=== PATIENT | female | born 1955 | race Caucasian/White ===

== ENCOUNTER 2020-10-13 08:30 | Outpatient (REF) | payer BC, SELFPAY ==
[2020-10-13 10:21] LABS: MANUAL DIFF FLAG NO
[2020-10-13 10:32] LABS: Basophils Absolute Auto 0.1 X10*3/uL (0.0-0.2); Basophils Percent Auto 0.9 % (0-2); Eosinophils Absolute Auto 0.2 X10*3/uL (0.0-0.4); Eosinophils Percent Auto 4.3 % (0-4); Hematocrit 37.1 % (37-47); Hemoglobin 12.8 g/dl (12.0-16.0); Imm Gran Abs Auto 0.03 X10*3/uL (0.00-0.03); Imm Gran Pct Auto 0.6 % (0.0-0.4); Lymphocytes Absolute Auto 2.2 X10*3/uL (1.2-4.9); Lymphocytes Percent Auto 40.3 % (20-40); Mean Corpuscular HGB Conc 34.5 g/dl (31.0-35.0); Mean Corpuscular Hemoglobin 30.3 pg (27.0-33.0); Mean Corpuscular Volume 87.7 fL (80-98); Mean Platelet Volume 8.4 fL (9.4-12.3); Monocytes Absolute Auto 0.3 X10*3/uL (0.1-1.2); Monocytes Percent Auto 6.3 % (2-11); Neutrophils Absolute Auto 2.6 X10*3/uL (2.0-8.3); Neutrophils Percent Auto 47.6 % (45-73); Platelet Count 409 X10*3/uL (160-400); Red Blood Count 4.23 X10*6/uL (4.20-5.50); White Blood Count 5.4 X10*3/uL (4.8-10.8)
[2020-10-13 11:10] LABS: Alanine Aminotransferase 22 U/L (0-31); Albumin Level 4.4 g/dL (3.5-5.0); Alkaline Phosphatase 105 U/L (39-117); Anion Gap 15 (12-20); Aspartate Amino Transferase 18 U/L (5-31); Bilirubin Total 0.5 mg/dL (0.0-1.0); Blood Urea Nitrogen 16 mg/dL (9-16); Calcium 9.2 mg/dL (8.4-10.2); Carbon Dioxide 25 mmol/L (22-29); Chloride 99 mmol/L (96-108); Cholesterol 190 mg/dL; Estimated Glomerular Filt Rate 59; Glucose Fasting 114 mg/dL (60-99); HDL Cholesterol 49 mg/dL; LDL Cholesterol Calculated 114 mg/dl; Potassium 4.3 mmol/l (3.3-5.1); Sodium 135 mmol/L (135-145); Total Protein 7.2 g/dL (6.5-8.0); Triglycerides 138 mg/dL
== END 2020-10-13 08:31 | disposition home or self-care (01) ==
LOC: HO.LAB 08:30
PROVIDERS: PCP Internal Medicine; Visit Provider Internal Medicine
DX: Z00.00 Encounter for general adult medical examination without abnormal findings (principal); E11.9 Type 2 diabetes mellitus without complications
CPT/HCPCS: 36415; 80053; 80061; 85025

== ENCOUNTER 2021-06-29 07:51 | Outpatient (REF) | payer MEDICARE, BC, SELFPAY ==
[2021-06-29 09:03] LABS: MANUAL DIFF FLAG NO
[2021-06-29 09:07] LABS: Basophils Percent Auto 0.6 % (0-2); Eosinophils Absolute Auto 0.2 X10*3/uL (0.0-0.4); Eosinophils Percent Auto 2.7 % (0-4); Hematocrit 37.3 % (37-47); Hemoglobin 12.7 g/dl (12.0-16.0); Imm Gran Abs Auto 0.05 X10*3/uL (0.00-0.03); Imm Gran Pct Auto 0.7 % (0.0-0.4); Lymphocytes Absolute Auto 2.7 X10*3/uL (1.2-4.9); Lymphocytes Percent Auto 40.4 % (20-40); Mean Corpuscular Hemoglobin 29.7 pg (27.0-33.0); Mean Corpuscular Volume 87.1 fL (80-98); Mean Platelet Volume 8.7 fL (9.4-12.3); Monocytes Absolute Auto 0.5 X10*3/uL (0.1-1.2); Monocytes Percent Auto 7.6 % (2-11); Neutrophils Absolute Auto 3.2 X10*3/uL (2.0-8.3); Platelet Count 360 X10*3/uL (160-400); Red Blood Count 4.28 X10*6/uL (4.20-5.50); Red Cell Distribution Width 13.6 % (11.0-16.0); White Blood Count 6.7 X10*3/uL (4.8-10.8)
[2021-06-29 09:25] LABS: Alanine Aminotransferase 23 U/L (0-31); Albumin Level 4.7 g/dL (3.5-5.0); Alkaline Phosphatase 95 U/L (39-117); Anion Gap 19 (12-20); Aspartate Amino Transferase 18 U/L (5-31); Bilirubin Total 0.6 mg/dL (0.0-1.0); Blood Urea Nitrogen 18 mg/dL (9-16); Calcium 10.2 mg/dL (8.4-10.2); Carbon Dioxide 19 mmol/L (22-29); Chloride 103 mmol/L (96-108); Cholesterol 205 mg/dL; Estimated Glomerular Filt Rate 46; Glucose Fasting 137 mg/dL (60-99); HDL Cholesterol 65 mg/dL; LDL Cholesterol Calculated 115 mg/dl; Potassium 4.1 mmol/L (3.3-5.1); Sodium 137 mmol/L (135-145); Total Protein 7.5 g/dL (6.5-8.0); Triglycerides 126 mg/dL
[2021-06-29 09:45] LABS: Thyroid Stimulating Hormone 3.28 uIU/mL (0.32-4.0)
== END 2021-06-29 07:52 | disposition home or self-care (01) ==
LOC: HO.LAB 07:51
PROVIDERS: PCP Internal Medicine; Visit Provider Internal Medicine
DX: Z00.00 Encounter for general adult medical examination without abnormal findings (principal); E11.9 Type 2 diabetes mellitus without complications; E03.9 Hypothyroidism, unspecified
CPT/HCPCS: 36415; 80053; 80061; 84443; 85025

== ENCOUNTER 2021-08-03 08:17 | Outpatient (REF) | payer MEDICARE, BC, SELFPAY ==
[2021-08-03 09:44] LABS: Cholesterol 198 mg/dL; HDL Cholesterol 62 mg/dL; LDL Cholesterol Calculated 107 mg/dl; Triglycerides 147 mg/dL
== END 2021-08-03 08:18 | disposition home or self-care (01) ==
LOC: HO.LAB 08:17
PROVIDERS: PCP Internal Medicine; Visit Provider Internal Medicine
DX: E11.9 Type 2 diabetes mellitus without complications (principal)
CPT/HCPCS: 36415; 80061

== ENCOUNTER 2021-08-05 10:53 | Outpatient (REF) | payer MEDICARE, BC, SELFPAY ==
--- NOTE | ~2021-08-05 | MM_ITS ---
EXAMINATION: MM SCREENING DIGITAL BREAST TOMOSYNTHESIS, BILATERAL CLINICAL INFORMATION: Screening. Asymptomatic. The lifetime risk of breast cancer based on the Tyrer-Cuzick Model is 5.1%. COMPARISON: Mammography: June 11, 2020 and studies dating back to February 14, 2013 TECHNIQUE: Digital breast tomosynthesis is performed in both the craniocaudal and mediolateral oblique views along with computer-aided detection (CAD). Synthesized 2D images are generated from the tomosynthesis. FINDINGS: There are scattered areas of fibroglandular density (ACR BI-RADS breast composition Category b). There are no significant masses, abnormal calcifications, or other abnormalities. MM/MM tomosynthesis screening BI IMPRESSION: There are no significant changes from prior study. ASSESSMENT: BI-RADS 1: Negative RECOMMENDATION: Routine annual mammography screening. This patient's information was entered into a reminder system with a target due date for their next mammogram.
== END 2021-08-05 10:54 | disposition home or self-care (01) ==
LOC: HO.MAMMO 10:53
PROVIDERS: Visit Provider Internal Medicine
DX: Z12.31 Encounter for screening mammogram for malignant neoplasm of breast (principal)
CPT/HCPCS: 77063; 77067

== ENCOUNTER 2021-10-22 07:32 | Outpatient (REF) | payer MEDICARE, BC, SELFPAY ==
[2021-10-22 09:15] LABS: Cholesterol 209 mg/dL; HDL Cholesterol 56 mg/dL; LDL Cholesterol Calculated 123 mg/dl; Triglycerides 151 mg/dL
== END 2021-10-22 07:33 | disposition home or self-care (01) ==
LOC: HO.LAB 07:32
PROVIDERS: PCP Internal Medicine; Visit Provider Internal Medicine
DX: E11.9 Type 2 diabetes mellitus without complications (principal)
CPT/HCPCS: 36415; 80061

== ENCOUNTER 2022-05-03 07:16 | Outpatient (REF) | payer MEDICARE, BC, SELFPAY ==
[2022-05-03 08:29] LABS: Estimated Average Glucose 140 mg/dL; Hemoglobin A1c % 6.5 %
[2022-05-03 08:46] LABS: Cholesterol 204 mg/dL; Glucose Fasting 131 mg/dL (60-99); HDL Cholesterol 61 mg/dL; LDL Cholesterol Calculated 115 mg/dl; Triglycerides 140 mg/dL
[2022-05-03 09:08] LABS: Thyroid Stimulating Hormone 4.47 uIU/mL (0.32-4.0)
== END 2022-05-03 07:17 | disposition home or self-care (01) ==
LOC: HO.LAB 07:16
PROVIDERS: PCP Internal Medicine; Visit Provider Internal Medicine
DX: Z00.00 Encounter for general adult medical examination without abnormal findings (principal); E11.65 Type 2 diabetes mellitus with hyperglycemia
CPT/HCPCS: 36415; 80061; 82947; 83036; 84443

== ENCOUNTER 2022-06-28 10:34 | Outpatient (REF) | payer MEDICARE, BC, SELFPAY ==
--- NOTE | ~2022-06-28 | XR_ITS ---
EXAMINATION: XR HIP, RIGHT CLINICAL INFORMATION: Pain COMPARISON: None TECHNIQUE: Two views of the right hip. FINDINGS: There is moderate to severe right hip arthritis with joint space narrowing and osteophyte formation. No fracture or dislocation or bone lesion. Soft tissues are unremarkable. There are degenerative changes of the visualized lower lumbar spine. XR/XR hip RT min 2V IMPRESSION: Moderate to severe right hip osteoarthritis.
== END 2022-06-28 10:35 | disposition home or self-care (01) ==
LOC: HO.XRAY 10:34
PROVIDERS: PCP Internal Medicine; Visit Provider Internal Medicine
DX: M25.551 Pain in right hip (principal)
CPT/HCPCS: 73502

== ENCOUNTER 2022-07-22 07:09 | Outpatient (REF) | payer MEDICARE, BC, SELFPAY ==
[2022-07-22 08:08] LABS: Cholesterol 200 mg/dL; HDL Cholesterol 62 mg/dL; LDL Cholesterol Calculated 111 mg/dl; Triglycerides 135 mg/dL
== END 2022-07-22 07:10 | disposition home or self-care (01) ==
LOC: HO.LAB 07:09
PROVIDERS: PCP Internal Medicine; Visit Provider Internal Medicine
DX: E78.5 Hyperlipidemia, unspecified (principal)
CPT/HCPCS: 36415; 80061

== ENCOUNTER 2022-08-18 10:42 | Outpatient (REF) | payer MEDICARE, BC, SELFPAY ==
--- NOTE | ~2022-08-18 | MM_ITS ---
EXAMINATION: MM SCREENING DIGITAL BREAST TOMOSYNTHESIS, BILATERAL CLINICAL INFORMATION: Screening. Asymptomatic. The lifetime risk of breast cancer based on the Tyrer-Cuzick Model is 5%. COMPARISON: Mammography: 08/05/2021, 06/11/2020, 03/01/2019 TECHNIQUE: Digital breast tomosynthesis is performed in both the craniocaudal and mediolateral oblique views along with computer-aided detection (CAD). Synthesized 2D images are generated from the tomosynthesis. Additional left MLO view is provided. FINDINGS: There are scattered areas of fibroglandular density (ACR BI-RADS breast composition Category b). There are no significant masses, abnormal calcifications, or other abnormalities. Parenchymal pattern is similar to prior studies and there is no developing density or architectural abnormality. Mild bilateral nipple retraction is a chronic finding. The axilla are unremarkable. No significant changes. MM/MM tomosynthesis screening BI IMPRESSION: No significant changes from prior exams. ASSESSMENT: BI-RADS 2: Benign RECOMMENDATION: Routine annual mammography screening. This patient's information was entered into a reminder system with a target due date for their next mammogram.
== END 2022-08-18 10:43 | disposition home or self-care (01) ==
LOC: HO.MAMMO 10:42
PROVIDERS: Visit Provider Internal Medicine
DX: Z12.31 Encounter for screening mammogram for malignant neoplasm of breast (principal)
CPT/HCPCS: 77063; 77067

== ENCOUNTER 2022-08-26 07:49 | Outpatient (REF) | payer MEDICARE, BC, SELFPAY ==
[2022-08-26 09:09] LABS: Cholesterol 189 mg/dL; HDL Cholesterol 63 mg/dL; LDL Cholesterol Calculated 103 mg/dl; Triglycerides 117 mg/dL
== END 2022-08-26 07:50 | disposition home or self-care (01) ==
LOC: HO.LAB 07:49
PROVIDERS: PCP Internal Medicine; Visit Provider Internal Medicine
DX: E78.5 Hyperlipidemia, unspecified (principal)
CPT/HCPCS: 36415; 80061

== ENCOUNTER → 2022-10-28 10:50 | Outpatient (BNVA) | payer MEDICARE, BC, SELFPAY | PROVIDERS: PCP Internal Medicine; Visit Provider Orthopaedic Surgery | DX: M16.11 Unilateral primary osteoarthritis, right hip (principal) | CPT/HCPCS: 99202 ==

== ENCOUNTER 2022-12-04 08:13 | Outpatient (REF) | payer MEDICARE, BC, SELFPAY ==
[2022-12-04 08:42] LABS: MANUAL DIFF FLAG NO
[2022-12-04 09:18] LABS: Basophils Percent Auto 0.7 % (0-2); Eosinophils Absolute Auto 0.2 X10*3/uL (0.0-0.4); Eosinophils Percent Auto 2.9 % (0-4); Hematocrit 35.7 % (37.0-47.0); Hemoglobin 12.5 g/dl (12.0-16.0); Imm Gran Abs Auto 0.05 X10*3/uL (0.00-0.03); Imm Gran Pct Auto 0.8 % (0.0-0.4); Lymphocytes Percent Auto 34.3 % (20-40); Mean Corpuscular Hemoglobin 30.6 pg (27.0-33.0); Mean Corpuscular Volume 87.5 fL (80.0-98.0); Mean Platelet Volume 8.5 fL (9.4-12.3); Monocytes Absolute Auto 0.5 X10*3/uL (0.1-1.2); Monocytes Percent Auto 8.3 % (2-11); Neutrophils Absolute Auto 3.1 x10*3/uL (2.0-8.3); Platelet Count 349 X10*3/uL (160-400); Red Blood Count 4.08 X10*6/uL (4.20-5.50); White Blood Count 5.9 X10*3/uL (4.8-10.8)
[2022-12-04 09:28] LABS: Estimated Average Glucose 143 mg/dL; Hemoglobin A1c % 6.6 %
[2022-12-04 10:02] LABS: Alanine Aminotransferase 24 U/L (0-31); Albumin Level 4.4 g/dL (3.5-5.0); Alkaline Phosphatase 100 U/L (39-117); Anion Gap 16 (12-20); Aspartate Amino Transferase 19 U/L (5-31); Bilirubin Total 0.7 mg/dL (0.0-1.0); Blood Urea Nitrogen 16 mg/dL (9-16); Calcium 9.8 mg/dL (8.4-10.2); Carbon Dioxide 24 mmol/L (22-29); Chloride 100 mmol/L (96-108); Cholesterol 203 mg/dL; Estimated Glomerular Filt Rate 55; Glucose Fasting 141 mg/dL (60-99); HDL Cholesterol 58 mg/dL; LDL Cholesterol Calculated 120 mg/dl; Potassium 4.1 mmol/L (3.3-5.1); Sodium 136 mmol/L (135-145); Total Protein 7.1 g/dL (6.5-8.0); Triglycerides 126 mg/dL
== END 2022-12-04 08:14 | disposition home or self-care (01) ==
LOC: HO.LAB 08:13
PROVIDERS: PCP Internal Medicine; Visit Provider Internal Medicine
DX: R73.9 Hyperglycemia, unspecified (principal); E78.5 Hyperlipidemia, unspecified; N28.9 Disorder of kidney and ureter, unspecified; D64.9 Anemia, unspecified; E03.9 Hypothyroidism, unspecified
CPT/HCPCS: 36415; 80053; 80061; 83036; 84443; 85025

== ENCOUNTER → 2022-12-31 11:44 | Outpatient (BNVA) | payer MEDICARE, BC, SELFPAY | PROVIDERS: PCP Internal Medicine; Visit Provider Orthopaedic Surgery | DX: Z13.89 Encounter for screening for other disorder (principal) ==

== ENCOUNTER 2023-01-27 05:52 | Outpatient (REF) | payer MEDICARE, BC, SELFPAY ==
--- NOTE | ~2023-01-27 | XR_ITS ---
EXAMINATION: XR PELVIS CLINICAL INFORMATION: Hip pain. COMPARISON: None available. TECHNIQUE: AP view of the pelvis. FINDINGS: There is bony demineralization. There is marked narrowing of the right acetabular joint space, most pronounced superiorly and inferiorly. There is exuberant peripheral osteophyte formation of the articular surfaces of the right hip. There is mild narrowing of the left acetabular joint space, with subchondral sclerosis and peripheral osteophyte formation. The femoral heads appear smooth. There is no fracture or dislocation. The sacroiliac joints are symmetric and well-maintained. The pubic symphysis is intact. No foreign body is seen. There are incompletely characterized degenerative changes of the lower lumbar spine. XR/XR pelvis 1-2V IMPRESSION: 1. There is marked osteoarthritic change of the right hip, and mild osteoarthritic change is seen of the left hip. 2. No fracture or dislocation is seen.
== END 2023-01-27 05:53 | disposition home or self-care (01) ==
LOC: HO.HOSX 05:52
PROVIDERS: Visit Provider Physician Assistant
DX: M16.11 Unilateral primary osteoarthritis, right hip (principal)
CPT/HCPCS: 72170; 99212

== ENCOUNTER 2023-02-01 09:33 | Inpatient (IN) | payer MEDICARE, BC, SELFPAY ==
[2023-01-25 08:59] VITALS: BMI 32.3
--- NOTE | 2023-01-27 | ECG_ITS ---
Test Reason : preop Blood Pressure : / mmHG Vent. Rate : 083 BPM Atrial Rate : 083 BPM P-R Int : 184 ms QRS Dur : 088 ms QT Int : 380 ms P-R-T Axes : 074 -33 059 degrees QTc Int : 446 ms Normal sinus rhythm Left axis deviation Possible Anterior infarct , age undetermined Abnormal ECG No previous ECGs available Referred By: Grady Egan Electronically Signed By:García Munguia
[2023-01-27 11:38] VITALS: BP 126/72; PULSE 89; RESP 20; O2SAT 97
--- NOTE | 2023-01-27 12:08 | HO.ANESPROP2 ---
Documented by User: Nargis Marquez NP 01/31/23 08:49 HPI - Anesthesia Eval Consult details Narrative: 67yo F for Right Hip Total Replacement PCP cleared [facility] Active Problems Active Problems: All Active Problems (Updated 01/27/23 @ 11:56 by Trang Garcia RN) Encounter for annual wellness visit (AWV) in Medicare patient (Acute) Hyperlipidemia (Acute) Arthritis, hip (Acute) Osteoarthritis of right hip (Acute) Preop exam for internal medicine (Acute) Obesity (Acute) Hypertension (Acute) Past Medical History Medical History Arthritis Depression History of gestational diabetes Hypertension Obesity HERBERT (stress urinary incontinence, female) Family History Family History Father No problems noted. Mother No problems noted. Family/Other Heart failure Diabetes CHF (congestive heart failure) Surgical History Surgical History H/O tooth extraction History of section History of removal of cyst Status post surgical removal of nail matrix of toe Social History Social History Housing: House Housing Other:: mobile home Are you a primary overnight caregiver to a significant other at home: No Do you presently have visiting nurse or other home services: No Alcohol intake: current Alcohol intake frequency: holidays/special occasions only Patient Tobacco Use Status: Never used Tobacco e-Cigarette/Vaping Use: Never Used Second Hand Smoke Exposure: No Use of substances other than those prescribed or required for medical reasons: No Have you been hit, kicked, punched, or otherwise hurt by someone within the past year? If so, by whom?: No Are you DNR?: No Advance Directives: No (daughter is primary contact- recently ) Advance Directives Information Provided: Yes (brochure given) Advance Directives on File: No (no official form-daughter knows her wishes) Recently lost weight without trying: No Eating poorly because of decreased appetite: No Nutrition Risks: No Nutritional Risk Poor oral hygiene: No (upper & lower full denture) service: No Current occupational status: retired Current occupational exposures/hazards: No Cognitive needs: No Hearing needs: No Vision needs: Yes Narrative Narrative: No recent No CP/SOB within limits of pain Meds Allergies Allergy/AdvReac Type Severity Reaction Status Date / Time guaifenesin [From MUCINEX] Allergy Unknown SWELLING Verified 01/10/23 14:23 Exam Exam Date and Time: January 27, 2023 1208 Height,Weight and Vital Signs: Height 4 ft 10 in Weight 70.307 kg Last Vital Signs Pulse 89 01/27/23 11:38 Resp 20 01/27/23 11:38 BP 126/72 01/27/23 11:38 Pulse Ox 97 01/27/23 11:38 O2 Del Method 01/27/23 11:38 Pertinent Lab Results Pertinent Lab Results: Laboratory Tests 12/04/22 12/04/22 08:40 08:40 WBC 5.9 Hgb 12.5 Hct 35.7 L Plt Count 349 Sodium 136 Potassium 4.1 Chloride 100 Carbon Dioxide 24 BUN 16 Creatinine 1.01 Narrative Narrative: EKG 01/2023 Vent. Rate : 083 BPM ? ? Atrial Rate : 083 BPM ?? P-R Int : 184 ms? QRS Dur : 088 ms ? ? QT Int : 380 ms ? ? ? P-R-T Axes : 074 -33 059 degrees ?? QTc Int : 446 ms ? Normal sinus rhythm Left axis deviation Possible Anterior infarct , age undetermined Abnormal ECG No previous ECGs available Airway Mallampati Class: III TM Dist: >3cm Neck ROM: Full Denture: Upper and Lower Heart: RRR Lungs: CTAB Assessment and Plan Assessment Anesthesia Assessment: Anesthesia Plan Discussed and PAT Visit Documented by User: Ida Ortega MD 02/01/23 11:58 PMFSH Past Medical History Medical History Arthritis Depression History of gestational diabetes Hypertension Obesity HERBERT (stress urinary incontinence, female) Family History Family History Father No problems noted. Mother No problems noted. Family/Other Heart failure Diabetes CHF (congestive heart failure) Surgical History Surgical History H/O tooth extraction History of section History of removal of cyst Status post surgical removal of nail matrix of toe History of Problems with Anesthesia: No Social History Social History Housing: House Housing Other:: mobile home Are you a primary overnight caregiver to a significant other at home: No Do you presently have visiting nurse or other home services: No Alcohol intake: current Alcohol intake frequency: holidays/special occasions only Patient Tobacco Use Status: Never used Tobacco e-Cigarette/Vaping Use: Never Used Second Hand Smoke Exposure: No Use of substances other than those prescribed or required for medical reasons: No Have you been hit, kicked, punched, or otherwise hurt by someone within the past year? If so, by whom?: No Are you DNR?: No Advance Directives: No (daughter is primary contact- recently ) Advance Directives Information Provided: Yes (brochure given) Advance Directives on File: No (no official form-daughter knows her wishes) Recently lost weight without trying: No Eating poorly because of decreased appetite: No Nutrition Risks: No Nutritional Risk Poor oral hygiene: No (upper & lower full denture) service: No Current occupational status: retired Current occupational exposures/hazards: No Cognitive needs: No Hearing needs: No Vision needs: Yes Meds Allergies Allergy/AdvReac Type Severity Reaction Status Date / Time guaifenesin [From MUCINEX] Allergy Unknown SWELLING Verified 01/10/23 14:23 Exam Airway Mallampati Class: I Assessment and Plan Assessment Anesthesia Assessment: Chart Reviewed Final Anesthetic Review History of Problems with Anesthesia: No NPO: Yes ASA Class: III Final Preanesthetic Review: No Changes in Pt Med Stat, Meds/Allgs Chart Reviewed, Consent Obtained/Reviewed and Anes Risks/Benef Reviewed Patient Risk: Intermediate Procedure Risk: Intermediate Anesthetic Plan Anesthetic Plan: GA Disposition: Standard PACU
[2023-01-27 16:39] LABS: MRSA Nasal PCR NEGATIVE (Negative); SA Nasal PCR NEGATIVE (Negative)
[2023-02-01] VITALS (13 sets, daily range): BP systolic 117–176; BP diastolic 63–94; PULSE 69–100; RESP 10–16; TEMP 36–37.1; O2SAT 96–100
--- NOTE | ~2023-02-01 | XR_ITS ---
EXAMINATION: XR PELVIS CLINICAL INFORMATION: Postop right hip. COMPARISON: Pelvic x-rays 01/27/2023 TECHNIQUE: AP view of the pelvis. FINDINGS: Right total hip arthroplasty hardware is in place with 2 acetabular fixation screws. The hardware is in appropriate position. There is no evidence of associated acute osseous fracture. Bilateral sacroiliac joints, symphysis pubis and left hip joints are intact. [id number] osteoarthritic changes are noted at the left hip. Cutaneous shreya are noted overlying the lateral aspect of the right hip. Expected postsurgical soft tissue edema and air are seen in the right hip. XR/XR pelvis 1-2V IMPRESSION: Expected postsurgical changes of right total hip arthroplasty with hardware appears to be in appropriate position and there is no evidence of acute osseous fracture.
--- NOTE | 2023-02-01 09:42 | PHA.MEDREC ---
Pharmacy Consult ? Medication Reconciliation Pharmacy has reviewed the medication reconciliation completed by nursing.
[2023-02-01] MEDS: oxyCODONE HCl ER 10 MG TAB.ER.12H PO ×2 (09:55→21:26)
[2023-02-01 10:22] LABS: COVID-19 Test Negative (Negative); IDNOW Serial# 08D9AD1C
[2023-02-01] MEDS: Lactated Ringers 1,000 ML 100 ML IVCONT ×2 (10:30→16:58)
--- NOTE | 2023-02-01 10:58 | MHC.SHP ---
Pre-Procedural Eval Section A Date of Service: 02/01/23 The patient is an INPATIENT: No Changes since office visit: No Cold of Flu in the past 2 weeks, No New Medical Problems, No Changes in Medication and No Patient answered all questions The History & Physical has been completed within 30 days and I have reviewed it.: Yes Section B Chief Complaint: RT DAVE Allergies: Allergies Allergy/AdvReac Type Severity Reaction Status Date / Time guaifenesin [From MUCINEX] Allergy Unknown SWELLING Verified 01/10/23 14:23 Plan I have reviewed the history and physical and performed a pertinent physical examination on my patient. No changes have occurred unless specified. Time Spent With Patient Time: Total time managing care of this patient today ____ minutes.
--- NOTE | 2023-02-01 12:32 | PM.OP ---
Brief Operative Note Date of Service: 02/01/23 Pre-op diagnosis: Left hip OA Post-op diagnosis: same Procedure: Left DAVE Implants: [place] Trident2 48 [place] Accolade2 #3 127 deg/ +7.5 36 ceramic femoral head Surgeon: Blaine Page MD Anesthesia: GETA and local Was an Batch Heat Treat Operator used for this Procedure?: Yes Batch Heat Treat Operator: Grady Egan Estimated blood loss (mL): 200 IV fluids (mL): 1,000 Pathology: other Condition: stable Disposition: PACU
--- NOTE | 2023-02-01 12:40 | W.PM.OPN ---
Operative Note Operative Note Date of Service: 02/01/23 Narrative: Date of Service: 02/01/23 Pre-op diagnosis: Left hip OA Post-op diagnosis: same Procedure: Left DAVE Implants: [place] Trident2 48 [place] Accolade2 #3 127 deg/ +7.5 36 ceramic femoral head Surgeon: Blaine Page MD Anesthesia: GETA and local Was an Premium Cancellation Clerk used for this Procedure?: Yes Premium Cancellation Clerk: Grady Egan Estimated blood loss (mL): 200 IV fluids (mL): 1,000 Pathology: other Condition: stable Disposition: PACU Procedure in detail: Patient was brought into the operating room and placed in the right lateral decubitus position. All bony prominences were well padded and the limb was prepped and draped in standard sterile fashion. A time-out was called to identify proper site procedure proper surgeon IV antibiotics and 1 g of transaxemic acid were administered. I began by making a curvilinear incision over the posterolateral aspect of the greater trochanter. Dissection was taken down to the tensor fascia which was incised in line with the incision and a Charnley retractor was placed. Cautery was used to maintain hemostasis. The hip was internally rotated and the external rotators were identified. The vessels were cauterized and a full-thickness capsular/external rotator layer was developed starting just proximal to the piriformis. This layer was tagged and a dull Hohmann retractor was placed underneath the neck in the hip was dislocated. A neck cut was made 1 cm proximal to the lesser trochanter and the head and neck were removed and measured 44mm on the back table. It was eburnated and deformed. I placed my anterior and posterior acetabular retractors. I then removed the labrum and cauterized the fovea. I started with a 40 reamer and medialized to the inner table. I sequentially reamed up to a size 53 and impacted a 54mm cup at 45 degrees of inclination and 25 degrees of version. She has a diminutive superior wall and so 2 acetabular screws were placed using standard AO technique. I then placed a neutral liner and turned my attention to the femur. I identified the piriformis insertion and used this as a starting point for my sowmya cutter. The medius tendon was protected with a Hibs retractor. A Charnley awl was inserted in the canal and a curved curette used to remove the lateral bone. I irrigated copiously. I then sequentially broached in the patient's natural version to a size 5 and placed my trial implants. I used a #3/127/+5 based on my pre-operative template. Using a trail head I took the hip through range of motion. I was satisfied with the stability but the neck cut was low with a good fit of the implants and so I elected to placea 7.5/ 36 head. I removed all instrumentation and copiously irrigated. I placed my final femoral implant and again took the hip through range of motion and was satisfied with the stability and length. The final 7.5 implant was impacted in place and the hip reduced. I then irrigated for 3 minutes with iodine and placed 1 g of local transaxemic acid. I performed a capsular closure with 2.0 fiberwire, Vasquez's fascia with 0 Vicryl, subcuticular with 2-0 Vicryl and the skin with shreya. Patient was placed into a sterile dressing. Patient was extubated brought to the recovery room in stable condition. There were no known complications.
--- NOTE | 2023-02-01 15:12 | P.CONHOSP_ITS ---
History of Present Illness Data of Consult Service Date: 02/01/23 Requesting physician: Blaine Page Primary Care Provider: Isidro Masy MD HPI 67-year-old woman with history of hypertension admitted by Orthopedic surgery and is status post left total arthroplasty. Patient is in PACU, denies pain, shortness breath, chest pain, nausea, vomiting, diarrhea. She has been able to drink without any difficulties her vital signs are stable. She is resting comfortably in bed. Review of Systems Review of Systems: Denies any recent fever chills or decrease in appetite respiratory denies any shortness of breath coverage production cardiovascular denies chest pain gastrointestinal denies any dysphagia abdominal pain nausea vomiting or diarrhea genitourinary denies any dysuria frequency or hematuria musculoskeletal denies any joint pain or swelling neuropsych denies any weakness or seizures all other systems reviewed are negative [facility] Medical History Arthritis Depression History of gestational diabetes Hypertension Obesity HERBERT (stress urinary incontinence, female) Family History Father No problems noted. Mother No problems noted. Family/Other Heart failure Diabetes CHF (congestive heart failure) Surgical History H/O tooth extraction History of section History of removal of cyst Status post surgical removal of nail matrix of toe Social History Housing: House Housing Other:: mobile home Are you a primary patient care provider to a significant other at home: No Do you presently have visiting nurse or other home services: No Alcohol intake: current Alcohol intake frequency: holidays/special occasions only Patient Tobacco Use Status: Never used Tobacco e-Cigarette/Vaping Use: Never Used Second Hand Smoke Exposure: No Use of substances other than those prescribed or required for medical reasons: No Have you been hit, kicked, punched, or otherwise hurt by someone within the past year? If so, by whom?: No Are you DNR?: No Advance Directives: No (daughter is primary contact- recently ) Advance Directives Information Provided: Yes (brochure given) Advance Directives on File: No (no official form-daughter knows her wishes) Recently lost weight without trying: No Eating poorly because of decreased appetite: No Nutrition Risks: No Nutritional Risk Poor oral hygiene: No (upper & lower full denture) service: No Current occupational status: retired Current occupational exposures/hazards: No Cognitive needs: No Hearing needs: No Vision needs: Yes Meds Allergies Allergy/AdvReac Type Severity Reaction Status Date / Time guaifenesin [From MUCINEX] Allergy Unknown SWELLING Verified 01/10/23 14:23 Active Medications: Current Medications Acetaminophen (Acetaminophen 325 Mg Tablet) 650 mg PO Q6H PRN PRN Reason: Pain, Mild (Pain Scale 1-3) Aspirin (Aspirin 325 Mg Tablet) 325 mg PO BID THADDEUS Celecoxib (Celecoxib 200 Mg Capsule) 200 mg PO BID THADDEUS Docusate Sodium (Docusate Sodium 100 Mg Capsule) 100 mg PO BID THADDEUS Hydromorphone HCl (Hydromorphone Hcl 0.5 Mg/0.5 Ml Syringe) 0.25 mg IVPUSH Q4H PRN; Protocol PRN Reason: Pain, Severe (Pain Scale 7-10) Lactated Ringer's (Lr) 1,000 mls @ 100 mls/hr IVCONT .Q10H THADDEUS Stop: 02/02/23 14:59 Cefazolin Sodium/Dextrose (Ancef) 2 gm in 50 mls @ 100 mls/hr IV POSTOP ONE Stop: 02/01/23 17:29 Ondansetron HCl (Ondansetron Hcl 4 Mg/2 Ml Vial) 4 mg IVPUSH Q8H PRN PRN Reason: Nausea and Vomiting Oxycodone HCl (Oxycodone Hcl Immed Release 5 Mg Tablet) 5 mg PO Q4H PRN PRN Reason: Pain, Moderate (Pain Scale 4-6 Oxycodone HCl (Oxycodone Hcl Er 10 Mg Tab.Er.12h) 10 mg PO BID [facility] Sodium Chloride (0.9 % Sodium Chloride Flush 3 Ml Syringe) 3 ml IVFLUSH QSHIFT [facility] Physical Exam Vital Signs and Narrative: Vital Signs: Last Vital Signs Temp 97.5 F 02/01/23 15:00 Pulse 79 02/01/23 15:00 Resp 14 02/01/23 15:00 BP 176/94 H 02/01/23 15:00 Pulse Ox 99 02/01/23 15:00 O2 Del Method 03/21/23 15:00 O2 Flow Rate 2 02/01/23 15:00 BMI result Body Mass Index 32.3 Appearing in no acute distress head is normocephalic atraumatic eyes pupils are PERRLA sclera is anicteric mouth throat mucous membranes are intact and moist neck is supple no lymphadenopathy, no JVD noted lung sounds are clear to auscultation heart regular rate rhythm, clear S1, S2 positive bowel sounds, abdomen is soft, nontender neuro patient is alert x3, no focal deficits Results Labs Labs: Laboratory Results - last 24 hr 02/01/23 09:57 COVID-19 ([facility]) Negative COVID-19 Clin Com See Note Assessment and Plan (1) Osteoarthritis of right hip: Status: Acute Plan 67 year old women admitted by orthopedic surgery and is s/p LTHA LTHA management as per surgical team pain management HTN elevated BP continue home medications HLD hold statin DVT prophylaxis with as per admitting provider Attending Dr. Banks full code Medical consultation complete. Will sign off. Time Spent With Patient Time: Total time managing care of this patient today ____ minutes.
[2023-02-01] MEDS: 0.9 % Sodium Chloride Flush 3 ML SYRINGE IVFLUSH (16:58)
[2023-02-01] MEDS: ondansetron HCL 4 MG/2 ML VIAL IVPUSH (17:16)
[2023-02-01] MEDS: lisinopriL 10 MG TABLET PO (17:16)
[2023-02-01] MEDS: ceFAZolin Sodium/Dextrose,Iso 2 GM/50 ML PIGGYBACK IV (17:17)
[2023-02-01] MEDS: Celecoxib 200 MG CAPSULE PO (21:26)
[2023-02-01] MEDS: Docusate Sodium 100 MG CAPSULE PO (21:26)
[2023-02-02] MEDS: Lactated Ringers 1,000 ML 100 ML IVCONT ×2 (03:05→11:29)
[2023-02-02 04:00] VITALS: BP 116/56; PULSE 83; RESP 18; TEMP 37.3; O2SAT 95
[2023-02-02 06:55] LABS: MANUAL DIFF FLAG NO
[2023-02-02 06:58] LABS: Basophils Percent Auto 0.2 % (0-2); Hematocrit 29.8 % (37.0-47.0); Imm Gran Abs Auto 0.03 X10*3/uL (0.00-0.03); Imm Gran Pct Auto 0.3 % (0.0-0.4); Lymphocytes Absolute Auto 1.3 X10*3/uL (1.2-4.9); Lymphocytes Percent Auto 12.4 % (20-40); Mean Corpuscular HGB Conc 33.6 g/dl (31.0-35.0); Mean Corpuscular Hemoglobin 29.9 pg (27.0-33.0); Mean Corpuscular Volume 89.2 fL (80.0-98.0); Mean Platelet Volume 8.4 fL (9.4-12.3); Monocytes Absolute Auto 1.3 X10*3/uL (0.1-1.2); Monocytes Percent Auto 12.3 % (2-11); Neutrophils Absolute Auto 7.7 x10*3/uL (2.0-8.3); Neutrophils Percent Auto 74.8 % (45-73); Platelet Count 287 X10*3/uL (160-400); Red Blood Count 3.34 X10*6/uL (4.20-5.50); Red Cell Distribution Width 13.6 % (11.0-16.0); White Blood Count 10.3 X10*3/uL (4.8-10.8)
--- NOTE | 2023-02-02 07:08 | PM.PNORT ---
Subjective Subjective Date of Service: 02/02/23 Interval history: POD1 s/p RTHA. No overnight events. Patient is resting in bed comfortably. Pain is managed. No additional complaints. Physical Exam Vital Signs: Vital Signs: Last Vital Signs Temp 99.1 F 02/02/23 04:00 Pulse 83 02/02/23 04:00 Resp 18 02/02/23 04:00 BP 116/56 L 02/02/23 04:00 Pulse Ox 95 02/02/23 04:00 O2 Del Method 02/02/23 04:00 O2 Flow Rate 2 02/01/23 16:18 BMI result Body Mass Index 32.3 Const: General: cooperative, healthy appearing and no acute distress Resp: Effort & Inspection: normal respiratory effort and able to speak in complete sentences Cardio: Rate: regular rate Peripheral pulses: Peripheral pulses 2+ throughout GI: Palpation (GI): Soft to palpation Skin: Lesions: no lesions Rashes: no rashes Extrem: Other: Rt hip Aquacel is c/d/i. Able to dorsiflex and plantarflex. NVI. Procedures Date of Service Date of Service: 02/02/23 Progress Note: A&P Assessment and plan (1) Status post total hip replacement, right: Status: Acute Plan Continue pain mgmnt Begin ASA for dvt ppx begin PT for RTHA Dispo planning-Pending PT eval, pain mgmnt Time Spent With Patient Time: Total time managing care of this patient today ____ minutes. Quality Stroke Does the patient have a stroke diagnosis?: No VTE Prior VTE?: No VTE Risk Level:: Medical - moderate - high VTE Device Contraindication: N/A - Device Ordered VTE Drug Contraindication: N/A - Med Ordered
[2023-02-02 07:15] VITALS: BP 122/58; PULSE 72; RESP 18; TEMP 37.7; O2SAT 96
[2023-02-02 07:15] LABS: Anion Gap 14 (12-20); Blood Urea Nitrogen 16 mg/dL (9-16); Calcium 8.7 mg/dL (8.4-10.2); Carbon Dioxide 24 mmol/L (22-29); Chloride 103 mmol/L (96-108); Creatinine Clr Calc Pharmacy 54.1; Estimated Glomerular Filt Rate > 60; Glucose Fasting 160 mg/dL (60-99); Potassium 4.4 mmol/L (3.3-5.1); Sodium 137 mmol/L (135-145)
--- NOTE | 2023-02-02 07:41 | HO.POSTANES ---
Post Anesthesia Evaluation Post Anesthesia Evaluation Vital Signs: Vital Signs Temp Pulse Resp BP Pulse Ox O2 Del Method 02/02/23 07:15 99.8 F 72 18 122/58 L 96 Room Air 02/02/23 04:00 99.1 F 83 18 116/56 L 95 Room Air 02/01/23 19:54 98.8 F 98 14 117/70 97 Room Air Anesthesia: General Mental Status: Awake Pain Control: Satisfactory Nausea/Vomiting: None Hydration: Adequate Anesthesia-Related Issues: No Anes. Related Issues
[2023-02-02] MEDS: lisinopriL 10 MG TABLET PO (08:32)
[2023-02-02] MEDS: Docusate Sodium 100 MG CAPSULE PO ×2 (08:32→22:08)
[2023-02-02] MEDS: oxyCODONE HCl ER 10 MG TAB.ER.12H PO ×2 (08:32→20:05)
[2023-02-02] MEDS: Celecoxib 200 MG CAPSULE PO ×2 (08:32→20:05)
[2023-02-02] MEDS: 0.9 % Sodium Chloride Flush 3 ML SYRINGE IVFLUSH ×2 (08:33→22:08)
--- NOTE | 2023-02-02 09:23 | MHC.CM.PN ---
PATIENT LIVES ALONE. SHE HAS A CANE AND A ROLLATOR. NO HCP ON FILE. SHE IS AWARE THAT CASE MANAGEMENT CAN ASSIST IF SHE CHOOSES TO COMPLETE ONE, BUT CURRENTLY DENIES PLAN IS HOME TOMORROW WITH [facility]. IMM 02/02 IN CHART
[2023-02-02] MEDS: Aspirin 325 MG TABLET PO ×2 (11:27→20:05)
[2023-02-02] MEDS: oxyCODONE HCl Immed Release 5 MG TABLET PO (11:36)
[2023-02-02 15:51] VITALS: BP 116/54; PULSE 88; RESP 18; TEMP 37.1; O2SAT 96
[2023-02-02 20:00] VITALS: BP 116/54; PULSE 81; RESP 18; TEMP 36.9; O2SAT 95
[2023-02-03 03:14] VITALS: BP 133/60; PULSE 90; RESP 17; TEMP 36.6; O2SAT 96
[2023-02-03 06:55] LABS: MANUAL DIFF FLAG NO
[2023-02-03 07:02] LABS: Basophils Percent Auto 0.3 % (0-2); Eosinophils Percent Auto 0.4 % (0-4); Hematocrit 27.5 % (37.0-47.0); Hemoglobin 9.3 g/dl (12.0-16.0); Imm Gran Abs Auto 0.05 X10*3/uL (0.00-0.03); Imm Gran Pct Auto 0.5 % (0.0-0.4); Lymphocytes Absolute Auto 1.7 X10*3/uL (1.2-4.9); Lymphocytes Percent Auto 18.6 % (20-40); Mean Corpuscular HGB Conc 33.8 g/dl (31.0-35.0); Mean Corpuscular Hemoglobin 30.3 pg (27.0-33.0); Mean Corpuscular Volume 89.6 fL (80.0-98.0); Mean Platelet Volume 8.4 fL (9.4-12.3); Monocytes Percent Auto 10.5 % (2-11); Neutrophils Absolute Auto 6.5 x10*3/uL (2.0-8.3); Neutrophils Percent Auto 69.7 % (45-73); Platelet Count 248 X10*3/uL (160-400); Red Blood Count 3.07 X10*6/uL (4.20-5.50); Red Cell Distribution Width 13.9 % (11.0-16.0); White Blood Count 9.3 X10*3/uL (4.8-10.8)
[2023-02-03 07:17] LABS: Anion Gap 12 (12-20); Blood Urea Nitrogen 15 mg/dL (9-16); Calcium 8.7 mg/dL (8.4-10.2); Carbon Dioxide 26 mmol/L (22-29); Chloride 104 mmol/L (96-108); Creatinine Clr Calc Pharmacy 59.7; Estimated Glomerular Filt Rate > 60; Glucose Fasting 133 mg/dL (60-99); Potassium 4.1 mmol/L (3.3-5.1); Sodium 138 mmol/L (135-145)
[2023-02-03 07:31] VITALS: BP 126/58; PULSE 86; RESP 17; TEMP 37.1; O2SAT 96
[2023-02-03] MEDS: Aspirin 325 MG TABLET PO (08:34)
[2023-02-03] MEDS: Docusate Sodium 100 MG CAPSULE PO (08:34)
[2023-02-03] MEDS: Celecoxib 200 MG CAPSULE PO (08:34)
[2023-02-03] MEDS: 0.9 % Sodium Chloride Flush 3 ML SYRINGE IVFLUSH (08:35)
[2023-02-03] MEDS: lisinopriL 10 MG TABLET PO (08:35)
[2023-02-03] MEDS: oxyCODONE HCl ER 10 MG TAB.ER.12H PO (08:35)
[2023-02-03 09:50] VITALS: BP 126/58; PULSE 86; O2SAT 96
--- NOTE | 2023-02-03 10:45 | PM.DS ---
DS: Providers Provider Date of Service: 02/03/23 Date of admission: 02/01/23 09:33 Primary care physician: Isidro Mays MD Consults: 02/01/23 15:00 Consult to Hospitalist Routine Consulting Provider: Hospitalist Reason For Exam: htn DS: Diagnosis Discharge Diagnosis (1) Status post total hip replacement, right: Status: Acute DS: Summary Hospital Course Hospital Course: The patient underwent a successful right total hip arthroplasty on 02/01/23, was transferred to PACU and then to the floor to recover. During their stay, their vitals were stable, afebrile at 98.7. Labs were unremarkable, H/H 9.3/27.5. POD 1 he was started on Aspiring 325mg tabs po bid for DVT ppx, they also received Physical Therapy and occupational therapy services twice a day. Physical therapy should include gait training, ROM to tolerance and strengthening. She is WBAT. Posterior precautions inplace. Prior to discharge, his dressing was changed, incision clean dry and intact, new Aquacel dressing applied. The Aquacel dressing shoulder remain intact and dry at all times. Any concerns with the dressing, please contact orthopedic office. No showering. The plan is to be discharged home with VNA services. Time Spent with Patient Time attestation: Total time managing care of this patient today ____ minutes. Discharge coordination time: Less than 30 minutes Quality: Safe Use of Opioids Does Pt have an Active Cancer Diagnosis on the Problem List?: No Quality: Stroke Does the patient have a stroke diagnosis?: No Physical Exam Vital Signs: Vital Signs: Last Vital Signs Temp 98.7 F 02/03/23 07:31 Pulse 86 02/03/23 09:50 Resp 17 02/03/23 07:31 BP 126/58 L 02/03/23 09:50 Pulse Ox 96 02/03/23 09:50 O2 Del Method Room Air 02/03/23 07:31 O2 Flow Rate 2 02/01/23 16:18 BMI result Body Mass Index 32.3 Const: General: cooperative, healthy appearing and no acute distress Resp: Effort & Inspection: normal respiratory effort and able to speak in complete sentences Cardio: Rate: regular rate Peripheral pulses: Peripheral pulses 2+ throughout GI: Palpation (GI): Soft to palpation Skin: Lesions: no lesions Rashes: no rashes Extrem: Other: Rt hip Aquacel is c/d/i. Able to dorsiflex and plantarflex. NVI. DS: Data Data Completed and Pending Pending studies at discharge: Pending at discharge 02/01/23 12:19 Surgical [PTH] Routine Labs on day of discharge: Laboratory Results - last 24 hr 02/03/23 02/03/23 05:50 05:50 WBC 9.3 RBC 3.07 L Hgb 9.3 L Hct 27.5 L MCV 89.6 MCH 30.3 MCHC 33.8 RDW 13.9 Plt Count 248 MPV 8.4 L Immature Gran % (Auto) 0.5 H Neut % (Auto) 69.7 Lymph % (Auto) 18.6 L [place] % (Auto) 10.5 Eos % (Auto) 0.4 Baso % (Auto) 0.3 Lymph # (Auto) 1.7 [place] # (Auto) 1.0 Eos # (Auto) 0.0 Baso # (Auto) 0.0 Abs Immat Gran (auto) 0.05 H Absolute Neuts (auto) 6.5 Absolute Nucleated RBC 0.000 Nucleated RBC % (auto) 0.0 Sodium 138 Potassium 4.1 Chloride 104 Carbon Dioxide 26 Anion Gap 12 BUN 15 Creatinine 0.77 Estim Creat Clear Calc 59.7 Estimated GFR > 60 Fasting Glucose 133 H Calcium 8.7 Discharge Plan Discharge Anticipated Discharge Date/Time: 02/03/23 10:40 Patient Disposition: Home Health Service Discharge Diagnosis: s/p RT DAVE Referrals: Grady Egan PA-C [Phys[facility] [employer]] - 2 Weeks (02/17/23 1:00 [facility] Grady Egan PA-C) Discharge Medications: New docusate sodium 100 mg Capsule 100 mg PO BID 14 Days Qty: 28 0RF celecoxib 200 mg Capsule 200 mg PO BID 14 Days Qty: 28 0RF oxycodone 5 mg Tablet 5 mg PO Q4H PRN (Reason: Pain, Moderate (Pain Scale 4-6) 7 Days Qty: 42 0RF Rx Instructions: Partial Fill upon patient request. aspirin 325 mg Tablet 325 mg PO BID 42 Days Qty: 84 0RF acetaminophen 325 mg Tablet 650 mg PO Q6H PRN (Reason: Pain, Mild (Pain Scale 1-3)) 30 Days Qty: 240 0RF Continued atorvastatin 40 mg tablet 40 mg PO DAILY Qty: 90 8RF hydrochlorothiazide 25 mg tablet 25 mg PO DAILY Qty: 90 8RF lisinopril 10 mg tablet 10 mg PO DAILY Qty: 90 8RF clotrimazole-betamethasone 1-0.05 % cream 1 appl topical BID 14 Days Qty: 45 4RF Discharge Orders: Discharge Order (Routine); Ordered 02/03/23 Ordered By: Grady Egan Diet: Regular diet Activity on Discharge: Use cane or walker Stand Alone Forms: Patient Portal Discharge page Care Plan Goals: Restore function of joint Health Concerns: none Plan of Treatment: Physical Therapy Pain management DVT prophylaxis Assessment: Physical Therapy for Total hip arthroplasty: wbat, posterior precautions, gait training, ROM, strength Limit stair climbing No showering, no tub bath-keep dressing clean, dry and intact No driving x6 weeks Continue Aspirin twice a day x 6 [address] [facility] in 2 weeks: 02/17/23 13:00[facility]
--- NOTE | 2023-02-03 10:57 | MHC.CM.PN ---
HOME TODAY WITH [facility] FOR HOME P.T. RN AWARE OF PLAN. IMM 02/02 IN CHART
--- NOTE | 2023-02-03 12:26 | P.F2F_ITS ---
Service Date Service Date: 02/03/23 Encounter Date of encounter: 02/03/23 Encounter: Right hip pain with ambulation, weakness, poor balance. Reasons for Services Signs and symptoms assessed: Right hip pain with ambulation, weakness, poor balance. Reason for physical therapy: home safety and mobility, therapeutic exercises, re store joint function, gait/transfer training, assess need for DME and ADL training Reason for occupational therapy: home safety and mobility, restore joint function, gait/transfer training, assess need for DME, ADL training and energy conservation Homebound: Leaving the home is medically contraindicated at this time without the asist of a device and/or another person due th the listed conditions above and below. Reason homebound: unsteady gait / fall risk, pain with ambulation, pain with transfers, poor balance / fall risk and unable to drive Certification: Based on the above findings, I certify that this patient is confined to the home and needs intermittent half-way care, physical therapy and/or speech therapy, or continues to need occupational therapy. The patient is under my care, and I have initiated the establishment of the plan of care. The patient will be followed by a physician who will periodically review the plan of care. Time Spent With Patient Time: Total time managing care of this patient today ____ minutes.
[2023-02-03 15:07] VITALS: BP 126/58; PULSE 86; O2SAT 96
[2023-02-03 15:31] VITALS: BP 112/56; PULSE 95; RESP 18; TEMP 36.8; O2SAT 99
== END 2023-02-03 17:01 | disposition home health service (06) | DRG 470 ==
LOC: HO.SSSA 09:36 → HO.S3 14:25
PROVIDERS: Physician Assistant; Admitting Provider Orthopaedic Surgery; PCP Internal Medicine; Visit Provider Orthopaedic Surgery
PROC: 0SR903A Replacement of Right Hip Joint with Ceramic Synthetic Substitute, Uncemented, Open Approach (ICD-10-PCS; CPT 27130; principal; 2023-02-01 13:50)
DX: M16.11 Unilateral primary osteoarthritis, right hip (principal); Z20.822 Contact with and (suspected) exposure to COVID-19; Z88.8 Allergy status to other drugs, medicaments and biological substances; Z79.82 Long term (current) use of aspirin; Z79.899 Other long term (current) drug therapy
CPT/HCPCS: 27130; 36415; 72170; 80048; 85025; 86850; 86900; 86901; 87635; 87640; 87641; 88304; 88311; 93005; 97110; 97116; 97161; 97165; 97530; 97535; C1713; C1776; J0131; J0690; J1100; J1170; J2370; J2405; J3010

== ENCOUNTER → 2023-02-17 12:52 | Outpatient (BNVA) | payer MEDICARE, BC, SELFPAY | PROVIDERS: PCP Internal Medicine; Visit Provider Physician Assistant | DX: Z47.1 Aftercare following joint replacement surgery (principal); Z96.641 Presence of right artificial hip joint | CPT/HCPCS: 99212 ==

== ENCOUNTER → 2023-03-17 14:35 | Outpatient (BNVA) | payer MEDICARE, BC, SELFPAY | PROVIDERS: PCP Internal Medicine; Visit Provider Physician Assistant | DX: Z47.1 Aftercare following joint replacement surgery (principal); Z96.641 Presence of right artificial hip joint | CPT/HCPCS: 99212 ==

== ENCOUNTER 2023-04-08 14:00 | Outpatient (RCR) | payer MEDICARE, BC, SELFPAY ==
--- NOTE | 2023-02-17 15:42 | MHC.PT.EP ---
[facility] [place] Office [place] Office [place] Office [address] [phone] F: [phone] F: [phone] F: [phone] F: [phone] Physical Therapy Plan of Care Date of Evaluation: Date of Surgery: 02/01/23 Diagnosis: POST OP Rt DAVE Assessment: 68 YO FEMALE PRESENTS S/P Rt DAVE, POSTERIOR APPROACH, ON 02/01/23. SHE RESIDES W HER SON AND A DOG IN A MOBILE HOME AND IS CURRENTLY AMB W A W/WALKER. OBJECTIVE FINDINGS: PO ROM DEFICITS RIGHT HIP, TIGHT HIP FLEXORS/ CALF MM, (+) STRENGTH DEFICITS, AND MILD RIGHT PROX LE PAIN. Pt IS AWARE OF POSTERIOR APPROACH RESTRICTIONS/ PRECAUTIONS. FUNCTIONALLY, Pt IS SLEEPING IN A RECLINER, DECR STANDING JULIA, ALTERED GAIT MECHANICS, STAIR MGMT, AND RESTRICTED WITH MORE PHYSICALLY DEMANDING ADLs. Pt WOULD BENEFIT FROM PT AT THIS TIME TO GUIDE HER IN HER POST-OP COURSE, DEV A PROGR HEP, ADDRESS PAIN MGMT, AND OBTAINING MAXIMAL LEVEL OF FUNCTIONAL INDEPENDENCE. Frequency and Duration: The patient will be seen 2 x WK x 10 WKS Short Term Goals: *Pt INDEP W DAVE POSTERIOR APPROACH PRECAUTIONS AND SELF-MGMT OF POST-OP STATUS TO PROMOTE OPTIMAL HEALING *Pt WILL DEMON EFFICIENT GAIT MECHANICS W LEAST RESTRICTIVE ASST DEVICE ON LEVEL GROUND AND STAIRS *Pt'S RIGHT HIP PAIN WILL DECR TO 2-3/10 *Pt DEMON APPROP BED MOB/ POSITIONING/ SIT <-> STAND/ CAR TRANSFERS Service Officer Goals: *Pt WILL IMPROVE LUMBOPELVIC/ Lt LE STRENGTH TO AT LEAST 5-/5 *Pt RESUME AT LEAST PLOF EVIDENT W IMPROVED LEFI SCORE (AT EVAL 35/80 ) *Pt INDEP W PROGR HEP AND SELF-SX MGMT TECHN Treatment Plan: Modalities to reduce pain, spasms and effusion. Manual therapy to restore motion and function. Therapeutic exercise to improve strength and flexibility. Neuromuscular re-education for posture and balance. Therapeutic activities to return to functional activities of daily living. Electronically signed by: JOE MEDRANO,PT Please sign and return to therapist. Thank you for your referral.
--- NOTE | 2023-04-08 14:54 | MHC.PT.DC ---
[facility] [place] Office [place] Office [place] Office [address] Karen [address] [phone] F: [phone] F: [phone] F: [phone] F: [phone] Physical Therapy Discharge Report Diagnosis: POST OP Rt DAVE Date of Surgery: 02/01/23 Date of Evaluation: 02/17/23 Date of Discharge: 04/08/23 Treatments to Date: 13 Cancellations to Date: 0 No Shows to Date: 0 Discharge Status: Achieved Goals Improved Function Independent with HEP Discharge Summary: 04/08/2023: Pt has made good progress with her R DAVE since start of care. She is having minimal pain at this time on the R although recently has been developing pain on her L hip. The L hip appears to be more of an issue at this time with the R and is the reason she continues to need her cane. At this point we have maximized benefits of PT for her R hip. She understands she should continue with her program at home. Skilled PT is no longer indicated and she is in agreement with d/c today. She should follow up with her MD regarding her new pain in her L hip. Electronically signed by: Malena Santana, PT, DPT, ATC Please sign and return to therapist. Thank you for your referral.
== END 2023-04-08 14:54 | disposition home or self-care (01) ==
LOC: HO.PTCHIC 14:00
PROVIDERS: Visit Provider Physician Assistant
DX: Z96.641 Presence of right artificial hip joint (principal)
CPT/HCPCS: 97110; 97112; 97116; 97162; 97530

== ENCOUNTER 2023-04-28 07:24 | Outpatient (REF) | payer MEDICARE, BC, SELFPAY ==
--- NOTE | ~2023-04-28 | XR_ITS ---
EXAMINATION: XR PELVIS CLINICAL INFORMATION: Pain in unspecified hip. COMPARISON: 02/01/2023 TECHNIQUE: AP view of the pelvis. FINDINGS: A right hip prosthesis is again seen. Surgical shreya have been removed since the prior study. Prosthesis is in good position without evidence of loosening. The hardware is intact. Again noted are mild degenerative changes in the left hip and lower lumbosacral spine. XR/XR pelvis 1-2V IMPRESSION: Stable appearance of right hip prosthesis.
== END 2023-04-28 07:25 | disposition home or self-care (01) ==
LOC: HO.HOSX 07:24
PROVIDERS: Visit Provider Orthopaedic Surgery
DX: M16.12 Unilateral primary osteoarthritis, left hip (principal); Z96.641 Presence of right artificial hip joint
CPT/HCPCS: 72170; 99212

== ENCOUNTER 2023-05-23 06:39 | Outpatient (REF) | payer MEDICARE, BC, SELFPAY | END 2023-05-23 06:40 | disposition home or self-care (01) | LOC: HO.LAB 06:39 | PROVIDERS: PCP Internal Medicine; Visit Provider Internal Medicine | DX: E03.9 Hypothyroidism, unspecified (principal); N28.9 Disorder of kidney and ureter, unspecified; D64.9 Anemia, unspecified; E78.5 Hyperlipidemia, unspecified | CPT/HCPCS: 36415; 80053; 80061; 84443; 85025 ==

== ENCOUNTER 2023-06-17 10:49 | Outpatient (REF) | payer MEDICARE, BC, SELFPAY | END 2023-06-17 10:50 | disposition home or self-care (01) | LOC: HO.SH 10:49 | PROVIDERS: Visit Provider Internal Medicine | DX: Z01.118 Encounter for examination of ears and hearing with other abnormal findings (principal); H90.5 Unspecified sensorineural hearing loss | CPT/HCPCS: 92557; 92567 ==

== ENCOUNTER 2023-06-21 13:42 | Outpatient (AMB) | payer MEDICARE, BC, SELFPAY ==
--- NOTE | 2023-06-21 13:42 | A.OFFPC_ITS ---
Vital Signs 06/21/23 13:43 Height 4 ft 10 in Weight 161 lb BMI 33.6 BP 128/90 H Blood Pressure Location Lt brachial Position Sitting Pulse 91 Pulse Source Pulse Oximeter Temp Source Skin Pulse Oximetry (%) 97 Oxygen Delivery Method Room Air Intake Visit Reasons: hearing loss in right ear Set Designer Required: No Allergies guaifenesin [From MUCINEX] Allergy (Unknown, Verified 06/21/23 13:43) SWELLING Medication List - Last Reconciled 06/21/23 by Isidro Mays MD atorvastatin 40 mg PO DAILY hydrochlorothiazide 25 mg PO DAILY lisinopril 10 mg PO DAILY Tobacco use date assessed: 06/21/23 Fall risk assessment: No Falls in past year Last assessed Fall Risk: 06/21/23 HPI hearing loss in right ear HPI Details blocked right ear; wants to see ent [facility] Medical History Arthritis Depression History of gestational diabetes Hypertension Obesity Osteoarthritis of right hip HERBERT (stress urinary incontinence, female) Surgical History H/O tooth extraction History of section History of removal of cyst Status post surgical removal of nail matrix of toe Family History Father No problems noted. Mother No problems noted. Family/Other Heart failure Diabetes CHF (congestive heart failure) Social History Household Members: Children Housing: Other Housing Other:: mobile home Are you a primary school child care attendant to a significant other at home: No Do you presently have visiting nurse or other home services: No Alcohol intake: current Alcohol intake frequency: holidays/special occasions only Patient Tobacco Use Status: Never used Tobacco e-Cigarette/Vaping Use: Never Used Second Hand Smoke Exposure: No service: No Current occupational status: retired Current occupational exposures/hazards: No Cognitive needs: No Hearing needs: No Vision needs: Yes Questionnaire PHQ-9 Over the last 2 weeks, how often have you been bothered by any of the following problems? 1. Little interest or pleasure in doing things: not at all 2. Feeling down, depressed, or hopeless: not at all 3. Trouble falling or staying asleep, or sleeping too much: not at all 4. Feeling tired or having little energy: not at all 5. Poor appetite or overeating: not at all 6. Feeling bad about yourself - or that you are a failure or have let yourself or your family down: not at all 7. Trouble concentrating on things, such as reading the newspaper or watching television: not at all 8. Moving or speaking so slowly that other people could have noticed. Or the opposite - being so fidgety or restless that you have been moving around a lot more than usual: not at all 9. Thoughts that you would be better off or of hurting yourself in some way: not at all Total score: 0 Depression Screening Interpretation: Negative Source: Developed by Drs. Leodan Sawyer, Lashon Elizabeth, Arvind Palacios and colleagues, with an educational alta from [employer]. Thrive Questionnaire Date Thrive assessed: 12/31/22 AUDIT C Alcohol Use Questionnaire (AUDIT-C) 1. How often do you have a drink containing alcohol?: Never 3. How often do you have six or more drinks on one occasion?: Never Total Score: 0 Score Reviewed/Action Taken: Yes LEIGHANN-7 AMB Questionnaire LEIGHANN-7 Date LEIGHANN - 7 assessed: 12/31/22 Source: Developed by Drs. Leodan Sawyer, Lashon Elizabeth, Arvind Palacios and colleagues, with an educational alta from [employer]. Review of Systems Const Denies chills, Denies headache(s) and Denies weight loss ENT Denies headache(s) Card Denies chest pain, Denies syncope, Denies irregular heart rhythm and Denies dyspnea Resp Denies chest congestion, Denies cough and Denies dyspnea GI Denies abdominal pain, Denies change in stool character, Denies nausea and Denies vomiting Musc Denies deformity and Denies joint swelling Neuro Denies syncope and Denies headache(s) Physical exam (Primary Care) Vital Signs: Last Vital Signs Pulse 91 06/21/23 13:43 BP 128/90 H 06/21/23 13:43 Pulse Ox 97 06/21/23 13:43 Oxygen Delivery Method Room Air 06/21/23 13:43 BMI result Body Mass Index 33.6 Tobacco/Smoking Status: Tobacco use Status Tobacco use date assessed 06/21/23 06/21/23 13:44 Patient Tobacco Use Status Never used Tobacco 06/21/23 13:44 e-Cigarette/Vaping Use Never Used 06/21/23 13:44 PHQ-9: PHQ-9 Score PHQ-9: Total score 0 06/21/23 13:48 Depression Screening Interpretation: Negative Thrive Assessment: Date of Thrive Assessment Date Thrive assessed 12/31/22 06/21/23 13:44 Const General: cooperative, comfortable and no acute distress HENMT Other: right cerumen impaction Eyes General: appearance normal, both eyes and all related structures Neck Neck: Yes normal visual inspection Assessment and Plan Assessment & Plan (1) Cerumen impaction: Code(s): H61.20 - Impacted cerumen, unspecified ear Orders: Referrals Ear/Nose/Throat Referral H61.20 - Impacted cerumen, unspecified ear Podiatry Referral L60.9 - Nail disorder, unspecified Coding Level of Care Code Est Pt Level 3 (66873) Diagnoses Cerumen impaction H61.20
[2023-06-21 13:43] VITALS: BP 128/90; PULSE 91; O2SAT 97; BMI 33.6
== END 2023-06-21 14:00 | disposition home or self-care (01) ==
PROVIDERS: PCP Internal Medicine; Visit Provider Internal Medicine
DX: H61.21 Impacted cerumen, right ear (principal)
CPT/HCPCS: 99213

== ENCOUNTER 2023-07-26 09:47 | Outpatient (AMB) | payer MEDICARE, BC, SELFPAY ==
[2023-07-26 09:47] VITALS: BP 136/74; PULSE 95; O2SAT 98; BMI 34.4
--- NOTE | 2023-07-26 09:47 | A.OFFPC_ITS ---
Vital Signs 07/26/23 09:47 Height 4 ft 10 in Weight 164 lb 8 oz BMI 34.4 BP 136/74 Blood Pressure Location Lt brachial Position Sitting Pulse 95 Pulse Source Pulse Oximeter Pulse Oximetry (%) 98 Oxygen Delivery Method Room Air Intake Visit Reasons: 3 month f/u Respiratory Director: Not Required per policy Accompanied by: Self / Same As Patient Allergies guaifenesin [From MUCINEX] Allergy (Unknown, Verified 07/26/23 09:47) SWELLING Medication List - Last Reconciled 07/26/23 by Isidro Mays MD atorvastatin 40 mg PO DAILY hydrochlorothiazide 25 mg PO DAILY lisinopril 10 mg PO DAILY Tobacco use date assessed: 06/21/23 Fall risk assessment: No Falls in past year Last assessed Fall Risk: 07/26/23 Dental Screening Dental Screen Date: 07/26/23 Did you have a dental visit in the last 12 months?: No Did you have a dental problem in the last 6 months where you did not have access to dental care?: No Was dental information given to patient?: Patient has dentist HPI 3 month f/u HPI Details hypertension hyperlip nd oa left hip' controlled on meds; compliant [facility] Medical History HERBERT (stress urinary incontinence, female) Arthritis Depression History of gestational diabetes Osteoarthritis of right hip Obesity Hypertension Surgical History (Updated 07/26/23 @ 09:52 by JOSE Ramirez) History of hip replacement H/O tooth extraction History of removal of cyst Status post surgical removal of nail matrix of toe History of section Family History Father No problems noted. Mother No problems noted. Family/Other Heart failure Diabetes CHF (congestive heart failure) Social History Household Members: Children Housing: Other Housing Other:: mobile home Are you a primary direct care professional to a significant other at home: No Do you presently have visiting nurse or other home services: No Alcohol intake: current Alcohol intake frequency: holidays/special occasions only Patient Tobacco Use Status: Never used Tobacco e-Cigarette/Vaping Use: Never Used Second Hand Smoke Exposure: No service: No Current occupational status: retired Current occupational exposures/hazards: No Cognitive needs: No Hearing needs: No Vision needs: Yes Questionnaire PHQ-9 Over the last 2 weeks, how often have you been bothered by any of the following problems? 1. Little interest or pleasure in doing things: not at all 2. Feeling down, depressed, or hopeless: not at all 3. Trouble falling or staying asleep, or sleeping too much: not at all 4. Feeling tired or having little energy: not at all 5. Poor appetite or overeating: not at all 6. Feeling bad about yourself - or that you are a failure or have let yourself or your family down: not at all 7. Trouble concentrating on things, such as reading the newspaper or watching television: not at all 8. Moving or speaking so slowly that other people could have noticed. Or the opposite - being so fidgety or restless that you have been moving around a lot more than usual: not at all 9. Thoughts that you would be better off or of hurting yourself in some way: not at all Total score: 0 Depression Screening Interpretation: Negative 26348 - PHQ-9 Billing: Yes Source: Developed by Drs. Leodan Sawyer, Lashon Elizabeth, Arvind Palacios and colleagues, with an educational alta from [employer]. Thrive Questionnaire Date Thrive assessed: 12/31/22 AUDIT C Alcohol Use Questionnaire (AUDIT-C) 1. How often do you have a drink containing alcohol?: Never 3. How often do you have six or more drinks on one occasion?: Never Total Score: 0 Score Reviewed/Action Taken: Yes LEIGHANN-7 AMB Questionnaire LEIGHANN-7 Date LEIGHANN - 7 assessed: 12/31/22 Source: Developed by Drs. Leodan Sawyer, Arvind Gonzalez and colleagues, with an educational alta from [employer]. Review of Systems Const Denies chills, Denies headache(s) and Denies weight loss ENT Denies headache(s) Card Denies chest pain, Denies syncope, Denies irregular heart rhythm and Denies dyspnea Resp Denies chest congestion, Denies cough and Denies dyspnea GI Denies abdominal pain, Denies change in stool character, Denies nausea and Denies vomiting Musc Denies deformity and Denies joint swelling Neuro Denies syncope and Denies headache(s) Physical exam (Primary Care) Vital Signs: Last Vital Signs Pulse 95 07/26/23 09:47 BP 136/74 07/26/23 09:47 Pulse Ox 98 07/26/23 09:47 Oxygen Delivery Method Room Air 07/26/23 09:47 BMI result Body Mass Index 34.4 Tobacco/Smoking Status: Tobacco use Status Tobacco use date assessed 06/21/23 07/26/23 09:53 Patient Tobacco Use Status Never used Tobacco 07/26/23 09:53 e-Cigarette/Vaping Use Never Used 07/26/23 09:53 PHQ-9: PHQ-9 Score PHQ-9: Total score 0 07/26/23 09:53 Depression Screening Interpretation: Negative Thrive Assessment: Date of Thrive Assessment Date Thrive assessed 12/31/22 07/26/23 09:53 Const General: cooperative, comfortable, no acute distress and alert Neck Neck: Yes no lymphadenopathy Thyroid: Thyroid normal Resp Effort & Inspection: normal respiratory effort Auscultation: clear to auscultation bilaterally Percussion: percussion normal Cardio Jugular venous distension: no JVD Palpation: normal PMI Rate: regular rate Rhythm: regular rhythm Heart sounds: S1 normal heart sound present and S2 normal heart sound present GI Inspection: Yes normal to inspection Palpation (GI): No hepatosplenomegaly present Skin General skin exam: no rashes or lesions noted Extrem General: Yes no clubbing, cyanosis or edema Assessment and Plan Assessment & Plan (1) Osteoarthritis of left hip: Code(s): M16.12 - Unilateral primary osteoarthritis, left hip Plan: stable; same meds (2) Hyperlipidemia: Code(s): E78.5 - Hyperlipidemia, unspecified Plan: do labs (3) Hypertension: Code(s): I10 - Essential (primary) hypertension Plan: stable; same meds Orders: Orders Complete Blood Count Auto Diff Today D64.9 - Anemia, unspecified Lipid Panel Today E78.5 - Hyperlipidemia, unspecified Comprehensive [place]. Panel Fast Today N28.9 - Disorder of kidney and ureter, unspecified Thyroid Stimulating Hormone Today E03.9 - Hypothyroidism, unspecified Coding Level of Care Code Est Pt Level 4 (89748) Diagnoses Osteoarthritis of left hip M16.12 Hyperlipidemia E78.5 Hypertension I10
== END 2023-07-26 10:00 | disposition home or self-care (01) ==
PROVIDERS: PCP Internal Medicine; Visit Provider Internal Medicine
DX: M16.12 Unilateral primary osteoarthritis, left hip (principal); E78.5 Hyperlipidemia, unspecified; I10 Essential (primary) hypertension
CPT/HCPCS: 99214

== ENCOUNTER 2023-08-01 15:32 | Outpatient (REF) | payer MEDICARE, BC, SELFPAY ==
[2023-08-01 15:43] LABS: MANUAL DIFF FLAG NO
[2023-08-01 16:45] LABS: Basophils Absolute Auto 0.1 X10*3/uL (0.0-0.2); Basophils Percent Auto 0.6 % (0-2); Eosinophils Absolute Auto 0.1 X10*3/uL (0.0-0.4); Eosinophils Percent Auto 1.1 % (0-4); Hematocrit 37.8 % (37.0-47.0); Hemoglobin 12.8 g/dl (12.0-16.0); Imm Gran Abs Auto 0.05 X10*3/uL (0.00-0.03); Imm Gran Pct Auto 0.5 % (0.0-0.4); Lymphocytes Absolute Auto 2.5 X10*3/uL (1.2-4.9); Lymphocytes Percent Auto 26.2 % (20-40); Mean Corpuscular HGB Conc 33.9 g/dl (31.0-35.0); Mean Corpuscular Hemoglobin 29.8 pg (27.0-33.0); Mean Corpuscular Volume 88.1 fL (80.0-98.0); Mean Platelet Volume 8.5 fL (9.4-12.3); Monocytes Absolute Auto 0.9 X10*3/uL (0.1-1.2); Monocytes Percent Auto 8.9 % (2-11); Neutrophils Percent Auto 62.7 % (45-73); Platelet Count 360 X10*3/uL (160-400); Red Blood Count 4.29 X10*6/uL (4.20-5.50); Red Cell Distribution Width 14.1 % (11.0-16.0); White Blood Count 9.6 X10*3/uL (4.8-10.8)
== END 2023-08-01 15:33 | disposition home or self-care (01) ==
LOC: HO.LAB 15:32
PROVIDERS: PCP Internal Medicine; Visit Provider Internal Medicine
DX: E03.9 Hypothyroidism, unspecified (principal); D64.9 Anemia, unspecified; N39.0 Urinary tract infection, site not specified
CPT/HCPCS: 36415; 84443; 85025; 87086; 87088; 87186

== ENCOUNTER 2023-08-24 10:37 | Outpatient (REF) | payer MEDICARE, BC, SELFPAY ==
--- NOTE | ~2023-08-24 | MM_ITS ---
EXAMINATION: MM SCREENING DIGITAL BREAST TOMOSYNTHESIS, BILATERAL CLINICAL INFORMATION: Screening. Asymptomatic. COMPARISON: Mammography: This study is compared with prior exams dating back to 2019. TECHNIQUE: Digital breast tomosynthesis is performed in both the craniocaudal and mediolateral oblique views along with computer-aided detection (CAD). Synthesized 2D images are generated from the tomosynthesis. FINDINGS: There are scattered areas of fibroglandular density (ACR BI-RADS breast composition Category b). There are no significant masses, abnormal calcifications, or other abnormalities. There is a benign asymmetry at the inferolateral aspect of the left breast which, on terminal symphysis consists mostly of fat. 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 MM/MM tomosynthesis screening BI IMPRESSION: No mammographic evidence of malignancy. ASSESSMENT: BI-RADS BI-RADS 1 - Negative RECOMMENDATION: Routine annual mammography screening. 1 year F/U This examination should not preclude the clinical evaluation of a suspicious palpable abnormality. This patient's information was entered into a reminder system with a target due date for their next mammogram.
== END 2023-08-24 10:38 | disposition home or self-care (01) ==
LOC: HO.MAMMO 10:37
PROVIDERS: PCP Internal Medicine; Visit Provider Internal Medicine
DX: Z12.31 Encounter for screening mammogram for malignant neoplasm of breast (principal)
CPT/HCPCS: 77063; 77067

== ENCOUNTER → 2023-08-24 10:45 | Outpatient (BNV) | payer MEDICARE, BC, SELFPAY | PROVIDERS: PCP Internal Medicine; Visit Provider Radiology Diagnostic Radiology | DX: Z12.31 Encounter for screening mammogram for malignant neoplasm of breast (principal) | CPT/HCPCS: 77063; 77067 ==

== ENCOUNTER 2023-10-04 13:48 | Outpatient (REF) | payer SELFPAY ==
--- NOTE | 2023-10-04 15:16 | MHC.AU.HA1 ---
Hearing Aid Evaluation Date of Visit: 10/04/23 Historical Information: Description of Hearing: Moderate rising to mild sloping to moderate sensorineural hearing loss Summary: Joanie visited for a hearing aid evaluation--she saw Dr Granger in July and received another hearing test as well as medical clearance for hearing aids. Her usual listening environments are generally pretty quiet (at home with her son) except for [place] every . Discussed styles and technology levels--she likely has a $2500 benefit through her federal [employer] plan but would need to be reimbursed--she is not sure how she would pay this up front, so plans to call [facility] as well as the [facility] billing department to see what her options might be. Likely wants to keep out of pocket cost low, perhaps Zircon 1 [employer], though cost of earmolds would need to be considered. She also has a pair of hearing aids from a friend, is not sure what they are or how old, so will contact the office so we can let her know if reprogramming them might be an option. Plan of Care: Action Taken/Action Needed: Contact our office if/when ready to proceed with amplification. Primary Diagnosis: H90.3 Bilateral Sensorineural Hearing Loss Signature: Provider: Freedom Rojo, CCC-A
== END 2023-10-04 13:49 | disposition home or self-care (01) ==
LOC: HO.HAP 13:48
PROVIDERS: Visit Provider Otolaryngology
DX: Z13.89 Encounter for screening for other disorder (principal)

== ENCOUNTER 2023-11-01 11:36 | Outpatient (AMB) | payer MEDICARE, BC, SELFPAY ==
[2023-11-01 11:38] VITALS: BP 132/80; PULSE 105; O2SAT 97; BMI 34.3
--- NOTE | 2023-11-01 11:38 | MHC.PC.OV ---
Vital Signs 11/01/23 11:38 Height 4 ft 10 in Weight 164 lb BMI 34.3 BP 132/80 Blood Pressure Location Lt brachial Position Sitting Pulse 105 H Pulse Source Pulse Oximeter Pulse Oximetry (%) 97 Oxygen Delivery Method Room Air Intake Visit Reasons: 3 month f/u Laboratory Animal Facility Supervisor Required: No Supervisor Nut Processing: Not Required per policy Accompanied by: Self / Same As Patient Allergies guaifenesin [From MUCINEX] Allergy (Unknown, Verified 11/01/23 11:39) SWELLING Medication List - Last Reconciled 11/01/23 by Isidro Mays MD atorvastatin 40 mg PO DAILY hydrochlorothiazide 25 mg PO DAILY lisinopril 10 mg PO DAILY Tobacco use date assessed: 06/21/23 Fall risk assessment: No Falls in past year Last assessed Fall Risk: 11/01/23 Dental Screening Dental Screen Date: 11/01/23 Did you have a dental visit in the last 12 months?: No Did you have a dental problem in the last 6 months where you did not have access to dental care?: No Was dental information given to patient?: Patient has dentist HPI 3 month f/u HPI Details hyperlip and htn; doing well PFSH Medical History HERBERT (stress urinary incontinence, female) Arthritis Depression History of gestational diabetes Osteoarthritis of right hip Obesity Hypertension Surgical History History of hip replacement H/O tooth extraction History of removal of cyst Status post surgical removal of nail matrix of toe History of section Family History Father No problems noted. Mother No problems noted. Family/Other Heart failure Diabetes CHF (congestive heart failure) Social History Household Members: Children Housing: Other Housing Other:: mobile home Are you a primary critical care nurse practitioner to a significant other at home: No Do you presently have visiting nurse or other home services: No Alcohol intake: current Alcohol intake frequency: holidays/special occasions only Comment: uses walker on occasion Patient Tobacco Use Status: Never used Tobacco e-Cigarette/Vaping Use: Never Used Second Hand Smoke Exposure: No service: No Current occupational status: retired Current occupational exposures/hazards: No Cognitive needs: No Hearing needs: No Vision needs: Yes Questionnaire Thrive Questionnaire Date Thrive assessed: 12/31/22 LEIGHANN-7 AMB Questionnaire LEIGHANN-7 Date LEIGHANN - 7 assessed: 12/31/22 Source: Developed by Drs. Leodan Sawyer, Lashon Elizabeth, Arvind Palacios and colleagues, with an educational alta from [employer]. Review of Systems Const Denies chills, Denies headache(s) and Denies weight loss ENT Denies headache(s) Card Denies chest pain, Denies syncope, Denies irregular heart rhythm and Denies dyspnea Resp Denies chest congestion, Denies cough and Denies dyspnea GI Denies abdominal pain, Denies change in stool character, Denies nausea and Denies vomiting Musc Denies deformity and Denies joint swelling Neuro Denies syncope and Denies headache(s) Physical exam (Primary Care) Vital Signs: Last Vital Signs Pulse 105 H 11/01/23 11:38 BP 132/80 11/01/23 11:38 Pulse Ox 97 11/01/23 11:38 Oxygen Delivery Method Room Air 11/01/23 11:38 BMI result Body Mass Index 34.3 Tobacco/Smoking Status: Tobacco use Status Tobacco use date assessed 06/21/23 11/01/23 11:39 Patient Tobacco Use Status Never used Tobacco 11/01/23 11:39 e-Cigarette/Vaping Use Never Used 11/01/23 11:39 Thrive Assessment: Date of Thrive Assessment Date Thrive assessed 12/31/22 11/01/23 11:39 Const General: cooperative, comfortable, no acute distress and alert Neck Neck: Yes no lymphadenopathy Thyroid: Thyroid normal Resp Effort & Inspection: normal respiratory effort Auscultation: clear to auscultation bilaterally Percussion: percussion normal Cardio Jugular venous distension: no JVD Palpation: normal PMI Rate: regular rate Rhythm: regular rhythm Heart sounds: S1 normal heart sound present and S2 normal heart sound present GI Inspection: Yes normal to inspection Palpation (GI): No hepatosplenomegaly present Skin General skin exam: no rashes or lesions noted Extrem General: Yes no clubbing, cyanosis or edema Office Procedures Flu Questionnaire Does the patient have a severe egg allergy?: No Does the patient have severe life threatening allergies?: No Does the patient have a fever or illness today?: No Has the patient ever had Guillain-Ridgefield Syndrome?: No Has the patient ever had any past reaction to a flu shot?: No Immunizations flu vacc [id number] 6mos up(PF) 60 mcg(15 mcgx4)/0.5 mL IM syringe Performing Provider: Isidro Mays MD Performing Location: [facility] Administered by: JOSE Ramirez on 11/01/23 11:55 Dose Route Admin Location Dispensed Lot Number Expiration Date NDC Sql Database Developer 0.5 mL IM Left Deltoid 0.5 mL [id number] 05/13/24 23709-831-63 [employer] VIS Given Date VIS Provided VIS Publication Date 11/01/23 Single Vaccine 21 Eligibility Eligibility Date Funding Source Not [facility] Eligible 11/01/23 Private Assessment and Plan Assessment & Plan (1) Hypertension: Code(s): I10 - Essential (primary) hypertension Plan: stable; same rx (2) Hyperlipidemia: Code(s): E78.5 - Hyperlipidemia, unspecified Plan: stable; same rx Orders: Orders Influenza [id number] Immunization Today Z23 - Encounter for immunization Coding Level of Care Code Est Pt Level 3 (43101) Diagnoses Hypertension I10 Hyperlipidemia E78.5
== END 2023-11-01 11:55 | disposition home or self-care (01) ==
PROVIDERS: PCP Internal Medicine; Visit Provider Internal Medicine
DX: I10 Essential (primary) hypertension (principal); E78.5 Hyperlipidemia, unspecified; Z23 Encounter for immunization
CPT/HCPCS: 90471; 90686; 99213

== ENCOUNTER 2023-11-02 09:45 | Emergency (ER) | payer MEDICARE, BC, SELFPAY ==
--- NOTE | ~2023-11-02 | XR_ITS ---
EXAMINATION: XR CHEST CLINICAL INFORMATION: Chest pain COMPARISON: None available. TECHNIQUE: 2 views of the chest were obtained. FINDINGS: Slight right basilar atelectasis. Bilateral low lung volumes with accentuation of the pulmonary vasculature. No pneumothorax. Trachea is midline. Cardiac mediastinal silhouette is not enlarged. No large pleural effusion. Degenerative changes of the thoracolumbar spine. Soft tissues are unremarkable. XR/XR chest 2V IMPRESSION: 1. Slight right basilar atelectasis. 2. Bilateral low lung volumes with accentuation of the pulmonary vasculature.
--- NOTE | 2023-11-02 09:49 | ECG_ITS ---
Test Reason : CP Blood Pressure : / mmHG Vent. Rate : 103 BPM Atrial Rate : 103 BPM P-R Int : 180 ms QRS Dur : 090 ms QT Int : 334 ms P-R-T Axes : 049 -26 073 degrees QTc Int : 437 ms Sinus tachycardia Low voltage QRS Cannot rule out Anterior infarct (cited on or before 27-JAN-2023) Abnormal ECG When compared with ECG of 27-JAN-2023 12:33, No significant change was found Referred By: Generic ED Physician Electronically Signed By:YOUSIF PAEZ MD
[2023-11-02 10:14] VITALS: BP 151/77; PULSE 101; RESP 19; TEMP 36.6; O2SAT 97; BMI 34.3
[2023-11-02 13:44] LABS: Basophils Absolute Auto 0.1 X10*3/uL (0.0-0.2); Basophils Percent Auto 0.5 % (0-2); Eosinophils Absolute Auto 0.1 X10*3/uL (0.0-0.4); Eosinophils Percent Auto 0.5 % (0-4); Hemoglobin 13.6 g/dl (12.0-16.0); Imm Gran Abs Auto 0.04 X10*3/uL (0.00-0.03); Imm Gran Pct Auto 0.4 % (0.0-0.4); Lymphocytes Absolute Auto 2.3 X10*3/uL (1.2-4.9); Lymphocytes Percent Auto 24.6 % (20-40); MANUAL DIFF FLAG SCAN; Mean Corpuscular Hemoglobin 29.8 pg (27.0-33.0); Mean Corpuscular Volume 87.7 fL (80.0-98.0); Monocytes Absolute Auto 0.7 X10*3/uL (0.1-1.2); Monocytes Percent Auto 7.2 % (2-11); Neutrophils Absolute Auto 6.3 x10*3/uL (2.0-8.3); Neutrophils Percent Auto 66.8 % (45-73); PLT CLUMP 1; Red Blood Count 4.56 X10*6/uL (4.20-5.50); Red Cell Distribution Width 13.2 % (11.0-16.0); SCAN SMEAR FLAG 1
[2023-11-02 13:47] LABS: White Blood Count 9.5 X10*3/uL (4.8-10.8)
[2023-11-02 13:57] LABS: Anion Gap 17 (12-20); Blood Urea Nitrogen 14 mg/dL (9-16); Calcium 10.3 mg/dL (8.4-10.2); Carbon Dioxide 25 mmol/L (22-29); Chloride 100 mmol/L (96-108); Creatinine Clr Calc Pharmacy 50.2; Estimated Glomerular Filt Rate > 60; Glucose Random 142 mg/dL (60-115); Potassium 4.6 mmol/L (3.3-5.1); Sodium 137 mmol/L (135-145)
[2023-11-02 14:01] LABS: Platelet Count 317 X10*3/uL (160-400); SLIDE REVIEW VERIFIED
[2023-11-02 14:08] LABS: Troponin-I High Sensitivity < 2.7 ng/L (<3.5-17.0)
--- NOTE | 2023-11-02 16:08 | ED_ITS ---
HPI - Chest Pain General Chief Complaint: Chest Pain Stated Complaint: ? Heart Attack Early AM Time Seen by Provider: 11/02/23 16:07 Source: patient Mode of arrival: ambulatory Limitations: no limitations History of Present Illness HPI narrative: Patient is a 68 year old assigned female at with a history of HTN and HLD presenting to the emergency department today with chest pain. Patient states that she had central chest pain that woke her up from sleep and resolved in less than 2 minutes. Patient states that she is pain free now and has not had another episode. Patient states that she does have heartburn, sometimes. Patient denies any dizziness, lightheadedness, abdominal pain, nausea, vomiting, fever, chills, blurry vision, double vision, loss of vision, difficulty breathing, shortness of breath, back pain, night sweats, pain with urination, increased urinary frequency, increased urinary urgency, blood in her urine or stool, syncope or a near syncopal episode, recent trauma or falls, bowel incontinence, bladder incontinence, bowel retention, bladder retention, or any other complaints at this time. MD complaint: chest pain Prior episodes: No Onset: during rest Pain location: substernal Pain radiation: none Severity: mild Treatment prior to arrival: none Risk Factors Coronary artery disease risk factors: hyperlipidemia and hypertension Thoracic aortic dissection risk factors: none Related Data On Oral Contraceptives: No Previous Rx's Medication Instructions Recorded atorvastatin 40 mg tablet 40 mg PO DAILY #90 tabs 02/05/23 hydrochlorothiazide 25 mg tablet 25 mg PO DAILY #90 tabs 03/27/23 lisinopril 10 mg tablet 10 mg PO DAILY #90 tabs 07/31/23 Allergies Allergy/AdvReac Type Severity Reaction Status Date / Time guaifenesin [From MUCINEX] Allergy Unknown SWELLING Verified 11/02/23 10:14 Review of Systems 2 Constitutional: Constitutional: Reports no additional constitutional complaints, Denies chills, Denies fever(s) and Denies night sweats Eyes: Eyes: Reports no additional eye complaints, Denies blurry vision, Denies change in vision, Denies diplopia, Denies eye discharge, Denies loss of vision and Denies eye pain ENT: Denies dizziness Cardiovascular: Cardiovascular: Reports no additional cardiovascular complaints, Reports chest pain (now resolved), Denies lightheadedness, Denies Loss of Consciousness and Denies dyspnea Respiratory: Respiratory: Reports no additional respiratory complaints and Denies dyspnea Gastrointestinal: Gastrointestinal: Reports no additional gastrointestinal complaints, Denies abdominal pain, Denies melena, Denies hematochezia, Denies change in bowel habits and Denies change in stool character Genitourinary: Genitourinary: Denies hematuria, Denies urinary frequency, Denies dysuria, Denies urinary incontinence, Denies urinary hesitancy and Denies urinary urgency Musculoskeletal: Musculoskeletal: Reports no additional musculoskeletal complaints, Denies numbness and Denies tingling Neurologic: Denies dizziness, Denies loss of vision, Denies numbness and Denies tingling Psychiatric: Psychiatric: Reports no additional psychiatric complaints Endocrine: Endocrine: Reports no additional endocrine complaints Hematologic/Lymphatic: Hematologic/Lymphatic: Reports no additional hematologic/lymphatic complaints Allergic/Immunologic: Allergic/Immunologic: Reports no additional allergic/immunologic complaints PMF Past Medical History Attestation statement: The following information was validated with the patient. Source: old records reviewed, obtained from family and nursing notes reviewed Medical History HERBERT (stress urinary incontinence, female) Arthritis Depression History of gestational diabetes Osteoarthritis of right hip Obesity Hypertension Surgical History History of hip replacement H/O tooth extraction History of removal of cyst Status post surgical removal of nail matrix of toe History of section Family History Family History Father No problems noted. Mother No problems noted. Family/Other Heart failure Diabetes CHF (congestive heart failure) Social History Social History Household Members: Children Housing: Other Housing Other:: mobile home Are you a primary patient centered care specialist to a significant other at home: No Do you presently have visiting nurse or other home services: No Alcohol intake: current Alcohol intake frequency: holidays/special occasions only Comment: uses walker on occasion Patient Tobacco Use Status: Never used Tobacco e-Cigarette/Vaping Use: Never Used Second Hand Smoke Exposure: No Advance Directives: No Advance Directives Information Provided: No service: No Current occupational status: retired Current occupational exposures/hazards: No Cognitive needs: No Hearing needs: No Vision needs: Yes Physical Exam 2 Vital Signs: Vital Signs: Last Vital Signs Temp 98 F 11/02/23 10:14 Pulse 101 H 11/02/23 10:14 Resp 19 11/02/23 10:14 BP 151/77 H 11/02/23 10:14 Pulse Ox 97 11/02/23 10:14 O2 Del Method Room Air 11/02/23 10:14 BMI result Body Mass Index 34.3 Const: General: cooperative, no acute distress, alert and awake Nutritional Appearance: well nourished Orientation/consciousness: patient oriented x3 Limitations: no limitations HEENT: Head: Yes normal to inspection and Yes atraumatic Ears: hearing grossly normal bilaterally and external ears normal General nose exam: Normal external nose present, no nasal discharge noted and no epistaxis Face and sinus: Yes normal facial exam, No abrasion and No laceration Mouth: Normal oral and palatal mucosa present, no drooling and no muffled voice Eyes: General: appearance normal, both eyes and all related structures P eriorbital: periorbital findings normal Eyelids: Yes eyelids normal C onjunctivae: conjunctivae normal Pupils: Equal, round and reactive pupils present EOM: EOMs intact bilaterally Neck: Neck: Yes normal visual inspection, Yes full ROM and Yes no lymphadenopathy Chest: Chest palpation & inspection: normal inspection of the chest Resp: Effort & Inspection: normal respiratory effort and able to speak in complete sentences Auscultation: clear to auscultation bilaterally Cardio: Rate: regular rate Rhythm: regular rhythm GI: Inspection: Yes normal to inspection Neuro: General: patient oriented x3 and moves all extremities Cranial nerves: Yes Equal, round and reactive pupils present Cognition (Neuro): n ormal cognition Motor exam (neuro): 5/5 motor strength present throughout Sensory Exam: Normal double simultaneous stimulation for sensation C oordination: [id number] test normal Extrem: General: Yes normal to inspection, Yes full ROM and Yes capillary refill normal Psych: Appearance: grossly normal Mental Status: mental status grossly normal Affect: normal affect Attitude: cooperative Thought process: N ormal thought process present Thought content: Normal thought content present Insight: Good insight present (Psych) Medical Decision Making Medical Decision Making MDM Narrative: Patient is a 68 year old assigned female at with a history of HTN and HLD presenting to the emergency department today with now resolved chest pain. Patient's physical exam was unremarkable. Patient's blood work was unremarkable. Patient's EKG was unremarkable. Patient's chest x-ray showed no acute process. I explained my physical exam findings as well as all test results to the patient. I answered all questions asked by the patient. I stressed the importance of the patient taking her medication as prescribed. I stressed the importance of the patient following up with her primary care provider and establishing with a submarine element coordinator. I stressed the importance of the patient returning to the emergency department immediately if her symptoms were to worsen or if she were to develop any dizziness, shortness of breath, difficulty breathing, chest pain, blurry vision, loss of vision, nausea, vomiting, abdominal pain, fever, chills, back pain, or any other complaints. Patient verbalized agreement and understanding with this treatment plan and discharge. Differential Diagnosis Differential Diagnoses: The differential diagnosis associated with the presentation includes NSTEMI STEMI Chest pain GERD Admission/Observation Consideration of admission/observation: Escalation of care including admission/observation considered Patient would have been admitted to the hospital had her work up had any findings where hospital admission was appropriate and her clinical presentation warranted hospital admission. Lab Data MDM Lab Attestation statement: I reviewed the patient's lab results. My interpretation of these studies and their corresponding values is that they are grossly normal. 11/02/23 13:36 11/02/23 13:36 Labs: Lab Results 11/02/23 11/02/23 11/02/23 Range/Units 13:36 16:10 16:42 WBC 9.5 (4.8-10.8) X10*3/uL RBC 4.56 (4.20-5.50) X10*6/uL Hgb 13.6 (12.0-16.0) g/dl Hct 40.0 (37.0-47.0) % MCV 87.7 (80.0-98.0) fL MCH 29.8 (27.0-33.0) pg MCHC 34.0 (31.0-35.0) g/dl RDW 13.2 (11.0-16.0) % Plt Count 317 (160-400) X10*3/uL MPV Not Reportable Immature Gran % (Auto) 0.4 (0.0-0.4) % Neut % (Auto) 66.8 (45-73) % Lymph % (Auto) 24.6 (20-40) % [place] % (Auto) 7.2 (2-11) % Eos % (Auto) 0.5 (0-4) % Baso % (Auto) 0.5 (0-2) % Lymph # (Auto) 2.3 (1.2-4.9) X10*3/uL [place] # (Auto) 0.7 (0.1-1.2) X10*3/uL Eos # (Auto) 0.1 (0.0-0.4) X10*3/uL Baso # (Auto) 0.1 (0.0-0.2) X10*3/uL Abs Immat Gran (auto) 0.04 H (0.00-0.03) X10*3/uL Absolute Neuts (auto) 6.3 (2.0-8.3) x10*3/uL Absolute Nucleated RBC 0.000 (0.0-0.012) X10*3/uL Nucleated RBC % (auto) 0.0 (0.0-0.2) /100WBC Smear Tech's Comments VERIFIED Sodium 137 (135-145) mmol/L Potassium 4.6 (3.3-5.1) mmol/L Chloride 100 (96-108) mmol/L Carbon Dioxide 25 (22-29) mmol/L Anion Gap 17 (12-20) BUN 14 (9-16) mg/dL Creatinine 0.93 (0.5-1.4) mg/dL Estim Creat Clear Calc 50.2 Estimated GFR > 60 Random Glucose 142 H (60-115) mg/dL Calcium 10.3 H (8.4-10.2) mg/dL Troponin I High Sens < 2.7 < 2.7 (<3.5-17.0) ng/L Influenza Type A (PCR) NEGATIVE (Negative) Influenza Type B (PCR) NEGATIVE (Negative) RSV RNA Qual (PCR) NEGATIVE (Negative) SARS-CoV-2 RNA (RT-PCR) NEGATIVE (Negative) Independent Interpretation I performed an independent interpretation of an: EKG and Plain X-Ray Interpretation: My interpretation is in agreement with the radiologist's impression of this imaging study. - EXAMINATION: XR CHEST CLINICAL INFORMATION: Chest pain COMPARISON: None available. TECHNIQUE: 2 views of the chest were obtained. FINDINGS: Slight right basilar atelectasis. Bilateral low lung volumes with accentuation of the pulmonary vasculature. No pneumothorax. Trachea is midline. Cardiac mediastinal silhouette is not enlarged. No large pleural effusion. Degenerative changes of the thoracolumbar spine. Soft tissues are unremarkable. XR/XR chest 2V IMPRESSION: 1. Slight right basilar atelectasis. 2. Bilateral low lung volumes with accentuation of the pulmonary vasculature. Dictated By: Sherry Jackson MD Signed By: Electronically signed by Sherry Jackson MD 11/02/23 1140 - Vent. Rate: 103 BPM Atrial Rate: 103 BPM P-R Int: 180 ms QRS Dur: 090 ms QT Int: 334 ms P-R-T Axes: 049 -26 073 degrees QTc Int: 437 ms Sinus tachycardia Low voltage QRS Cannot rule out Anterior infarct (cited on or before 27-JAN-2023) Abnormal ECG When compared with ECG of 27-JAN-2023 12:33, No significant change was found DD/ [id number] Radiology Impression Discussion of test interpretation with radiology: I have reviewed the radiologist's reading. Chronic Conditions Patient?s care impacted by: Hypertension Scores Heart Score History: -0- slightly suspicious ECG: -0- normal Age: -2- > or = 65 Risk factory: -1- 1 or 2 risk factors Troponin: -0- < or = normal limit Score: 3 Risk: 1.7% Discharge Plan Discharge Clinical Impression: Chest pain Patient Disposition: Home, Self-Care Instructions: Chest Pain (DC) Additional Instructions: Follow up with your primary care provider and a submarine element coordinator. Return to the emergency department immediately if your symptoms worsen or if you develop any dizziness, shortness of breath, difficulty breathing, chest pain, blurry vision, loss of vision, nausea, vomiting, abdominal pain, fever, chills, back pain, or any other complaints. Prescriptions: No Action atorvastatin 40 mg tablet 40 mg PO DAILY Qty: 90 8RF hydrochlorothiazide 25 mg tablet 25 mg PO DAILY Qty: 90 8RF lisinopril 10 mg tablet 10 mg PO DAILY Qty: 90 8RF Referrals: [facility] [place] Cardiovascular Services [Provider Group] (Call to establish and follow up with a submarine element coordinator.) Isidro Mays MD [Primary Care Provider] - Stand Alone Forms: Work/School Release Interventions: ED Discharge Assessment Last Done: 11/02/23 17:46 Print Language: Italian
--- NOTE | 2023-11-02 16:45 | PC.NURSE ---
repeat trop obtained- serology pending
[2023-11-02 17:11] LABS: Influenza A PCR NEGATIVE (Negative); Influenza B PCR NEGATIVE (Negative); Resp Syncy Virus RNA Qual PCR NEGATIVE (Negative); SARS COV2 PCR INHOUSE NEGATIVE (Negative)
[2023-11-02 17:33] LABS: Troponin-I High Sensitivity < 2.7 ng/L (<3.5-17.0)
== END 2023-11-02 17:46 | disposition home or self-care (01) ==
PROVIDERS: Physician Assistant Medical; Emergency Provider Emergency Medicine; PCP Internal Medicine
DX: R07.89 Other chest pain (principal); R00.0 Tachycardia, unspecified; E78.5 Hyperlipidemia, unspecified; I10 Essential (primary) hypertension; Z20.822 Contact with and (suspected) exposure to COVID-19; Z20.828 Contact with and (suspected) exposure to other viral communicable diseases; Z79.899 Other long term (current) drug therapy
CPT/HCPCS: 0241U; 36415; 71046; 80048; 84484; 85025; 93005; 99283

== ENCOUNTER → 2023-11-02 09:49 | Outpatient (BNV) | payer MEDICARE, BC, SELFPAY | PROVIDERS: Emergency Provider Emergency Medicine; PCP Internal Medicine; Visit Provider Internal Medicine Cardiovascular Disease | DX: R07.9 Chest pain, unspecified (principal); R00.0 Tachycardia, unspecified | CPT/HCPCS: 93010 ==

== ENCOUNTER 2023-11-11 13:17 | Outpatient (AMB) | payer MEDICARE, BC, SELFPAY ==
[2023-11-11 13:18] VITALS: BP 138/74; PULSE 90; O2SAT 98; BMI 34.1
--- NOTE | 2023-11-11 13:18 | A.OFFPC_ITS ---
Vital Signs 11/11/23 13:18 Height 4 ft 10 in Weight 163 lb BMI 34.1 BP 138/74 Blood Pressure Location Lt brachial Position Sitting Pulse 90 Pulse Source Pulse Oximeter Pulse Oximetry (%) 98 Oxygen Delivery Method Room Air Intake Visit Reasons: [facility] [place] 11/02/23 Heart Attack Pediatric Physician Required: No Nib Adjuster: Not Required per policy Accompanied by: Self / Same As Patient Allergies guaifenesin [From MUCINEX] Allergy (Unknown, Verified 11/11/23 13:18) SWELLING Medication List - Last Reconciled 11/11/23 by Isidro Mays MD atorvastatin 40 mg PO DAILY hydrochlorothiazide 25 mg PO DAILY lisinopril 10 mg PO DAILY Tobacco use date assessed: 06/21/23 Fall risk assessment: No Falls in past year Last assessed Fall Risk: 11/11/23 Dental Screening Dental Screen Date: 11/11/23 Did you have a dental visit in the last 12 months?: Yes Did you have a dental problem in the last 6 months where you did not have access to dental care?: No Was dental information given to patient?: Patient has dentist HPI [facility] [place] 11/02/23 Heart Attack HPI Details went to the er with chest pain; w/u neg; referred already to cardiology; no further symptoms PFSH Medical History HERBERT (stress urinary incontinence, female) Arthritis Depression History of gestational diabetes Osteoarthritis of right hip Obesity Hypertension Surgical History History of hip replacement H/O tooth extraction History of removal of cyst Status post surgical removal of nail matrix of toe History of section Family History Father No problems noted. Mother No problems noted. Family/Other Heart failure Diabetes CHF (congestive heart failure) Social History Household Members: Children Housing: Other Housing Other:: mobile home Are you a primary special needs caregiver to a significant other at home: No Do you presently have visiting nurse or other home services: No Alcohol intake: current Alcohol intake frequency: holidays/special occasions only Comment: uses walker on occasion Patient Tobacco Use Status: Never used Tobacco e-Cigarette/Vaping Use: Never Used Second Hand Smoke Exposure: No service: No Current occupational status: retired Current occupational exposures/hazards: No Cognitive needs: No Hearing needs: No Vision needs: Yes Questionnaire Thrive Questionnaire Date Thrive assessed: 12/31/22 LEIGHANN-7 AMB Questionnaire LEIGHANN-7 Date LEIGHANN - 7 assessed: 12/31/22 Source: Developed by Drs. Leodan Sawyer, Lashon Elizabeth, Arvind Palacios and colleagues, with an educational alta from [employer]. Review of Systems Const Denies chills, Denies headache(s) and Denies weight loss ENT Denies headache(s) Card Denies chest pain, Denies syncope, Denies irregular heart rhythm and Denies dyspnea Resp Denies chest congestion, Denies cough and Denies dyspnea GI Denies abdominal pain, Denies change in stool character, Denies nausea and Denies vomiting Musc Denies deformity and Denies joint swelling Neuro Denies syncope and Denies headache(s) Physical exam (Primary Care) Vital Signs: Last Vital Signs Pulse 90 11/11/23 13:18 BP 138/74 11/11/23 13:18 Pulse Ox 98 11/11/23 13:18 Oxygen Delivery Method Room Air 11/11/23 13:18 BMI result Body Mass Index 34.1 Tobacco/Smoking Status: Tobacco use Status Tobacco use date assessed 06/21/23 11/11/23 13:25 Patient Tobacco Use Status Never used Tobacco 11/11/23 13:25 e-Cigarette/Vaping Use Never Used 11/11/23 13:25 Thrive Assessment: Date of Thrive Assessment Date Thrive assessed 12/31/22 11/11/23 13:25 Const General: cooperative, comfortable, no acute distress and alert Neck Neck: Yes no lymphadenopathy Thyroid: Thyroid normal Resp Effort & Inspection: normal respiratory effort Auscultation: clear to auscultation bilaterally Percussion: percussion normal Cardio Jugular venous distension: no JVD Palpation: normal PMI Rate: regular rate Rhythm: regular rhythm Heart sounds: S1 normal heart sound present and S2 normal heart sound present GI Inspection: Yes normal to inspection Palpation (GI): No hepatosplenomegaly present Skin General skin exam: no rashes or lesions noted Extrem General: Yes no clubbing, cyanosis or edema Assessment and Plan Assessment & Plan (1) Chest pain: Code(s): R07.9 - Chest pain, unspecified Plan: to see cardiology Coding Level of Care Code Est Pt Level 3 (98788) Diagnoses Chest pain R07.9
== END 2023-11-11 13:31 | disposition home or self-care (01) ==
PROVIDERS: PCP Internal Medicine; Visit Provider Internal Medicine
DX: R07.9 Chest pain, unspecified (principal)
CPT/HCPCS: 99213

== ENCOUNTER 2023-11-21 14:53 | Outpatient (AMB) | payer MEDICARE, BC, SELFPAY ==
[2023-11-21 15:04] VITALS: BP 120/70; PULSE 92; BMI 34.5
--- NOTE | 2023-11-21 15:04 | A.OFFVIS_ITS ---
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 Semiconductor Manufacturing Technician Required: No Accompanied by: Self / Same As Patient Allergies guaifenesin [From MUCINEX] Allergy (Unknown, Verified 11/11/23 13:18) SWELLING Medication List - Last Reconciled 11/21/23 by Avani Bowser NP-C atorvastatin 40 mg PO DAILY hydrochlorothiazide 25 mg PO DAILY lisinopril 10 mg PO DAILY HPI DUTY OFFICER [facility] [place] [place] [facility] Chest pain HPI Details Joanie is a 68-year-old female past medical history of hypertension, hyperlipidemia, obesity who was recently seen in [facility] [place] [facility] with report of chest discomfort that woke her from sleep. She came to the ER that morning for evaluation. She ruled out for ACS and was referred to Cardiology in follow-up. Today she presents for cardiology consultation. She has not had any recurrent chest discomfort since the day she presented to the emergency room. She tells me that the night before she arrive she had been sleeping and woke with a pain in the mid liver chest that felt like stabbing. She had no associated symptoms including shortness of breath, nausea, lightheadedness. She states it lasted several minutes and then resolved. She then went back to sleep. In the morning she was concerned and called her PCP. They referred her to the emergency room. Since that time she has not had any recurrent chest discomfort. She denies any shortness of breath, palpitations, presyncope, syncope, PND, orthopnea or edema. She reports having family history of heart disease including parents and sister. She states her mother had heart attacks and coronary bypass surgery however in her late 80s. Father had heart attack and of congestive heart failure in his 70s. Sister had recent [place]. patient herself has no known history of heart disease. She admits to being somewhat sedentary and is limited by left hip discomfort. She had a history of having a right hip replacement last year and will soon be needing her left hip done. She has had years of back secondhand smoke exposure. She has occasional alcohol use. She is and lives alone. Takes all meds as directed. PFSH Medical History HERBERT (stress urinary incontinence, female) Arthritis Depression History of gestational diabetes Osteoarthritis of right hip Obesity Hypertension Surgical History History of hip replacement H/O tooth extraction History of removal of cyst Status post surgical removal of nail matrix of toe History of section Family History Father No problems noted. Mother No problems noted. Family/Other Heart failure Diabetes CHF (congestive heart failure) Social History Household Members: Children Housing: Other Housing Other:: mobile home Are you a primary healthcare architect to a significant other at home: No Do you presently have visiting nurse or other home services: No Alcohol intake: current Alcohol intake frequency: holidays/special occasions only Comment: uses walker on occasion Patient Tobacco Use Status: Never used Tobacco e-Cigarette/Vaping Use: Never Used Second Hand Smoke Exposure: No service: No Current occupational status: retired Current occupational exposures/hazards: No Cognitive needs: No Hearing needs: No Vision needs: Yes Review of Systems Const All systems reviewed & are unremarkable except as noted in HPI and below Denies chills, Denies fatigue, Denies fever(s), Denies frequent falls, Denies weakness, Denies weight gain and Denies weight loss ENT Denies dizziness Card Reports chest pain, Denies leg edema, Denies lightheadedness, Denies palpitations, Denies dyspnea and Denies dyspnea on exertion Resp Denies cough, Denies dyspnea and Denies dyspnea on exertion GI Denies hematochezia Musc Denies abnormal gait, Denies muscle weakness, Denies numbness, Denies radiating pain into limb and Denies tingling Neuro Denies abnormal gait, Denies dizziness, Denies frequent falls, Denies numbness, Denies tingling and Denies weakness Endo Denies fatigue and Denies palpitations Physical Exam Vital Signs: Last Vital Signs Pulse 92 11/21/23 15:04 BP 120/70 11/21/23 15:04 BMI result Body Mass Index 34.5 Const General: cooperative, healthy appearing, comfortable and no acute distress Orientation/consciousness: patient oriented x3 Neck Neck: Yes normal visual inspection and Yes no JVD Resp Effort & Inspection: normal respiratory effort Auscultation: clear to auscultation bilaterally, no rales, no rhonchi and no wheezes Cardio Jugular venous distension: no JVD Rate: regular rate Rhythm: regular rhythm Heart sounds: S1 normal heart sound present, S2 normal heart sound present, no murmurs and no rubs Neuro General: patient oriented x3 Extrem General: Yes normal to inspection and No no pedal edema Psych Appearance: grossly normal Mental Status: mental status grossly normal Speech and movement: Normal speech and movement present Assessment & Plan Assessment & Plan (1) Chest discomfort: Code(s): R07.89 - Other chest pain Plan: Report of an episode of chest discomfort that woke her from sleep, lasting several minutes, no associated symptoms and resolving without treatment. She has not had recurrent chest discomfort sets that time. She tells me she has had heartburn in the past but that this did not feel like heartburn. She has cardiac risk factors obesity, hypertension, hyperlipidemia, secondhand smoke exposure and family history. No known history of heart disease in herself. Her activity is limited by hip discomfort. Denies having any exertional chest discomfort. EKG done in the emergency room shows sinus rhythm with septal Q- wave, poor R-wave progression, suggestive of possible prior anterior infarct. Will check a pharmacological nuclear stress test to evaluate for any ischemia. She will not be able to exercise on a treadmill. Will check echocardiogram to assess for any structural heart disease. Signs and symptoms of angina reviewed. Emergency care if needed for symptoms. Cardiology follow-up in 4-6 weeks, sooner if needed (2) Hypertension: Code(s): I10 - Essential (primary) hypertension Qualifiers: Hypertension type: primary hypertension Qualified Code(s): I10 - Essential (primary) hypertension Plan: Blood pressure well controlled at present. Continue current meds without change. Continue hydrochlorothiazide and lisinopril. (3) Hyperlipidemia: Code(s): E78.5 - Hyperlipidemia, unspecified Qualifiers: Hyperlipidemia type: unspecified Qualified Code(s): E78.5 - Hyperlipidemia, unspecified Plan: Continue atorvastatin 40 mg daily. If found to have coronary disease then LDL goal will be less than 70. (4) Obesity: Code(s): E66.9 - Obesity, unspecified Qualifiers: Obesity type: due to excess calories Obesity classification: adult class 1 (BMI 30 - 34.9) Body mass index: BMI 34.0-34.9 Plan: Moderate obesity with BMI 34.5. Cardiac risk factor. Plan Time spent on chart review, documentation, interview assess Orders: Orders NM cardiolite stress test Today R07.9 - Chest pain, unspecified CA lexiscan stress w bita Today E78.5 - Hyperlipidemia, unspecified, I10 - Essential (primary) hypertension, R07.89 - Other chest pain CA echo transthoracic complete Today E78.5 - Hyperlipidemia, unspecified, I10 - Essential (primary) hypertension, R07.89 - Other chest pain Coding Level of Care Code New Pt Level 3 (96785) Diagnoses Chest discomfort R07.89 Primary hypertension I10 Hypertension type: primary hypertension Hyperlipidemia, unspecified hyperlipidemia type E78.5 Hyperlipidemia type: unspecified Obesity E66.9 Obesity type: due to excess calories Obesity classification: adult class 1 (BMI 30 - 34.9) Body mass index: BMI 34.0-34.9 Time Spent (min)
== END 2023-11-21 15:47 | disposition home or self-care (01) ==
PROVIDERS: PCP Internal Medicine; Visit Provider Nurse Practitioner Family
DX: R07.89 Other chest pain (principal); I10 Essential (primary) hypertension; E78.5 Hyperlipidemia, unspecified; E66.9 Obesity, unspecified
CPT/HCPCS: 99203

== ENCOUNTER → 2023-11-21 14:53 | Outpatient (BNVA) | payer BC, MEDICARE, SELFPAY | PROVIDERS: PCP Internal Medicine; Visit Provider Nurse Practitioner Family ==

== ENCOUNTER 2023-12-26 10:46 | Outpatient (AMB) | payer MEDICARE, BC, SELFPAY ==
--- NOTE | 2023-12-26 10:50 | A.OFFVIS_ITS ---
Intake Vital Signs 12/26/23 10:53 Height 4 ft 10 in Weight 164 lb BMI 34.3 Intake Visit Reasons: New Prob - Left Hip OA Intake Note: Joanie is a 68 year old female who presents today for a new problem visit with complaints of left hip pain. Patient reports that she is having pain in the groind of the left hip. She is here today to talk about treatment options. Allergies guaifenesin [From MUCINEX] Allergy (Unknown, Verified 12/26/23 10:53) SWELLING HPI New Prob - Left Hip OA HPI Details Joanie is a 68 year old woman who presents with complaints of left hip pain. She complains of pain in her left hip with daily activities, primarily in her groin and worse with climbing in/out of a car. [facility] Medical History HERBERT (stress urinary incontinence, female) Arthritis Depression History of gestational diabetes Osteoarthritis of right hip Obesity Hypertension Surgical History History of hip replacement H/O tooth extraction History of removal of cyst Status post surgical removal of nail matrix of toe History of section Family History Father No problems noted. Mother No problems noted. Family/Other Heart failure Diabetes CHF (congestive heart failure) Social History Household Members: Children Housing: Other Housing Other:: mobile home Are you a primary inpatient care manager rn to a significant other at home: No Do you presently have visiting nurse or other home services: No Alcohol intake: current Alcohol intake frequency: holidays/special occasions only Comment: uses walker on occasion Patient Tobacco Use Status: Never used Tobacco e-Cigarette/Vaping Use: Never Used Second Hand Smoke Exposure: No service: No Current occupational status: retired Current occupational exposures/hazards: No Cognitive needs: No Hearing needs: No Vision needs: Yes Review of Systems Const All systems reviewed & are unremarkable except as noted in HPI and below Physical Exam Vital Signs: BMI result Body Mass Index 34.3 Const General: no acute distress, alert and awake Orientation/consciousness: patient oriented x3 HEENT Head: Yes normocephalic and Yes atraumatic Eyes EOM: EOMs intact bilaterally Resp Effort & Inspection: normal respiratory effort and able to speak in complete sentences Cardio Jugular venous distension: no JVD Skin General skin exam: turgor normal Rashes: no rashes Neuro General: patient oriented x3 Extrem Other: mild-moderate left impigement and Stinchfield Mild trendelenberg gait Psych Appearance: grossly normal Affect: normal affect Attitude: cooperative Results Reviewed Results Reviewed: mild-moderate left hip OA Right DAVE in expected post operative position with no hardware complications or evidence of loosening Assessment & Plan Assessment & Plan (1) Osteoarthritis of left hip: Code(s): M16.12 - Unilateral primary osteoarthritis, left hip Plan: PT Reviewed surgical and non surgical options She does not want surgery at this time (2) Status post total hip replacement, right: Code(s): Z96.641 - Presence of right artificial hip joint Plan: Doing well No complaints Plan Prepared for Blaine Page MD by Rao Henry, medical insurance coder, on 12/26/23 at 11:00 AM, EST. Orders: Orders PT Evaluation and Treatment 12/26/23 M16.12 - Unilateral primary osteoarthritis, left hip, Z96.641 - Presence of right artificial hip joint Coding Level of Care Code Est Pt Level 3 (38334) Diagnoses Osteoarthritis of left hip M16.12 Status post total hip replacement, right Z96.641
[2023-12-26 10:53] VITALS: BMI 34.3
== END 2023-12-26 11:09 | disposition home or self-care (01) ==
PROVIDERS: PCP Internal Medicine; Visit Provider Orthopaedic Surgery
DX: M16.12 Unilateral primary osteoarthritis, left hip (principal); Z96.641 Presence of right artificial hip joint
CPT/HCPCS: 99213

== ENCOUNTER → 2023-12-26 10:46 | Outpatient (BNVA) | payer MEDICARE, BC, SELFPAY | PROVIDERS: PCP Internal Medicine; Visit Provider Orthopaedic Surgery | DX: M16.12 Unilateral primary osteoarthritis, left hip (principal); Z96.641 Presence of right artificial hip joint | CPT/HCPCS: 99212 ==

== ENCOUNTER → 2023-12-28 08:03 | Outpatient (REF) | payer MEDICARE, BC, SELFPAY ==
--- NOTE | ~2023-12-28 | NM_ITS ---
Lexiscan Myocardial perfusion study Indication: Chest pain, assess for coronary disease and ischemia Technique: The patient was brought in for a Lexiscan perfusion study on 12/28/2023 and was injected 0.4 mg of Lexiscan intravenously. Within a minute of this injection 25 mCi of sestamibi was given intravenously. Images were obtained using the SPECT gamma camera interlaced with the gating device. Images were obtained in supine position. Resting perfusion study was performed on 01/03/2024. Patient was administered 25 mCi of sestamibi intravenously at rest. Images were then obtained in supine position. Images were processed with the software and compared side to side in short axis, horizontal long axis and vertical long axis views. Total DLP 128mGy-cm. Findings: Raw acquisition reviewed. The stress perfusion study showed no significant perfusion abnormality. Both uncorrected as well as CT attenuation corrected images were reviewed. The gated study shows normal LV systolic function with calculated LVEF of >70%. LV cavity is normal in size. The gated study shows normal wall thickening and contraction of segments. Resting study shows no significant perfusion abnormality. Gating at rest reveals normal wall motion with ejection fraction at >70%. The findings are consistent with no clear evidence of any ischemia or infarction. NM/NM cardiolite stress test Impression: 1. Myocardial perfusion imaging study shows probably normal myocardial perfusion. 2. Gated LVEF is >70% during stress and rest. 3. Transient ischemic dilatation not present. EKG component of the test reported separately.
--- NOTE | 2023-12-28 08:05 | CA_ITS ---
Transthoracic Echocardiogram Patient (Last, First, Middle): Joanie Pereyra K Gender: Female Date of : 1955 Age: 68 Procedure Date: 12/28/2023 Procedure Type: Transthoracic Echocardiogram Location: OP Height: 147.32 cm Weight: 74.39 kg BSA: 1.67 m2 Heart Rate: 86 bpm BP: 128 / 74 mmHg Mill Oiler: LIANET Referring MD: Avani Bowser EMERGENCY WORKER-C [employer] Operator: Tirso Carson MD Symptoms: R07.89 - Other chest pain Study Quality: Adequate ECG Rhythm: Sinus Conclusions: - 1. Normal LV ejection fraction of 60-65% with grade 1 diastolic dysfunction 2. Cardiac valvular Dopplers within normal limits 3. No gross pericardial effusion Findings Left Ventricle Normal left ventricular size, thickness, and systolic function. The visually estimated ejection fraction is between 60-65%. Spectral Doppler is indicative of an impaired relaxation filling pattern. E/E prime ratio is <8, consistent with normal filling pressures. Evidence suggests grade I (mild) diastolic dysfunction.Peak GLS is -16.0%, which is mildly reduced. Right Ventricle Normal right ventricular cavity size and systolic function. Atria Both atria are normal in size. Interatrial shunt cannot be excluded. Aortic Valve The aortic valve was not well visualized. There is mild calcification of the aortic valve. There is no aortic valve stenosis. There is no aortic valve regurgitation. Mitral Valve Normal mitral valve structure and function. There is trace mitral valve regurgitation. There is no mitral valve stenosis. Pulmonic Valve The pulmonic valve was not well visualized. Tricuspid Valve Likely normal tricuspid valve structure and function. There is trace tricuspid valve regurgitation. Tricuspid regurgitation envelope is inadequate for calculation of right ventricular systolic pressure. Normal right atrial pressure. Great Vessels All visible segments of the aorta are normal in size. The pulmonary artery was not well visualized. Venous The inferior vena cava is normal in size and collapses greater than 50% with inspiration. Pericardium/Pleural There is no evidence of pericardial effusion. Prior Study Comparison No prior study available for comparison. Measurements 2D Linear Measurements IVSd: 0.99 0.6-0.9/0.6-1.0 cm LVIDd: 3.44 3.9-5.3/4.2-5.9 cm LVIDd Index: 2.06 2.4-3.2/2.2-3.1 cm/m2 LVIDs: 1.83 2.0-3.6 cm LVPWd: 0.78 0.7-1.1 cm LA Diam: 2.90 2.7-3.8/3.0-4.0 cm LAIDs Index: 1.74 1.5-2.3 cm/m2 LV Mass: 105.17 67-162/88-224 g LV Mass Index: 62.97 43-95/49-115 g/m2 LVOT Diam: 1.80 3.0+(-)1.3 cm 2D Systolic Function EF 4C: 64.10 >55% EF 2C: 57.50 >55% EF BiP: 61.60 >55% Mitral Valve MV Pk E: 0.67 MV PK A: 0.84 MV Decel Time: 164.00 E/A: 0.80 E'Lateral: 8.27 E'Medial: 9.36 E/E' Med: 7.10 E/E' Lat: 8.10 PHT: 48.00 MVA PHT: 4.58 Decel Clayton: 4.06 Aortic Valve AoV Pk Eddie: 1.38 AoV Pk Grad: 8.00 JUAN: 1.68 LVOT LVOT Pk Eddie: 0.92 LVOT Mn Eddie: 0.65 LVOT VTI: 0.18 LVOT Pk Grad: 3.00 LVOT Mn Grad: 2.00 LVOT Diam: 1.80 LVOT Area: 2.54 Diastolic Function MV Pk E: 0.67 MV Pk A: 0.84 E/A: 0.80 E'Medial: 9.36 E/E' Med: 7.10 E' Laterial: 8.27 E/E' Lat: 8.10 Right Ventricle TAPSE (mm): 17.50 TVS' Eddie: 9.68 Great Vessels Aorta Sinus of Valsalva: 2.60 2.0-3.5 cm Ao Asc: 3.20 2.1-3.4 cm Pulmonary Valve PV Pk Eddie: 0.83 Peak PV Grad: 3.00 Updated in Other Vendor System with Status of Final Tirso Carson MD electronically signed on 12/28/2023 11:30:49 AM with status of Final
--- NOTE | 2023-12-28 08:05 | CA_ITS ---
Acquisition Time: 2023-12-28 08:50:36 Total Exercise Time: 00:02:00 Test Indications: CHEST PAIN Medications: ATORVASTATIN HCTZ LISINOPRIL Protocol: LEXISCAN Max HR: 131 BPM 85% of Pred: 153 BPM Max BP: 160/092 mmHG Max Work Load: 1.0 METS Pharmacological stress test with Lexiscan injection while sitting and kicking her legs, with 1/10 chest tightness, without arrhythmais, with normotensive response to injection, with nondiagnoisitic EKGs. Aminophylline 75mg IVP given to reverse Lexiscan. Chest tightness resolved. Nuclear images pending. Test reviewed with Dr. Munguia. Referred By: Avani Bowser Overread By: Kiki Singletary
== END ==
LOC: HO.CARD 08:03
PROVIDERS: PCP Internal Medicine; Visit Provider Nurse Practitioner Family
DX: R07.89 Other chest pain (principal); I10 Essential (primary) hypertension; E78.5 Hyperlipidemia, unspecified
CPT/HCPCS: 78452; 93017; 93306; 93356; A9500; J0280; J2785

== ENCOUNTER → 2023-12-28 08:05 | Outpatient (BNV) | payer MEDICARE, BC, SELFPAY | PROVIDERS: PCP Internal Medicine; Visit Provider Internal Medicine Cardiovascular Disease | DX: R07.89 Other chest pain (principal); I10 Essential (primary) hypertension | CPT/HCPCS: 78452; 93016; 93018; 93306 ==

== ENCOUNTER 2024-01-10 13:50 | Outpatient (AMB) | payer MEDICARE, BC, SELFPAY ==
[2024-01-10 14:02] VITALS: BP 130/82; PULSE 91; BMI 34.6
--- NOTE | 2024-01-10 14:02 | MHC.OFFVIS ---
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 She came to the ER that morning for evaluation. She ruled out for ACS and was referred to Cardiology in follow-up. On last visit here an echocardiogram and nuclear stress test was ordered. Today she reports that she has not had any episodes of recurrent chest discomfort. She denies having chest discomfort at rest or with activity. No shortness of breath, palpitations, lightheadedness, presyncope, syncope, PND, orthopnea or edema. Reports some hip discomfort and is undergoing physical therapy. May eventually need surgery in the future. Taking meds as directed. [facility] Medical History HERBERT (stress urinary incontinence, female) Arthritis Depression History of gestational diabetes Osteoarthritis of right hip Obesity Hypertension Surgical History History of hip replacement H/O tooth extraction History of removal of cyst Status post surgical removal of nail matrix of toe History of section Family History Father No problems noted. Mother No problems noted. Family/Other Heart failure Diabetes CHF (congestive heart failure) Social History Household Members: Children Housing: Other Housing Other:: mobile home Are you a primary personal care worker to a significant other at home: No Do you presently have visiting nurse or other home services: No Alcohol intake: current Alcohol intake frequency: holidays/special occasions only Comment: uses walker on occasion Patient Tobacco Use Status: Never used Tobacco e-Cigarette/Vaping Use: Never Used Second Hand Smoke Exposure: No service: No Current occupational status: retired Current occupational exposures/hazards: No Cognitive needs: No Hearing needs: No Vision needs: Yes Review of Systems Const All systems reviewed & are unremarkable except as noted in HPI and below ENT Denies dizziness Card Denies chest pain, Denies chest pain at rest, Denies chest pain with activity, Denies rapid heart rate, Denies pedal edema, Denies edema, Denies leg edema, Denies lightheadedness, Denies palpitations, Denies dyspnea, Denies dyspnea on exertion and Denies orthopnea Resp Denies cough, Denies dyspnea and Denies dyspnea on exertion GI Denies hematochezia and Denies change in stool character Musc Details: hip discomfort Reports abnormal gait, Denies limited range of motion, Denies muscle cramps, Denies muscle weakness, Denies numbness, Denies radiating pain into limb, Denies stiffness and Denies tingling Neuro Reports abnormal gait, Denies dizziness, Denies numbness and Denies tingling Endo Denies palpitations Physical Exam Vital Signs: Last Vital Signs Pulse 91 01/10/24 14:02 BP 130/82 01/10/24 14:02 BMI result Body Mass Index 34.6 Const General: cooperative, healthy appearing, comfortable and no acute distress Orientation/consciousness: patient oriented x3 Neck Neck: Yes normal visual inspection and Yes no JVD Resp Effort & Inspection: normal respiratory effort Auscultation: clear to auscultation bilaterally, no rales, no rhonchi and no wheezes Cardio Jugular venous distension: no JVD Rate: regular rate Rhythm: regular rhythm Heart sounds: S1 normal heart sound present, S2 normal heart sound present, no murmurs and no rubs Neuro General: patient oriented x3 Extrem General: Yes normal to inspection and No no pedal edema Psych Appearance: grossly normal Mental Status: mental status grossly normal Speech and movement: Normal speech and movement present Assessment & Plan Assessment & Plan (1) Chest discomfort: Code(s): R07.89 - Other chest pain Plan: Report of an episode of chest discomfort that woke her from sleep October 2023, lasting several minutes, no associated symptoms and resolving without treatment. ED evaluation showed significant abnormalities. She has not had recurrent chest discomfort since that time. She tells me she has had heartburn in the past but that this did not feel like heartburn. She has cardiac risk factors obesity, hypertension, hyperlipidemia, secondhand smoke exposure and family history. EKG done in the emergency room showed sinus rhythm with septal Q-wave, poor R-wave progression, suggestive of possible prior anterior infarct. Pharmacological nuclear stress test done on 12/28/2023 showed normal myocardial perfusion imaging EF greater than 70%. An echocardiogram done 12/28/2023 showed EF 60-65%, grade 1 diastolic dysfunction, normal valves. She continues to feel well with no anginal sounding symptoms. Signs and symptoms of angina reviewed. Emergency care if ever needed for symptoms. With cardiac risk factors and patient request will arrange for 1 year cardiology follow-up, sooner if needed (2) Hypertension: Code(s): I10 - Essential (primary) hypertension Qualifiers: Hypertension type: primary hypertension Qualified Code(s): I10 - Essential (primary) hypertension Plan: Blood pressure well controlled at present. Continue current meds without change. Continue hydrochlorothiazide and lisinopril. (3) Hyperlipidemia: Code(s): E78.5 - Hyperlipidemia, unspecified Qualifiers: Hyperlipidemia type: unspecified Qualified Code(s): E78.5 - Hyperlipidemia, unspecified Plan: Mitchell LDL goal less than 100 labs done 05/23/2023 shows LDL 102. atorvastatin 40 mg daily. (4) Obesity: Code(s): E66.9 - Obesity, unspecified Qualifiers: Body mass index: BMI 34.0-34.9 Obesity classification: adult class 1 (BMI 30 - 34.9) Obesity type: due to excess calories Plan: Moderate obesity with BMI 34.6. Cardiac risk factor. Benefits a weight loss reviewed with her. Plan Time spent on chart review, documentation, interview assess Coding Level of Care Code Est Pt Level 4 (01491) Diagnoses Chest discomfort R07.89 Primary hypertension I10 Hypertension type: primary hypertension Hyperlipidemia, unspecified hyperlipidemia type E78.5 Hyperlipidemia type: unspecified Obesity E66.9 Body mass index: BMI 34.0-34.9 Obesity classification: adult class 1 (BMI 30 - 34.9) Obesity type: due to excess calories Time Spent (min) 28
== END 2024-01-10 14:40 | disposition home or self-care (01) ==
PROVIDERS: PCP Internal Medicine; Visit Provider Nurse Practitioner Family
DX: R07.89 Other chest pain (principal); I10 Essential (primary) hypertension; E78.5 Hyperlipidemia, unspecified; E66.9 Obesity, unspecified
CPT/HCPCS: 99214

== ENCOUNTER → 2024-01-10 13:50 | Outpatient (BNVA) | payer MEDICARE, BC, SELFPAY | PROVIDERS: PCP Internal Medicine; Visit Provider Nurse Practitioner Family | DX: R07.89 Other chest pain (principal); I10 Essential (primary) hypertension; E78.5 Hyperlipidemia, unspecified; E66.9 Obesity, unspecified; Z68.34 Body mass index [BMI] 34.0-34.9, adult | CPT/HCPCS: 99212 ==

== ENCOUNTER 2024-01-31 07:34 | Outpatient (REF) | payer MEDICARE, BC, SELFPAY ==
[2024-01-31 08:42] LABS: Alanine Aminotransferase 37 U/L (0-31); Albumin Level 4.2 g/dL (3.5-5.0); Alkaline Phosphatase 109 U/L (39-117); Anion Gap 16 (12-20); Aspartate Amino Transferase 28 U/L (5-31); Bilirubin Total 0.5 mg/dL (0.0-1.0); Blood Urea Nitrogen 14 mg/dL (9-16); Calcium 9.7 mg/dL (8.4-10.2); Carbon Dioxide 24 mmol/L (22-29); Chloride 104 mmol/L (96-108); Cholesterol 182 mg/dL (<200); Estimated Glomerular Filt Rate > 60; Glucose Fasting 173 mg/dL (60-99); HDL Cholesterol 57 mg/dL (>40); LDL Cholesterol Calculated 96 mg/dL (<100); Potassium 4.6 mmol/L (3.3-5.1); Sodium 139 mmol/L (135-145); Total Protein 7.4 g/dL (6.5-8.0); Triglycerides 145 mg/dL (<150)
== END 2024-01-31 07:35 | disposition home or self-care (01) ==
LOC: HO.LAB 07:34
PROVIDERS: PCP Internal Medicine; Visit Provider Internal Medicine
DX: E78.5 Hyperlipidemia, unspecified (principal); N28.9 Disorder of kidney and ureter, unspecified
CPT/HCPCS: 36415; 80053; 80061

== ENCOUNTER 2024-02-03 11:17 | Outpatient (AMB) | payer MEDICARE, BC, SELFPAY ==
[2024-02-03 11:19] VITALS: BP 142/80; PULSE 85; O2SAT 98; BMI 34.5
--- NOTE | 2024-02-03 11:19 | MHC.PC.OV ---
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 Controlled Area Checker: Not Required per policy Accompanied by: Self / Same As Patient Allergies guaifenesin [From MUCINEX] Allergy (Unknown, Verified 02/03/24 11:19) SWELLING Medication List - Last Reconciled 02/03/24 by Isidro Mays MD atorvastatin 40 mg PO DAILY hydrochlorothiazide 25 mg PO DAILY lisinopril 10 mg PO DAILY Tobacco use date assessed: 02/03/24 Fall risk assessment: No Falls in past year Last assessed Fall Risk: 02/03/24 Dental Screening Dental Screen Date: 02/03/24 Did you have a dental visit in the last 12 months?: Yes Did you have a dental problem in the last 6 months where you did not have access to dental care?: No Was dental information given to patient?: Patient has dentist HPI 3 month f/u HPI Details new diabetic; dietary indiscretion PFSH Medical History HERBERT (stress urinary incontinence, female) Arthritis Depression History of gestational diabetes Osteoarthritis of right hip Obesity Hypertension Surgical History History of hip replacement H/O tooth extraction History of removal of cyst Status post surgical removal of nail matrix of toe History of section Family History Father No problems noted. Mother No problems noted. Family/Other Heart failure Diabetes CHF (congestive heart failure) Social History Household Members: Children Housing: Other Housing Other:: mobile home Are you a primary neonatal intensive care nurse to a significant other at home: No Do you presently have visiting nurse or other home services: No Alcohol intake: current Alcohol intake frequency: holidays/special occasions only Comment: uses walker on occasion Patient Tobacco Use Status: Never used Tobacco e-Cigarette/Vaping Use: Never Used Second Hand Smoke Exposure: No service: No Current occupational status: retired Current occupational exposures/hazards: No Cognitive needs: No Hearing needs: No Vision needs: Yes Questionnaire PHQ-9 Over the last 2 weeks, how often have you been bothered by any of the following problems? 1. Little interest or pleasure in doing things: not at all 2. Feeling down, depressed, or hopeless: not at all 3. Trouble falling or staying asleep, or sleeping too much: not at all 4. Feeling tired or having little energy: not at all 5. Poor appetite or overeating: not at all 6. Feeling bad about yourself - or that you are a failure or have let yourself or your family down: not at all 7. Trouble concentrating on things, such as reading the newspaper or watching television: not at all 8. Moving or speaking so slowly that other people could have noticed. Or the opposite - being so fidgety or restless that you have been moving around a lot more than usual: not at all 9. Thoughts that you would be better off or of hurting yourself in some way: not at all Total score: 0 Depression Screening Interpretation: Negative Depression Screening Done: Yes 41008 - PHQ-9 Billing: Yes Source: Developed by Drs. Leodan Sawyer, Lahson Elizabeth, Arvind Palacios and colleagues, with an educational alta from [employer] Thrive Questionnaire Date Thrive assessed: 02/03/24 I am a: Patient What is your living situation today?: I have a steady place to live Within the past 12 months, did the food you bought not last and you didn't have the money to get more?: Never true Within the past 12 months, did you worry whether your food would run out before you got money to buy more?: Never true Do you have trouble paying for medicines?: No Do you have trouble getting transportation to medical appointments?: No Do you have trouble paying your heating and electricity bill?: No Do you have trouble taking care of your child, family member or friend?: No Do you have trouble with day-to-day activities such as bathing, preparing meals, shopping, managing finances, etc.?: No Are you currently unemployed and looking for a job?: No Are you interested in more education?: No Please select the resources that you would like help with: None THRIVE Score: 0 AUDIT C Alcohol Use Questionnaire (AUDIT-C) 1. How often do you have a drink containing alcohol?: Never 3. How often do you have six or more drinks on one occasion?: Never Total Score: 0 Score Reviewed/Action Taken: Yes LEIGHANN-7 AMB Questionnaire LEIGHANN-7 Date LEIGHANN - 7 assessed: 02/03/24 Feeling nervous, anxious, or on edge: 0 = Not at all Not being able to stop or control worryin = Not at all Worrying too much about different things: 0 = Not at all Trouble relaxin = Not at all Being so restless that it is hard to sit still: 0 = Not at all Becoming easily annoyed or irritable: 0 = Not at all Feeling afraid as if something awful might happen: 0 = Not at all Total LEIGHANN-7 score (0-4 normal; 5-9 mild; 10-14 moderate; 15-21 severe): 0 Source: Developed by Drs. Leodan Sawyer, Lashon Elizabeth, Arvind Palacios and colleagues, with an educational alta from [employer] LEIGHANN-7 Assessment Billing LEIGHANN-7 Assessment Tool: LEIGHANN-7 Assessment 09326 Review of Systems Const Denies chills, Denies headache(s) and Denies weight loss ENT Denies headache(s) Card Denies chest pain, Denies syncope, Denies irregular heart rhythm and Denies dyspnea Resp Denies chest congestion, Denies cough and Denies dyspnea GI Denies abdominal pain, Denies change in stool character, Denies nausea and Denies vomiting Musc Denies deformity and Denies joint swelling Neuro Denies syncope and Denies headache(s) Physical exam (Primary Care) Vital Signs: Last Vital Signs Pulse 85 02/03/24 11:19 BP 142/80 H 02/03/24 11:19 Pulse Ox 98 02/03/24 11:19 Oxygen Delivery Method Room Air 02/03/24 11:19 BMI result Body Mass Index 34.5 Tobacco/Smoking Status: Tobacco use Status Tobacco use date assessed 02/03/24 02/03/24 11:20 Patient Tobacco Use Status Never used Tobacco 02/03/24 11:20 e-Cigarette/Vaping Use Never Used 02/03/24 11:20 PHQ-9: PHQ-9 Score PHQ-9: Total score 0 02/03/24 11:20 Depression Screening Interpretation: Negative Thrive Assessment: Date of Thrive Assessment Date Thrive assessed 02/03/24 02/03/24 11:20 Const General: cooperative, comfortable, no acute distress and alert Neck Neck: Yes no lymphadenopathy Thyroid: Thyroid normal Resp Effort & Inspection: normal respiratory effort Auscultation: clear to auscultation bilaterally Percussion: percussion normal Cardio Jugular venous distension: no JVD Palpation: normal PMI Rate: regular rate Rhythm: regular rhythm Heart sounds: S1 normal heart sound present and S2 normal heart sound present GI Inspection: Yes normal to inspection Palpation (GI): No hepatosplenomegaly present Skin General skin exam: no rashes or lesions noted Extrem General: Yes no clubbing, cyanosis or edema Assessment and Plan Assessment & Plan (1) Diabetes mellitus with coincident hypertension: Code(s): E11.9 - Type 2 diabetes mellitus without complications; I10 - Essential (primary) hypertension Plan: start rx Orders: Orders Hemoglobin A1c Today R73.9 - Hyperglycemia, unspecified Glucose Fasting Today R73.9 - Hyperglycemia, unspecified Medications: New metformin 500 mg PO DAILY 30 tabs 3RF Coding Level of Care Code Est Pt Level 3 (98071) Diagnoses Diabetes mellitus with coincident hypertension E11.9; I10 Additional Codes LEIGHANN-7 Assessment Billing - LEIGHANN-7 Assessment Tool: LEIGHANN-7 Assessment [id number] ([id number])
== END 2024-02-03 11:32 | disposition home or self-care (01) ==
PROVIDERS: PCP Internal Medicine; Visit Provider Internal Medicine
DX: E11.9 Type 2 diabetes mellitus without complications (principal); I10 Essential (primary) hypertension
CPT/HCPCS: 99213

== ENCOUNTER 2024-02-08 13:00 | Outpatient (RCR) | payer MEDICARE, BC, SELFPAY ==
--- NOTE | 2024-01-09 11:44 | MHC.PT.EP ---
[facility] Office [place] [facility] [place] Office [address] Karen Pierre [address] [phone] F: [phone] F: [phone] F: [phone] F: [phone] Physical Therapy Plan of Care Date of Evaluation: 01/09/24 Date of Surgery: 02/01/23 Diagnosis: This is a 68 year old female who presents today with a script for L hip pain and s/p R THR. Assessment: This is a 68 year old female who presents today with a script for L hip pain/ s/p R THR. She has been to this facility in the past for a R THR which was performed on 02/01/23 by [facility] ortho Dr. Page. At her last ortho appointment note is describing a new problem with complaints of left hip pain now ongoing for about a year. Patient reports that she is having pain in the groin of the left hip, pain is described as a catching and grabbing sensation. Pain increases with transfers from sit <> stand (or sitting too long specifically on a bar stool), walking and standing for housework (greater than 30 mins). She reports minimal continuation of HEP in the past, now feels the need to use an AD again and reports feeling like her balance is off. Assessment reveals pain that ranges from up to a 10/10 at the worst. Patient demos decreased L hip rotation ROM, strength of B hips and gluts, decreased endurance, impaired gait with decreased balance and impaired posture with forward head and rounded shoulders. Based on functional limitations, impaired QOL and pain tolerance patient is a good candidate for skilled PT 2x/wk for 4 wks. Frequency and Duration: The patient will be seen 2x/wk for 4wks Short Term Goals: Pt will demonstrate improved postural awareness and understanding of core engagement with supine and standing tasks without cues throughout session to improve overall hip safety in 2 weeks. Pt will continue to reinforce total hip precautions, sitting, standing and ADL modifications with proper body mechanics in 2 wks. Repair Specialist Goals: Pt will demonstrate improved outcome measure by 5 points in 4 weeks for improved functional mobility. Pt will demonstrate ability to bend and lift WNL min to no pain for household tasks in 4 wks. Pt will report improved pain with car transfers in 4wks. Pt will be I in HEP and compliant in 4wks Treatment Plan: Modalities to reduce pain, spasms and effusion. Manual therapy to restore motion and function. Therapeutic exercise to improve strength and flexibility. Neuromuscular re-education for posture and balance. Therapeutic activities to return to functional activities of daily living. Electronically signed by: Rossy Hayes, PT Please sign and return to therapist. Thank you for your referral.
--- NOTE | 2024-02-09 08:12 | MHC.PT.DC ---
[facility] [place] Office [place] Office [place] Office [address] Karen Pierre 140 [facility] [phone] F: [phone] F: [phone] F: [phone] F: [phone] Physical Therapy Discharge Report Diagnosis: This is a 68 year old female who presents today with a script for L hip pain and s/p R THR. Date of Surgery: 02/01/23 Date of Evaluation: 01/09/24 Date of Discharge: 02/09/24 Treatments to Date: 9 Cancellations to Date: 0 No Shows to Date: 0 Discharge Status: Achieved Goals Improved Function Independent with HEP Discharge Summary: Patient has made progress towards PT goals, she demos improved pain, no use of AD and improved strength. She has an appropriate HEP to continue on her own at this time. The importance of compliance was stressed as she is known for noncompliance in the past. DC to HEP. Electronically signed by: Rossy Hayes PT Please sign and return to therapist. Thank you for your referral.
== END 2024-02-09 08:14 | disposition home or self-care (01) ==
LOC: HO.PTCHIC 13:00
PROVIDERS: PCP Internal Medicine; Visit Provider Orthopaedic Surgery
DX: M16.12 Unilateral primary osteoarthritis, left hip (principal); Z96.641 Presence of right artificial hip joint
CPT/HCPCS: 97110; 97162

== ENCOUNTER 2024-02-29 06:58 | Outpatient (REF) | payer MEDICARE, BC, SELFPAY ==
[2024-02-29 07:37] LABS: Estimated Average Glucose 174 mg/dL; Hemoglobin A1c % 7.7 % (<6.0)
[2024-02-29 08:06] LABS: Glucose Fasting 169 mg/dL (60-99)
== END 2024-02-29 06:59 | disposition home or self-care (01) ==
LOC: HO.LAB 06:58
PROVIDERS: PCP Internal Medicine; Visit Provider Internal Medicine
DX: R73.9 Hyperglycemia, unspecified (principal)
CPT/HCPCS: 36415; 82947; 83036

== ENCOUNTER 2024-03-05 10:22 | Outpatient (AMB) | payer MEDICARE, BC, SELFPAY ==
[2024-03-05 10:29] VITALS: BP 114/62; PULSE 94; O2SAT 100; BMI 34.3
--- NOTE | 2024-03-05 10:29 | MHC.PC.OV ---
Vital Signs 03/05/24 10:29 Height 4 ft 10 in Weight 164 lb BMI 34.3 BP 114/62 Blood Pressure Location Lt brachial Position Sitting Pulse 94 Pulse Source Pulse Oximeter Pulse Oximetry (%) 100 Oxygen Delivery Method Room Air Intake Visit Reasons: 4wkf\u Validation Scientist Required: No Audio Tape Librarian: Not Required per policy Accompanied by: Self / Same As Patient Allergies guaifenesin [From MUCINEX] Allergy (Unknown, Verified 03/05/24 10:30) SWELLING Medication List - Last Reconciled 03/05/24 by Isidro Mays MD atorvastatin 40 mg PO DAILY hydrochlorothiazide 25 mg PO DAILY lisinopril 10 mg PO DAILY metformin 500 mg PO DAILY Tobacco use date assessed: 02/03/24 Fall risk assessment: No Falls in past year Last assessed Fall Risk: 03/05/24 Dental Screening Dental Screen Date: 02/03/24 HPI 4wkf\u HPI Details HTN and hyperlip on rx; doing well; doing well PFSH Medical History HERBERT (stress urinary incontinence, female) Arthritis Depression History of gestational diabetes Osteoarthritis of right hip Obesity Hypertension Surgical History History of hip replacement H/O tooth extraction History of removal of cyst Status post surgical removal of nail matrix of toe History of section Family History Father No problems noted. Mother No problems noted. Family/Other Heart failure Diabetes CHF (congestive heart failure) Social History Household Members: Children Housing: Other Housing Other:: mobile home Are you a primary restorative care technician to a significant other at home: No Do you presently have visiting nurse or other home services: No Alcohol intake: current Alcohol intake frequency: holidays/special occasions only Comment: uses walker on occasion Patient Tobacco Use Status: Never used Tobacco e-Cigarette/Vaping Use: Never Used Second Hand Smoke Exposure: No service: No Current occupational status: retired Current occupational exposures/hazards: No Cognitive needs: No Hearing needs: No Vision needs: Yes Questionnaire Thrive Questionnaire Date Thrive assessed: 02/03/24 LEIGHANN-7 AMB Questionnaire LEIGHANN-7 Date LEIGHANN - 7 assessed: 02/03/24 Source: Developed by Drs. Leodan Sawyer, Lashon Elizabeth, Arvind Palacios and colleagues, with an educational alta from [employer]. Review of Systems Const Denies chills, Denies headache(s) and Denies weight loss ENT Denies headache(s) Card Denies chest pain, Denies syncope, Denies irregular heart rhythm and Denies dyspnea Resp Denies chest congestion, Denies cough and Denies dyspnea GI Denies abdominal pain, Denies change in stool character, Denies nausea and Denies vomiting Musc Denies deformity and Denies joint swelling Neuro Denies syncope and Denies headache(s) Physical exam (Primary Care) Vital Signs: Last Vital Signs Pulse 94 03/05/24 10:29 BP 114/62 03/05/24 10:29 Pulse Ox 100 03/05/24 10:29 Oxygen Delivery Method Room Air 03/05/24 10:29 BMI result Body Mass Index 34.3 Tobacco/Smoking Status: Tobacco use Status Tobacco use date assessed 02/03/24 03/05/24 10:30 Patient Tobacco Use Status Never used Tobacco 03/05/24 10:30 e-Cigarette/Vaping Use Never Used 03/05/24 10:30 Thrive Assessment: Date of Thrive Assessment Date Thrive assessed 02/03/24 03/05/24 10:30 Const General: cooperative, comfortable, no acute distress and alert Neck Neck: Yes no lymphadenopathy Thyroid: Thyroid normal Resp Effort & Inspection: normal respiratory effort Auscultation: clear to auscultation bilaterally Percussion: percussion normal Cardio Jugular venous distension: no JVD Palpation: normal PMI Rate: regular rate Rhythm: regular rhythm Heart sounds: S1 normal heart sound present and S2 normal heart sound present GI Inspection: Yes normal to inspection Palpation (GI): No hepatosplenomegaly present Skin General skin exam: no rashes or lesions noted Extrem General: Yes no clubbing, cyanosis or edema Assessment and Plan Assessment & Plan (1) Hyperlipidemia: Code(s): E78.5 - Hyperlipidemia, unspecified Qualifiers: Hyperlipidemia type: unspecified Qualified Code(s): E78.5 - Hyperlipidemia, unspecified Plan: stable; same rx (2) Hypertension: Code(s): I10 - Essential (primary) hypertension Qualifiers: Hypertension type: primary hypertension Qualified Code(s): I10 - Essential (primary) hypertension Plan: stable; same rx Orders: Orders Hemoglobin A1c Today R73.9 - Hyperglycemia, unspecified Lipid Panel Today Z13.220 - Encounter for screening for lipoid disorders Glucose Fasting Today R73.9 - Hyperglycemia, unspecified Coding Level of Care Code Est Pt Level 3 (71380) Diagnoses Hyperlipidemia, unspecified hyperlipidemia type E78.5 Hyperlipidemia type: unspecified Primary hypertension I10 Hypertension type: primary hypertension
== END 2024-03-05 10:49 | disposition home or self-care (01) ==
LOC: HO.HMGH 10:26
PROVIDERS: PCP Internal Medicine; Visit Provider Internal Medicine
DX: E78.5 Hyperlipidemia, unspecified (principal); I10 Essential (primary) hypertension
CPT/HCPCS: 99213

== ENCOUNTER 2024-04-30 07:53 | Outpatient (REF) | payer MEDICARE, BC, SELFPAY ==
--- NOTE | ~2024-04-30 | XR_ITS ---
EXAMINATION: XR PELVIS CLINICAL INFORMATION: M25.559 - Pain in unspecified hip COMPARISON: 04/28/2023 TECHNIQUE: AP view of the pelvis. FINDINGS: Acetabular components of the right total hip arthroplasty are appropriately aligned without periprosthetic fracture or lucency. Mild to moderate osteoarthritis is evident in the left hip with nonuniform joint space narrowing, marginal osteophytes, to a cortical remodeling, and hypertrophy of the left medial femoral neck. Mild osteoarthritis in both SI joints. Pubic symphysis is normal. Marked degenerative spondylosis in the lower lumbar spine. No acute soft tissue abnormalities. XR/XR pelvis 1-2V IMPRESSION: 1. Mild to moderate osteoarthritis in the left hip and mild osteoarthritis in both SI joints. 2. Right total hip prosthesis appears appropriately aligned without appreciable complications on this single view. 3. Marked degenerative spondylosis in the lower lumbar spine.
== END 2024-04-30 07:54 | disposition home or self-care (01) ==
LOC: HO.HOSX 07:53
PROVIDERS: Visit Provider Orthopaedic Surgery
DX: M16.12 Unilateral primary osteoarthritis, left hip (principal); E11.9 Type 2 diabetes mellitus without complications; Z96.641 Presence of right artificial hip joint
CPT/HCPCS: 72170; 99212

== ENCOUNTER 2024-04-30 10:11 | Outpatient (AMB) | payer MEDICARE, BC, SELFPAY ==
--- NOTE | 2024-04-30 10:30 | MHC.OFFVIS ---
Vital Signs 04/30/24 10:31 Height 4 ft 10 in Weight 164 lb BMI 34.3 Intake Visit Reasons: OV - Left hip OA Intake Note: Joanie is a 68 year old female who presents today for a follow up visit of her left hip OA. Patient reports she is doing well. She occasionally utilizes a walker for ambulation. At her last visit she was given a script for physical therapy and it did provide her with relief. She is interested in having a possible injection today. 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 Allergies guaifenesin [From MUCINEX] Allergy (Unknown, Verified 04/30/24 10:33) SWELLING HPI HPI OV - Left hip OA: Details: Joanie is a 68 year old female who presents today for a follow up visit of her left hip OA. Patient reports she is doing well. She occasionally utilizes a walker for ambulation. At her last visit she was given a script for physical therapy and it did provide her with relief. She is interested in having a possible injection today. 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 SHe is limted in her daily activities and occasionally uses a walker. Her pain is left anterior groin pain. [facility], [facility] Medical History HERBERT (stress urinary incontinence, female) Arthritis Depression History of gestational diabetes Osteoarthritis of right hip Obesity Hypertension Surgical History History of hip replacement H/O tooth extraction History of removal of cyst Status post surgical removal of nail matrix of toe History of section Family History Father No problems noted. Mother No problems noted. Family/Other Heart failure Diabetes CHF (congestive heart failure) Social History Household Members: Children Housing: Other Housing Other:: mobile home Are you a primary professional healthcare representative to a significant other at home: No Do you presently have visiting nurse or other home services: No Alcohol intake: current Alcohol intake frequency: holidays/special occasions only Comment: uses walker on occasion Patient Tobacco Use Status: Never used Tobacco e-Cigarette/Vaping Use: Never Used Second Hand Smoke Exposure: No service: No Current occupational status: retired Current occupational exposures/hazards: No Cognitive needs: No Hearing needs: No Vision needs: Yes Physical Exam Vital Signs: BMI result Body Mass Index 34.3 Extrem Other: minimal internal rotation with flexion left hip + gait antalgia with + Trendelenberg gait Results Reviewed Results Reviewed: I personally reviewed relevant radiographs. Right DAVE in expected post operative position with no hardware complications or evidence of loosening Left hip severe OA Assessment & Plan Assessment & Plan (1) Osteoarthritis of left hip: Code(s): M16.12 - Unilateral primary osteoarthritis, left hip Category: Medical Plan: This is a 69 yo F with left hip severe OA. She had a successful right hip replacement on the right and I recommend left hip replacement. She is disabled and modifying her activities daily. She is a good candidate although she states she has been diagnosed with DM since her last surgery. Her HgbA1c is < 8 according to her. I discussed the risks benefits and alternatives including but not limited to the risk of pain, infection, stiffness, dislocation, leg length discrepancy and need for further surgery as well as potential medical complications such as blood clots, pulmonary embolism and cardiac complications. She expressed understanding. Orders: Orders XR pelvis 1-2V Today M25.559 - Pain in unspecified hip Coding Level of Care Code Est Pt Level 4 (04314) Diagnoses Osteoarthritis of left hip M16.12
[2024-04-30 10:31] VITALS: BMI 34.3
== END 2024-04-30 10:55 | disposition home or self-care (01) ==
PROVIDERS: PCP Internal Medicine; Visit Provider Orthopaedic Surgery
DX: M16.12 Unilateral primary osteoarthritis, left hip (principal)
CPT/HCPCS: 99214

== ENCOUNTER 2024-05-07 06:48 | Outpatient (REF) | payer MEDICARE, BC, SELFPAY ==
[2024-05-07 08:00] LABS: Estimated Average Glucose 160 mg/dL; Hemoglobin A1c % 7.2 % (<6.0)
[2024-05-07 08:21] LABS: Cholesterol 162 mg/dL (<200); Glucose Fasting 150 mg/dL (60-99); HDL Cholesterol 55 mg/dL (>40); LDL Cholesterol Calculated 88 mg/dL (<100); Triglycerides 95 mg/dL (<150)
== END 2024-05-07 06:49 | disposition home or self-care (01) ==
LOC: HO.LAB 06:48
PROVIDERS: PCP Internal Medicine; Visit Provider Internal Medicine
DX: R73.9 Hyperglycemia, unspecified (principal); Z13.220 Encounter for screening for lipoid disorders
CPT/HCPCS: 36415; 80061; 82947; 83036

== ENCOUNTER → 2024-05-14 08:51 | Outpatient (BNVA) | payer MEDICARE, BC, SELFPAY | PROVIDERS: PCP Internal Medicine | DX: Z01.810 Encounter for preprocedural cardiovascular examination (principal); E66.9 Obesity, unspecified; R07.89 Other chest pain; I10 Essential (primary) hypertension; E78.5 Hyperlipidemia, unspecified; Z68.34 Body mass index [BMI] 34.0-34.9, adult | CPT/HCPCS: 93005; 99212 ==

== ENCOUNTER 2024-05-14 13:30 | Outpatient (AMB) | payer MEDICARE, BC, SELFPAY ==
[2024-05-14 13:45] VITALS: BP 136/64; PULSE 92; BMI 33.4
--- NOTE | 2024-05-14 13:45 | MHC.OFFVIS ---
Vital Signs 05/14/24 13:45 Height 4 ft 10 in Weight 159 lb 9.835 oz BMI 33.4 BP 136/64 Blood Pressure Location Lt brachial Position Sitting Pulse 92 Pulse Source Pulse Oximeter Intake Visit Reasons: pre-op Yosef soliz/DR. Page 06/13/24 Intake Note: Pre-op District Administrative Assistant Required: No Accompanied by: Self / Same As Patient Allergies guaifenesin [From MUCINEX] Allergy (Unknown, Verified 05/14/24 09:02) SWELLING Medication List - Last Reconciled 05/14/24 by Avani Bowser NP-C atorvastatin 40 mg PO DAILY hydrochlorothiazide 25 mg PO DAILY lisinopril 10 mg PO DAILY metformin 500 mg PO DAILY HPI HPI pre-op Yosef soliz/DR. Page 06/13/24: Details: Joanie is a 69-year-old female past medical history of hypertension, hyperlipidemia, obesity who was previously evaluated for chest discomfort without cardiac findings. She now presents for preop cardiovascular examination for hip surgery. Today she reports that she has not had any episodes of recurrent chest discomfort. She denies having chest discomfort at rest or with activity. No shortness of breath at rest, palpitations, lightheadedness, presyncope, syncope, PND, orthopnea or edema. She will have some shortness of breath when climbing stairs. Reports left hip discomfort and needs to use a walker at times. Taking meds as directed. [facility] Medical History HERBERT (stress urinary incontinence, female) Arthritis Depression History of gestational diabetes Osteoarthritis of right hip Obesity Hypertension Surgical History History of hip replacement H/O tooth extraction History of removal of cyst Status post surgical removal of nail matrix of toe History of section Family History Father No problems noted. Mother No problems noted. Family/Other Heart failure Diabetes CHF (congestive heart failure) Social History Household Members: Children Housing: Other Housing Other:: mobile home Are you a primary congregational care pastor to a significant other at home: No Do you presently have visiting nurse or other home services: No Alcohol intake: current Alcohol intake frequency: holidays/special occasions only Comment: uses walker on occasion Patient Tobacco Use Status: Never used Tobacco e-Cigarette/Vaping Use: Never Used Second Hand Smoke Exposure: No service: No Current occupational status: retired Current occupational exposures/hazards: No Cognitive needs: No Hearing needs: No Vision needs: Yes Review of Systems Const All systems reviewed & are unremarkable except as noted in HPI and below Denies chills, Denies fatigue, Denies fever(s), Denies frequent falls, Denies weakness, Denies weight gain and Denies weight loss ENT Denies dizziness Card Denies chest pain, Denies leg edema, Denies lightheadedness, Denies palpitations, Denies dyspnea on exertion and Denies orthopnea Resp Denies cough and Denies dyspnea on exertion GI Denies hematochezia and Denies change in stool character Musc Details: Hip pain Denies abnormal gait, Denies muscle weakness, Denies numbness, Denies radiating pain into limb and Denies tingling Neuro Denies abnormal gait, Denies dizziness, Denies frequent falls, Denies numbness, Denies tingling and Denies weakness Endo Denies fatigue and Denies palpitations Physical Exam Vital Signs: Last Vital Signs Pulse 92 05/14/24 13:45 BP 136/64 05/14/24 13:45 BMI result Body Mass Index 33.4 Const General: cooperative, healthy appearing, comfortable and no acute distress Orientation/consciousness: patient oriented x3 Neck Neck: Yes normal visual inspection and Yes no JVD Resp Effort & Inspection: normal respiratory effort Auscultation: clear to auscultation bilaterally, no rales, no rhonchi and no wheezes Cardio Jugular venous distension: no JVD Rate: regular rate Rhythm: regular rhythm Heart sounds: S1 normal heart sound present, S2 normal heart sound present, no murmurs and no rubs Neuro General: patient oriented x3 Extrem General: Yes normal to inspection and No no pedal edema Psych Appearance: grossly normal Mental Status: mental status grossly normal Speech and movement: Normal speech and movement present Office Procedures EKG Details: Today, read by me, SR, low voltage QRS, cant exclude anterior infarct, rate 79 [id number], Complete Assessment & Plan Assessment & Plan (1) Chest discomfort: Code(s): R07.89 - Other chest pain Category: Medical Plan: Previously reported an episode of chest discomfort that woke her from sleep October 2023, lasting several minutes, no associated symptoms and resolving without treatment. ED evaluation showed no significant abnormalities. She has not had recurrent chest discomfort since that time. She tells me she has had heartburn in the past but that this did not feel like heartburn. She has cardiac risk factors obesity, hypertension, hyperlipidemia, secondhand smoke exposure and family history. EKG done in the emergency room showed sinus rhythm with septal Q-wave, poor R-wave progression, suggestive of possible prior anterior infarct. Pharmacological nuclear stress test done on 12/28/2023 showed normal myocardial perfusion imaging EF greater than 70%. An echocardiogram done 12/28/2023 showed EF 60-65%, grade 1 diastolic dysfunction, normal valves. She continues to do well and has not had any recurrent chest discomfort. She has no anginal sounding symptoms. Continue with risk factor modification. She does tell me that since her last visit she was diagnosed with diabetes. The importance of good diabetic control discussed with her. Cardiology follow-up due December 2024, sooner if needed. Emergency care if ever needed for symptoms. (2) Hypertension: Code(s): I10 - Essential (primary) hypertension Category: Medical Qualifiers: Hypertension type: primary hypertension Qualified Code(s): I10 - Essential (primary) hypertension Plan: Blood pressure well controlled at present. Continue current meds without change. Continue hydrochlorothiazide and lisinopril. Labs done 01/31/2024 shows potassium 4.6, creatinine 0.87. (3) Hyperlipidemia: Code(s): E78.5 - Hyperlipidemia, unspecified Category: Medical Qualifiers: Hyperlipidemia type: unspecified Qualified Code(s): E78.5 - Hyperlipidemia, unspecified Plan: [place] LDL goal less than 100. Labs done 05/07/2024 shows LDL 88. Continue atorvastatin 40 mg daily. (4) Obesity: Code(s): E66.9 - Obesity, unspecified Category: Medical Qualifiers: Body mass index: BMI 34.0-34.9 Obesity classification: adult class 1 (BMI 30 - 34.9) Obesity type: due to excess calories Plan: Moderate obesity with BMI 33.4. Cardiac risk factor. Benefits a weight loss reviewed with her. (5) Preop cardiovascular exam: Code(s): Z01.810 - Encounter for preprocedural cardiovascular examination Category: Medical Plan: Preop for total hip replacement on 06/13/[address] Page. Patient is low cardiac risk to proceed with surgery. Cardiac testing as above. Call/consult Cardiology if needed. Plan Time spent on chart review, documentation, interview assessment Coding Level of Care Code Est Pt Level 4 (07018) Diagnoses Chest discomfort R07.89 Primary hypertension I10 Hypertension type: primary hypertension Hyperlipidemia, unspecified hyperlipidemia type E78.5 Hyperlipidemia type: unspecified Obesity E66.9 Body mass index: BMI 34.0-34.9 Obesity classification: adult class 1 (BMI 30 - 34.9) Obesity type: due to excess calories Preop cardiovascular exam Z01.810 CPT Codes EKG - CPT: 81895-[id number], Complete ([id number]) Time Spent (min) 28
== END 2024-05-14 14:16 | disposition home or self-care (01) ==
PROVIDERS: PCP Internal Medicine; Visit Provider Nurse Practitioner Family
DX: R07.89 Other chest pain (principal); I10 Essential (primary) hypertension; E78.5 Hyperlipidemia, unspecified; E66.9 Obesity, unspecified; Z01.810 Encounter for preprocedural cardiovascular examination
CPT/HCPCS: 93010; 99214

== ENCOUNTER 2024-05-29 11:57 | Outpatient (AMB) | payer MEDICARE, BC, SELFPAY ==
--- NOTE | 2024-05-29 12:17 | AM.OFFWIN_ITS ---
Intake Vital Signs 05/29/24 12:18 Height 4 ft 10 in Weight 157 lb BMI 32.8 BP 138/88 Blood Pressure Location Rt brachial Position Sitting Pulse 110 H Pulse Source Pulse Oximeter Temp 98.2 F Temp Source Oral Pulse Oximetry (%) 97 Oxygen Delivery Method Room Air Intake Visit Reasons: EP hearing loss/shaky/dizzy Intake Note: pt is here c/o hearing loss/shaky/dizzy. Started this morning Patient Tobacco Use Status: Never used Tobacco Allergies guaifenesin [From MUCINEX] Allergy (Unknown, Verified 05/29/24 12:18) SWELLING Do you need a note to return to daycare/school/sports/work: No HPI HPI Comments History of Present Illness Details Patient is a 69-year-old female with multiple complaints. First she states that she woke up this morning and everything sounds muffled and she has reduced hearing. She has never had this happen before; she denies any fevers, tick bites, changes in her vision, or headache. Her 2nd complaint is she feels shaky, she was recently diagnosed as a type 2 diabetic and picked up her meter but she has not sure how to use it. She states she had gestational diabetes but that was when she was many many years ago as she has used a meter since. [facility] Medical History HERBERT (stress urinary incontinence, female) Arthritis Depression History of gestational diabetes Osteoarthritis of right hip Obesity Hypertension Surgical History History of hip replacement H/O tooth extraction History of removal of cyst Status post surgical removal of nail matrix of toe History of section Family History Father No problems noted. Mother No problems noted. Family/Other Heart failure Diabetes CHF (congestive heart failure) Social History Household Members: Children Housing: Other Housing Other:: mobile home Are you a primary dialysis patient care technician to a significant other at home: No Do you presently have visiting nurse or other home services: No Alcohol intake: current Alcohol intake frequency: holidays/special occasions only Comment: uses walker on occasion Patient Tobacco Use Status: Never used Tobacco e-Cigarette/Vaping Use: Never Used Second Hand Smoke Exposure: No service: No Current occupational status: retired Current occupational exposures/hazards: No Cognitive needs: No Hearing needs: No Vision needs: Yes Review of Systems Const All systems reviewed & are unremarkable except as noted in HPI and below ENT Denies Normal hearing present Neuro Denies Normal hearing present and Denies Abnormal speech present Physical Exam Vital Signs: Last Vital Signs Temp 98.2 F 05/29/24 12:18 Pulse 110 H 05/29/24 12:18 BP 138/88 05/29/24 12:18 Pulse Ox 97 05/29/24 12:18 Oxygen Delivery Method Room Air 05/29/24 12:18 BMI result Body Mass Index 32.8 Const General: cooperative, healthy appearing, comfortable, no acute distress and well developed Orientation/consciousness: patient oriented x3 Limitations: no limitations HEENT Head: Yes normal to inspection Ears: unable to visualize TM (cerumen impaction) bilaterally Face and sinus: Yes normal facial exam Mouth: Normal oral and palatal mucosa present Eyes General: appearance normal, both eyes and all related structures Neck Neck: Yes normal visual inspection and Yes full ROM Resp Effort & Inspection: normal respiratory effort and able to speak in complete sentences Skin General skin exam: no rashes or lesions noted Neuro General: patient oriented x3, gait normal, moves all extremities and no focal motor deficits Cranial nerves: Yes Bilaterally intact EOM present, Yes Nystagmus not present, Yes Normal facial strength present, Yes Midline tongue present, No Normal hearing present and Yes Ability to bilaterally rotate head present Cognition (Neuro): normal cognition Speech: No Abnormal speech present Gait exam (Neuro): Normal gait present Motor exam (neuro): Tremors during motor activity present (bilateral hands) Extrem General: Yes normal to inspection Results AMB Random Glucose (hemocue) AMB Random Glucose (hemocue) 149 mg/dL Last Edit by Zelalem Palma CMA on 05/29/24 12:58 Assessment & Plan Assessment & Plan (1) Shakiness: Code(s): R25.1 - Tremor, unspecified Plan: Point of care in the office is 149. Recommended patient call her PCP's office and make a nursing visit so they can show her how her meter works and she can start using it. (2) Hearing loss associated with syndrome of both ears: Code(s): H91.93 - Unspecified hearing loss, bilateral Plan: MA flushed both ears in the office with no improvement patient's hearing. With tachycardia, bilateral hearing loss and shakiness, patient needs further workup, sent to emergency department, called [facility] ED with expect. Plan See above Orders: Orders AMB Random Glucose (hemocue) Today Z13.9 - Encounter for screening, unspecified Coding Level of Care Code Est Pt Level 5 (20834) Diagnoses Shakiness R25.1 Hearing loss associated with syndrome of both ears H91.93
[2024-05-29 12:18] VITALS: BP 138/88; PULSE 110; TEMP 36.8; O2SAT 97; BMI 32.8
== END 2024-05-29 13:05 | disposition home or self-care (01) ==
PROVIDERS: PCP Internal Medicine; Visit Provider Physician Assistant
DX: R25.1 Tremor, unspecified (principal); H91.93 Unspecified hearing loss, bilateral
CPT/HCPCS: 69209; 82948; 99215

== ENCOUNTER 2024-05-29 13:20 | Emergency (ER) | payer MEDICARE, BC, SELFPAY ==
--- NOTE | ~2024-05-29 | CT_ITS ---
EXAMINATION: CT HEAD WITHOUT CONTRAST CLINICAL INFORMATION: Bilateral hearing loss COMPARISON: None available. TECHNIQUE: Contiguous axial imaging was performed from the skull base to vertex without intravenous administration of contrast. This CT examination was performed using dose optimization techniques as appropriate, variously including the following: *Automated exposure control *Adjustment of mA and/or kV according to patient size (this includes techniques or standardized protocols for targeted exams where dose is matched to indication/reason for exam; i.e. extremities or head) *Use of iterative reconstruction technique DLP: 546 mGy-cm FINDINGS: There is no evidence of acute intracranial hemorrhage or territorial infarction. Souza to white matter differentiation is well preserved. No abnormal mass effect or midline shift is seen. No extra-axial fluid collections are identified. No hydrocephalus. No significant volume loss. There is no abnormal attenuation within the brain parenchyma. The cerebellar tonsils are well positioned. No acute osseous or soft tissue abnormality. Visualized portions of the orbits are unremarkable. The mastoid air cells and visualized portions of the paranasal sinuses are well aerated. CT/CT head/brain wo IV con IMPRESSION: No acute intracranial pathology.
[2024-05-29 13:23] VITALS: BP 148/88; PULSE 100; RESP 16; TEMP 37; O2SAT 97; BMI 33.8
--- NOTE | 2024-05-29 13:24 | ED.GENADULT ---
HPI - General Adult General Chief complaint: Ear Problems Stated complaint: cant hear Time Seen by Provider: 05/29/24 15:45 Source: patient Mode of arrival: ambulatory Limitations: no limitations History of Present Illness ED Provider: GRIS TORRES PA-C HPI narrative: 69 year old female with pmhx significant for T2DM, HTN, bilateral hearing loss presents to the ED today for evaluation of bilateral decreased hearing on waking this morning. Admits she follows with Dr. Boone (ENT) and was told she needed hearing aids. She last saw ENT one year ago. She was evaluated at the walk in [place] today and was noted to have cerumen impaction bilaterally. Her ears were irrigated and minimal improvement in hearing. Denies ear pain or drainage. Denies trauma/ injury. Denies recent plane rides/ scuba diving. Denies headache, dizziness, vision changes. Related Data Previous Rx's ?Medication ?Instructions ?Recorded hydrochlorothiazide 25 mg tablet 25 mg PO DAILY #90 tabs 03/27/23 lisinopril 10 mg tablet 10 mg PO DAILY #90 tabs 07/31/23 atorvastatin 40 mg tablet 40 mg PO DAILY #90 tabs 04/27/24 metformin 500 mg tablet 500 mg PO DAILY #30 tabs 05/22/24 Allergies Allergy/AdvReac Type Severity Reaction Status Date / Time guaifenesin [From MUCINEX] Allergy Unknown SWELLING Verified 05/29/24 13:25 Review of Systems Review of Systems: Constitutional: No fever, chills, fatigue, night sweats, weight changes ENT/Mouth: No ear pain, nasal congestion, sinus pain, rhinorrhea, sore throat, +hearing loss Eyes: No eye pain, swelling, redness, vision changes, discharge Cardio: No chest pain, palpitations, BLOCK, orthopnea, peripheral edema Pulm: No SOB, cough, sputum, wheezing, dyspnea, hemoptysis GI: No nausea, vomiting, hematemesis, abdominal pain, diarrhea, constipation, hematochezia, melena : No irregular bleeding, dysuria, frequency, urgency, hesitancy, hematuria, flank pain, urinary flow changes, urinary incontinence or retention MSK: No back pain, neck pain, joint pain, myalgias Skin: No lesions, rashes Neuro: No weakness, numbness, paresthesias, LOC, dizziness, headache Psych: No anxiety/panic, depression, SI/HI, AH/VH All other systems reviewed and are negative. [facility] Past Medical History Attestation statement: The following information was validated with the patient. Source: old records reviewed and nursing notes reviewed Medical History HERBERT (stress urinary incontinence, female) Arthritis Depression History of gestational diabetes Osteoarthritis of right hip Obesity Hypertension Surgical History History of hip replacement H/O tooth extraction History of removal of cyst Status post surgical removal of nail matrix of toe History of section Family History Family History Father No problems noted. Mother No problems noted. Family/Other Heart failure Diabetes CHF (congestive heart failure) Social History Social History Household Members: Children Housing: Other Housing Other:: mobile home Are you a primary youth care worker to a significant other at home: No Do you presently have visiting nurse or other home services: No Alcohol intake: current Alcohol intake frequency: holidays/special occasions only Comment: uses walker on occasion Patient Tobacco Use Status: Never used Tobacco e-Cigarette/Vaping Use: Never Used Second Hand Smoke Exposure: No service: No Current occupational status: retired Current occupational exposures/hazards: No Cognitive needs: No Hearing needs: No Vision needs: Yes Physical Exam ED Vital Signs: Vital Signs - 24 hr 05/29/24 13:23 Temperature 98.6 F Pulse Rate 100 Respiratory Rate 16 Blood Pressure 148/88 H Pulse Oximetry 97 Oxygen Delivery Method Room Air BMI result Body Mass Index 33.8 slightly hypertensive, vitals otherwise wnl Const General: cooperative, healthy appearing, comfortable and no acute distress Orientation/consciousness: patient oriented x3 Limitations: no limitations HENMT Other: + hearing intact to loud voice + No pain on manipulation of left pinna or tragus. No mastoid tenderness. Left EAC without erythema, edema or discharge. TM intact without erythema, effusion, or bulging. + No pain on manipulation of right pinna or tragus. No mastoid tenderness. Right EAC without erythema, edema or discharge. TM intact without erythema, effusion, or bulging. Head: Yes normal to inspection, Yes No palpable skull fracture present, Yes normocephalic and Yes atraumatic Eyes General: appearance normal, both eyes and all related structures Pupils: Equal, round and reactive pupils present EOM: EOMs intact bilaterally Resp Effort & Inspection: normal respiratory effort and able to speak in complete sentences Cardio Rate: regular rate Rhythm: regular rhythm Skin General skin exam: no rashes or lesions noted Neuro General: patient oriented x3 and gait normal Cranial nerves: Yes Equal, round and reactive pupils present Gait exam (Neuro): Normal gait present Motor exam (neuro): 5/5 motor strength present throughout and Pronator motor function not present Coordination: [id number] test normal, [id number] test normal and Normal rapid alternating movements of the distal upper extremity present (Neuro) Course Course Course Narrative: This is a Rapid Medical Examination (RME) performed by Mario Pickett PA-C in triage. Full HPI, ROS, assessment and treatment plan per primary provider in the Main ED. 69 yo female with history of DM2, history of bilateral hearing loss (seen by Dr. Christine in the past & told she needs hearing aids) who presents to the ER for evaluation of acute worsening of her hearing that started this morning. She was shakey and sweaty this morning as well. [facility] where she had cerumen impaction - removed completely with no improvement in her symptoms. No other neurologic symptoms. In triage she has no cerumen in her EACs. TMs intact. Able to hear with loud voice. Neurologically otherwise intact. HR 100-110s. POC at was 140s. Plan: CT head, labs Reevaluation(s) Reevaluation #1: 1550-- CBC without leukocytosis or left shift. no anemia. h&h stable. chemistry without acute electrolyte abnormality requiring intervention. CT head unremarkable. no space occupying lesion or mass. > patient noted to take HCTZ for her blood pressure. concern for medication side effect. advised to follow up with her PCP for medication changes/ adjustments. additionally will follow up with her ENT doctor, dr. boone. Patient has remained stable throughout ED visit today. Discussed worrisome signs and symptoms and when to return to the ED. All questions answered at this time. Patient is agreeable with disposition and stable for discharge. Medical Decision Making Medical Decision Making MDM Narrative: 69 year old female with pmhx significant for T2DM, HTN, bilateral hearing loss presents to the ED today for evaluation of bilateral decreased hearing on waking this morning. She is hypertensive, vitals otherwise wnl. nontoxic appearing and in nad. on exam, hearing intact to loud voice. no pain on manipulation of left pinna or tragus. No mastoid tenderness. Left EAC without erythema, edema or discharge. TM intact without erythema, effusion, or bulging. No pain on manipulation of right pinna or tragus. No mastoid tenderness. Right EAC without erythema, edema or discharge. TM intact without erythema, effusion, or bulging. neurologically intact. Differential diganosis includes anemia, electrolyte abnormality, medication side effect, brain mass, otitis media/ externa, ear FB Plan for labs, CT head, re-evaluation. Differential Diagnosis Differential Diagnoses: The differential diagnosis associated with the presentation includes as above Admission/Observation not indicated Lab Data MDM Lab Attestation statement: I reviewed the patient's lab results. as above 05/29/24 13:33 05/29/24 13:33 Labs: Lab Results 05/29/24 Range/Units 13:33 WBC 9.6 (4.8-10.8) X10*3/uL RBC 4.38 (4.20-5.50) X10*6/uL Hgb 13.5 (12.0-16.0) g/dl Hct 38.0 (37.0-47.0) % MCV 86.8 (80.0-98.0) fL MCH 30.8 (27.0-33.0) pg MCHC 35.5 H (31.0-35.0) g/dl RDW 13.2 (11.0-16.0) % Plt Count 348 (160-400) X10*3/uL MPV 8.1 L (9.4-12.3) fL Immature Gran % (Auto) 0.7 H (0.0-0.4) % Neut % (Auto) 69.2 (45-73) % Lymph % (Auto) 22.1 (20-40) % [place] % (Auto) 6.9 (2-11) % Eos % (Auto) 0.6 (0-4) % Baso % (Auto) 0.5 (0-2) % Lymph # (Auto) 2.1 (1.2-4.9) X10*3/uL [place] # (Auto) 0.7 (0.1-1.2) X10*3/uL Eos # (Auto) 0.1 (0.0-0.4) X10*3/uL Baso # (Auto) 0.1 (0.0-0.2) X10*3/uL Abs Immat Gran (auto) 0.07 H (0.00-0.03) X10*3/uL Absolute Neuts (auto) 6.7 (2.0-8.3) x10*3/uL Absolute Nucleated RBC 0.000 (0.0-0.012) X10*3/uL Nucleated RBC % (auto) 0.0 (0.0-0.2) /100WBC Sodium 135 (135-145) mmol/L Potassium 4.2 (3.3-5.1) mmol/L Chloride 101 (96-108) mmol/L Carbon Dioxide 19 L (22-29) mmol/L Anion Gap 19 (12-20) BUN 14 (9-16) mg/dL Creatinine 0.97 (0.5-1.4) mg/dL Estim Creat Clear Calc 45.1 Estimated GFR 57 Random Glucose 152 H (60-115) mg/dL Calcium 10.4 H D (8.4-10.2) mg/dL Magnesium 1.7 (1.6-2.6) mg/dL Total Bilirubin 0.4 (0.0-1.0) mg/dL Direct Bilirubin 0.2 (0.0-0.5) mg/dL AST 32 H (5-31) U/L ALT 48 H (0-31) U/L Alkaline Phosphatase 105 (39-117) U/L Total Protein 7.9 (6.5-8.0) g/dL Albumin 4.5 (3.5-5.0) g/dL Independent Interpretation I performed an independent interpretation of an: CT Scan Interpretation: CT head without mass or bleed, agree with radiologist's interpretation Radiology Impression Discussion of test interpretation with radiology: I have reviewed the radiologist's reading. Radiologist Impression: EXAMINATION: CT HEAD WITHOUT CONTRAST CLINICAL INFORMATION: Bilateral hearing loss COMPARISON: None available. TECHNIQUE: Contiguous axial imaging was performed from the skull base to vertex without intravenous administration of contrast. This CT examination was performed using dose optimization techniques as appropriate, variously including the following: *Automated exposure control *Adjustment of mA and/or kV according to patient size (this includes techniques or standardized protocols for targeted exams where dose is matched to indication/reason for exam; i.e. extremities or head) *Use of iterative reconstruction technique DLP: 546 mGy-cm FINDINGS: There is no evidence of acute intracranial hemorrhage or territorial infarction. Souza to white matter differentiation is well preserved. No abnormal mass effect or midline shift is seen. No extra-axial fluid collections are identified. No hydrocephalus. No significant volume loss. There is no abnormal attenuation within the brain parenchyma. The cerebellar tonsils are well positioned. No acute osseous or soft tissue abnormality. Visualized portions of the orbits are unremarkable. The mastoid air cells and visualized portions of the paranasal sinuses are well aerated. CT/CT head/brain wo IV con IMPRESSION: No acute intracranial pathology. External Record Review External record reviewed: Inpatient record Social Determinants Patient?s care significantly limited by Social Determinants of Health including: Other Social Determinant of Health Critical Care Time Critical Care Time Critical Care Time: No Discharge Plan Discharge Clinical Impression: Decreased hearing of both ears Patient Disposition: Home, Self-Care Instructions: Hearing Loss (ED) Additional Instructions: Your lab work today is reassuring. The CT scan of your head/ brain does not demonstrate bleed, mass, or other intracranial pathology. Please follow up with your ENT doctor. Return with new or worsening symptoms. In the case of an emergency call 911. Prescriptions: No Action hydrochlorothiazide 25 mg tablet 25 mg PO DAILY Qty: 90 8RF lisinopril 10 mg tablet 10 mg PO DAILY Qty: 90 8RF atorvastatin 40 mg tablet 40 mg PO DAILY Qty: 90 8RF metformin 500 mg tablet 500 mg PO DAILY Qty: 30 3RF Referrals: Isidro Mays MD [Primary Care Provider] - Edilberto Granger [Physician] - Interventions: ED Discharge Assessment Last Done: 05/29/24 16:02 Discharge Date/Time: 05/29/24 16:02 Print Language: Bengali
[2024-05-29 13:37] LABS: MANUAL DIFF FLAG NO
[2024-05-29 13:39] LABS: Basophils Absolute Auto 0.1 X10*3/uL (0.0-0.2); Basophils Percent Auto 0.5 % (0-2); Eosinophils Absolute Auto 0.1 X10*3/uL (0.0-0.4); Eosinophils Percent Auto 0.6 % (0-4); Hemoglobin 13.5 g/dl (12.0-16.0); Imm Gran Abs Auto 0.07 X10*3/uL (0.00-0.03); Imm Gran Pct Auto 0.7 % (0.0-0.4); Lymphocytes Absolute Auto 2.1 X10*3/uL (1.2-4.9); Lymphocytes Percent Auto 22.1 % (20-40); Mean Corpuscular HGB Conc 35.5 g/dl (31.0-35.0); Mean Corpuscular Hemoglobin 30.8 pg (27.0-33.0); Mean Corpuscular Volume 86.8 fL (80.0-98.0); Mean Platelet Volume 8.1 fL (9.4-12.3); Monocytes Absolute Auto 0.7 X10*3/uL (0.1-1.2); Monocytes Percent Auto 6.9 % (2-11); Neutrophils Absolute Auto 6.7 x10*3/uL (2.0-8.3); Neutrophils Percent Auto 69.2 % (45-73); Platelet Count 348 X10*3/uL (160-400); Red Blood Count 4.38 X10*6/uL (4.20-5.50); Red Cell Distribution Width 13.2 % (11.0-16.0); White Blood Count 9.6 X10*3/uL (4.8-10.8)
[2024-05-29 13:59] LABS: Alanine Aminotransferase 48 U/L (0-31); Albumin Level 4.5 g/dL (3.5-5.0); Alkaline Phosphatase 105 U/L (39-117); Anion Gap 19 (12-20); Aspartate Amino Transferase 32 U/L (5-31); Bilirubin Direct 0.2 mg/dL (0.0-0.5); Bilirubin Total 0.4 mg/dL (0.0-1.0); Blood Urea Nitrogen 14 mg/dL (9-16); Calcium 10.4 mg/dL (8.4-10.2); Carbon Dioxide 19 mmol/L (22-29); Chloride 101 mmol/L (96-108); Creatinine Clr Calc Pharmacy 45.1; Estimated Glomerular Filt Rate 57; Glucose Random 152 mg/dL (60-115); Magnesium 1.7 mg/dL (1.6-2.6); Potassium 4.2 mmol/L (3.3-5.1); Sodium 135 mmol/L (135-145); Total Protein 7.9 g/dL (6.5-8.0)
--- NOTE | 2024-05-29 15:53 | PC.NURSE ---
Pt jennifer by PA cleared for dc home.
[2024-05-29 16:02] VITALS: BP 140/70; PULSE 82; RESP 18; TEMP 37; O2SAT 98
== END 2024-05-29 16:02 | disposition home or self-care (01) ==
PROVIDERS: Physician Assistant; Emergency Provider Emergency Medicine Emergency Medical Services; PCP Internal Medicine
DX: H92.03 Otalgia, bilateral (principal); H91.93 Unspecified hearing loss, bilateral; I10 Essential (primary) hypertension; Z79.899 Other long term (current) drug therapy
CPT/HCPCS: 36415; 70450; 80048; 80076; 83735; 85025; 99282; 99284

== ENCOUNTER 2024-06-05 10:41 | Outpatient (AMB) | payer MEDICARE, BC, SELFPAY ==
[2024-06-05 10:44] VITALS: BP 140/84; PULSE 84; O2SAT 100; BMI 34.0
--- NOTE | 2024-06-05 10:44 | A.OFFPC_ITS ---
Vital Signs 06/05/24 10:44 Height 4 ft 9 in Weight 157 lb BMI 34.0 BP 140/84 H Blood Pressure Location Lt brachial Position Sitting Pulse 84 Pulse Source Pulse Oximeter Pulse Oximetry (%) 100 Oxygen Delivery Method Room Air Intake Visit Reasons: Yosef soliz/Dr. Page 06/13/24 Aircraft Cleaning Supervisor Required: No Title Investigator: Not Required per policy Accompanied by: Self / Same As Patient Allergies guaifenesin [From MUCINEX] Allergy (Intermediate, Verified 06/05/24 10:45) SWELLING Medication List - Last Reconciled 06/06/24 by Isidro Mays MD atorvastatin 40 mg PO QAM hydrochlorothiazide 25 mg PO QAM lisinopril 10 mg PO QAM metformin 500 mg PO QAM Tobacco use date assessed: 02/03/24 Fall risk assessment: No Falls in past year Last assessed Fall Risk: 06/05/24 Dental Screening Dental Screen Date: 02/03/24 HPI Yosef soliz/Dr. Page 06/13/24 HPI Details having a left hip arthroplasty; has DM hypertension and hyperlipidemia; stable on rx; no history of CAD PFSH Medical History (Updated 06/06/24 @ 08:25 by Isidro Mays MD) Preop exam for internal medicine [place] (hard of hearing) Diabetes HERBERT (stress urinary incontinence, female) Arthritis Depression History of gestational diabetes Osteoarthritis of right hip Obesity Hypertension Surgical History (Updated 06/04/24 @ 09:38 by Trang Garcia RN) History of hip replacement H/O tooth extraction History of removal of cyst Status post surgical removal of nail matrix of toe History of section Family History Father No problems noted. Mother No problems noted. Family/Other Heart failure Diabetes CHF (congestive heart failure) Social History Household Members: Children Household Members Other:: son Housing: Other Housing Other:: mobile home Are you a primary careers counsellor to a significant other at home: No Do you presently have visiting nurse or other home services: Yes ([facility]) Alcohol intake: current Alcohol intake frequency: does not drink Comment: occasional walker usage Patient Tobacco Use Status: Never used Tobacco e-Cigarette/Vaping Use: Never Used Second Hand Smoke Exposure: No service: No Current occupational status: retired Current occupational exposures/hazards: No Cognitive needs: No Hearing needs: No Vision needs: Yes (glasses) Questionnaire Thrive Questionnaire Date Thrive assessed: 02/03/24 LEIGHANN-7 AMB Questionnaire LEIGHANN-7 Date LEIGHANN - 7 assessed: 02/03/24 Source: Developed by Drs. Leodan Sawyer, Lashon Elizabeth, Arvind Palacios and colleagues, with an educational alta from [employer]. Review of Systems Const Denies chills, Denies fatigue, Denies headache(s) and Denies weight loss Eyes Denies change in vision, Denies diplopia and Denies eye pain ENT Denies vertigo, Denies dizziness, Denies headache(s) and Denies nasal discharge Card Denies chest pain, Denies rapid heart rate and Denies dyspnea on exertion Resp Denies chest congestion, Denies cough, Denies pain with cough and Denies dyspnea on exertion GI Denies abdominal pain, Denies hematochezia and Denies change in bowel habits Musc Denies myalgias, Denies arthralgias and Denies joint swelling Skin/Breast Denies lesions and Denies unusual bruising Neuro Denies vertigo, Denies dizziness, Denies headache(s) and Denies focal weakness Endo Denies fatigue Physical exam (Primary Care) Vital Signs: Last Vital Signs Pulse 84 06/05/24 10:44 BP 140/84 H 06/05/24 10:44 Pulse Ox 100 06/05/24 10:44 Oxygen Delivery Method Room Air 06/05/24 10:44 BMI result Body Mass Index 34.0 Tobacco/Smoking Status: Tobacco use Status Tobacco use date assessed 02/03/24 06/05/24 10:45 Patient Tobacco Use Status Never used Tobacco 06/05/24 10:45 e-Cigarette/Vaping Use Never Used 06/05/24 10:45 Thrive Assessment: Date of Thrive Assessment Date Thrive assessed 02/03/24 06/05/24 10:45 Const General: cooperative, healthy appearing and no acute distress Orientation/consciousness: oriented to person, oriented to place and oriented to time HENMN Head: Yes normal to inspection, Yes normocephalic and Yes atraumatic Mouth: Normal oral and palatal mucosa present and tongue normal Throat: Yes posterior oropharynx normal and Yes uvula midline Eyes General: appearance normal, both eyes and all related structures Neck Neck: Yes normal visual inspection, Yes full ROM and Yes no lymphadenopathy Thyroid: Thyroid normal Carotids: normal carotid upstroke Chest Chest palpation & inspection: normal inspection of the chest Resp Effort & Inspection: normal respiratory effort and able to speak in complete sentences Auscultation: clear to auscultation bilaterally Cardio Jugular venous distension: no JVD Palpation: normal PMI Rate: regular rate Rhythm: regular rhythm Heart sounds: S1 normal heart sound present and S2 normal heart sound present GI Inspection: Yes normal to inspection Palpation (GI): Soft to palpation and No hepatosplenomegaly present Auscultation: normal bowel sounds General: Yes no CVA tenderness Back/Spine/Pelvis Back: no CVA tenderness Skin General skin exam: no rashes or lesions noted Neuro General: oriented to person, oriented to place and oriented to time Extrem General: Yes normal to inspection and Yes full ROM Assessment and Plan Assessment & Plan (1) Preop exam for internal medicine: Code(s): Z01.818 - Encounter for other preprocedural examination Plan: intermediate risk for cardiovascular complications; cleared for surgery (2) Diabetes mellitus with coincident hypertension: Code(s): E11.9 - Type 2 diabetes mellitus without complications; I10 - Essential (primary) hypertension Plan: stable; same rx (3) Hyperlipidemia: Code(s): E78.5 - Hyperlipidemia, unspecified Qualifiers: Hyperlipidemia type: unspecified Qualified Code(s): E78.5 - Hyperlipidemia, unspecified Plan: stable; same rx (4) Hypertension: Code(s): I10 - Essential (primary) hypertension Qualifiers: Hypertension type: primary hypertension Qualified Code(s): I10 - Essential (primary) hypertension Plan: stable; same rx Coding Level of Care Code Est Pt Level 4 (08456) Diagnoses Preop exam for internal medicine Z01.818 Diabetes mellitus with coincident hypertension E11.9; I10 Hyperlipidemia, unspecified hyperlipidemia type E78.5 Hyperlipidemia type: unspecified Primary hypertension I10 Hypertension type: primary hypertension
== END 2024-06-05 11:02 | disposition home or self-care (01) ==
PROVIDERS: PCP Internal Medicine; Visit Provider Internal Medicine
DX: Z01.818 Encounter for other preprocedural examination (principal); E11.9 Type 2 diabetes mellitus without complications; I10 Essential (primary) hypertension; E78.5 Hyperlipidemia, unspecified
CPT/HCPCS: 99214

== ENCOUNTER 2024-06-07 11:00 | Outpatient (AMB) | payer MEDICARE, BC, SELFPAY ==
--- NOTE | 2024-06-07 11:15 | A.OFFVIS_ITS ---
Vital Signs 06/07/24 11:20 Height 4 ft 9 in Weight 157 lb BMI 34.0 Intake Visit Reasons: Pre-Op: L DAVE w/NE 06/13/24 Intake Note: Joanie is a 69 year old female who presents today for a pre op appointment for her L DAVE w/NE 06/13/24. Allergies guaifenesin [From MUCINEX] Allergy (Intermediate, Verified 06/07/24 11:21) SWELLING HPI HPI Pre-Op: L DAVE w/NE 06/13/24: Details: 69-year-old female who presents in the office today for her preoperative history and physical exam prior to a left total hip arthroplasty to be performed on 06/13/[address] Blaine Page.? ? Patient has an allergy history, as follows:? -Guaifenesin; edema? ? Patient is currently taking, as follows:? -Atorvastatin 40 mg PO QAM? -Hydrochlorothiazide 25 mg PO QAM? -Lisinopril 10 mg PO QAM? -Metformin 500 mg PO QAM? ? Patient has a medical history, as follows:? -Hearing loss associated with syndrome of both ears? -Shakiness? -Diabetes mellitus wit coincident hypertension? -Hyperlipidemia? -Obesity (BMI of 34.0 as of 06/05/24)? -Hypertension? -Stress urinary incontinence? -Depression? ? Patient has a surgical history, as follows:? -Hx of right hip replacement; 2022? -Hx of ?tooth extraction? -Hx of removal of cyst; left wrist ganglion cyst? -Hx of removal of nail matrix of toe; 12/2017?? -Hx?of section? ? Patient has a social history, as follows:? -Occasional walker usage PFSH Medical History (Updated 06/06/24 @ 08:25 by Isidro Mays MD) Preop exam for internal medicine [place] (hard of hearing) Diabetes HERBERT (stress urinary incontinence, female) Arthritis Depression History of gestational diabetes Osteoarthritis of right hip Obesity Hypertension Surgical History (Updated 06/07/24 @ 13:01 by Marcelina Tyson PA-C) History of hip replacement H/O tooth extraction History of removal of cyst Status post surgical removal of nail matrix of toe History of section Family History Father No problems noted. Mother No problems noted. Family/Other Heart failure Diabetes CHF (congestive heart failure) Social History Household Members: Children Household Members Other:: son Housing: Other Housing Other:: mobile home Are you a primary live in caregiver to a significant other at home: No Do you presently have visiting nurse or other [facility] Alcohol intake: current Alcohol intake frequency: does not drink Comment: occasional walker usage Patient Tobacco Use Status: Never used Tobacco e-Cigarette/Vaping Use: Never Used Second Hand Smoke Exposure: No service: No Current occupational status: retired Current occupational exposures/hazards: No Cognitive needs: No Hearing needs: No Vision needs: Yes (glasses) Review of Systems Const All systems reviewed & are unremarkable except as noted in HPI and below Physical Exam Vital Signs: BMI result Body Mass Index 34.0 Const General: cooperative, healthy appearing, comfortable, no acute distress, well developed, alert and awake Orientation/consciousness: patient oriented x3 HEENT Head: Yes normal to inspection, Yes normocephalic and Yes atraumatic Eyes General: appearance normal, both eyes and all related structures Neck Neck: Yes normal visual inspection and Yes no lymphadenopathy Resp Effort & Inspection: normal respiratory effort and able to speak in complete sentences Cardio Rate: regular rate Peripheral pulses: Peripheral pulses 2+ throughout GI Inspection: Yes normal to inspection Palpation (GI): Soft to palpation Skin General skin exam: no rashes or lesions noted Neuro General: patient oriented x3 Extrem Other: Left hip: Skin is clean, dry, and intact. minimal internal rotation with flexion left hip + gait antalgia with + Trendelenberg gait Psych Mental Status: mental status grossly normal Assessment & Plan Assessment & Plan (1) Osteoarthritis of left hip: Code(s): M16.12 - Unilateral primary osteoarthritis, left hip Category: Medical Plan Ms. Pereyra is a 69-year-old female who presents in the office today for her preoperative history and physical exam prior to a left total hip arthroplasty to be performed on 06/13/[address] Blaine Page.? ? Patient has an allergy history, as follows:? -Guaifenesin; edema? ? Patient is currently taking, as follows:? -Atorvastatin 40 mg PO QAM? -Hydrochlorothiazide 25 mg PO QAM? -Lisinopril 10 mg PO QAM? -Metformin 500 mg PO QAM? ? Patient has a medical history, as follows:? -Hearing loss associated with syndrome of both ears? -Shakiness? -Diabetes mellitus wit coincident hypertension? -Hyperlipidemia? -Obesity (BMI of 34.0 as of 06/05/24)? -Hypertension? -Stress urinary incontinence? -Depression? ? Patient has a surgical history, as follows:? -Hx of right hip replacement; 2022? -Hx of ?tooth extraction? -Hx of removal of cyst; left wrist ganglion cyst? -Hx of removal of nail matrix of toe; 12/2017?? -Hx?of section? ? Patient has a social history, as follows:? -Occasional walker usage? ? I discussed in detail the procedure and what to expect pre and post operatively. We discussed the risks, benefits, alternatives to the surgery and the rehabilitation course. The risks include infection, bleeding, nerve injury, ongoing pain, swelling, and stiffness, perioperative risk of injury to bones and soft tissues, and blood clots.?? ? I have answered all questions and with their understanding they have consented to move forward with a left total hip arthroplasty to be performed on 06/13/[address] Blaine Page.? ? Follow-up will be at the post operative appointment on 06/29/24, or sooner if needed.? ? X-rays were obtained in the office today for surgical planning. ? Orders: Orders XR hip LT w PEL1V 06/04/24 M25.559 - Pain in unspecified hip XR hip LT min 2V Today M25.559 - Pain in unspecified hip PT Evaluation and Treatment Today Z96.642 - Presence of left artificial hip joint Patient Instructions: Scribed by Sandra Hercules medical engineer, for Marcelina Tyson PA-C on 06/07/2024 at 11:02 am, EST.? Coding Level of Care Code Global (07787) Diagnoses Osteoarthritis of left hip M16.12
[2024-06-07 11:20] VITALS: BMI 34.0
== END 2024-06-07 11:52 | disposition home or self-care (01) ==
PROVIDERS: PCP Internal Medicine; Visit Provider Physician Assistant
DX: M16.12 Unilateral primary osteoarthritis, left hip (principal)
CPT/HCPCS: 99024

== ENCOUNTER 2024-06-07 11:04 | Outpatient (REF) | payer MEDICARE, BC, SELFPAY | END 2024-06-07 11:05 | disposition home or self-care (01) | LOC: HO.HOSX 11:04 | PROVIDERS: Visit Provider Physician Assistant | DX: M16.12 Unilateral primary osteoarthritis, left hip (principal) | CPT/HCPCS: 99212 ==

== ENCOUNTER 2024-06-13 06:43 | Inpatient (IN) | payer MEDICARE, BC, SELFPAY ==
[2024-06-04 13:06] VITALS: BP 134/79; PULSE 93; RESP 20; O2SAT 99; BMI 33.0
--- NOTE | 2024-06-04 13:17 | P.CONAN_ITS ---
Documented by User: Nargis Marquez NP 06/12/24 12:10 HPI - Anesthesia Eval Consult details Narrative: 69yo F for Left Hip Total Replacement. 06/13/24 s/p Right total hip 01/2023 with GA-ETT 7.5 Cardiac optimized Medically optimized [facility] Active Problems Active Problems: All Active Problems Hearing loss associated with syndrome of both ears (Acute) Shakiness (Acute) Preop cardiovascular exam (Acute) Diabetes mellitus with coincident hypertension (Acute) Chest discomfort (Acute) Osteoarthritis of left hip (Acute) Status post total hip replacement, right (Acute) Preop exam for internal medicine (Acute) Arthritis, hip (Acute) Hyperlipidemia (Acute) Encounter for annual wellness visit (AWV) in Medicare patient (Acute) Obesity (Acute) Hypertension (Acute) Past Medical History Medical History Preop exam for internal medicine HO-CHUNK (hard of hearing) Diabetes HERBERT (stress urinary incontinence, female) Arthritis Depression History of gestational diabetes Osteoarthritis of right hip Obesity Hypertension Family History Family History Father No problems noted. Mother No problems noted. Family/Other Heart failure Diabetes CHF (congestive heart failure) Surgical History Surgical History History of hip replacement H/O tooth extraction History of removal of cyst Status post surgical removal of nail matrix of toe History of section History of Problems with Anesthesia: No Social History Social History Household Members: Children Household Members Other:: son Housing: Other Housing Other:: mobile home Are you a primary congregational care pastor to a significant other at home: No Do you presently have visiting nurse or other home services: No Alcohol intake: current Alcohol intake frequency: holidays/special occasions only Comment: uses walker on occasion Patient Tobacco Use Status: Never used Tobacco e-Cigarette/Vaping Use: Never Used Second Hand Smoke Exposure: No Use of substances other than those prescribed or required for medical reasons: No Have you been hit, kicked, punched, or otherwise hurt by someone within the past year? If so, by whom?: No Are you DNR?: No Advance Directives: No (daughter is primary contact) Advance Directives Information Provided: Yes (as above noted) Advance Directives on File: No Recently lost weight without trying: No Eating poorly because of decreased appetite: No Nutrition Risks: No Nutritional Risk Poor oral hygiene: No (full upper & lower denture) service: No Current occupational status: retired Current occupational exposures/hazards: No Cognitive needs: No Hearing needs: No Vision needs: Yes (glasses) Meds Allergies Allergy/AdvReac Type Severity Reaction Status Date / Time guaifenesin [From MUCINEX] Allergy Intermediate SWELLING Verified 06/07/24 11:21 Home Medications ?Medication ?Instructions ?Recorded ?Confirmed ?Last Taken ?Type atorvastatin 40 mg tablet 40 mg PO DAILY 06/04/24 06/13/24 06/11/24 History lisinopril 10 mg tablet 10 mg PO DAILY 06/04/24 06/13/24 06/12/24 History metformin 500 mg tablet 500 mg PO DAILY 06/04/24 06/13/24 06/10/24 History hydrochlorothiazide 25 mg tablet 25 mg PO DAILY 06/13/24 06/13/24 06/11/24 History Exam Pertinent Lab Results Pertinent Lab Results: Laboratory Tests 05/29/24 13:33 WBC 9.6 Hgb 13.5 Hct 38.0 Plt Count 348 Sodium 135 Potassium 4.2 Chloride 101 Carbon Dioxide 19 L BUN 14 Creatinine 0.97 Laboratory Tests 05/07/24 07:01 Hemoglobin A1c % 7.2 H Narrative Narrative: EKG 05/2024 SR, low voltage QRS, cant exclude anterior infarct, rate 79 Pharmacological nuclear stress test done on 12/28/2023 showed normal myocardial perfusion imaging EF greater than 70%. echocardiogram done 12/28/2023 showed EF 60-65%, grade 1 diastolic dysfunction, normal valves. Airway Mallampati Class: III TM Dist: >3cm Neck ROM: Full Denture: Upper and Lower Heart: RRR Lungs: CTAB Assessment and Plan Assessment Anesthesia Assessment: Anesthesia Plan Discussed and PAT Visit Final Anesthetic Review History of Problems with Anesthesia: No Documented by User: Ria Castro MD 06/13/24 08:35 [facility] Past Medical History Medical History Preop exam for internal medicine HO-CHUNK (hard of hearing) Diabetes HERBERT (stress urinary incontinence, female) Arthritis Depression History of gestational diabetes Osteoarthritis of right hip Obesity Hypertension Family History Family History Father No problems noted. Mother No problems noted. Family/Other Heart failure Diabetes CHF (congestive heart failure) Surgical History Surgical History History of hip replacement H/O tooth extraction History of removal of cyst Status post surgical removal of nail matrix of toe History of section Social History Social History Household Members: Children Household Members Other:: son Housing: Other Housing Other:: mobile home Are you a primary congregational care pastor to a significant other at home: No Do you presently have visiting nurse or other home services: No Alcohol intake: current Alcohol intake frequency: holidays/special occasions only Comment: uses walker on occasion Patient Tobacco Use Status: Never used Tobacco e-Cigarette/Vaping Use: Never Used Second Hand Smoke Exposure: No Use of substances other than those prescribed or required for medical reasons: No Have you been hit, kicked, punched, or otherwise hurt by someone within the past year? If so, by whom?: No Are you DNR?: No Advance Directives: No (daughter is primary contact) Advance Directives Information Provided: Yes (as above noted) Advance Directives on File: No Recently lost weight without trying: No Eating poorly because of decreased appetite: No Nutrition Risks: No Nutritional Risk Poor oral hygiene: No (full upper & lower denture) service: No Current occupational status: retired Current occupational exposures/hazards: No Cognitive needs: No Hearing needs: No Vision needs: Yes (glasses) Meds Allergies Allergy/AdvReac Type Severity Reaction Status Date / Time guaifenesin [From MUCINEX] Allergy Intermediate SWELLING Verified 06/07/24 11:21 Home Medications ?Medication ?Instructions ?Recorded ?Confirmed ?Last Taken ?Type atorvastatin 40 mg tablet 40 mg PO DAILY 06/04/24 06/13/24 06/11/24 History lisinopril 10 mg tablet 10 mg PO DAILY 06/04/24 06/13/24 06/12/24 History metformin 500 mg tablet 500 mg PO DAILY 06/04/24 06/13/24 06/10/24 History hydrochlorothiazide 25 mg tablet 25 mg PO DAILY 06/13/24 06/13/24 06/11/24 History Exam Airway Loose/Missing/Broken Teeth: Yes, Upper and Lower Assessment and Plan Final Anesthetic Review NPO: Yes ASA Class: II Final Preanesthetic Review: Meds/Allgs Chart Reviewed, Consent Obtained/Reviewed and Anes Risks/Benef Reviewed Patient Risk: Low Procedure Risk: Intermediate Anesthetic Plan Anesthetic Plan: GA Disposition: Standard PACU
[2024-06-04 16:02] LABS: MRSA Nasal PCR NEGATIVE (Negative); SA Nasal PCR NEGATIVE (Negative)
[2024-06-13] VITALS (17 sets, daily range): BP systolic 115–162; BP diastolic 55–91; PULSE 67–98; RESP 15–18; TEMP 36–37; O2SAT 94–100; BMI 33.0
--- NOTE | ~2024-06-13 | XR_ITS ---
Examination: AP pelvis and left hip COMPARISON: 05/30/2020 CLINICAL INFORMATION: status post left hip arthroplasty. TECHNIQUE: AP pelvis and 2 views of the left hip FINDINGS: There is newly placed left hip prosthesis. Prosthesis is well aligned. There are postsurgical shreya seen in the soft tissues of the left hip. There is status post total hip replacement on the right. No evidence of fractures. XR/XR pelvis 1-2V IMPRESSION: Well-positioned left hip prosthesis.
--- NOTE | ~2024-06-13 | XR_ITS ---
Examination: AP pelvis and left hip COMPARISON: 05/30/2020 CLINICAL INFORMATION: status post left hip arthroplasty. TECHNIQUE: AP pelvis and 2 views of the left hip FINDINGS: There is newly placed left hip prosthesis. Prosthesis is well aligned. There are postsurgical shreya seen in the soft tissues of the left hip. There is status post total hip replacement on the right. No evidence of fractures. XR/XR hip LT w PEL1V IMPRESSION: Well-positioned left hip prosthesis.
--- OUTSIDE RECORDS SUMMARY | 2024-06-13 06:55 | XMS_ITS ---
[facility] Organization [facility] Address [address] [place] [address] Care Team Providers Care Medical Practitioners Name Role Phone Isidro Mays MD Primary Care Provider Sabra Cabral Unavailable [phone] ALLERGIES Allergen (clinical drug ingredient) Drug/Non Drug Allergy documented on EMR Reaction Allergy Type Onset Date Status guaifenesin Mucinex puffy Drug Allergy Activ e REASON FOR VISIT PCP: 02/2024, At Risk Footcare, Painful Nail(s) aggrevated by shoes and causing difficulty standing/walking. MEDICATIONS Medication SIG (Take, Route, Frequency, Duration) Notes Start Date End Date Status Ciclopirox 0.77 % 1 application to aff ected area Externally Twice a day to effected nails for 30 days 08/16/2023 Active hydroCHLOROthiazide 25 MG Oral for 90 Days Active Lisinopril 10 MG Oral for 90 Days Active Atorvastatin Calcium 40 MG Oral for 90 Days Active metFORMIN HCl 500 MG 1 tablet with a neema l Orally Once a day for 30 day(s) Active SOCIAL HISTORY Tobacco Use: Social History Observation Description Date Details (start date - stop date) Never Smoker NA - NA Sex Assigned At : Social History Observation Description Sex Assigned At Unknown Tobacco Use/Smoking Question Answer Notes Are you a: nonsmoker Additional Findings: Tobacco Non-User Current no n-smoker Alcohol Screen Question Answer Notes Did you have a drink containing alcohol in the p ast year? No Points 0 Interpretation Negative Tobacco use other than smoking: Question Answer Notes Are you an other tobacco user? No PROBLEMS Problem Type ICD Code Onset Dates Problem Status W/U Status Risk SNOMED Code Notes Problem Type 2 diabetes mellitus without complication (E11.9) Active confirmed Type 2 diabetes mellitus without complication (371573215) Problem Type 1 diabetes mellitus without complication (E10.9) Active confirmed Type 1 diabetes mellitus without complication (155407266) VITAL SIGNS Height 4ft 9in in 03/20/2024 Weight 164 lbs 03/20/2024 BMI 35.49 kg/m2 03/20/2024 Encounters Encounter Location Date Provider Diagnosis [facility] [address] [place] [address] 03/20/2024 Sabra Perica Pain in right toe(s) M79.674 ; Tinea unguium B35.1 ; Pain in left toe(s) M79.675 ; Type 2 diabetes mellitus without complication E11.9 ; Hammertoe of right foot M20.41 and Hammertoe of left foot M20.42 ASSESSMENTS Encounter Date Diagnosis Assessment Notes Treatment Notes Treatment Clinical Notes 03/20/2024 Pain in right toe(s) (ICD-10 - M79.674) 03/20/2024 Tinea unguium (ICD-10 - B35.1) 03/20/2024 Pain in left toe(s) (ICD-10 - M79.675) 03/20/2024 Type 2 diabetes mellitus without complication (ICD-10 - E11.9) 03/20/2024 Hammertoe of right foot (ICD-10 - M20.41) 03/20/2024 Hammertoe of left foot (ICD-10 - M20.42) PLAN OF TREATMENT Next Appt Details Follow Up: 2 Months, Reason: Procedure Notes * Category Sub-Category Detail Notes Debride Nail 6-10 Nail debridement Nail debridem ent performed extensively to reduce/remove overall nail length, girth, thickness, subungual debris, and necrotic tissue, by manual and electrical means through the use of a nail nipper and/or dremel, to more viable healthy nail plate or bed tissue 1-5. Silver nitrate used for any petechial bleeding as necessary. Patient chooses, no pharmaceutical tx (75097) Progress Notes * Examination Category Sub-Category Detail Notes Neurological SENSORY: Neurological exa m reveals intact sensorium, pain sensation normal, vibration sensation intact, pinprick sensation is normal in the lower extremities, 5.07 monofilament test performed at plantar aspects of 5 varied sites per foot shows sensation, normal, B/L, Pt denies, anesthesia, burning, paresthesia, tingling, B/L Dermatologic SKIN FINDINGS: Skin exam reveal s normal texture, elasticity, and turgor. There are no masses. The interspaces are clear, B/L, Skin exam reveals Keratotic lesion(s) located at Orthopedic DIGITAL DEFORMITIES: Digital con tracture, PIPJ, 2-5 B/L, incompl-reducible with WB, or to push-up test, no over, nor underlapping MUSCLE STRENGTH: 5/5 all groups in a symmetrical fashion, B/L Ophthalmology Referral DIABETES EYE EXAM Diabetic Reti nopathy Screening:: No Findings of Diabetic Eye Exam:: no retin opathy Vascular DP PULSES: 3/4, B/L PT PULSES: 3/4, B/L CAPILLARY FILL TIME: immediate, all digi ts, B/L SKIN TEMPERTURE GRADIENT OF THE LOWER EXTERMITIES: normal, warm to cool, proximal to distal , B/L, B/L Nails NAILS are: Elongated, overg rown, dystrophic, lytic, greater than 3mm thick, discolored and friable with crumbly malodorous subungual debris, with pain on palpation , 1-5 B/L History and Physical Notes * HPI (History of Present Illness) Category Sub-Category Detail Notes At Risk footcare Pt States Last PCP Visit: Date: 02/27
--- OUTSIDE RECORDS SUMMARY | 2024-06-13 06:55 | XMS_ITS ---
Author Organization [facility] Address [address] [place] [address] Care Team Providers Care Molder Setter Name Role Phone Isidro Mays MD Primary Care Provider Unavaila Sabra Garcias [phone] REASON FOR VISIT cx 06/19 appt Encounters Encounter Location Date [facility] [address] [facility] [place] [address] 06/11/2024 Sabra Craft PLAN OF TREATMENT No Information
--- OUTSIDE RECORDS SUMMARY | 2024-06-13 06:55 | XMS_ITS ---
Author Organization [facility] Address [address] [place] [address] Care Team Providers Care Paste Plant Supervisor Name Role Phone Isidro Mays MD Primary Care Provider Sabra Cabral Unavailable [phone] ALLERGIES Allergen (clinical drug ingredient) Drug/Non Drug Allergy documented on EMR Reaction Allergy Type Onset Date Status guaifenesin Mucinex puffy Drug Allergy Activ e REASON FOR VISIT pcp: 11/05, Painful nail(s) aggrevated by shoes causing difficulty standing/walking MEDICATIONS Medication SIG (Take, Route, Frequency, Duration) Notes Start Date End Date Status Atorvastatin Calcium 40 MG Oral for 90 Days Active hydroCHLOROthiazide 25 MG Oral for 90 Days Active Lisinopril 10 MG Oral for 90 Days Active Ciclopirox 0.77 % 1 application to aff ected area Externally Twice a day to effected nails for 30 days 08/16/2023 Active SOCIAL HISTORY Tobacco Use: Social History [...] Are you an other tobacco user? No VITAL SIGNS Height 4ft 9in in 12/21/2023 Weight 164 lbs 12/21/2023 BMI 35.49 kg/m2 12/21/2023 Encounters Encounter Location Date Provider Diagnosis [facility] [address] [place] [address] 12/21/2023 Sabra Craft Tinea unguium B35.1 ; Pain in right toe(s) M79.674 and Pain in left toe(s) M79.675 ASSESSMENTS Encounter Date Diagnosis Assessment Notes Treatment Notes Treatment Clinical Notes 12/21/2023 Tinea unguium (ICD-10 - B35.1) 12/21/2023 Pain in right toe(s) (ICD-10 - M79.674) 12/21/2023 Pain in left toe(s) (ICD-10 - M79.675) PLAN OF TREATMENT Next Appt Details Follow Up: 3 Months, Reason: Procedure Notes * Category Sub-Category [...] any petechial bleeding as necessary. Patient chooses, Ciclopirox gel Progress Notes * Examination Category Sub-Category Detail Notes Nails NAILS are: Elongated, overg rown, dystrophic, lytic, greater than 3mm thick, discolored and friable with crumbly malodorous subungual debris, with pain on palpation 1-5 B/L History and Physical Notes * HPI (History of Present Illness) Category Sub-Category Detail Notes Painful Nails Pt States Last PCP Visit: Date:: 024
--- OUTSIDE RECORDS SUMMARY | 2024-06-13 06:55 | XMS_ITS | Patient Health Record ---
Author Organization [facility] Address [address] [place] [address] Care Team Providers Care Audit Clerk Name Role Phone Isidro Mays MD Primary Care Provider Manuelaa Sabra Garcias Unavailable [phone] ALLERGIES Allergen (clinical drug ingredient) Drug/Non Drug Allergy documented on EMR Reaction Allergy Type Onset Date Status guaifenesin Mucinex puffy Drug Allergy Activ e RESULTS Component Value Reference Range Notes HEMOGLOBIN A1C (GLYCOHEMOGLO BIN) Reviewed date:03/20/2024 11:25:11 AM Interpretation: Performing Lab: Notes/Report: TOTAL HEMOGLOBIN (HGBA1C) HEMOGLOBIN A1C (HH) 7.4 HEMOGLOBIN A1C % (HH) ESTIMATED AVG GLUCOSE REASON FOR REFERRAL No Information MEDICATIONS Medication SIG (Take, Route, Frequency, Duration) [...] W/U Status Risk SNOMED Code Notes Problem Hallux valgus (acquired), left foot (M20.12) Active confirmed [id number] Problem Hallux valgus (acquired), right foot (M20.11) Active confirmed 131178524806279 Problem Hammer toe of right foot (M20.41) Active confirmed 993531703 Problem Hammer toe of left foot (M20.42) Active confirmed 835717474 Problem Type 2 diabetes mellitus without complication (E11.9) Active confirmed Type 2 diabetes mellitus without complication (425749016) Problem Type 1 diabetes mellitus without complication (E10.9) Active confirmed Type 1 diabetes mellitus without complication (435176825) VITAL SIGNS Height 4ft 9in in 03/20/2024 Weight 164 lbs 03/20/2024 BMI 35.49 kg/m2 03/20/2024 Encounters Encounter Location Date Provider Diagnosis [address] [address] 08/11/[address] [address] 08/16/2023 Sabra Perica Tinea unguium B35.1 ; Pain in toe of left foot M79.675 ; Pain in toe of right foot M79.674 ; Hallux valgus (acquired), left foot M20.12 ; Hallux valgus (acquired), right foot M20.11 ; Hammer toe of left foot M20.42 and Hammer toe of right foot M20.[address] [address] 11/02/2023 [facility] [address] [address] 11/02/[address] [address] 12/21/2023 Sbara Craft Tinea unguium B35.1 ; Pain in right toe(s) M79.674 and Pain in left toe(s) M79.675 [facility] [address] [place] [address] 03/20/2024 Sabra Craft Pain in right toe(s) M79.674 ; Tinea unguium B35.1 ; Pain in left toe(s) M79.675 ; Type 2 diabetes mellitus without complication E11.9 ; Hammertoe of right foot M20.41 and Hammertoe of left foot M20.42 [facility] [address] [facility]/11/2024 Sabra Craft ASSESSMENTS Encounter Date Diagnosis Assessment Notes Treatment Notes Treatment Clinical Notes 08/16/2023 Tinea unguium (ICD-10 - B35.1) 08/16/2023 Pain in toe of left foot (ICD-10 - M79.675) 12/21/2023 Tinea unguium (ICD-10 - B35.1) 12/21/2023 Pain in right toe(s) (ICD-10 - M79.674) 03/20/2024 Pain in right toe(s) (ICD-10 - M79.674) 03/20/2024 Tinea unguium (ICD-10 - B35.1) 12/21/2023 Pain in left toe(s) (ICD-10 - M79.675) 08/16/2023 Pain in toe of right foot (ICD-10 - M79.674) 08/16/2023 Hallux valgus (acquired), left foot (ICD-10 - M20.12) 03/20/2024 Pain in left toe(s) (ICD-10 - M79.675) 03/20/2024 Type 2 diabetes mellitus without complication (ICD-10 - E11.9) 08/16/2023 Hallux valgus (acquired), right foot (ICD-10 - M20.11) 08/16/2023 Hammer toe of left foot (ICD-10 - M20.42) 03/20/2024 Hammertoe of right foot (ICD-10 - M20.41) 03/20/2024 Hammertoe of left foot (ICD-10 - M20.42) 08/16/2023 Hammer toe of right foot (ICD-10 - M20.41) PLAN OF TREATMENT No Information Insurance Providers Payer Name Payer Address Payer Phone Subscriber Number Group Number Insured Name Patient Relationship to Insured Coverage Start Date Coverage End Date [employer] [address] [place] [phone] [id number] Joanie Pereyra Self - patient is the insured [facility] [address] [place] [address] [phone] [id number] Joanie Pereyra Self - patient is the insured MEDICAL (GENERAL) HISTORY Medical History History ICD Code Arthritis Broken bones CAD (Cholesterol) Diabetic-BORDERLINE Epilepsy High blood pressure Diabetic Surgical History Surgery Date(Month/Year) right hip surgery
--- NOTE | 2024-06-13 07:13 | PHA.MEDREC ---
Pharmacy Consult ? Medication Reconciliation Pharmacy has completed the medication reconciliation. Reviewed med rec done by nursing, matches claim history
[2024-06-13] MEDS: oxyCODONE HCl ER 10 MG TAB.ER.12H PO ×2 (07:14→21:07)
--- NOTE | 2024-06-13 07:26 | MHC.SHP ---
Pre-Procedural Eval Section A - 24 Hr Update-Section A only Date of Service: 06/13/24 The patient is an INPATIENT: No Changes since office visit: No Cold of Flu in the past 2 weeks, No New Medical Problems, No Changes in Medication and No Patient answered all questions The patient has been examined within 24 hours of the surgical procedure. The History & Physical has been completed within 30 days and I have reviewed it.: Yes Section B - Complete if H&P > 30 days Chief Complaint: lt guadalupe Allergies: Allergies Allergy/AdvReac Type Severity Reaction Status Date / Time guaifenesin [From MUCINEX] Allergy Intermediate SWELLING Verified 06/07/24 11:21 Plan I have reviewed the history and physical and performed a pertinent physical examination on my patient. No changes have occurred unless specified. Time Spent With Patient Time: Total time managing care of this patient today ____ minutes.
[2024-06-13 07:46] LABS: Glucose, Whole Blood 169 mg/dL (60-115)
[2024-06-13] MEDS: Lactated Ringers 1,000 ML 100 ML IVCONT ×3 (07:49→21:11)
--- NOTE | 2024-06-13 10:06 | P.BOP_ITS ---
Brief Operative Note Date of Service: 06/13/24 Pre-op diagnosis: Left hip OA Post-op diagnosis: same Procedure: Left DAVE Surgeon: Blaine Page MD Anesthesia: GETA and local Was an Single Stayer Operator used for this Procedure?: Yes Single Stayer Operator: Marcelina Tyson Estimated blood loss (mL): 200 IV fluids (mL): 850 Pathology: other Condition: stable Disposition: PACU
[2024-06-13 13:15] LABS: Glucose, Whole Blood 181 mg/dL (60-115)
--- NOTE | 2024-06-13 13:17 | HO.PM.IMCN ---
History of Present Illness Data of Consult Service Date: 06/13/24 Requesting physician: Marcelina Tyson Primary Care Provider: Isidro Mays MD [facility] Reason for consult: medical management 69 year old female with history of non insulin dependent type 2 diabetes, htn, hld admitted to ortho surgery for management of OA left hip s/p left DAVE with consult placed to hospitalist service for medical management. SHe is experiencing post op nausea and is actively vomiting on exam. Zofran ordered. Otherwise she is feeling well. Has a chronic cough related to lisinopril but does not wish to change the medication. Vitals are stable post operatively. Reports only occassional alcohol use and does not smoke or use illicit substances. Review of Systems Review of Systems: Yes all other systems are reviewed and are negative [facility] Medical History Preop exam for internal medicine TRIBAL (hard of hearing) Diabetes HERBERT (stress urinary incontinence, female) Arthritis Depression History of gestational diabetes Osteoarthritis of right hip Obesity Hypertension Family History Father No problems noted. Mother No problems noted. Family/Other Heart failure Diabetes CHF (congestive heart failure) Surgical History History of hip replacement H/O tooth extraction History of removal of cyst Status post surgical removal of nail matrix of toe History of section Social History Household Members: Children Household Members Other:: son Housing: House Housing Other:: Lives in [facility] with two steps to get up into it Are you a primary intensive care ambulance paramedic to a significant other at home: No Do you presently have visiting nurse or other home services: No Alcohol intake: current Alcohol intake frequency: holidays/special occasions only Comment: uses walker on occasion Patient Tobacco Use Status: Never used Tobacco e-Cigarette/Vaping Use: Never Used Second Hand Smoke Exposure: No service: No Current occupational status: retired Current occupational exposures/hazards: No Cognitive needs: No Hearing needs: No Vision needs: Yes (glasses) Meds Allergies Allergy/AdvReac Type Severity Reaction Status Date / Time guaifenesin [From MUCINEX] Allergy Intermediate SWELLING Verified 06/07/24 11:21 Active Medications: Current Medications Acetaminophen (Acetaminophen 325 Mg Tablet) 650 mg PO Q6H PRN PRN Reason: Pain, Mild (Pain Scale 1-3), fever or headache Aspirin (Aspirin 325 Mg Tablet) 325 mg PO BID [facility] Atorvastatin Calcium (Atorvastatin Calcium 40 Mg Tablet) 40 mg PO DAILY [facility] Celecoxib (Celecoxib 200 Mg Capsule) 200 mg PO BID [facility] Hydrochlorothiazide (Hydrochlorothiazide 25 Mg Tablet) 25 mg PO DAILY [facility]; Protocol Hydromorphone HCl (Hydromorphone Hcl 0.5 Mg/0.5 Ml Syringe) 0.25 mg IVPUSH Q4H PRN; Protocol PRN Reason: Pain, Severe (Pain Scale 7-10) Lactated Ringer's (Lr) 1,000 mls @ 100 mls/hr IVCONT .Q10H [facility] Last Admin: 06/13/24 13:14 Dose: 100 mls/hr Cefazolin Sodium/Dextrose (Ancef) 2 gm in 50 mls @ 100 mls/hr IV POSTOP ONE Stop: 06/13/24 15:29 Lisinopril (Lisinopril 10 Mg Tablet) 10 mg PO DAILY [facility]; Protocol Metformin HCl (Metformin Hcl 500 Mg Tablet) 500 mg PO DAILY [facility] Oxycodone HCl (Oxycodone Hcl Immed Release 5 Mg Tablet) 5 mg PO Q4H PRN PRN Reason: Pain, Moderate(Pain Scale 4-6) Oxycodone HCl (Oxycodone Hcl Er 10 Mg Tab.Er.12h) 10 mg PO BID [facility] Sodium Chloride (0.9 % Sodium Chloride Flush 3 Ml Syringe) 3 ml IVFLUSH QSHIFT [facility] Home Medications ?Medication ?Instructions ?Recorded ?Confirmed ?Last Taken ?Type atorvastatin 40 mg tablet 40 mg PO DAILY 06/04/24 06/13/24 06/11/24 History lisinopril 10 mg tablet 10 mg PO DAILY 06/04/24 06/13/24 06/12/24 History metformin 500 mg tablet 500 mg PO DAILY 06/04/24 06/13/24 06/10/24 History hydrochlorothiazide 25 mg tablet 25 mg PO DAILY 06/13/24 06/13/24 06/11/24 History Physical Exam Vital Signs and Narrative: Vital Signs: Last Vital Signs Temp 96.8 F 06/13/24 13:13 Pulse 87 06/13/24 13:13 Resp 16 06/13/24 13:13 BP 143/91 H 06/13/24 13:13 Pulse Ox 96 06/13/24 13:13 O2 Del Method Room Air 06/13/24 13:13 O2 Flow Rate 1 06/13/24 12:07 FiO2 54 06/13/24 10:32 BMI result Body Mass Index 33.0 Constitutional - Awake and Alert, No apparent distress Eyes - PERRLA, EOMI Cardiovascular - S1S2, RRR, No edema Respiratory - Normal lung expansion, Normal respiratory effort, No respiratory distress, CTA bilaterally Gastrointestinal - NT / ND; +BS; No rebound or guarding Extremities - no calf tenderness bilaterally, no swelling Skin - Warm/Dry Neurological - Alert & oriented x3 Psychological - Appropriate affect Results Labs Labs: Laboratory Results - last 24 hr 06/13/24 06/13/24 07:42 13:11 POC Glucose 169 H 181 H Assessment and Plan (1) S/P total left hip arthroplasty: Status: Acute Plan 69 year old female with history of non insulin dependent type 2 diabetes, htn, hld admitted to ortho surgery for management of OA left hip s/p left DAVE with consult placed to hospitalist service for medical management. #OA L hip s/p DAEV -plan per ortho surgery -zofran prn for post op n/v #Non insulin dependent type 2 diabetes -poc glucose, diabetic diet -metformin, admelog ss for hyperglycemia #HTN -hold lisinopril and hctz to prevent post op hypotension -MOnitor blood pressures. Resume meds as indicated #HLD -statin Thank you for allowing me to participate in this consult. Signing off at this time. Please do not hesitate to call for further questions or for any acute medical issues
[2024-06-13] MEDS: ceFAZolin Sodium/Dextrose,Iso 2 GM/50 ML PIGGYBACK IV (13:20)
[2024-06-13] MEDS: ondansetron HCL 4 MG/2 ML VIAL IVPUSH (13:59)
[2024-06-13 16:10] LABS: Glucose, Whole Blood 232 mg/dL (60-115)
[2024-06-13] MEDS: Insulin Lispro 100 UNIT/ML 3 ML VIAL SUBCUT ×2 (16:49→21:10)
[2024-06-13 19:58] LABS: Glucose, Whole Blood 230 mg/dL (60-115)
[2024-06-13] MEDS: Celecoxib 200 MG CAPSULE PO (21:06)
[2024-06-14] VITALS (9 sets, daily range): BP systolic 123–137; BP diastolic 60–82; PULSE 68–97; RESP 16–18; TEMP 36–37.1; O2SAT 95–98
[2024-06-14 06:43] LABS: MANUAL DIFF FLAG NO
[2024-06-14 06:59] LABS: Basophils Percent Auto 0.2 % (0-2); Hematocrit 30.1 % (37.0-47.0); Hemoglobin 10.3 g/dl (12.0-16.0); Imm Gran Abs Auto 0.07 X10*3/uL (0.00-0.03); Imm Gran Pct Auto 0.6 % (0.0-0.4); Lymphocytes Absolute Auto 1.4 X10*3/uL (1.2-4.9); Lymphocytes Percent Auto 10.7 % (20-40); Mean Corpuscular HGB Conc 34.2 g/dl (31.0-35.0); Mean Corpuscular Hemoglobin 30.7 pg (27.0-33.0); Mean Corpuscular Volume 89.6 fL (80.0-98.0); Mean Platelet Volume 8.6 fL (9.4-12.3); Monocytes Absolute Auto 1.1 X10*3/uL (0.1-1.2); Monocytes Percent Auto 8.8 % (2-11); Neutrophils Absolute Auto 10.1 x10*3/uL (2.0-8.3); Neutrophils Percent Auto 79.7 % (45-73); Platelet Count 258 X10*3/uL (160-400); Red Blood Count 3.36 X10*6/uL (4.20-5.50); Red Cell Distribution Width 13.7 % (11.0-16.0); White Blood Count 12.6 X10*3/uL (4.8-10.8)
[2024-06-14 07:11] LABS: Anion Gap 14 (12-20); Blood Urea Nitrogen 18 mg/dL (9-16); Calcium 9.4 mg/dL (8.4-10.2); Carbon Dioxide 23 mmol/L (22-29); Chloride 101 mmol/L (96-108); Creatinine Clr Calc Pharmacy 49.6; Estimated Glomerular Filt Rate > 60; Glucose Fasting 174 mg/dL (60-99); Potassium 4.5 mmol/L (3.3-5.1); Sodium 133 mmol/L (135-145)
[2024-06-14 07:47] LABS: Glucose, Whole Blood 155 mg/dL (60-115)
[2024-06-14] MEDS: Aspirin 325 MG TABLET PO ×2 (08:04→20:50)
[2024-06-14] MEDS: metFORMIN HCl 500 MG TABLET PO (08:05)
[2024-06-14] MEDS: Atorvastatin Calcium 40 MG TABLET PO (08:05)
[2024-06-14] MEDS: oxyCODONE HCl ER 10 MG TAB.ER.12H PO ×2 (08:06→20:51)
[2024-06-14] MEDS: Insulin Lispro 100 UNIT/ML 3 ML VIAL SUBCUT ×4 (08:08→20:49)
[2024-06-14] MEDS: 0.9 % Sodium Chloride Flush 3 ML SYRINGE IVFLUSH (08:09)
[2024-06-14] MEDS: Celecoxib 200 MG CAPSULE PO ×2 (08:09→20:50)
[2024-06-14] MEDS: Lactated Ringers 1,000 ML 100 ML IVCONT (08:11)
[2024-06-14 08:19] LABS: Creatinine Clr Calc Pharmacy 49.1; Estimated Glomerular Filt Rate > 60
--- NOTE | 2024-06-14 08:27 | PM.DS ---
DS: Providers Provider Date of Service: 06/14/24 <Grady Egan PA-C - Last Filed: 06/14/24 08:28> Date of admission: 06/13/24 06:43 <ZUHAIR Cruz Last Filed: 06/14/24 08:28> Primary care physician: Isidro Mays MD <Grady Egan PA-C - Last Filed: 06/14/24 08:28> Consults: 06/13/24 13:02 Consult to Hospitalist Routine Comment: Consulting Provider: Hospitalist Reason For Exam: Routine medical management <ZUHAIR Cruz Last Filed: 06/14/24 08:28> DS: Diagnosis Discharge Diagnosis (1) S/P total left hip arthroplasty: Status: Acute <ZUHAIR Cruz Last Filed: 06/14/24 08:28> DS: Summary Hospital Course Hospital Course: The patient underwent a successful left total hip arthroplasty on 06/12/[address] Page, was transferred to PACU and then to the floor to recover. During their stay, their vitals were stable, afebrile at 97.8. Labs were unremarkable, H/H . POD 1 she was started on Aspirin for DVT ppx, they also received Physical Therapy services twice a day. Physical therapy should include gait training, core and lumbar strength, glute strength. Posterior precautions intact. WBAT. Prior to discharge, her dressing was changed, incision clean dry and intact, new Aquacel dressing applied. The Aquacel dressing should remain intact and dry at all times. Any concerns with the dressing, please contact orthopedic office. No showering. The plan is to be discharged home with services. <ZUHAIR Cruz Last Filed: 06/14/24 08:28> Time Attestation Discharge Coordination Time (in mins): 30 <ZUHAIR Lazo Last Filed: 06/15/24 08:12> Quality: Safe Use of Opioids Does Pt have an Active Cancer Diagnosis on the Problem List?: No <ZUHAIR Lazo Last Filed: 06/15/24 08:12> Quality: Stroke Does the patient have a stroke diagnosis?: No <Marcelina Tyson PA-C - Last Filed: 06/15/24 08:12> Physical Exam Vital Signs: Vital Signs: Last Vital Signs Temp 97.8 F 06/14/24 07:25 Pulse 87 06/14/24 07:25 Resp 16 06/14/24 07:25 BP 123/82 06/14/24 07:25 Pulse Ox 97 06/14/24 07:25 O2 Del Method Room Air 06/14/24 07:25 O2 Flow Rate 1 06/13/24 12:07 FiO2 54 06/13/24 10:32 BMI result Body Mass Index 33.0 <Grady Egan PA-C - Last Filed: 06/14/24 08:28> Extrem: Other: left hip dressing is c/d/i. Able to dorsi/plantar flex. Calf is supple and nontender. Sensation intact. Pedal pulse intact. <Marcelina Tyson PA-C - Last Filed: 06/15/24 08:12> DS: Data Data Completed and Pending Completed studies during hospitalization [Text1]: Procedures Replacement of Right Hip Joint with Ceramic Synthetic Substitute, Uncemented, Open Approach (02/01/23) <Grady Egan PA-C - Last Filed: 06/14/24 08:28> Pending studies at discharge: Pending at discharge 06/13/24 09:52 Surgical [PTH] Routine <Grady Egan PA-C - Last Filed: 06/14/24 08:28> Labs on day of discharge: Laboratory Results - last 24 hr 06/13/24 06/13/24 06/13/24 13:11 16:03 19:45 WBC RBC Hgb Hct MCV MCH MCHC RDW Plt Count MPV Immature Gran % (Auto) Neut % (Auto) Lymph % (Auto) [place] % (Auto) Eos % (Auto) Baso % (Auto) Lymph # (Auto) [place] # (Auto) Eos # (Auto) Baso # (Auto) Abs Immat Gran (auto) Absolute Neuts (auto) Absolute Nucleated RBC Nucleated RBC % (auto) Sodium Potassium Chloride Carbon Dioxide Anion Gap BUN Creatinine Estim Creat Clear Calc Estimated GFR POC Glucose 181 H 232 H 230 H Fasting Glucose Calcium 06/14/24 06/14/24 06/14/24 05:48 07:38 07:48 WBC 12.6 H RBC 3.36 L D Hgb 10.3 L D Hct 30.1 L D MCV 89.6 MCH 30.7 MCHC 34.2 RDW 13.7 Plt Count 258 D MPV 8.6 L Immature Gran % (Auto) 0.6 H Neut % (Auto) 79.7 H Lymph % (Auto) 10.7 L [place] % (Auto) 8.8 Eos % (Auto) 0.0 Baso % (Auto) 0.2 Lymph # (Auto) 1.4 [place] # (Auto) 1.1 Eos # (Auto) 0.0 Baso # (Auto) 0.0 Abs Immat Gran (auto) 0.07 H Absolute Neuts (auto) 10.1 H Absolute Nucleated RBC 0.000 Nucleated RBC % (auto) 0.0 Sodium 133 L Potassium 4.5 Chloride 101 Carbon Dioxide 23 Anion Gap 14 BUN 18 H Creatinine 0.91 0.92 Estim Creat Clear Calc 49.6 49.1 Estimated GFR > 60 > 60 POC Glucose 155 H Fasting Glucose 174 H Calcium 9.4 D <Grady Egan PA-C - Last Filed: 06/14/24 08:28> Discharge Plan Discharge Anticipated Discharge Date/Time: 06/14/24 08:24 <Grady Egan PA-C - Last Filed: 06/14/24 08:28> Patient Disposition: Home Health Service <Grady Egan PA-C - Last Filed: 06/14/24 08:28> Discharge Diagnosis: LT DAVE <Grady Egan PA-C - Last Filed: 06/14/24 08:28> LT DAVE <Marcelina Tyson PA-C - Last Filed: 06/15/24 08:12> Referrals: Marcelina Tyson PA-C [Physician Blood Bank Order Control Clerk] - 2 Weeks (06/28/24 1:15 [facility] Orthopedic Surgeons Marcelina Tyson PA-C) <Grady Egan PA-C - Last Filed: 06/14/24 08:28> Discharge Medications: New celecoxib 200 mg Capsule 200 mg PO BID 30 Days Qty: 60 0RF acetaminophen 325 mg Tablet 650 mg PO Q6H PRN (Reason: Pain, Mild (Pain Scale 1-3), fever or headache) 30 Days Qty: 240 0RF aspirin 325 mg Tablet 325 mg PO BID 42 Days Qty: 84 0RF oxycodone 5 mg Tablet 5 mg PO Q4H PRN (Reason: Pain, Moderate(Pain Scale 4-6)) 7 Days Qty: 42 0RF Rx Instructions: Partial Fill upon patient request. Continued atorvastatin 40 mg tablet 40 mg PO DAILY metformin 500 mg tablet 500 mg PO DAILY lisinopril 10 mg tablet 10 mg PO DAILY hydrochlorothiazide 25 mg tablet 25 mg PO DAILY <ZUHAIR Cruz Last Filed: 06/14/24 08:28> Discharge Orders: Discharge Order (Routine); Ordered 06/15/24 Ordered By: Marcelina Tyson <ZUHAIR Cruz Last Filed: 06/14/24 08:28> Diet: Regular diet <ZUHAIR Cruz Last Filed: 06/14/24 08:28> Regular diet <ZUHAIR Lazo Last Filed: 06/15/24 08:12> Activity on Discharge: Use cane or walker <ZUHAIR Cruz Last Filed: 06/14/24 08:28> Use cane or walker <ZUHAIR Lazo Last Filed: 06/15/24 08:12> Stand Alone Forms: Patient Portal Discharge page <ZUHAIR Cruz Last Filed: 06/14/24 08:28> Print Language: Georgian <ZUHAIR Cruz Last Filed: 06/14/24 08:28> Care Plan Goals: Restore function of joint <ZUHAIR Cruz Last Filed: 06/14/24 08:28> Health Concerns: none <ZUHAIR Cruz Last Filed: 06/14/24 08:28> Plan of Treatment: Physical Therapy Pain management DVT prophylaxis <ZUHAIR Cruz Last Filed: 06/14/24 08:28> Assessment: Physical Therapy for Total hip arthroplasty: wbat, posterior precautions, gait training, ROM, strength Limit stair climbing No showering, no tub bath-keep dressing clean, dry and intact No driving x6 weeks Continue Aspirin twice a day x 6 weeks Follow up with [facility] Orthopedics in 2 weeks <Grady Egan PA-C - Last Filed: 06/14/24 08:28>
--- NOTE | 2024-06-14 08:52 | P.PNOP_ITS ---
Subjective Subjective Date of Service: 06/14/24 Interval history: POD 1 s/p LT DAVE no overnight events resting in chair , eating breakfast denies sob, cp, palpitations Physical Exam Vital Signs: Vital Signs: Last Vital Signs Temp 97.8 F 06/14/24 07:25 Pulse 87 06/14/24 07:25 Resp 16 06/14/24 07:25 BP 123/82 06/14/24 07:25 Pulse Ox 97 06/14/24 07:25 O2 Del Method Room Air 06/14/24 07:25 O2 Flow Rate 1 06/13/24 12:07 FiO2 54 06/13/24 10:32 BMI result Body Mass Index 33.0 Const: General: cooperative, healthy appearing and no acute distress Resp: Effort & Inspection: normal respiratory effort and able to speak in complete sentences Cardio: Rate: regular rate Peripheral pulses: Peripheral pulses 2+ thr oughout GI: Palpation (GI): Soft to palpation Skin: General skin exam: no rashes or lesions noted Extrem: Other: bandage clean dry and intact. Chele intact. No erythema or effusion. Calf supple nontender. Neurovascularly intact. Procedures Date of Service Date of Service: 06/14/24 Progress Note: A&P Assessment and plan (1) S/P total left hip arthroplasty: Status: Acute Plan * Continue pain mgmnt * Begin Aspirin for dvt ppx * begin PT /OT for LT DAVE * Dispo planning-Pending PT eval, pain mgmnt Time Spent With Patient Time: Total time managing care of this patient today ____ minutes. Quality Stroke Does the patient have a stroke diagnosis?: No VTE Prior VTE?: No VTE Risk Level:: Surgical - very high VTE Device Contraindication: N/A - Device Ordered VTE Drug Contraindication: N/A - Med Ordered
--- NOTE | 2024-06-14 09:24 | MHC.CM.PN ---
IMM DELIVERED PT LIVES WITH SON. INDEPENDENT WITH MOBILITY BUT USES CANE/WALKER NEEDED. +HCP. [place] [facility] DP: HOME WITH NEW [facility] ([facility] FOR P.T. DAUGHTER WILL TRANSPORT HOME. CM WILL CONTINUE TO FOLLOW FOR ANY CHANGE TO DC PLAN/NEEDS.
--- NOTE | 2024-06-14 10:53 | HO.POSTANES ---
Post Anesthesia Evaluation Post Anesthesia Evaluation Date of Service: 06/13/24 Vital Signs: Vital Signs Temp Pulse Resp BP Pulse Ox O2 Del Method 06/14/24 09:33 87 123/82 97 06/14/24 07:25 97.8 F 87 16 123/82 97 Room Air 06/14/24 04:00 97.2 F 97 18 137/79 98 Room Air 06/13/24 23:00 97.8 F 79 18 121/60 96 Room Air Anesthesia: General Mental Status: Awake Pain Control: Satisfactory Nausea/Vomiting: None Hydration: Adequate Anesthesia-Related Issues: No Anes. Related Issues
[2024-06-14 11:27] LABS: Glucose, Whole Blood 151 mg/dL (60-115)
[2024-06-14] MEDS: Calcium Carbonate 750 MG TAB.CHEW PO ×2 (11:27→17:07)
[2024-06-14 15:43] LABS: Glucose, Whole Blood 154 mg/dL (60-115)
[2024-06-14 20:13] LABS: Glucose, Whole Blood 166 mg/dL (60-115)
[2024-06-15 03:18] VITALS: BP 117/60; PULSE 74; RESP 16; TEMP 36.4; O2SAT 95
[2024-06-15 05:43] LABS: Basophils Absolute Auto 0.1 X10*3/uL (0.0-0.2); Basophils Percent Auto 0.5 % (0-2); Eosinophils Absolute Auto 0.1 X10*3/uL (0.0-0.4); Eosinophils Percent Auto 0.9 % (0-4); Hematocrit 29.8 % (37.0-47.0); Imm Gran Abs Auto 0.06 X10*3/uL (0.00-0.03); Imm Gran Pct Auto 0.6 % (0.0-0.4); Lymphocytes Absolute Auto 2.5 X10*3/uL (1.2-4.9); Lymphocytes Percent Auto 23.4 % (20-40); MANUAL DIFF FLAG SCAN; Mean Corpuscular HGB Conc 33.6 g/dl (31.0-35.0); Mean Corpuscular Hemoglobin 30.8 pg (27.0-33.0); Mean Corpuscular Volume 91.7 fL (80.0-98.0); Mean Platelet Volume 9.6 fL (9.4-12.3); Monocytes Percent Auto 8.8 % (2-11); Neutrophils Absolute Auto 7.1 x10*3/uL (2.0-8.3); Neutrophils Percent Auto 65.8 % (45-73); PLT CLUMP 1; Red Blood Count 3.25 X10*6/uL (4.20-5.50); Red Cell Distribution Width 14.2 % (11.0-16.0); SCAN SMEAR FLAG 1
[2024-06-15 06:25] LABS: White Blood Count 10.8 X10*3/uL (4.8-10.8)
[2024-06-15 06:26] LABS: SLIDE REVIEW VERIFIED
[2024-06-15 07:20] VITALS: BP 145/72; PULSE 87; RESP 16; TEMP 36.6; O2SAT 96
[2024-06-15 07:53] LABS: Glucose, Whole Blood 132 mg/dL (60-115)
--- NOTE | 2024-06-15 08:13 | W.MHC.F2F ---
Service Date Service Date: 06/15/24 Encounter Date of encounter: 06/15/24 Reasons for Services Signs and symptoms assessed: s/p LTHA Pt. is considered homebound due to recent surgery. Unable to drive, poor balance, poor gait mechanics. Reason for physical therapy: home safety and mobility, therapeutic exercises, restore joint function, gait/transfer training, assess need for DME and ADL training Reason for occupational therapy: home safety and mobility, therapeutic exercises, restore joint function, gait/transfer training, assess need for DME and ADL training Homebound: Leaving the home is medically contraindicated at this time without the asist of a device and/or another person due th the listed conditions above and below. Reason homebound: unsteady gait / fall risk, leg weakness, pain with ambulation, poor balance / fall risk and unable to drive Certification: Based on the above findings, I certify that this patient is confined to the home and needs intermittent residential care, physical therapy and/or speech therapy, or continues to need occupational therapy. The patient is under my care, and I have initiated the establishment of the plan of care. The patient will be followed by a physician who will periodically review the plan of care. Time Spent With Patient Time: Total time managing care of this patient today ____ minutes.
[2024-06-15] MEDS: metFORMIN HCl 500 MG TABLET PO (08:21)
[2024-06-15] MEDS: Atorvastatin Calcium 40 MG TABLET PO (08:21)
[2024-06-15] MEDS: Aspirin 325 MG TABLET PO (08:21)
[2024-06-15] MEDS: oxyCODONE HCl ER 10 MG TAB.ER.12H PO (08:21)
[2024-06-15] MEDS: Celecoxib 200 MG CAPSULE PO (08:21)
--- NOTE | 2024-06-15 08:33 | MHC.CM.PN ---
DP: PT HAS BEEN MEDICALLY CLEARED FOR DC HOME WITH NEW [facility] FOR P.T. [facility] NOTIFIED OF TODAY'S DC. DAUGHTER WILL TRANSPORT KATHRYN.
[2024-06-15 09:11] VITALS: BP 145/72; PULSE 87; O2SAT 96
[2024-06-15 11:44] LABS: Glucose, Whole Blood 175 mg/dL (60-115)
[2024-06-15] MEDS: Insulin Lispro 100 UNIT/ML 3 ML VIAL SUBCUT (12:53)
[2024-06-15 15:30] VITALS: BP 134/59; PULSE 78; RESP 18; TEMP 37.2; O2SAT 97
[2024-06-15 15:31] LABS: Glucose, Whole Blood 133 mg/dL (60-115)
--- NOTE | 2024-06-20 09:01 | W.PM.OPN ---
Operative Note Operative Note Date of Service: 06/13/24 Narrative: Date of Service: 06/13/24 Pre-op diagnosis: Left hip OA Post-op diagnosis: same Procedure: Left DAVE Implants: Kilauea Trident2 48. Accolade2 #3 127/ +7.5 36 ceramic Surgeon: Blaine Page MD Anesthesia: GETA and local Was an Powertrain Design Engineer used for this Procedure?: Yes Powertrain Design Engineer: Marcelina Tyson Estimated blood loss (mL): 200 IV fluids (mL): 850 Pathology: other Condition: stable Disposition: PACU Patient was brought into the operating room and placed in the right lateral decubitus position. All bony prominences were well padded and the limb was prepped and draped in standard sterile fashion. A time-out was called to identify proper site procedure proper surgeon IV antibiotics and 1 g of tranexamic acid were administered. I began by making a curvilinear incision over the posterolateral aspect of the greater trochanter. Dissection was taken down to the tensor fascia which was incised in line with the incision and a Charnley retractor was placed. Cautery was used to maintain hemostasis. The hip was internally rotated and the external rotators were identified. The vessels were cauterized and a full-thickness capsular/external rotator layer was developed starting just proximal to the piriformis. This layer was tagged and a dull Hohmann retractor was placed underneath the neck in the hip was dislocated. A neck cut was made 1 cm proximal to the lesser trochanter and the head and neck were removed and measured 44-46mm on the back table. The head was deformed and eburnated. I then removed the labrum and cauterized the fovea. I started with a 42 reamer and medialized to the inner table. I sequentially reamed up to a size 48 and impacted a 48mm cup at 45 degrees of inclination and 25 degrees of version. I then placed the neutral liner and turned my attention to the femur. I identified the piriformis insertion and used this as a starting point for my sowmya cutter. The medius tendon was protected with a Hibs retractor. A Charnley awl was inserted in the canal and a curved curette used to remove the lateral bone. I irrigated copiously. I then sequentially broached in the patient's natural version to a size 3 and placed my trial implants. I used a #3/127/+7.5 based on my pre-operative template. I removed all instrumentation and copiously irrigated. I placed my final femoral implant and again took the hip through range of motion and was satisfied with the stability and length. The final +7.5 implant was impacted in place and the hip reduced. I then irrigated copiously and placed 1 g of local tranexamic acid. I performed a capsular closure with 2.0 fiberwire, Vasquez's fascia with 0 Vicryl, subcuticular with 2-0 Vicryl and the skin with shreya. Patient was placed into a sterile dressing. Patient was extubated brought to the recovery room in stable condition. There were no known complications.
== END 2024-06-15 17:53 | disposition home health service (06) | DRG 470 ==
LOC: HO.SSSA 06:53 → HO.S3 12:25
PROVIDERS: Orthopaedic Surgery; Physician Assistant; Admitting Provider Physician Assistant; PCP Internal Medicine; Visit Provider Physician Assistant
PROC: 0SRB03A Replacement of Left Hip Joint with Ceramic Synthetic Substitute, Uncemented, Open Approach (ICD-10-PCS; CPT 27130; principal; 2024-06-13 09:00)
DX: M16.12 Unilateral primary osteoarthritis, left hip (principal); E78.5 Hyperlipidemia, unspecified; E11.9 Type 2 diabetes mellitus without complications; Z79.84 Long term (current) use of oral hypoglycemic drugs; Z79.899 Other long term (current) drug therapy
CPT/HCPCS: 27130; 36415; 72170; 73502; 80048; 82565; 82947; 85025; 86850; 86900; 86901; 87640; 87641; 88304; 88311; 97116; 97162; 97165; 97535; C1776; J0131; J0690; J1100; J1170; J1885; J2250; J2405; J2704; J2795; J3010; J7120

== ENCOUNTER → 2024-06-13 06:43 | Outpatient (BNV) | payer MEDICARE, BC, SELFPAY | PROVIDERS: Admitting Provider Physician Assistant; PCP Internal Medicine; Visit Provider Physician Assistant | DX: Z96.642 Presence of left artificial hip joint (principal) | CPT/HCPCS: 99222 ==

== ENCOUNTER → 2024-06-13 06:43 | Outpatient (BNV) | payer MEDICARE, BC, SELFPAY | PROVIDERS: Admitting Provider Physician Assistant; PCP Internal Medicine; Visit Provider Orthopaedic Surgery | DX: Z96.642 Presence of left artificial hip joint (principal) | CPT/HCPCS: 27130; 99024; G0180 ==

== ENCOUNTER 2024-06-28 12:49 | Outpatient (AMB) | payer MEDICARE, BC, SELFPAY ==
--- NOTE | 2024-06-28 13:09 | MHC.OFFVIS ---
Intake Visit Reasons: 2WK PO: L DAVE w/NE 06/13/24 Intake Note: Joanie is a 69 year old female who presents today for a post op appointment s/p L DAVE 06/13/24 NE. Patient reports having some soreness when she is sitting and when walking. Allergies guaifenesin [From MUCINEX] Allergy (Intermediate, Verified 06/28/24 13:10) SWELLING HPI HPI 2WK PO: L DAVE w/NE 06/13/24: Details: 69-year-old female who presents in the office today 15 days status post left hip arthroplasty, which was performed on 06/13/[address] Page.? ? While in the office today, the patient reports some soreness when sitting and ambulating.? PFSH Medical History Preop exam for internal medicine CACHIL DEHE (hard of hearing) Diabetes HERBERT (stress urinary incontinence, female) Arthritis Depression History of gestational diabetes Osteoarthritis of right hip Obesity Hypertension Surgical History History of hip replacement H/O tooth extraction History of removal of cyst Status post surgical removal of nail matrix of toe History of section Family History Father No problems noted. Mother No problems noted. Family/Other Heart failure Diabetes CHF (congestive heart failure) Social History Household Members: Children Household Members Other:: son Housing: House Housing Other:: Lives in trailer with two steps to get up into it Are you a primary medicare nurse to a significant other at home: No Do you presently have visiting nurse or other home services: No Alcohol intake: current Alcohol intake frequency: holidays/special occasions only Comment: fall risk due to recent hip surgery Patient Tobacco Use Status: Never used Tobacco e-Cigarette/Vaping Use: Never Used Second Hand Smoke Exposure: No service: No Current occupational status: retired Current occupational exposures/hazards: No Cognitive needs: No Hearing needs: No Vision needs: Yes (glasses) Review of Systems Const All systems reviewed & are unremarkable except as noted in HPI and below Physical Exam Const General: cooperative, healthy appearing and no acute distress Resp Effort & Inspection: normal respiratory effort and able to speak in complete sentences Cardio Rate: regular rate Peripheral pulses: Peripheral pulses 2+ throughout GI Palpation (GI): Soft to palpation Skin Lesions: no lesions Rashes: no rashes Extrem Other: Left hip: Incision site is clean, dry, and intact. Chele are intact. No surrounding erythema or drainage. No signs of infection. Good ROM in all planes. NVI. Assessment & Plan Assessment & Plan (1) S/P total left hip arthroplasty: Onset Date: ~06/13/24 Comment: Dr. Page Code(s): Z96.642 - Presence of left artificial hip joint Category: Surgical Plan Ms. Pereyra is a 69-year-old female who presents in the office today 15 days status post left hip arthroplasty, which was performed on 06/13/[address] Page.? ? While in the office today, the patient reports some soreness when sitting and ambulating.? ? Staple were removed and steri-stripes were applied. The patient will transition to outpatient physical therapy in two weeks. An order has been placed for this today. The patient will need assistance with this, and the hospital will help with arranging this. Follow-up will be in four weeks, or sooner if needed. ? Orders: Orders PT Evaluation and Treatment Today Z96.642 - Presence of left artificial hip joint Patient Instructions: Scribed by [facility] medical and lab director, for Marcelina Tyson PA-C on 06/28/2024 at 12:59 pm, EST.? Coding Level of Care Code Global (63255) Diagnoses S/P total left hip arthroplasty Z96.642
== END 2024-06-28 13:34 | disposition home or self-care (01) ==
PROVIDERS: PCP Internal Medicine; Visit Provider Physician Assistant
DX: Z96.642 Presence of left artificial hip joint (principal)
CPT/HCPCS: 99024

== ENCOUNTER → 2024-06-28 12:49 | Outpatient (BNVA) | payer MEDICARE, BC, SELFPAY | PROVIDERS: PCP Internal Medicine; Visit Provider Physician Assistant | DX: Z47.1 Aftercare following joint replacement surgery (principal); Z96.642 Presence of left artificial hip joint | CPT/HCPCS: 99212 ==

== ENCOUNTER 2024-07-26 12:15 | Outpatient (AMB) | payer MEDICARE, BC, SELFPAY ==
--- NOTE | 2024-07-26 12:30 | A.OFFVIS_ITS ---
Intake Visit Reasons: 6WK PO: L DAVE w/NE 06/13/24 Intake Note: Joanie is a 69 year old female who presents today for a post op appointment s/p L DAVE 06/13/24 NE. Pt states she is feeling well and is in PT. Allergies guaifenesin [From MUCINEX] Allergy (Intermediate, Verified 07/26/24 12:30) SWELLING HPI HPI 6WK PO: L DAVE w/NE 06/13/24: Details: Joanie is a 69 year old female who presents today for a post op appointment s/p L DAVE 06/13/24 NE. Pt states she is feeling well and is in PT. [facility] Medical History Preop exam for internal medicine YSLETA DEL SUR (hard of hearing) Diabetes HERBERT (stress urinary incontinence, female) Arthritis Depression History of gestational diabetes Osteoarthritis of right hip Obesity Hypertension Surgical History History of hip replacement H/O tooth extraction History of removal of cyst Status post surgical removal of nail matrix of toe History of section Family History Father No problems noted. Mother No problems noted. Family/Other Heart failure Diabetes CHF (congestive heart failure) Social History Household Members: Children Household Members Other:: son Housing: House Housing Other:: Lives in trailer with two steps to get up into it Are you a primary account executive healthcare to a significant other at home: No Do you presently have visiting nurse or other home services: No Alcohol intake: current Alcohol intake frequency: holidays/special occasions only Comment: fall risk due to recent hip surgery Patient Tobacco Use Status: Never used Tobacco e-Cigarette/Vaping Use: Never Used Second Hand Smoke Exposure: No service: No Current occupational status: retired Current occupational exposures/hazards: No Cognitive needs: No Hearing needs: No Vision needs: Yes (glasses) Physical Exam Extrem Other: no gait antalgia no pain with hip ROM Assessment & Plan Assessment & Plan (1) S/P total left hip arthroplasty: Onset Date: ~06/13/24 Comment: Dr. Camilo Code(s): Z96.642 - Presence of left artificial hip joint Category: Surgical Plan: Doing well. F/u 6 weeks Coding Level of Care Code Global (42070) Diagnoses S/P total left hip arthroplasty Z96.642
== END 2024-07-26 12:49 | disposition home or self-care (01) ==
PROVIDERS: PCP Internal Medicine; Visit Provider Orthopaedic Surgery
DX: Z96.642 Presence of left artificial hip joint (principal)
CPT/HCPCS: 99024

== ENCOUNTER → 2024-07-26 12:15 | Outpatient (BNVA) | payer MEDICARE, BC, SELFPAY | PROVIDERS: PCP Internal Medicine; Visit Provider Orthopaedic Surgery | DX: Z96.642 Presence of left artificial hip joint (principal) | CPT/HCPCS: 99212 ==

== ENCOUNTER 2024-08-03 10:00 | Outpatient (RCR) | payer MEDICARE, BC, SELFPAY ==
--- NOTE | 2024-07-12 11:25 | MHC.PT.EP ---
[place] Office [place] Office [place] Office [address] Karen Pierre [address] [phone] F: [phone] F: [phone] F: [phone] F: [phone] Physical Therapy Plan of Care Date of Evaluation: 07/12/24 Date of Surgery: 06/13/24 Diagnosis: This is a 69 year old female who presents today with a script for L THR on 06/13/24. Assessment: This is a 69 year old female who presents today with a script for L THR on 06/13/24. She was DC'd from [facility] on 06/15 and went home with home services. On 06/28/24 she followed up with [facility] ortho and shreya were removed/steri-stripes were applied (returns on 07/26/24). She had home PT until yesterday and was instructed to use her quad cane. Pain is located throughout the incision now and is achy/mild as well as swollen. Pain increases with transfers from sit <> stand, walking and standing for housework (greater than 30 mins). Of note she has been to this facility in the past for a R THR which was performed on 02/01/23 by [facility] ortho Dr. Page. She has also been here for prehab for her L hip as well. She did not have the best compliance with HEP. She states that she does her exercises now maybe once a day and does not ice. Assessment reveals pain that ranges from up to a 1/10 at the worst. Patient demos decreased hip ROM, strength of L LE's, TTP at incision, decreased gait pattern and balance and impaired posture with forward head and rounded shoulders. Based on functional limitations, impaired QOL and pain tolerance patient is a good candidate for skilled PT 2x/wk for 4wks. Frequency and Duration: The patient will be seen 2x/wk for 4wk Short Term Goals: Pt will demonstrate improved postural awareness and understanding of core engagement with supine and standing tasks without cues throughout session to improve overall hip safety in 2 weeks. Pt will continue to reinforce total hip precautions, sitting, standing and ADL modifications with proper body mechanics in 2 wks. Chcf Goals: Pt will demonstrate improved outcome measure by 5 points in 4 weeks for improved functional mobility. Pt will demonstrate ability to bend and lift WNL min to no pain for household tasks in 4 wks. Pt will report improved pain with car transfers in 4wks. Pt will be I in HEP and compliant in 4wks Pt will increase walking distance and time in 4wks Pt will tolerate sleeping on her sides in 4 wks Treatment Plan: Modalities to reduce pain, spasms and effusion. Manual therapy to restore motion and function. Therapeutic exercise to improve strength and flexibility. Neuromuscular re-education for posture and balance. Therapeutic activities to return to functional activities of daily living. Electronically signed by: Rossy Hayes, PT Please sign and return to therapist. Thank you for your referral.
--- NOTE | 2024-08-31 07:35 | MHC.PT.DC ---
[facility] [place] Office [place] Office [place] Office [address] Karen Pierre [address] [phone] F: [phone] F: [phone] F: [phone] F: [phone] Physical Therapy Discharge Report Diagnosis: This is a 69 year old female who presents today with a script for L THR on 06/13/24. Date of Surgery: 06/13/24 Date of Evaluation: 07/12/24 Date of Discharge: 08/31/24 Treatments to Date: 4 Cancellations to Date: 0 No Shows to Date: 0 Discharge Status: Achieved Goals Improved Function Independent with HEP Patient Elected to Stop Discharge Summary: 08/03: Patient voiced that she wants to be done with PT several times. We discussed how she is feeling. She feels ready for DC. I did educate her on balance exercises and HEP. She does still demonstrate limited motivation to move her body throughout the day however understands the importance of movement and this effecting how she feels day to day. Educated her on performing stairs normally. She has improved her pain, ROM, strength, balance and gait. She has and HEP and is ready for DC at this time. Chart was closed after 30 days. Electronically signed by: Rossy Hayes PT Please sign and return to therapist. Thank you for your referral.
== END 2024-08-31 07:36 | disposition home or self-care (01) ==
LOC: HO.PTCHIC 10:00
PROVIDERS: PCP Internal Medicine; Visit Provider Physician Assistant
DX: Z96.642 Presence of left artificial hip joint (principal)
CPT/HCPCS: 97110; 97112; 97162

== ENCOUNTER 2024-09-05 10:20 | Outpatient (REF) | payer MEDICARE, BC, SELFPAY ==
--- NOTE | ~2024-09-05 | MM_ITS ---
EXAMINATION: MM SCREENING DIGITAL BREAST TOMOSYNTHESIS, BILATERAL CLINICAL INFORMATION: Screening. Asymptomatic. COMPARISON: Mammography: Comparison is made with available priors TECHNIQUE: Digital breast mammography with tomosynthesis is performed in both the craniocaudal and mediolateral oblique views along with computer-aided detection (CAD). FINDINGS: There are scattered areas of fibroglandular density (ACR BI-RADS breast composition Category b). There are no significant masses, abnormal calcifications, or other abnormalities. MM/MM tomosynthesis screening BI IMPRESSION: No mammographic evidence of malignancy. ASSESSMENT: BI-RADS BI-RADS 1 - Negative RECOMMENDATION: Routine annual mammography screening. 1 year F/U This examination should not preclude the clinical evaluation of a suspicious palpable abnormality. This patient's information was entered into a reminder system with a target due date for their next mammogram. Electronically signed by: Vani Guardado DO 09/17/2024 03:50 PM [place]
== END 2024-09-05 10:21 | disposition home or self-care (01) ==
LOC: HO.MAMMO 10:20
PROVIDERS: PCP Internal Medicine; Visit Provider Internal Medicine
DX: Z12.31 Encounter for screening mammogram for malignant neoplasm of breast (principal)
CPT/HCPCS: 77063; 77067

== ENCOUNTER → 2024-09-05 10:30 | Outpatient (BNV) | payer MEDICARE, BC, SELFPAY | PROVIDERS: PCP Internal Medicine; Visit Provider Internal Medicine | DX: Z12.31 Encounter for screening mammogram for malignant neoplasm of breast (principal) | CPT/HCPCS: 77063; 77067 ==

== ENCOUNTER 2024-09-06 10:27 | Outpatient (AMB) | payer OTHER, SELFPAY ==
--- NOTE | 2024-09-06 10:29 | A.OFFVIS_ITS ---
Intake Visit Reasons: PO: L DAVE w/NE 06/13/24 (3Mo) Intake Note: Joanie is a 69 year old female who presents today for a post op appointment s/p L DAVE 06/13/24 NE. Patient reports that she is doing well with no concerns Allergies guaifenesin [From MUCINEX] Allergy (Intermediate, Verified 07/26/24 12:30) SWELLING HPI HPI PO: L DAVE w/NE 06/13/24 (3Mo): Details: Joanie is a 69 year old female who presents today for a post op appointment s/p L DAVE 06/13/24 NE. Patient reports that she is doing well with no concerns. [facility] Medical History Preop exam for internal medicine KAIBAB (hard of hearing) Diabetes HERBERT (stress urinary incontinence, female) Arthritis Depression History of gestational diabetes Osteoarthritis of right hip Obesity Hypertension Surgical History History of hip replacement H/O tooth extraction History of removal of cyst Status post surgical removal of nail matrix of toe History of section Family History Father No problems noted. Mother No problems noted. Family/Other Heart failure Diabetes CHF (congestive heart failure) Social History Household Members: Children Household Members Other:: son Housing: House Housing Other:: Lives in [facility] with two steps to get up into it Are you a primary plant care worker to a significant other at home: No Do you presently have visiting nurse or other home services: No Alcohol intake: current Alcohol intake frequency: holidays/special occasions only Comment: fall risk due to recent hip surgery Patient Tobacco Use Status: Never used Tobacco e-Cigarette/Vaping Use: Never Used Second Hand Smoke Exposure: No service: No Current occupational status: retired Current occupational exposures/hazards: No Cognitive needs: No Hearing needs: No Vision needs: Yes (glasses) Physical Exam Extrem Other: no gait antalgia no pain with hip ROM Assessment & Plan Assessment & Plan (1) S/P total left hip arthroplasty: Onset Date: ~06/13/24 Comment: Dr. Page Code(s): Z96.642 - Presence of left artificial hip joint Category: Surgical Plan: Doing well status post left hip arthroplasty. No further intervention warranted at this time. Coding Level of Care Code Global (06756) Diagnoses S/P total left hip arthroplasty Z96.642
== END 2024-09-06 10:46 | disposition home or self-care (01) ==
PROVIDERS: PCP Internal Medicine; Visit Provider Orthopaedic Surgery
DX: Z96.642 Presence of left artificial hip joint (principal)
CPT/HCPCS: 99024

== ENCOUNTER → 2024-09-06 10:27 | Outpatient (BNVA) | payer OTHER, SELFPAY | PROVIDERS: PCP Internal Medicine; Visit Provider Orthopaedic Surgery | DX: E78.5 Hyperlipidemia, unspecified (principal); Z23 Encounter for immunization; E11.65 Type 2 diabetes mellitus with hyperglycemia; I10 Essential (primary) hypertension; Z47.1 Aftercare following joint replacement surgery; Z96.642 Presence of left artificial hip joint | CPT/HCPCS: 83036; 90471; 90656; 99212 ==

== ENCOUNTER 2024-09-06 11:18 | Outpatient (AMB) | payer MEDICARE, BC, SELFPAY ==
[2024-09-06 11:22] VITALS: BP 144/72; PULSE 78; O2SAT 98; BMI 32.4
--- NOTE | 2024-09-06 11:22 | MHC.PC.OV ---
Vital Signs 09/06/24 11:22 Height 4 ft 10 in Weight 155 lb BMI 32.4 BP 144/72 H Blood Pressure Location Lt brachial Position Sitting Pulse 78 Pulse Source Pulse Oximeter Pulse Oximetry (%) 98 Oxygen Delivery Method Room Air Intake Visit Reasons: 3 Month F/U Superintendent General Required: No Accompanied by: Self / Same As Patient Allergies guaifenesin [From MUCINEX] Allergy (Intermediate, Verified 09/06/24 11:22) SWELLING Medication List - Last Reconciled 09/06/24 by Isidro Mays MD acetaminophen 650 mg (2 x 325 mg) PO Q6H PRN 30 days aspirin 325 mg PO BID 42 days atorvastatin 40 mg PO DAILY hydrochlorothiazide 25 mg PO DAILY lisinopril 10 mg PO DAILY metformin 500 mg PO DAILY Tobacco use date assessed: 02/03/24 Fall risk assessment: No Falls in past year Last assessed Fall Risk: 09/06/24 Dental Screening Dental Screen Date: 02/03/24 HPI 3 Month F/U HPI Details hyperlipidemia on rx; doing well and compliant [facility] Medical History Preop exam for internal medicine ILIAMNA (hard of hearing) Diabetes HERBERT (stress urinary incontinence, female) Arthritis Depression History of gestational diabetes Osteoarthritis of right hip Obesity Hypertension Surgical History History of hip replacement H/O tooth extraction History of removal of cyst Status post surgical removal of nail matrix of toe History of section Family History Father No problems noted. Mother No problems noted. Family/Other Heart failure Diabetes CHF (congestive heart failure) Social History Household Members: Children Household Members Other:: son Housing: House Housing Other:: Lives in trailer with two steps to get up into it Are you a primary health care sanitary technician to a significant other at home: No Do you presently have visiting nurse or other home services: No Alcohol intake: current Alcohol intake frequency: holidays/special occasions only Comment: fall risk due to recent hip surgery Patient Tobacco Use Status: Never used Tobacco Tobacco use type: Cigarette e-Cigarette/Vaping Use: Never Used Second Hand Smoke Exposure: No service: No Current occupational status: retired Current occupational exposures/hazards: No Cognitive needs: No Hearing needs: No Vision needs: Yes (glasses) Questionnaire Thrive Questionnaire Date Thrive assessed: 06/14/24 LEIGHANN-7 AMB Questionnaire LEIGHANN-7 Date LEIGHANN - 7 assessed: 02/03/24 Source: Developed by Drs. Leodan Sawyer, Lashon Elizabeth, Arvind Palacios and colleagues, with an educational alta from [employer]. Review of Systems Const Denies chills, Denies headache(s) and Denies weight loss ENT Denies headache(s) Card Denies chest pain, Denies syncope, Denies irregular heart rhythm and Denies dyspnea Resp Denies chest congestion, Denies cough and Denies dyspnea GI Denies abdominal pain, Denies change in stool character, Denies nausea and Denies vomiting Musc Denies deformity and Denies joint swelling Neuro Denies syncope and Denies headache(s) Physical exam (Primary Care) Vital Signs: Last Vital Signs Pulse 78 09/06/24 11:22 BP 144/72 H 09/06/24 11:22 Pulse Ox 98 09/06/24 11:22 Oxygen Delivery Method Room Air 09/06/24 11:22 BMI result Body Mass Index 32.4 Tobacco/Smoking Status: Tobacco use Status Tobacco use date assessed 02/03/24 09/06/24 11:29 Patient Tobacco Use Status Never used Tobacco 09/06/24 11:29 Tobacco use type Cigarette 09/06/24 11:29 e-Cigarette/Vaping Use Never Used 09/06/24 11:29 Thrive Assessment: Date of Thrive Assessment Date Thrive assessed 06/14/24 09/06/24 11:29 Const General: cooperative, comfortable, no acute distress and alert Neck Neck: Yes no lymphadenopathy Thyroid: Thyroid normal Resp Effort & Inspection: normal respiratory effort Auscultation: clear to auscultation bilaterally Percussion: percussion normal Cardio Jugular venous distension: no JVD Palpation: normal PMI Rate: regular rate Rhythm: regular rhythm Heart sounds: S1 normal heart sound present and S2 normal heart sound present GI Inspection: Yes normal to inspection Palpation (GI): No hepatosplenomegaly present Skin General skin exam: no rashes or lesions noted Extrem General: Yes no clubbing, cyanosis or edema Office Procedures Flu Questionnaire Does the patient have a severe egg allergy?: No Does the patient have severe life threatening allergies?: No Does the patient have a fever or illness today?: No Has the patient ever had Guillain-[place] Syndrome?: No Has the patient ever had any past reaction to a flu shot?: No Results AMB Hemoglobin A1c AMB Hemoglobin A1c 6.9 % Last Edit by Taisha Randall CMA on 09/06/24 11:34 Immunizations Fluarix Triv [id number] (PF) 45 mcg (15 mcg x 3)/0.5 mL IM syringe Performing Provider: Isidro Mays MD [facility] Administered by: Sandra Oropeza LPN on 09/06/24 11:59 Dose Route Admin Location Dispensed Lot Number Expiration Date NDC Solution Consultant 0.5 mL IM Left Deltoid 0.5 mL [id number] 05/13/25 [id number] [employer]ine[employer]INE VIS Given Date VIS Provided VIS Publication Date 09/06/24 Single Vaccine 21 Eligibility Eligibility Date Funding Source Not [facility] Eligible 09/06/24 Private Results Reviewed Results Reviewed: Laboratory Last Values Hgb A1c (Clinic) 6.9 % (4.0-6.0) H 09/06/24 11:29 Coding Level of Care Code Est Pt Level 3 (42480) Diagnoses Hyperlipidemia, unspecified hyperlipidemia type E78.5 Hyperlipidemia type: unspecified Assessment & Plan Assessment & Plan (1) Hyperlipidemia: Code(s): E78.5 - Hyperlipidemia, unspecified Category: Medical Qualifiers: Hyperlipidemia type: unspecified Qualified Code(s): E78.5 - Hyperlipidemia, unspecified Plan: stable; same rx Orders: Orders AMB Hemoglobin A1c Today E11.9 - Type 2 diabetes mellitus without complications, I10 - Essential (primary) hypertension Hemoglobin A1c Today R73.9 - Hyperglycemia, unspecified Influenza [id number] Immunization Today Z23 - Encounter for immunization
== END 2024-09-06 12:00 | disposition home or self-care (01) ==
PROVIDERS: PCP Internal Medicine; Visit Provider Internal Medicine
DX: E11.9 Type 2 diabetes mellitus without complications (principal); I10 Essential (primary) hypertension; E78.5 Hyperlipidemia, unspecified; Z23 Encounter for immunization

== ENCOUNTER 2024-10-19 13:41 | Outpatient (AMB) | payer MEDICARE, BC, SELFPAY ==
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
[2024-10-19 14:29] VITALS: BP 128/90; PULSE 93; O2SAT 98
--- OUTSIDE RECORDS SUMMARY | 2024-10-24 10:11 | XMS_ITS ---
Author Organization [facility] Address [address] [place] [address] Care Team Providers Care Psychology Fellow Name Role Phone Davon CHRISTIAN, Isidro Primary Care Provider Sabra Cabral [phone] Encounters Encounter Location Date Provider Diagnosis [facility] [address] [place] [address] 06/19/2024 Sabra Craft Plan Of Treatment Next Appt Details Provider Name:Sabra painter, 12/14/2024 10:00:00 AM, [address] [place], [address], Progress Notes * Joanie LEWIS KDOB: (69 yo F)Acc No.[id number]:06/19/2024 Progress Note Patient:?Joanie LEWIS Provider:?Sabra Craft DPM :1955???Age:69 Y???Sex:Female D ate:06/19/2024 Address:[address] [place] [address] [id number] Pcp:Isidro Mays MD Subjective: * Chief Complaints: * ??? * Medical History:? Objective: * Vitals:? Assessment: Plan: * Treatment: * Images: * The named appointment provid er may or may not be the originator of this progress note, and it is not deemed complete until electronically signed by the appointment provider. Sign off status: Pending * Provider:?Sabra Craft DPM Date:?04/2024 Generated for Miladis dempsey/Pascual/Subha on:?10/24/2024 10:10 AM EST
--- OUTSIDE RECORDS SUMMARY | 2024-10-24 10:11 | XMS_ITS | Patient Health Record ---
Author Organization [facility] Address [address] [place] [address] Care Team Providers Care Petroleum Refining Firer Name Role Phone Isidro Mays MD Primary Care Provider Sabra Cabral Unavailable [phone] Allergies Allergen (clinical drug ingredient) Drug/Non Drug Allergy documented on EMR Reaction Allergy Type Onset Date Status guaifenesin Mucinex puffy Drug Allergy Activ e Results Component Value Reference Range Notes HEMOGLOBIN A1C (GLYCOHEMOGLO BIN) Reviewed date:03/20/2024 11:25:11 AM Interpretation: Performing Lab: Notes/Report: HEMOGLOBIN A1C (HH) 7.4 Reason For Referral No Information Medications Medication SIG (Take, Route, Frequency, Duration) Notes Start Date End Date Status metFORMIN HCl 500 MG 1 tablet with a neema l Orally Once a day for 30 day(s) Active Ciclopirox 0.77 % 1 application to aff ected area Externally Twice a day to effected nails for 30 days 08/16/2023 Active hydroCHLOROthiazide 25 MG Oral for 90 Days Active Lisinopril 10 MG Oral for 90 Days Active Atorvastatin Calcium 40 MG Oral for 90 Days Active Social History Tobacco Use: Social History Observation Description Date Details (start date - stop date) Never Smoker NA - NA Tobacco Use/Smoking Question Answer Notes Are you a: nonsmoker Additional Findings: Tobacco Non-User Current no n-smoker Alcohol Screen Question Answer Notes Did you have a drink containing alcohol in the p ast year? No Points 0 Interpretation Negative Tobacco use other than smoking: Question Answer Notes Are you an other tobacco user? No Problems Problem Type SNOMED Code ICD Code Onset Dates Problem Status W/U Status Risk Notes Problem [id number] Hallux valgus (acquired), left foot (M20.12) Active confirmed Problem [id number] Hallux valgus (acquired), right foot (M20.11) Active confirmed Problem [id number] Hammer toe of right foot (M20.41) Active confirmed Problem 705600244 Hammer toe of left foot (M20.42) Active confirmed Problem Type 2 diabetes mellitus without complication (629847935) Type 2 diabetes mellitus without complication (E11.9) Active confirmed Problem Type I diabetes mellitus without complication (591640364) Type 1 diabetes mellitus without complication (E10.9) Active confirmed Problem Acquired hammer toe of left foot (2623395797740397) Hammertoe of left foot (M20.42) Active confirmed Problem Acquired hammer toe of right foot (7828659776876605) Hammertoe of right foot (M20.41) Active confirmed Vital Signs Height 4ft 9in in 09/13/2024 Weight 156 lbs 09/13/2024 BMI 33.75 kg/m2 09/13/2024 Encounters Encounter Location Date Provider Diagnosis [address] [address] 12/21/2023 Sabra Perica Tinea unguium B35.1 ; Pain in right toe(s) M79.674 and Pain in left toe(s) M79.[address] [address] 03/20/2024 Sabra Perica Pain in right toe(s) M79.674 ; Tinea unguium B35.1 ; Pain in left toe(s) M79.675 ; Type 2 diabetes mellitus without complication E11.9 ; Hammertoe of right foot M20.41 and Hammertoe of left foot M20.[address] [address] 09/13/2024 Sabra Perica Pain in right toe(s) M79.674 ; Tinea unguium B35.1 ; Pain in left toe(s) M79.675 and Type 2 diabetes mellitus without complication E11.9 [address] [place] [address] 11/02/2023 Sabra Craft [facility] [address] [address] 06/11/2024 Sabra Craft Assessments Encounter Date Diagnosis (ICD Code) Assessment Notes Treatment Notes Treatment Clinical Notes Section Notes 12/21/2023 Tinea unguium (ICD-10 - B35.1) 12/21/2023 Pain in right toe(s) (ICD-10 - M79.674) 03/20/2024 Pain in right toe(s) (ICD-10 - M79.674) 09/13/2024 Tinea unguium (ICD-10 - B35.1) 09/13/2024 Pain in right toe(s) (ICD-10 - M79.674) 09/13/2024 Pain in left toe(s) (ICD-10 - M79.675) 03/20/2024 Tinea unguium (ICD-10 - B35.1) 12/21/2023 Pain in left toe(s) (ICD-10 - M79.675) 03/20/2024 Pain in left toe(s) (ICD-10 - M79.675) 09/13/2024 Type 2 diabetes mellitus without complication (ICD-10 - E11.9) 03/20/2024 Type 2 diabetes mellitus without complication (ICD-10 - E11.9) 03/20/2024 Hammertoe of right foot (ICD-10 - M20.41) 03/20/2024 Hammertoe of left foot (ICD-10 - M20.42) Plan Of Treatment Next Appt Details Provider Name:Sabra painter, 12/14/2024 10:00:00 AM, [address] [facility], [place], [address], Insurance Providers Payer Name Payer Address Payer Phone Subscriber Number Group Number Insured Name Patient Relationship to Insured Coverage Start Date Coverage End Date Medicare National [employer] [address] [facility] [place] [address] [id number] Joanie Pereyra Self - patient is the insured [facility] [address] [place] [address] [id number] Joanie Pereyra Self - patient is the insured Medical (General) History Medical History History ICD Code Arthritis Broken bones CAD (Cholesterol) Diabetic-BORDERLINE Epilepsy High blood pressure Diabetic Surgical History Surgery Date(Month/Year) right hip surgery 2022 left hip surgery 06/13/24
--- OUTSIDE RECORDS SUMMARY | 2024-10-24 10:11 | XMS_ITS ---
Author Organization [facility] Address [address] [place] [address] Care Team Providers Care Hamper Maker Name Role Phone Davon CHRISTIAN, Isidro Primary Care Provider Sabra Cabral [phone] Allergies Allergen (clinical drug ingredient) Drug/Non Drug Allergy documented on EMR Reaction Allergy Type Onset Date Status guaifenesin Mucinex puffy Drug Allergy Activ e Medications Medication SIG (Take, Route, Frequency, Duration) Notes Start Date End Date Status metFORMIN HCl 500 MG 1 tablet with a neema l Orally Once a day for 30 day(s) Active Atorvastatin Calcium 40 MG Oral for 90 Days Active Lisinopril 10 MG Oral for 90 Days Active hydroCHLOROthiazide 25 MG Oral for 90 Days Active Ciclopirox 0.77 % 1 application to aff ected area Externally Twice a day to effected nails for 30 days 08/16/2023 Active Encounters Encounter Location Date Provider Diagnosis [facility] [address] [place] [address] 09/11/2024 Sabra Craft Plan Of Treatment Next Appt Details Provider Name:Sabra painter, 12/14/2024 10:00:00 AM, [address] [place], [address], Progress Notes * Joanie LEWIS KDOB: [birth year] (69 yo F)Acc No.[id number]:09/11/2024 Progress Note Patient:?Joanie LEWIS Provider:?Sabra Craft DPM :1955???Age:69 Y???Sex:Female D ate:09/11/2024 Address:[address] [place], [place] [address] [facility] Pcp:Isidro Mays MD Subjective: * Chief Complaints: * ??? * HPI: ???At Risk footcare:?Pt States Last PCP Visit:?Date?02/28/2024 * Medical History:?Arthritis, Broken bones, CAD (Cholesterol), Diabetic- BORDERLINE, Epilepsy, High blood pressure, Diabetic. * Medications:?Taking metFORMI N HCl 500 MG Tablet 1 tablet with a meal Orally Once a day , Taking Atorvastatin Calcium 40 MG Tablet Oral , Taking Lisinopril 10 MG Tablet Oral , Taking hydroCHLOROthiazide 25 MG Tablet Oral , Taking Ciclopirox 0.77 % Gel 1 application to affected area Externally Twice a day to effected nails * Allergies:?Mucinex: puffy. Objective: * Vitals:? Assessment: Plan: * Treatment: * Images: * The named appointment provid er may or may not be the originator of this progress note, and it is not deemed complete until electronically signed by the appointment provider. Sign off status: Pending * Provider:?Sabra Craft DPM Date:? Generated for Miladis dempsey/Pascual/Anujitting on:?10/24/2024 10:10 AM EST History and Physical Notes * HPI (History of Present Illness) Category Sub-Category Detail Notes Category Not es At Risk footcare Pt States Last PCP Visit: Date: 4
--- OUTSIDE RECORDS SUMMARY | 2024-10-24 10:11 | XMS_ITS ---
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 Medications Medication SIG (Take, Route, Frequency, Duration) [...] Problem Status W/U Status Risk Notes Problem Acquired hammer toe of right foot (1512359929919 105) Hammertoe of right foot (M20.41) Active confirmed Problem Acquired hammer toe of left foot (6948970030964 103) Hammertoe of left foot (M20.42) Active confirmed Vital Signs Height 4ft 9in in 09/13/2024 Weight 156 lbs 09/13/2024 BMI 33.75 kg/m2 09/13/2024 Encounters Encounter Location Date Provider Diagnosis [facility] [address] 09/13/2024 Sabra Craft Pain in right toe(s) M79.674 ; Tinea unguium B35.1 ; Pain in left toe(s) M79.675 and Type 2 diabetes mellitus without complication E11.9 Assessments Encounter Date Diagnosis (ICD Code) Assessment Notes Treatment Notes Treatment Clinical Notes Section Notes 09/13/2024 Pain in right toe(s) (ICD-10 - M79.674) 09/13/2024 Tinea unguium (ICD-10 - B35.1) 09/13/2024 Pain in left toe(s) (ICD-10 - M79.675) 09/13/2024 Type 2 diabetes mellitus without complication (ICD-10 - E11.9) Plan Of Treatment Next Appt Details Follow Up: 2 Months, Reason: Provider Name:Sabra painter, 12/14/2024 10:00:00 AM, [address] [place] [address], [id number], Procedure Notes * Category Sub-Category Detail Notes [...] as necessary. Patient chooses, no pharmaceutical tx ([id number]) Progress Notes * Joanie LEWIS KDOB: (69 yo F)Acc No.[id number]:09/13/2024 Progress Note Patient:?Joanie Lewis Provider:?Sabra Craft DPM :1955???Age:69 Y???Sex:Female D ate:09/13/2024 Address:[facility] [address] [place] Pcp:Isidro Mays MD Subjective: * Chief Complaints: * ???At Risk FootcarePainful N ail(s) aggrevated by shoes and causing difficulty standing/walking. * HPI: ???At Risk footcare:?Pt States Last PCP Visit:?Date?09/06/2024 * ROS:?General/Constitutional:?Nausea?denies.?Vomiting?denies.?Hunger Thirst?denies.?Loss appetite?denies.?Chills?denies.?Fatigue?denies.?Fever?denies.?Night Sweats?denies.?Unexplained weight loss?denies.?Unexplained weight gain?denies.?HEENTM:?Dentures?admits.?Dizziness?denies.?Glasses/contacts?admits.?Retinopathy?de nies.?Blurred/double vision?denies.?TMJ?denies.?Discharge/drainage?denies.?Implants?denies.?Sore throat?denies.?Dental implants?denies.?Hard of hearing ?admits.?Difficulty chewing/swallowing/speaking?denies.?Nose bleeds?denies.?Sore mouth?denies.?Respiratory:?On Oxygen?denies.?Pneumonia/pleurisy?denies.?Bronchitis?denies.?Emphysema?denies.?C oughing?denies.?Cough blood?denies.?Shortness of breath?denies.?Wheezing?denies.?Cardiovascular:?Pacemaker?denies.?MVP?denies.?WPW?denies.?CHF?denies.?Heart attack?denies.?Septal defect?denies.?Rapid beat?denies.?Chest pain ?denies.?Atrial Fib.?denies.?Murmur/Palpitations?denies.?Gastrointestinal:?Hemorrhoids?denies.?Stomach/Abdominal pain?denies.?Dark blood stool?denies.?Irritable bowel ?denies.?Constipation?denies.?Diarrhea?denies.?Hematology:?Swelling?denies.?Clots?denies.?Varicose Veins?denies.?Bruising?denies.?Bleeding problem?denies.?Genitourinary:?Blood urine?denies.?Frequent/Painfu/urination/bladder control?denies.?Kidney stones?denies.?Infection (UTI)?admits.?Nephropathy?denies.?sex trans dis (STD)?denies.?Prostate?denies.?Musculoskeletal:?Hammertoes?admits.?Bunions?admits.?Back Pain?denies.?Muscle Cramps/ Resting?denies.?Muscle cramps / walking?denies.?Generalized aches and pains?denies.?Weakness?denies.?Integ.:?Mortensen?denies.?Scars?admits.?Corns/calluses?denies.?Ingrown nails?denies.?Painful nails?denies.?Open Sores?denies.?Rashes?denies.?Neurologic:?Difficulty sleeping?denies.?Brain disorder?denies.?Numbness?denies.?Balance trouble?denies.?Confusion?denies.?Fainting/blackouts?denies.?Tingling?denies.?Tr emors?denies.? * Medical History:? * Surgical History:?right hip surgery 2022left hip surgery 06/13/24 * Hospitalization/Major Diagno stic Procedure:?No Hospitalization History. * Family History:?Mother: dece ased, diagnosed with Unspecified essential hypertension, Unspecified heart disease, Other malignant neoplasm of unspecified site.?Father: .?Spouse: .? * Social History:?Tobacco Use:?Tobacco Use/Smoking?Are you a:?nonsmoker ?Additional Findings: Tobacco Non-User?Current non-smoker ?Tobacco use other than smoking?Are you an other tobacco user??No ???Drugs/Alcohol:?Drugs?Have you used drugs other than those for medical reasons in the past 12 months??No ?Alcohol Screen?Did you have a drink containing alcohol in the past year??No ?Points?0 ?Interpretation?Negative ???Miscellaneous:?no Caffeine. ?no Exercise. ?Occupation: Retired. * Medications:?TakingmetFORMIN HCl 500 MG Tablet 1 tablet with a meal Orally Once a dayAtorvastatin Calcium 40 MG Tablet Oral Lisinopril 10 MG Tablet Oral hydroCHLOROthiazide 25 MG Tablet Oral Ciclopirox 0.77 % Gel 1 application to affected area Externally Twice a day to effected nailsMedication List reviewed and reconciled with the patientTaking metFORMIN HCl 500 MG Tablet 1 tablet with a meal Orally Once a dayTaking Atorvastatin Calcium 40 MG Tablet Oral Taking Lisinopril 10 MG Tablet Oral Taking hydroCHLOROthiazide 25 MG Tablet Oral Taking Ciclopirox 0.77 % Gel 1 application to affected area Externally Twice a day to effected nailsMedication List reviewed and reconciled with the patient * Allergies:?Mucinex: mals [Allergies Verified] Objective: * Vitals:?Ht: 4ft 9in, Wt:156, BMI:33.75, Shoe size: 6-7, Ht-cm: 144.78 cm, Wt-k.76 kg. * ???Past Orders: ???Lab:HEMOGLOBIN A1C (GLYCO HEMOGLOBIN) (Order Date - 03/20/2024) (Collection Date - 03/05/2024) ? Value Reference Range ?HEMOGLOBIN A1C (HH) 7.4 * Examination: ???Ophthalmology Referral: ?DIABETES EYE EXAM?Nails: ?NAILS are:?Elongated, overgrown, dystrophic, lytic, greater than 3mm thick, discolored and friable with crumbly malodorous subungual debris, with pain on palpation , 1-5 B/L.?Dermatologic: ?SKIN FINDINGS:?Skin exam reveals normal texture, elasticity, and turgor. There are no masses. The interspaces are clear, B/L, Skin exam reveals Keratotic lesion(s) located at.?Neurological: ?SENSORY:?Neurological exam reveals intact sensorium, pain sensation normal, vibration sensation intact, pinprick sensation is normal in the lower extremities, 5.07 monofilament test performed at plantar aspects of 5 varied sites per foot shows sensation, normal, B/L, Pt denies, anesthesia, burning, paresthesia, tingling, B/L.?Vascular: ?DP PULSES(B):?3/4, B/L.?PT PULSES(B):?3/4, B/L.?CAPILLARY FILL TIME:?immediate, all digits, B/L.?TEMPERTURE GRADIENT(C):?normal, warm to cool, proximal to distal, B/L, B/L.?Orthopedic: ?MUSCLE STRENGTH:?5/5 all groups in a symmetrical fashion, B/L.?DIGITAL DEFORMITIES:?Digital contracture, PIPJ, 2-5 B/L, incompl-reducible with WB, or to push-up test, no over, nor underlapping.? Assessment: * Assessment: 1.?Tinea unguium - B35.1?2.? Pain in right toe(s) - M79.674?3.?Pain in left toe(s) - M79.675?4.?Type 2 diabetes mellitus without complication - E11.9? Plan: * Treatment: * Procedures:?Debride Nail 6-10:?Nail debridement?Nail debridement performed extensively to reduce/remove overall nail length, girth, thickness, subungual debris, and necrotic tissue, by manual and electrical means through the use of a nail nipper and/or dremel, to more viable healthy nail plate or bed tissue 1-5. Silver nitrate used for any petechial bleeding as necessary. Patient chooses, no pharmaceutical tx ([id number]).? * Procedure Codes:?53251 DEBRI DE NAIL, 6 OR MORE, Modifiers: XS * Follow Up:?2 Months * Images: * Sign off status: Completed true * Provider:?Sabra Craft, DPM Date:? Generated for Miladis dempsey/Pascual/eTransmitting on:?10/24/2024 10:10 AM EST History and Physical Notes * HPI (History of Present Illness) Category Sub-Category Detail Notes Category Not es At Risk footcare Pt States Last PCP Visit: Date: Examination Category Sub-Category Detail Notes Category Not es Neurological SENSORY: Neurological exa m reveals intact [...] B/L Ophthalmology Referral DIABETES EYE EXAM Diabetic Retinopa thy Screening:: No Findings of Diabetic Eye Exam:: no retin opathy Vascular DP PULSES(B): 3/4, B/L PT PULSES(B): 3/4, B/L CAPILLARY FILL TIME: immediate, all digi ts, B/L TEMPERTURE GRADIENT(C): normal, warm to cool, proximal to distal, B/L, B/L Nails NAILS are: Elongated, overg rown, dystrophic, lytic, greater than 3mm thick, discolored and friable with crumbly malodorous subungual debris, with pain on palpation , 1-5 B/L
== END 2024-10-19 15:41 | disposition home or self-care (01) ==
PROVIDERS: PCP Internal Medicine; Visit Provider Physician Assistant
DX: H91.93 Unspecified hearing loss, bilateral (principal)

== ENCOUNTER → 2024-10-19 13:41 | Outpatient (BNVA) | payer MEDICARE, BC, SELFPAY | PROVIDERS: PCP Internal Medicine; Visit Provider Physician Assistant | DX: H91.93 Unspecified hearing loss, bilateral (principal) | CPT/HCPCS: 69209; 99212 ==

== ENCOUNTER 2024-12-07 09:23 | Outpatient (AMB) | payer BC, SELFPAY ==
--- NOTE | 2024-12-07 09:35 | MHC.PC.OV ---
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 Required: No Accompanied by: Self / Same As Patient Allergies guaifenesin [From MUCINEX] Allergy (Intermediate, Verified 12/07/24 09:40) SWELLING Tobacco use date assessed: 12/07/24 Fall risk assessment: No Falls in past year Last assessed Fall Risk: 12/07/24 Dental Screening Dental Screen Date: 12/07/24 Did you have a dental visit in the last 12 months?: No Did you have a dental problem in the last 6 months where you did not have access to dental care?: No Was dental information given to patient?: No (Pt has dentures) HPI 3 month f/u HPI Details DM on rx; doing well; compliant; labs fine PFSH Medical History Preop exam for internal medicine REDDING (hard of hearing) Diabetes HERBERT (stress urinary incontinence, female) Arthritis Depression History of gestational diabetes Osteoarthritis of right hip Obesity Hypertension Surgical History History of hip replacement H/O tooth extraction History of removal of cyst Status post surgical removal of nail matrix of toe History of section Family History Father No problems noted. Mother No problems noted. Family/Other Heart failure Diabetes CHF (congestive heart failure) Social History Household Members: Children Household Members Other:: son Housing: House Housing Other:: Lives in trailer with two steps to get up into it Are you a primary child care development specialist to a significant other at home: No Do you presently have visiting nurse or other home services: No Alcohol intake: current Alcohol intake frequency: holidays/special occasions only Comment: fall risk due to recent hip surgery Patient Tobacco Use Status: Never used Tobacco Tobacco use type: Cigarette e-Cigarette/Vaping Use: Never Used Second Hand Smoke Exposure: No service: No Current occupational status: retired Current occupational exposures/hazards: No Cognitive needs: No Hearing needs: No Vision needs: Yes (glasses) Questionnaire PHQ-9 Over the last 2 weeks, how often have you been bothered by any of the following problems? 1. Little interest or pleasure in doing things: not at all 2. Feeling down, depressed, or hopeless: not at all 3. Trouble falling or staying asleep, or sleeping too much: not at all 4. Feeling tired or having little energy: not at all 5. Poor appetite or overeating: not at all 6. Feeling bad about yourself - or that you are a failure or have let yourself or your family down: not at all 7. Trouble concentrating on things, such as reading the newspaper or watching television: not at all 8. Moving or speaking so slowly that other people could have noticed. Or the opposite - being so fidgety or restless that you have been moving around a lot more than usual: not at all 9. Thoughts that you would be better off or of hurting yourself in some way: not at all Total score: 0 Depression Screening Interpretation: Negative Depression Screening Done: Yes 68911 - PHQ-9 Billing: Yes Source: Developed by Drs. Leodan Sawyer, Lashon Elizabeth, Arvind Palacios and colleagues, with an educational alta from [employer]. Thrive Questionnaire Date Thrive assessed: 12/07/24 I am a: Patient What is your living situation today?: I have a steady place to live Within the past 12 months, did the food you bought not last and you didn't have the money to get more?: Never true Within the past 12 months, did you worry whether your food would run out before you got money to buy more?: Never true Do you have trouble paying for medicines?: No Do you have trouble getting transportation to medical appointments?: No Do you have trouble paying your heating and electricity bill?: No Do you have trouble taking care of your child, family member or friend?: No Do you have trouble with day-to-day activities such as bathing, preparing meals, shopping, managing finances, etc.?: No Are you currently unemployed and looking for a job?: No Are you interested in more education?: No Please select the resources that you would like help with: None Currently or been in a relationship where the following occur: No concerns reported THRIVE Score: 0 AUDIT C Alcohol Use Questionnaire (AUDIT-C) 1. How often do you have a drink containing alcohol?: Never 3. How often do you have six or more drinks on one occasion?: Never Total Score: 0 LEIGHANN-7 AMB Questionnaire LEIGHANN-7 Date LEIGHANN - 7 assessed: 12/07/24 Feeling nervous, anxious, or on edge: 0 = Not at all Not being able to stop or control worryin = Not at all Worrying too much about different things: 0 = Not at all Trouble relaxin = Not at all Being so restless that it is hard to sit still: 0 = Not at all Becoming easily annoyed or irritable: 0 = Not at all Feeling afraid as if something awful might happen: 0 = Not at all Total LEIGHANN-7 score (0-4 normal; 5-9 mild; 10-14 moderate; 15-21 severe): 0 Source: Developed by Drs. Leodan Sawyer, Lashon Elizabeth, Arvind Palacios and colleagues, with an educational alta from [employer]. LEIGHANN-7 Assessment Billing LEIGHANN-7 Assessment Tool: LEIGHANN-7 Assessment 77134 Review of Systems Const Denies chills, Denies headache(s) and Denies weight loss ENT Denies headache(s) Card Denies chest pain, Denies syncope, Denies irregular heart rhythm and Denies dyspnea Resp Denies chest congestion, Denies cough and Denies dyspnea GI Denies abdominal pain, Denies change in stool character, Denies nausea and Denies vomiting Musc Denies deformity and Denies joint swelling Neuro Denies syncope and Denies headache(s) Physical exam (Primary Care) Vital Signs: Last Vital Signs Pulse 118 H 12/07/24 09:40 BP 160/88 H 12/07/24 09:40 Pulse Ox 99 12/07/24 09:40 Oxygen Delivery Method Room Air 12/07/24 09:40 BMI result Body Mass Index 32.4 Tobacco/Smoking Status: Tobacco use Status Tobacco use date assessed 12/07/24 12/07/24 09:44 Patient Tobacco Use Status Never used Tobacco 12/07/24 09:37 Tobacco use type Cigarette 12/07/24 09:37 e-Cigarette/Vaping Use Never Used 12/07/24 09:37 PHQ-9: PHQ-9 Score PHQ-9: Total score 0 12/07/24 09:44 Depression Screening Interpretation: Negative Thrive Assessment: Date of Thrive Assessment Date Thrive assessed 12/07/24 12/07/24 09:44 Currently or been in a relationship where the following occur: No concerns reported Const General: cooperative, comfortable, no acute distress and alert Neck Neck: Yes no lymphadenopathy Thyroid: Thyroid normal Resp Effort & Inspection: normal respiratory effort Auscultation: clear to auscultation bilaterally Percussion: percussion normal Cardio Jugular venous distension: no JVD Palpation: normal PMI Rate: regular rate Rhythm: regular rhythm Heart sounds: S1 normal heart sound present and S2 normal heart sound present GI Inspection: Yes normal to inspection Palpation (GI): No hepatosplenomegaly present Skin General skin exam: no rashes or lesions noted Extrem General: Yes no clubbing, cyanosis or edema Office Procedures Flu Questionnaire Does the patient have a severe egg allergy?: No Results AMB Hemoglobin A1c AMB Hemoglobin A1c 7.0 % Last Edit by FRANCO Escalera on 12/07/24 09:45 Immunizations Fluarix Triv [id number] (PF) 45 mcg (15 mcg x 3)/0.5 mL IM syringe Performing Provider: Isidro Mays MD [facility] [place] [facility] Documented (not given) by: FRANCO Escalera on 12/07/24 09:45 Reason Not Given: Received Previously Results Reviewed Results Reviewed: Laboratory Last Values Hgb A1c (Clinic) 7.0 % (4.0-6.0) H 12/07/24 09:32 Coding Level of Care Code Est Pt Level 3 (47324) Diagnoses Diabetes mellitus with coincident hypertension E11.9; I10 Additional Codes LEIGHANN-7 Assessment Billing - LEIGHANN-7 Assessment Tool: LEIGHANN-7 Assessment 98506 ([id number]) PHQ-9 - 79910 - PHQ-9 Billing: Yes ([id number]) Assessment & Plan Assessment & Plan (1) Diabetes mellitus with coincident hypertension: Code(s): E11.9 - Type 2 diabetes mellitus without complications; I10 - Essential (primary) hypertension Category: Medical Plan: stable; same rx Orders: Orders AMB Hemoglobin A1c 12/07/24 E11.9 - Type 2 diabetes mellitus without complications, I10 - Essential (primary) hypertension Comprehensive [place]. Panel Fast 12/07/24 Z13.9 - Encounter for screening, unspecified Influenza [id number] Immunization 12/07/24 Z23 - Encounter for immunization Lipid Panel 12/07/24 Z13.220 - Encounter for screening for lipoid disorders Complete Blood Count Auto Diff 12/07/24 Z13.0 - Encounter for screening for diseases of the blood and blood-forming organs and certain disorders involving the immune mechanism Hemoglobin A1c 12/07/24 R73.9 - Hyperglycemia, unspecified
[2024-12-07 09:40] VITALS: BP 160/88; PULSE 118; O2SAT 99; BMI 32.4
== END 2024-12-07 10:15 | disposition home or self-care (01) ==
PROVIDERS: PCP Internal Medicine; Visit Provider Internal Medicine
DX: E11.9 Type 2 diabetes mellitus without complications (principal); I10 Essential (primary) hypertension

== ENCOUNTER → 2024-12-07 09:23 | Outpatient (BNVA) | payer BC, SELFPAY | PROVIDERS: PCP Internal Medicine; Visit Provider Internal Medicine | DX: E11.9 Type 2 diabetes mellitus without complications (principal); I10 Essential (primary) hypertension | CPT/HCPCS: 83036; 90471; 96127 ==

== ENCOUNTER 2024-12-28 12:45 | Outpatient (AMB) | payer MEDICARE, BC, SELFPAY ==
--- NOTE | 2024-12-28 12:59 | MHC.OFFVIS ---
Vital Signs 12/28/24 13:00 Height 4 ft 10 in Weight 152 lb 1.903 oz BMI 31.8 BP 122/68 Blood Pressure Location Lt brachial Position Sitting Pulse 80 Pulse Source Pulse Oximeter Intake Visit Reasons: 1 yr f/up Allergies guaifenesin [From MUCINEX] Allergy (Intermediate, Verified 12/07/24 09:40) SWELLING Medication List - Last Reconciled 12/28/24 by Avani Bowser, OIL PUMP STATION OPERATOR CHIEF-C atorvastatin 40 mg PO DAILY hydrochlorothiazide 25 mg PO DAILY lisinopril 10 mg PO DAILY metformin 500 mg PO DAILY HPI HPI 1 yr f/up: Details: Joanie is a 69-year-old female past medical history of hypertension, hyperlipidemia, obesity, prior reports of chest discomfort who presents for follow-up. Today she reports that she has been doing well since her last visit in May. She did undergo a left total hip replacement and says she has fully recovered. Now that she has 2 new hip she plans to increase her walking once the weather improves. She denies any chest discomfort at rest or with activity. No shortness of breath at rest, palpitations, lightheadedness, presyncope, syncope, PND, orthopnea or edema. She does not climb stairs but feels that she will get short of breath if she tried. Taking meds as directed. [facility] Medical History Preop exam for internal medicine COEUR D'ALENE (hard of hearing) Diabetes HERBERT (stress urinary incontinence, female) Arthritis Depression History of gestational diabetes Osteoarthritis of right hip Obesity Hypertension Surgical History History of hip replacement H/O tooth extraction History of removal of cyst Status post surgical removal of nail matrix of toe History of section Family History Father No problems noted. Mother No problems noted. Family/Other Heart failure Diabetes CHF (congestive heart failure) Social History Household Members: Children Household Members Other:: son Housing: House Housing Other:: Lives in trailer with two steps to get up into it Are you a primary emergency care attendant to a significant other at home: No Do you presently have visiting nurse or other home services: No Alcohol intake: current Alcohol intake frequency: holidays/special occasions only Comment: fall risk due to recent hip surgery Patient Tobacco Use Status: Never used Tobacco Tobacco use type: Cigarette e-Cigarette/Vaping Use: Never Used Second Hand Smoke Exposure: No service: No Current occupational status: retired Current occupational exposures/hazards: No Cognitive needs: No Hearing needs: No Vision needs: Yes (glasses) Review of Systems Const All systems reviewed & are unremarkable except as noted in HPI and below Denies weakness ENT Denies dizziness Card Denies chest pain, Denies chest pain with activity, Denies syncope, Denies rapid heart rate, Denies pedal edema, Denies edema, Denies leg edema, Denies lightheadedness, Denies palpitations, Denies dyspnea, Denies dyspnea on exertion and Denies orthopnea Resp Denies cough, Denies dyspnea and Denies dyspnea on exertion GI Denies hematochezia and Denies change in stool character Musc Denies abnormal gait, Denies muscle cramps, Denies muscle weakness, Denies numbness, Denies radiating pain into limb and Denies tingling Neuro Denies abnormal gait, Denies dizziness, Denies syncope, Denies numbness, Denies tingling and Denies weakness Endo Denies palpitations Physical Exam Vital Signs: Last Vital Signs Pulse 80 12/28/24 13:00 BP 122/68 12/28/24 13:00 BMI result Body Mass Index 31.8 Const General: cooperative, healthy appearing, comfortable and no acute distress Orientation/consciousness: patient oriented x3 Neck Neck: Yes normal visual inspection and Yes no JVD Resp Effort & Inspection: normal respiratory effort Auscultation: clear to auscultation bilaterally, no crackles, no rales, no rhonchi and no wheezes Cardio Jugular venous distension: no JVD Rate: regular rate Rhythm: regular rhythm Heart sounds: S1 normal heart sound present, S2 normal heart sound present, no murmurs and no rubs Neuro General: patient oriented x3 Extrem General: Yes normal to inspection, No no pedal edema and No calf tenderness Psych Appearance: grossly normal Mental Status: mental status grossly normal Speech and movement: Normal speech and movement present Assessment & Plan Assessment & Plan (1) Chest discomfort: Code(s): R07.89 - Other chest pain Category: Medical Plan: Previously reported an episode of chest discomfort that woke her from sleep October 2023, lasting several minutes, no associated symptoms and resolving without treatment. ED evaluation showed no significant abnormalities. She has not had recurrent chest discomfort since that time. She has cardiac risk factors obesity, hypertension, hyperlipidemia, secondhand smoke exposure and family history. EKG done in the emergency room showed sinus rhythm with septal Q-wave, poor R-wave progression, suggestive of possible prior anterior infarct. Pharmacological nuclear stress test done on 12/28/2023 showed normal myocardial perfusion imaging EF greater than 70%. An echocardiogram done 12/28/2023 showed EF 60-65%, grade 1 diastolic dysfunction, normal valves. She underwent left total hip surgery last May without any known cardiac complications. Today she reports that she is feeling well and has no concerning symptoms. She has some physical deconditioning and hopes to start walking more when the weather improves. She has not been having any recent chest discomfort. Instructed to continue with risk factor modification. The importance of good blood pressure, cholesterol and diabetic control discussed with her. Cardiology follow-up as needed. Emergency care if ever needed. (2) Hypertension: Code(s): I10 - Essential (primary) hypertension Category: Medical Qualifiers: Hypertension type: primary hypertension Qualified Code(s): I10 - Essential (primary) hypertension Plan: Blood pressure well controlled at present. Continue current meds without change. Continue hydrochlorothiazide and lisinopril. Labs done 06/14/2024 shows potassium 4.5, creatinine 0.91. (3) Hyperlipidemia: Code(s): E78.5 - Hyperlipidemia, unspecified Category: Medical Qualifiers: Hyperlipidemia type: unspecified Qualified Code(s): E78.5 - Hyperlipidemia, unspecified Plan: [place] LDL goal less than 100. Labs done 05/07/2024 shows LDL 88. Continue atorvastatin 40 mg daily. (4) Obesity: Code(s): E66.9 - Obesity, unspecified Category: Medical Qualifiers: Body mass index: BMI 34.0-34.9 Obesity classification: adult class 1 (BMI 30 - 34.9) Obesity type: due to excess calories Plan: Mild obesity with BMI 31.8. Cardiac risk factor. Benefits of ongoing weight loss reviewed with her. Plan Time spent on chart review, documentation, interview assessment Coding Level of Care Code Est Pt Level 3 (81757) Complex EM visit Add On G2211 Diagnoses Chest discomfort R07.89 Primary hypertension I10 Hypertension type: primary hypertension Hyperlipidemia, unspecified hyperlipidemia type E78.5 Hyperlipidemia type: unspecified Obesity E66.9 Body mass index: BMI 34.0-34.9 Obesity classification: adult class 1 (BMI 30 - 34.9) Obesity type: due to excess calories Time Spent (min) 24
[2024-12-28 13:00] VITALS: BP 122/68; PULSE 80; BMI 31.8
--- OUTSIDE RECORDS SUMMARY | 2024-12-28 13:07 | XMS_ITS ---
Author Organization [facility] Address [address] [place] [address] Care Team Providers Care Creative Coordinator Name Role Phone Davon CHRISTIAN, Isidro Primary Care Provider Sabra Cabral [phone] Allergies Allergen (clinical drug ingredient) Drug/Non Drug [...] Active Encounters Encounter Location Date Provider Diagnosis [facility] [address] [place] [address] 09/11/2024 Sabra Craft Plan Of Treatment Next Appt Details Provider Name:Sabra painter, 03/15/2025 11:00:00 AM, [address] [place], [address], Progress Notes * Joanie LEWIS KDOB: [birth year] (69 yo F)Acc No.[id number]:09/11/2024 Progress Note Patient:?Joanie LEWIS Provider:?Sabra Craft DPM :1955???Age:69 Y???Sex:Female D ate:09/11/2024 Address:[address] [place], [place] [id number] Pcp:Isidro Mays MD Subjective: * Chief Complaints: [...] Craft DPM Date:? Generated for Miladis dempsey/Pascual/Anujitting on:?12/28/2024 01:07 PM EST History and Physical Notes * HPI (History of Present Illness) Category Sub-Category Detail Notes Category Not es At Risk footcare Pt States Last PCP Visit: Date: 4
--- OUTSIDE RECORDS SUMMARY | 2024-12-28 13:07 | XMS_ITS ---
Author Organization [facility] Address [address] [place] [address] Care Team Providers Care Cartoon Designer Name Role Phone Davon CHRISTIAN, Isidro Primary Care Provider Sabra Cabral Unavailable [phone] Allergies Allergen (clinical drug ingredient) Drug/Non Drug Allergy documented on EMR Reaction Allergy Type Onset Date Status Mucinex puffy Drug Allergy Active REASON FOR VISIT At Risk Footcare, Painful [...] Once a day for 30 day(s) Active Social History Tobacco Use: Social History Observation Description Date Details (start date - stop date) Never Smoker NA - NA Tobacco Use/Smoking Question Answer Notes Are you a: nonsmoker Additional Findings: Tobacco Non-User Current no n-smoker Tobacco use other than smoking: Question Answer Notes Are you an other tobacco user? No Vital Signs Height 4ft9in in 12/14/2024 Weight 155 lbs 12/14/2024 BMI 33.54 kg/m2 12/14/2024 Blood pressure systolic 160 mm Hg 12/14/19 25 Blood pressure diastolic 80 mm Hg 025 Encounters Encounter Location Date Provider Diagnosis [facility] [address] [place] [address] 12/14/2024 Sabra Craft Pain in right toe(s) M79.674 ; Tinea unguium B35.1 ; Pain in left toe(s) M79.675 and Type 2 diabetes mellitus without complication E11.9 Assessments Encounter Date Diagnosis (ICD Code) Assessment Notes Treatment Notes Treatment Clinical Notes Section Notes 12/14/2024 Pain in right toe(s) (ICD-10 - M79.674) 12/14/2024 Tinea unguium (ICD-10 - B35.1) 12/14/2024 Pain in left toe(s) (ICD-10 - M79.675) 12/14/2024 Type 2 diabetes mellitus without complication (ICD-10 - E11.9) Plan Of Treatment Next Appt Details Follow Up: 3 Months, Reason: Provider Name:Sabra painter, 03/15/2025 11:00:00 AM, [address] [place] [address], [address], Procedure Notes * Category Sub-Category Detail Notes Debride Nail 6-10 Nail debridement Due to the cl inical pathology outlined in the exam findings, performance of this nail treatment is medically necessary as its management by an unskilled/untrained nonprofessional would put this patients foot and overall health at risk. Therefore, debridement to affected nail(s), as described in exam ( TA, T1, T2, T3, T4, T6, T7, T8, T9, ), was performed exclusively by the physician of record to reduce/remove overall nail length, girth, thickness, subungual debris, and necrotic tissue, by manual and/or electrical means through the use of a nail nipper and/or dremel-type grinder machine setter, to a more viable healthy nail plate or bed tissue 6-10 nails in total. Silver nitrate was used for any petechial bleeding as necessary. Definitive antifungal treatment options, both pharmaceutical and surgical, have been reviewed and discussed with the patient. The patient solely prefers the use of intermittent/as needed professional debridement services for their nail condition and understands the need for additional periodic treatments to maintain effectiveness in symptomatic relief - 21228 Progress Notes * Joanie LEWIS KDOB: [birth year] (69 yo F)Acc No.[id number]:12/14/2024 Progress Note Patient:?Joanie LEWIS Provider:?Sabra Craft DPM :1955???Age:69 Y???Sex:Female D ate:12/14/2024 Address:[address] [place] [address], [facility] Pcp:Isidro Mays MD Subjective: * Chief Complaints: * ???At Risk FootcarePainful N ail(s) aggrevated by shoes and causing difficulty standing/walking. * HPI: ???At Risk footcare:?Pt States Last PCP Visit:?Date?11/14/2024 * ROS:?General/Constitutional:?Nausea?denies.?Vomiting?denies.?Hunger Thirst?denies.?Loss appetite?denies.?Chills?denies.?Fatigue?denies.?Fever?denies.?Night Sweats?denies.?Unexplained weight loss?denies.?Unexplained weight gain?denies.?HEENTM:?Dentures?admits.?Dizziness?denies.?Glasses/contacts?admits.?Retinopathy?den ies.?Blurred/double vision?denies.?TMJ?denies.?Discharge/drainage?denies.?Implants?denies.?Sore throat?denies.?Dental implants?denies.?Hard of hearing ?admits.?Difficulty chewing/swallowing/speaking?denies.?Nose bleeds?denies.?Sore mouth?denies.?Respiratory:?On O xygen?denies.?Pneumonia/pleurisy?denies.?Bronchitis?denies.?Emphysema?denies.?Co ughing?denies.?Cough blood?denies.?Shortness of breath?denies.?Wheezing?denies.?Cardiovascular:?Pacemaker?denies.?MVP?denies.?WPW?denies.?CHF?denies.?Heart attack?denies.?Septal defect?denies.?Rapid beat?denies.?Chest pain ?denies.?Atrial Fib.?denies.?Murmur/Palpitations?denies.?Gastrointestinal:?Hemorrhoids?denies.?Stomach/Abdominal pain?denies.?Dark blood stool?denies.?Irritable bowel ?denies.?Constipation?denies.?Diarrhea?denies.?Hematology:?Swelling?denies.?Clots?denies.?Varicose Veins?denies.?Bruising?denies.?Bleeding problem?denies.?Genitourinary:?Blood urine?denies.?Frequent/Painfu/urination/bladder control?denies.?Kidney stones?denies.?Infection (UTI)?admits.?Nephropathy?denies.?sex trans dis (STD)?denies.?Prostate?denies.?Musculoskeletal:?Hammertoes?admits.?Bunions?admits.?Back Pain?denies.?Muscle Cramps/ Resting?denies.?Muscle cramps / walking?denies.?Generalized aches and pains?denies.?Weakness?denies.?Integ.:?Mortensen?denies.?Scars?admits.?Corns/calluses?denies.?Ingrown nails?denies.?Painful nails?denies.?Open Sores?denies.?Rashes?denies.?Neurologic:?Difficulty sleeping?denies.?Brain disorder?denies.?Numbness?denies.?Balance t rouble?denies.?Confusion?denies.?Fainting/blackouts?denies.?Tingling?denies.?Emil mors?denies.? * Medical History:? * Surgical History:?right hip surgery 2022left hip surgery 06/13/24 * Hospitalization/Major Diagno stic Procedure:?Denies Past Hospitalization * Family History:?Mother: dece ased, diagnosed with Unspecified heart disease, Other malignant neoplasm of unspecified site, Unspecified essential hypertension.?Father: .?Spouse: .? * Social History:?Tobacco Use:?Tobacco Use/Smoking?Are you a:?nonsmoker ?Additional Findings: Tobacco Non-User?Current non-smoker ?Tobacco use other than smoking?Are you an other tobacco user??No ???Miscellaneous:?Caffeine: no. ?Children: yes. ?Exercise: no. ?Marital status: . ?Occupation: Retired, [employer]. * Medications:?TakingmetFORMIN HCl 500 MG Tablet 1 tablet with a meal Orally Once a day Atorvastatin Calcium 40 MG Tablet Oral Lisinopril 10 MG Tablet Oral hydroCHLOROthiazide 25 MG Tablet Oral Ciclopirox 0.77 % Gel 1 application to affected area Externally Twice a day to effected nails Medication List reviewed and reconciled with the patientTaking metFORMIN HCl 500 MG Tablet 1 tablet with a meal Orally Once a day Taking Atorvastatin Calcium 40 MG Tablet Oral Taking Lisinopril 10 MG Tablet Oral Taking hydroCHLOROthiazide 25 MG Tablet Oral Taking Ciclopirox 0.77 % Gel 1 application to affected area Externally Twice a day to effected nails Medication List reviewed and reconciled with the patient * Allergies:?Mucinex: puffyyes [Allergies Verified] Objective: * Vitals:?Ht: 4ft9in, Wt:155, BMI:33.54, Shoe size: 6-7, BP:160/80mm Hg, BS: not taken, Ht-cm: 144.78 cm, Wt-k.31 kg. * ???Past Orders: ???Lab:HEMOGLOBIN A1C (GLYCO HEMOGLOBIN) (Order Date - 11/15/2024) (Collection Date & Time - 11/15/2024 09:56 AM) ? Value Reference Range ?HEMOGLOBIN A1C % (HH) 7.4 * Examination: ???Ophthalmology Referral: ?DIABETES EYE EXAM?Nails: ?NAILS are:?Elongated, overgrown, dystrophic, lytic, greater than 3mm thick, discolored and friable with crumbly malodorous subungual debris, with pain on palpation , TA, T1, T2, T3, T4,? T6, T7, T8, T9.?Dermatologic: ?SKIN FINDINGS:?Skin exam reveals normal texture, elasticity, and turgor. There are no masses. The interspaces are clear, B/L,.?Neurological: ?SENSORY:?Neurological exam reveals intact sensorium, pain sensation normal, vibration sensation intact, pinprick sensation is normal in the lower extremities, 5.07 monofilament test performed at plantar aspects of 5 varied sites per foot shows sensation, normal, B/L, Pt denies, anesthesia, burning, paresthesia, tingling, B/L.? Assessment: * Assessment: 1.?Tinea unguium - B35.1 (Pr imary)???2.?Pain in right toe(s) - M79.674???3.?Pain in left toe(s) - M79.675???4.?Type 2 diabetes mellitus without complication - E11.9??? Plan: * Treatment: * Procedures:?Debride Nail 6-10:?Nail debridement?Due to the clinical pathology outlined in the exam findings, performance of this nail treatment is medically necessary as its management by an unskilled/untrained nonprofessional would put this patients foot and overall health at risk. Therefore, debridement to affected nail(s), as described in exam ( TA, T1, T2, T3, T4, T6, T7, T8, T9, ), was performed exclusively by the physician of record to reduce/remove overall nail length, girth, thickness, subungual debris, and necrotic tissue, by manual and/or electrical means through the use of a nail nipper and/or dremel-type grinder machine setter, to a more viable healthy nail plate or bed tissue 6- 10 nails in total. Silver nitrate was used for any petechial bleeding as necessary. Definitive antifungal treatment options, both pharmaceutical and surgical, have been reviewed and discussed with the patient. The patient solely prefers the use of intermittent/as needed professional debridement services for their nail condition and understands the need for additional periodic treatments to maintain effectiveness in symptomatic relief - 17055.? * Procedure Codes:?52476 DEBRI DE NAIL, 6 OR MORE, Modifiers: XS * Follow Up:?3 Months * Images: * Sign off status: Completed true * Provider:?Sabra Craft, GEOVANY Date:? Generated for Miladis dempsey/Pascual/Subha on:?12/28/2024 01:07 PM EST History and Physical [...] no masses. The interspaces are clear, B/L, Ophthalmology Referral DIABETES EYE EXAM Procedu re Performed:: Yes ?Date of Exam Performed: 08/14/2024 Findings of Diabetic Eye Exam:: no retin opathy Nails NAILS are: Elongated, overg rown, dystrophic, lytic, greater than 3mm thick, discolored and friable with crumbly malodorous subungual debris, with pain on palpation , TA, T1, T2, T3, T4, T6, T7, T8, T9
--- OUTSIDE RECORDS SUMMARY | 2024-12-28 13:07 | XMS_ITS | Patient Health Record ---
Author Organization [facility] Address [address] [place] [address] Care Team Providers Care Corrosion Control Engineer Name Role Phone Isidro Mays MD Primary Care Provider Sabra Cabral Unavailable [phone] Allergies Allergen (clinical drug ingredient) Drug/Non Drug Allergy documented on EMR Reaction Allergy Type Onset Date Status guaifenesin Mucinex puffy Drug Allergy Activ e Results Component Value Reference Range Notes HEMOGLOBIN A1C (GLYCOHEMOGLO BIN) Reviewed date:03/20/2024 11:25:11 AM Interpretation: Performing Lab: Notes/Report: HEMOGLOBIN A1C (HH) 7.4 HEMOGLOBIN A1C (GLYCOHEMOGLO BIN) Reviewed date:12/14/2024 09:57:07 AM Interpretation: Performing Lab: Notes/Report: HEMOGLOBIN A1C % (HH) 7.4 Reason For Referral No Information [...] Problem Status W/U Status Risk Notes Problem [id number] Hallux valgus (acquired), left foot (M20.12) Active confirmed Problem [id number] Hallux valgus (acquired), right foot (M20.11) Active confirmed Problem 068292000 Hammer toe of right foot (M20.41) Active confirmed Problem 043670874 Hammer toe of left foot (M20.42) Active confirmed Problem Type 2 diabetes mellitus without complication (228629776) Type 2 diabetes mellitus without complication (E11.9) Active confirmed Problem Type I diabetes mellitus without complication (084007726) Type 1 diabetes mellitus without complication (E10.9) Active confirmed Problem Acquired hammer toe of left foot (6706563283673876) Hammertoe of left foot (M20.42) Active confirmed Problem Acquired hammer toe of right foot (7495988653821652) Hammertoe of right foot (M20.41) Active confirmed Vital Signs Blood pressure diastolic 80 mm Hg 12/14/2024 Height 4ft9in in 12/14/2024 Blood pressure systolic 160 mm Hg 12/14/2024 Weight 155 lbs 12/14/2024 BMI 33.54 kg/m2 12/14/2024 Encounters Encounter Location Date Provider Diagnosis [address] [address] 03/20/2024 Sabra Perica Pain in right toe(s) M79.674 ; Tinea unguium B35.1 ; Pain in left toe(s) M79.675 ; Type 2 diabetes mellitus without complication E11.9 ; Hammertoe of right foot M20.41 and Hammertoe of left foot M20.[address] [address] 09/13/2024 Sabra Perica Pain in right toe(s) M79.674 ; Tinea unguium B35.1 ; Pain in left toe(s) M79.675 and Type 2 diabetes mellitus without complication E11.9 [address] [place] [address] 12/14/2024 Sabra Saidainocencio Pain in right toe(s) M79.674 ; Tinea unguium B35.1 ; Pain in left toe(s) M79.675 and Type 2 diabetes mellitus without complication E11.9 [facility] [address] [address] 06/11/2024 Sabra Craft Assessments Encounter Date Diagnosis (ICD Code) Assessment Notes Treatment Notes Treatment Clinical Notes Section Notes 03/20/2024 Pain in right toe(s) (ICD-10 - M79.674) 09/13/2024 Tinea unguium (ICD-10 - B35.1) 09/13/2024 Pain in right toe(s) (ICD-10 - M79.674) 12/14/2024 Tinea unguium (ICD-10 - B35.1) 12/14/2024 Pain in right toe(s) (ICD-10 - M79.674) 12/14/2024 Pain in left toe(s) (ICD-10 - M79.675) 09/13/2024 Pain in left toe(s) (ICD-10 - M79.675) 03/20/2024 Tinea unguium (ICD-10 - B35.1) 03/20/2024 Pain in left toe(s) (ICD-10 - M79.675) 09/13/2024 Type 2 diabetes mellitus without complication (ICD-10 - E11.9) 12/14/2024 Type 2 diabetes mellitus without complication (ICD-10 - E11.9) 03/20/2024 Type 2 diabetes mellitus without complication (ICD-10 - E11.9) 03/20/2024 Hammertoe of right foot (ICD-10 - M20.41) 03/20/2024 Hammertoe of left foot (ICD-10 - M20.42) Plan Of Treatment Next Appt Details Provider Name:Sabra Inocencio painter, 03/15/2025 11:00:00 AM, [address] [place], [address], Insurance Providers Payer Name Payer Address Payer Phone Subscriber Number Group Number Insured Name Patient Relationship to Insured Coverage Start Date Coverage End Date Medicare [employer] [address] [place] [phone] [id number] Joanie Pereyra Self - patient is the insured [facility] [address] [place] [address] [id number] Joanie Pereyra Self - patient is the insured Medical (General) History Medical History History ICD Code Arthritis Broken bones CAD (Cholesterol) Diabetic-BORDERLINE Epilepsy High blood pressure Diabetic Surgical History Surgery Date(Month/Year) right hip surgery 2022 left hip surgery 06/13/24
--- OUTSIDE RECORDS SUMMARY | 2024-12-28 13:07 | XMS_ITS ---
Author Organization [facility] Address [address] [place] [address] Care Team Providers Care Screw Eye Assembler Name Role Phone Davon CHRISTIAN, Isidro Primary Care Provider Sabra Cabral Unavailable [phone] Allergies Allergen (clinical drug ingredient) Drug/Non Drug [...] Problem Acquired hammer toe of right foot (9925763986743 105) Hammertoe of right foot (M20.41) Active confirmed Problem Acquired hammer toe of left foot (7000100020559 103) Hammertoe of left foot (M20.42) Active confirmed Vital Signs Height 4ft 9in in 09/13/2024 Weight 156 lbs 09/13/2024 BMI 33.75 kg/m2 09/13/2024 Encounters Encounter Location Date Provider Diagnosis [facility] [address] 09/13/2024 Sabra Craft Pain in right toe(s) [...] Up: 2 Months, Reason: Provider Name:Sabra painter, 03/15/2025 11:00:00 AM, [address] [place] [address], [phone], Procedure Notes * Category Sub-Category Detail Notes [...] as necessary. Patient chooses, no pharmaceutical tx (26449) Progress Notes * Joanie LEWIS KDOB: (69 yo F)Acc No.[id number]:09/13/2024 Progress Note Patient:?Joanie Lewis Provider:?Sabra Craft DPM :1955???Age:69 Y???Sex:Female D ate:09/13/2024 Address:[facility] [address] [id number] Pcp:Isidro Mays MD Subjective: * Chief Complaints: [...] as necessary. Patient chooses, no pharmaceutical tx (39025).? * Procedure Codes:?94859 DEBRI DE NAIL, 6 OR MORE, Modifiers: XS * Follow Up:?2 Months * Images: * Sign off status: Completed true * Provider:?Sabra Craft, DPM Date:? Generated for Miladis dempsey/Pascual/eTransmitting on:?12/28/2024 01:07 PM EST History and Physical Notes * HPI (History of Present Illness) Category Sub-Category Detail Notes Category Not es At Risk footcare Pt States Last PCP Visit: Date: 4 Examination Category Sub-Category Detail Notes Category Not [...] Eye Exam:: no retin opathy Vascular DP PULSES (B): 3/4, B/L PT PULSES (B): 3/4, B/L CAPILLARY FILL TIME: immediate, all digi ts, B/L TEMPERTURE GRADIENT (C): normal, warm to cool, proximal to distal, B/L, B/L Nails NAILS are: Elongated, overg rown, dystrophic, lytic, greater than 3mm thick, discolored and friable with crumbly malodorous subungual debris, with pain on palpation , 1-5 B/L
== END 2024-12-28 13:53 | disposition home or self-care (01) ==
PROVIDERS: PCP Internal Medicine; Visit Provider Nurse Practitioner Family
DX: R07.89 Other chest pain (principal); I10 Essential (primary) hypertension; E78.5 Hyperlipidemia, unspecified; E66.9 Obesity, unspecified
CPT/HCPCS: 99213; G2211

== ENCOUNTER → 2024-12-28 12:45 | Outpatient (BNVA) | payer MEDICARE, BC, SELFPAY | PROVIDERS: PCP Internal Medicine; Visit Provider Nurse Practitioner Family | DX: I10 Essential (primary) hypertension (principal); R07.89 Other chest pain; E78.5 Hyperlipidemia, unspecified; E66.9 Obesity, unspecified; Z68.31 Body mass index [BMI] 31.0-31.9, adult | CPT/HCPCS: 99212 ==

== ENCOUNTER 2025-01-03 08:03 | Outpatient (REF) | payer MEDICARE, BC, SELFPAY ==
--- OUTSIDE RECORDS SUMMARY | 2025-01-03 08:08 | XMS_ITS ---
Author Organization [facility] Address [address] [place] [address] Care Team Providers Care Flag Maker Name Role Phone Davon CHRISTIAN, Isidro Primary Care Provider Sabra Cabral Unavailable [phone] Allergies Allergen (clinical drug ingredient) Drug/Non Drug [...] 025 Encounters Encounter Location Date Provider Diagnosis [facility] [place] [address] [place] [address] 12/14/2024 Sabra Craft Pain in right toe(s) [...] Reason: Provider Name:Sabra painter, 03/15/2025 11:00:00 AM, [address] [place] [address], [phone], Procedure Notes * Category Sub-Category Detail Notes [...] use of a nail nipper and/or dremel-type feed grinder, to a more viable healthy nail plate [...] to maintain effectiveness in symptomatic relief - 11917 Progress Notes * Joanie LEWIS KDOB: 6 (69 yo F)Acc No.[id number]:12/14/2024 Progress Note Patient:?Joanie LEWIS Provider:?Sabra Craft DPM :1955???Age:69 Y???Sex:Female D ate:12/14/2024 Address:[address] [place] [address] [facility] Pcp:Isidro Mays MD Subjective: * Chief Complaints: [...] Medical History:? * Surgical History:?right hip surgery 2023left hip surgery 06/13/24 * Hospitalization/Major Diagno stic [...] ?Exercise: no. ?Marital status: . ?Occupation: Retired, [employer]. * Medications:?TakingmetFORMIN HCl 500 MG Tablet 1 [...] use of a nail nipper and/or dremel-type feed grinder, to a more viable healthy nail plate [...] to maintain effectiveness in symptomatic relief - 21410.? * Procedure Codes:?25170 DEBRI DE NAIL, 6 OR MORE, Modifiers: XS * Follow Up:?3 Months * Images: * Sign off status: Completed true * Provider:?Sabra Cratf, DPAlannah Date:? Generated for Miladis dempsey/Pascual/Subha on:?01/03/2025 08:08 AM EST History and Physical Notes * [...]
--- OUTSIDE RECORDS SUMMARY | 2025-01-03 08:08 | XMS_ITS | Patient Health Record ---
Author Organization [facility] Address [address] [place] [address] Care Team Providers Care Yard Person Name Role Phone Isidro Mays MD Primary Care Provider Sabra Cabral Unavailable [phone] Allergies Allergen (clinical drug ingredient) Drug/Non Drug [...] Problem Status W/U Status Risk Notes Problem 177061744458334 Hallux valgus (acquired), left foot (M20.12) Active confirmed Problem [id number] Hallux valgus (acquired), right foot (M20.11) Active confirmed Problem 245623118 Hammer toe of right foot (M20.41) Active confirmed Problem 616905222 Hammer toe of left foot (M20.42) Active confirmed Problem Type 2 diabetes mellitus without complication (021672939) Type 2 diabetes mellitus without complication (E11.9) Active confirmed Problem Type I diabetes mellitus without complication (753460974) Type 1 diabetes mellitus without complication (E10.9) Active confirmed Problem Acquired hammer toe of left foot (9624586949369175) Hammertoe of left foot (M20.42) Active confirmed Problem Acquired hammer toe of right foot (7792056452711532) Hammertoe of right foot (M20.41) Active confirmed Vital Signs Blood pressure diastolic 80 mm Hg 12/14/2024 Height 4ft9in in 12/14/2024 Blood pressure systolic 160 mm Hg 12/14/2024 Weight 155 lbs 12/14/2024 BMI 33.54 kg/m2 12/14/2024 Encounters Encounter Location Date Provider Diagnosis [address] [address] 03/20/2024 Sabra Perica Pain in right toe(s) M79.674 ; Tinea unguium B35.1 ; Pain in left toe(s) M79.675 ; Type 2 diabetes mellitus without complication E11.9 ; Hammertoe of right foot M20.41 and Hammertoe of left foot M20.[address] [address] 09/13/2024 Sabra Perica Pain in right toe(s) M79.674 ; Tinea unguium B35.1 ; Pain in left toe(s) M79.675 and Type 2 diabetes mellitus without complication E11.9 [address] [place] [address] 12/14/2024 Sabra Saidainocencio Pain in right toe(s) M79.674 ; Tinea unguium B35.1 ; Pain in left toe(s) M79.675 and Type 2 diabetes mellitus without complication E11.9 [facility] [address] [address] 06/11/2024 Sabra Craft Assessments Encounter Date Diagnosis [...] Name:Sabra Inocencio painter, 03/15/2025 11:00:00 AM, [address] [place], [address], Insurance Providers Payer Name Payer Address Payer Phone Subscriber Number Group Number Insured Name Patient Relationship to Insured Coverage Start Date Coverage End Date Medicare National [employer] [address] [place] [phone] [id number] Joanie Pereyra Self - patient is the insured [facility] [address] [place] [address] [id number] Joanie Pereyra Self - patient is the insured Medical (General) History Medical History History ICD Code Arthritis Broken bones CAD (Cholesterol) Diabetic-BORDERLINE Epilepsy High blood pressure Diabetic Surgical History Surgery Date(Month/Year) right hip surgery 2022 left hip surgery 06/13/24
--- OUTSIDE RECORDS SUMMARY | 2025-01-03 08:09 | XMS_ITS ---
Author Organization [facility] Address [address] [place] [address] Care Team Providers Care Car Rental Agency Manager Name Role Phone Davon CHRISTIAN, Isidro Primary Care Provider Sabra Cabral Unavailable [phone] Allergies Allergen (clinical drug ingredient) Drug/Non Drug [...] Problem Acquired hammer toe of right foot (1258856199557 105) Hammertoe of right foot (M20.41) Active confirmed Problem Acquired hammer toe of left foot (2181987760111 103) Hammertoe of left foot (M20.42) Active confirmed Vital Signs Height 4ft 9in in 09/13/2024 Weight 156 lbs 09/13/2024 BMI 33.75 kg/m2 09/13/2024 Encounters Encounter Location Date Provider Diagnosis [facility] [address] 09/13/2024 Sabra Craft Pain in right toe(s) [...] Reason: Provider Name:Sabra painter, 03/15/2025 11:00:00 AM, [address] [place] [address], [phone], Procedure Notes * Category Sub-Category Detail Notes [...] as necessary. Patient chooses, no pharmaceutical tx (50319) Progress Notes * Joanie LEWIS KDOB: (69 yo F)Acc No.[id number]:09/13/2024 Progress Note Patient:?Joanie Lewis Provider:?Sabra Craft DPM :1955???Age:69 Y???Sex:Female D ate:09/13/2024 [facility] [address] [id number] Pcp:Isidro Mays MD Subjective: * Chief Complaints: [...] as necessary. Patient chooses, no pharmaceutical tx (00809).? * Procedure Codes:?36431 DEBRI DE NAIL, 6 OR MORE, Modifiers: XS * Follow Up:?2 Months * Images: * Sign off status: Completed true * Provider:?Sabra Craft, DPM Date:? Generated for Miladis dempsey/Pascual/eTransmitting on:?01/03/2025 08:08 AM EST History and Physical [...]
--- OUTSIDE RECORDS SUMMARY | 2025-01-03 08:09 | XMS_ITS ---
Author Organization [facility] Address [address] [place] [address] Care Team Providers Care Account Analyst Name Role Phone Davon CHRISTIAN, Isidro Primary Care Provider Sabra Cabral [phone] Allergies Allergen (clinical drug ingredient) Drug/Non Drug [...] Active Encounters Encounter Location Date Provider Diagnosis [facility] [address] [place] [address] 09/11/2024 Sabra Craft Plan Of Treatment Next Appt Details Provider Name:Sabra painter, 03/15/2025 11:00:00 AM, [address] [place], [address], Progress Notes * Joanie LEWIS KDOB: [birth year] (69 yo F)Acc No.[id number]:09/11/2024 Progress Note Patient:?Joanie LEWIS Provider:?Sabra Craft DPM :1955???Age:69 Y???Sex:Female D ate:09/11/2024 Address:[address] [place], [place] [address] [facility] Pcp:Isidro Mays MD Subjective: * Chief Complaints: [...] Craft DPM Date:? Generated for Miladis dempsey/Pascual/Anujitting on:?01/03/2025 08:08 AM EST History and Physical Notes * HPI (History of Present Illness) Category Sub-Category Detail Notes Category Not es At Risk footcare Pt States Last PCP Visit: Date: 4
[2025-01-03 08:26] LABS: MANUAL DIFF FLAG NO
[2025-01-03 09:04] LABS: Basophils Percent Auto 0.6 % (0-2); Eosinophils Percent Auto 0.6 % (0-4); Hemoglobin 13.3 g/dl (12.0-16.0); Imm Gran Abs Auto 0.07 X10*3/uL (0.00-0.03); Lymphocytes Absolute Auto 2.3 X10*3/uL (1.2-4.9); Lymphocytes Percent Auto 31.6 % (20-40); Mean Corpuscular Hemoglobin 30.4 pg (27.0-33.0); Mean Platelet Volume 8.2 fL (9.4-12.3); Monocytes Absolute Auto 0.4 X10*3/uL (0.1-1.2); Monocytes Percent Auto 5.4 % (2-11); Neutrophils Absolute Auto 4.4 x10*3/uL (2.0-8.3); Neutrophils Percent Auto 60.8 % (45-73); Platelet Count 324 X10*3/uL (160-400); Red Blood Count 4.37 X10*6/uL (4.20-5.50); Red Cell Distribution Width 13.4 % (11.0-16.0); White Blood Count 7.2 X10*3/uL (4.8-10.8)
[2025-01-03 09:11] LABS: Estimated Average Glucose 146 mg/dL; Hemoglobin A1C 170.5345 umol/L; Hemoglobin A1c % 6.7 % (<6.0); Total Hemoglobin (HGBA1C) 3444.8736 umol/L
[2025-01-03 09:20] LABS: Alanine Aminotransferase 37 U/L (0-31); Albumin Level 4.5 g/dL (3.5-5.0); Alkaline Phosphatase 109 U/L (39-117); Anion Gap 15 (12-20); Aspartate Amino Transferase 29 U/L (5-31); Bilirubin Total 0.4 mg/dL (0.0-1.0); Blood Urea Nitrogen 22 mg/dL (9-16); Calcium 9.9 mg/dL (8.4-10.2); Carbon Dioxide 21 mmol/L (22-29); Chloride 102 mmol/L (96-108); Cholesterol 180 mg/dL (<200); Estimated Glomerular Filt Rate > 60; Glucose Fasting 145 mg/dL (60-99); HDL Cholesterol 65 mg/dL (>40); LDL Cholesterol Calculated 93 mg/dL (<100); Potassium 4.1 mmol/L (3.3-5.1); Sodium 134 mmol/L (135-145); Total Protein 8.2 g/dL (6.5-8.0); Triglycerides 111 mg/dL (<150)
[2025-01-03 09:37] LABS: Thyroid Stimulating Hormone 2.73 uIU/mL (0.32-4.0)
== END 2025-01-03 08:04 | disposition home or self-care (01) ==
LOC: HO.LAB 08:03
PROVIDERS: PCP Internal Medicine; Visit Provider Internal Medicine
DX: Z13.0 Encounter for screening for diseases of the blood and blood-forming organs and certain disorders involving the immune mechanism (principal); R73.9 Hyperglycemia, unspecified; Z13.220 Encounter for screening for lipoid disorders; Z13.29 Encounter for screening for other suspected endocrine disorder; Z13.6 Encounter for screening for cardiovascular disorders
CPT/HCPCS: 36415; 80053; 80061; 83036; 84443; 85025

== ENCOUNTER 2025-03-07 11:25 | Outpatient (AMB) | payer MEDICARE, BC, SELFPAY ==
[2025-03-07 11:40] VITALS: BP 120/84; PULSE 99; RESP 18; TEMP 36.3; O2SAT 98; BMI 32.0
--- NOTE | 2025-03-07 11:40 | MHC.PC.OV ---
Vital Signs 03/07/25 11:40 Height 4 ft 10 in Weight 153 lb 3.2 oz BMI 32.0 BP 120/84 Blood Pressure Location Lt brachial Position Sitting Respiration 18 Pulse 99 Pulse Source Pulse Oximeter Temp 97.3 F Temp Source Temporal Artery Scan Pulse Oximetry (%) 98 Oxygen Delivery Method Room Air Intake Visit Reasons: Lainer Transfer 3 month f/u Stone Lathe Operator Required: No Accompanied by: Self / Same As Patient Allergies guaifenesin [From MUCINEX] Allergy (Intermediate, Verified 03/07/25 11:59) SWELLING Medication List - Last Reconciled 03/07/25 by Shawanda Shell PA-C atorvastatin 40 mg PO DAILY hydrochlorothiazide 25 mg PO DAILY lisinopril 10 mg PO DAILY metformin 500 mg PO DAILY Tobacco use date assessed: 03/07/25 Fall risk assessment: No Falls in past year Last assessed Fall Risk: 03/07/25 Dental Screening Dental Screen Date: 03/07/25 Did you have a dental visit in the last 12 months?: No Did you have a dental problem in the last 6 months where you did not have access to dental care?: No Was dental information given to patient?: No HPI Lainer Transfer 3 month f/u HPI Details 70-year-old female with past medical history of obesity, hypertension, hyperlipidemia, hearing loss last seen by Dr. Mays 11/2024 coming in for transfer of care. In review of the notes, patient was seen by Cardiology 12/2024 chest pain and discomfort had improved discussed risk factor modification advised to follow up as needed. Presenting with routine follow-up for chronic health conditions including diabetes management and reviewing depressive symptoms. The patient has Type 2 Diabetes Mellitus, discovered originally as gestational diabetes. Current control with metformin, noting A1c level at 6.8, previously recorded at 7.4. Reports moderate stress incontinence with daily activities. Physical therapy suggested for management, not yet consulted a urologist for evaluation. Depression screen is positive due to symptoms of fatigue and insomnia. Morning awakenings noted with no current pharmacologic intervention. Denies any feelings of depression. [facility] Medical History (Updated 03/07/25 @ 12:23 by Shawanda Shell PA-C) Shakiness Arthritis, hip Preop exam for internal medicine [place] (hard of hearing) Diabetes HERBERT (stress urinary incontinence, female) Arthritis Depression History of gestational diabetes Osteoarthritis of right hip Obesity Hypertension Surgical History Status post total hip replacement, right History of hip replacement H/O tooth extraction History of removal of cyst Status post surgical removal of nail matrix of toe History of section Family History Father No problems noted. Mother No problems noted. Family/Other Heart failure Diabetes CHF (congestive heart failure) Social History Household Members: Children Household Members Other:: son Housing: House Housing Other:: Lives in trailer with two steps to get up into it Are you a primary plant care worker to a significant other at home: No Do you presently have visiting nurse or other home services: No Alcohol intake: current Alcohol intake frequency: holidays/special occasions only Comment: fall risk due to recent hip surgery Patient Tobacco Use Status: Never used Tobacco Tobacco use type: Cigarette e-Cigarette/Vaping Use: Never Used Second Hand Smoke Exposure: No service: No Current occupational status: retired Current occupational exposures/hazards: No Cognitive needs: No Hearing needs: No Vision needs: Yes (glasses) Questionnaire PHQ-9 Over the last 2 weeks, how often have you been bothered by any of the following problems? 1. Little interest or pleasure in doing things: more than half the days 2. Feeling down, depressed, or hopeless: not at all 3. Trouble falling or staying asleep, or sleeping too much: not at all 4. Feeling tired or having little energy: nearly every day 5. Poor appetite or overeating: not at all 6. Feeling bad about yourself - or that you are a failure or have let yourself or your family down: not at all 7. Trouble concentrating on things, such as reading the newspaper or watching television: not at all 8. Moving or speaking so slowly that other people could have noticed. Or the opposite - being so fidgety or restless that you have been moving around a lot more than usual: not at all 9. Thoughts that you would be better off or of hurting yourself in some way: not at all Total score: 5 Depression Screening Interpretation: Positive Depression Screening Follow-up: Existing condition Depression Screening Done: Yes 81163 - PHQ-9 Billing: Yes Source: Developed by Drs. Leodan Sawyer, Lashon Elizabeth, Arvind Palacios and colleagues, with an educational alta from [employer]. Thrive Questionnaire Date Thrive assessed: 03/07/25 I am a: Patient What is your living situation today?: I have a steady place to live Within the past 12 months, did the food you bought not last and you didn't have the money to get more?: Never true Within the past 12 months, did you worry whether your food would run out before you got money to buy more?: Never true Do you have trouble paying for medicines?: No Do you have trouble getting transportation to medical appointments?: No Do you have trouble paying your heating and electricity bill?: No Do you have trouble taking care of your child, family member or friend?: No Do you have trouble with day-to-day activities such as bathing, preparing meals, shopping, managing finances, etc.?: No Are you currently unemployed and looking for a job?: No Are you interested in more education?: No THRIVE Score: 0 AUDIT C Alcohol Use Questionnaire (AUDIT-C) 1. How often do you have a drink containing alcohol?: Never 3. How often do you have six or more drinks on one occasion?: Never Total Score: 0 Score Reviewed/Action Taken: No LEIGHANN-7 AMB Questionnaire LEIGHANN-7 Date LEIGHANN - 7 assessed: 03/07/25 Feeling nervous, anxious, or on edge: 0 = Not at all Not being able to stop or control worryin = Not at all Worrying too much about different things: 0 = Not at all Trouble relaxin = Not at all Being so restless that it is hard to sit still: 0 = Not at all Becoming easily annoyed or irritable: 0 = Not at all Feeling afraid as if something awful might happen: 0 = Not at all Total LEIGHANN-7 score (0-4 normal; 5-9 mild; 10-14 moderate; 15-21 severe): 0 Source: Developed by Drs. Leodan Sawyer, Arvnid Gonzalez and colleagues, with an educational alta from [employer]. LEIGHANN-7 Assessment Billing LEIGHANN-7 Assessment Tool: LEIGHANN-7 Assessment 19085 Review of Systems Const Denies body aches, Denies chills, Denies fever(s), Denies headache(s) and Denies poor appetite Eyes Reports no additional complaints ENT Denies dysphagia, Denies dizziness, Denies headache(s) and Denies odynophagia Card Denies chest pain, Denies syncope, Denies edema, Denies irregular heart rhythm, Denies lightheadedness and Denies dyspnea Resp Denies cough and Denies dyspnea GI Denies abdominal pain, Denies constipation, Denies dysphagia, Denies diarrhea, Denies nausea, Denies odynophagia and Denies vomiting Reports no additional complaints Musc Reports no additional complaints and Denies abnormal gait Skin/Breast Reports system reviewed and no additional complaints, except as documented Neuro Denies abnormal gait, Denies dizziness, Denies syncope and Denies headache(s) Psych Reports no additional complaints Physical exam (Primary Care) Vital Signs: Last Vital Signs Temp 97.3 F 03/07/25 11:40 Pulse 99 03/07/25 11:40 Resp 18 03/07/25 11:40 BP 120/84 03/07/25 11:40 Pulse Ox 98 03/07/25 11:40 Oxygen Delivery Method Room Air 03/07/25 11:40 BMI result Body Mass Index 32.0 Tobacco/Smoking Status: Tobacco use Status Tobacco use date assessed 03/07/25 03/07/25 11:49 Patient Tobacco Use Status Never used Tobacco 03/07/25 11:49 Tobacco use type Cigarette 03/07/25 11:49 e-Cigarette/Vaping Use Never Used 03/07/25 11:49 PHQ-9: PHQ-9 Score PHQ-9: Total score 5 03/07/25 12:03 Depression Screening Interpretation: Positive Depression Screening Follow-up: Existing condition Thrive Assessment: Date of Thrive Assessment Date Thrive assessed 03/07/25 03/07/25 11:49 Const General: cooperative, healthy appearing, comfortable and no acute distress Orientation/consciousness: patient oriented x3 HENMT Head: Yes normocephalic Ears: hearing grossly normal bilaterally General nose exam: Normal external nose present Eyes General: appearance normal, both eyes and all related structures Conjunctivae: conjunctivae normal Neck Neck: Yes full ROM and Yes no lymphadenopathy Resp Effort & Inspection: normal respiratory effort Auscultation: clear to auscultation bilaterally, no crackles, no rales, no rhonchi and no wheezes Cardio Rate: regular rate Rhythm: regular rhythm Skin General skin exam: no rashes or lesions noted Neuro General: patient oriented x3 Gait exam (Neuro): Normal gait present Extrem General: Yes normal to inspection, Yes full ROM and No edema Psych Affect: normal affect Attitude: cooperative Insight: Good insight present (Psych) Judgement: Good judgement present (Psych) Results AMB Hemoglobin A1c AMB Hemoglobin A1c 6.8 % Last Edit by Mary Ross CMA on 03/07/25 11:53 Results Reviewed Results Reviewed: Laboratory Last Values Hgb A1c (Clinic) 6.8 % (4.0-6.0) H 03/07/25 11:52 Coding Level of Care Code Est Pt Level 3 (18822) Diagnoses Diabetes mellitus with coincident hypertension E11.9; I10 Hyperlipidemia, unspecified hyperlipidemia type E78.5 Hyperlipidemia type: unspecified Obesity E66.9 Body mass index: BMI 34.0-34.9 Obesity classification: adult class 1 (BMI 30 - 34.9) Obesity type: due to excess calories Primary hypertension I10 Hypertension type: primary hypertension Depression F32.A HERBERT (stress urinary incontinence, female) N39.3 Additional Codes LEIGHANN-7 Assessment Billing - LEIGHANN-7 Assessment Tool: LEIGHANN-7 Assessment 67553 ([id number]) PHQ-9 - 90402 - PHQ-9 Billing: Yes ([id number]) Assessment & Plan Assessment & Plan (1) Diabetes mellitus with coincident hypertension: Code(s): E11.9 - Type 2 diabetes mellitus without complications; I10 - Essential (primary) hypertension Category: Medical Plan: Decrease the amount of carbohydrates such as pasta, bread, rice, and potatoes and limit the amount of sweets. Although fruits are generally healthy they should be eaten in moderation as they are still high in sugar. Hemoglobin A1c goal of less than 7%. A1c 6.8% no adjustment needed at this time but did discuss dietary management. (2) Hyperlipidemia: Code(s): E78.5 - Hyperlipidemia, unspecified Category: Medical Qualifiers: Hyperlipidemia type: unspecified Qualified Code(s): E78.5 - Hyperlipidemia, unspecified Plan: Avoid foods that are high in cholesterol such as red meat, fried foods, eggs and baked goods. Triglyceride goal of less than 150 and LDL goal of less than 100. Continue on atorvastatin (3) Obesity: Code(s): E66.9 - Obesity, unspecified Category: Medical Qualifiers: Body mass index: BMI 34.0-34.9 Obesity classification: adult class 1 (BMI 30 - 34.9) Obesity type: due to excess calories Plan: Healthy diet and regular exercise is encouraged. (4) Hypertension: Code(s): I10 - Essential (primary) hypertension Category: Medical Qualifiers: Hypertension type: primary hypertension Qualified Code(s): I10 - Essential (primary) hypertension Plan: Continue on current blood pressure medication. Avoid salt intake and encourage healthy diet and regular exercise. (5) Depression: Code(s): F32.A - Depression, unspecified Category: Medical Plan: Patient does have positive PHQ-9 however nice feelings of depression. Declining treatment at this time (6) HERBRET (stress urinary incontinence, female): Code(s): N39.3 - Stress incontinence (female) (male) Category: Medical Plan: Patient having ongoing symptoms for the last several years of stress incontinence. I did recommend pelvic floor exercises and possible physical therapy which was declined by the patient. Next step would be a Urogynecology referral for evaluation for pessary or possible surgery. Patient states she will think about this and reach back out she is interested. Plan There's no change in her lipid management with atorvastatin since cholesterol levels are satisfactory. Stress incontinence therapy options were reviewed, including pelvic floor exercises, while urinary evaluation remains undecided. Depression and sleep disorders were acknowledged, suggesting sleep hygiene practices, and potential further evaluation for prolonged insomnia. I advised dietary moderation to help control blood glucose and monitoring cardiovascular fitness due to family risk factors. We scheduled a follow-up visit in three months to reassess all chronic conditions. This note was constructed using voice recognition software. While every effort has been made to ensure accuracy and pinking sewing machine operator, still areas may have been included sometimes these areas may affect the content or meeting of the given symptoms. Total time spent caring for the patient today was 30 minutes. This includes time spent before the visit reviewing the chart, time spent during the visit, and time spent after the visit and documentation. Patient was informed and verbally consented to the use of an ambient scribe for clinic note documentation during this visit. Orders: Orders AMB Hemoglobin A1c Today E11.9 - Type 2 diabetes mellitus without complications, I10 - Essential (primary) hypertension US bladder Today N39.3 - Stress incontinence (female) (male)
--- OUTSIDE RECORDS SUMMARY | 2025-03-07 13:40 | XMS_ITS ---
Author Organization [facility] Address [address] [place] [address] Care Team Providers Care Billing Coordinator Name Role Phone Davon CHRISTIAN, Isidro Primary Care Provider Sabra Cabral Unavailable [phone] Allergies Allergen (clinical drug ingredient) Drug/Non Drug [...] 025 Encounters Encounter Location Date Provider Diagnosis [facility] [place] [address] [place] [address] 12/14/2024 Sabra Craft Pain in right toe(s) [...] Reason: Provider Name:Sabra painter, 03/15/2025 11:00:00 AM, [address] [place] [address], [phone], Procedure Notes * Category Sub-Category Detail Notes [...] use of a nail nipper and/or dremel-type jig grinder, to a more viable healthy nail [...] to maintain effectiveness in symptomatic relief - 01712 Progress Notes * Joanie LEWIS KDOB: [birth year] (69 yo F)Acc No.[id number]:12/14/2024 Progress Note Patient:?Joanie LEWIS Provider:?Sabra Craft DPM :1955???Age:69 Y???Sex:Female D ate:12/14/2024 Address:[address] [place] [address] [facility] Pcp:Isidro Mays MD Subjective: * Chief Complaints: [...] ?Exercise: no. ?Marital status: . ?Occupation: Retired, [employer]. * Medications:?TakingmetFORMIN HCl 500 MG Tablet [...] 7.4 * Examination: ???Ophthalmology Referral: ?DIABETES EYE EXAM?Procedure Performed:?Yes ?Date of Exam Performed?08/14/2024 ?Findings of Diabetic Eye Exam:?no retinopathy?Nails: ?NAILS are:?Elongated, overgrown, dystrophic, lytic, greater than [...] use of a nail nipper and/or dremel-type jig grinder, to a more viable healthy nail [...] to maintain effectiveness in symptomatic relief - 53536.? * Procedure Codes:?49646 DEBRI DE NAIL, 6 OR MORE, Modifiers: XS * Follow Up:?3 Months * Images: * Sign off status: Completed true * Provider:?Sabra Craft, GEOVANY Date:? Generated for Mialdis dempsey/Pascual/Olgasmitting on:?03/07/2025 01:40 PM EDT History and Physical Notes * HPI (History of Present Illness) Category Sub-Category Detail Notes Category Not es At Risk footcare Pt States Last PCP Visit: Date: 5 Examination Category Sub-Category Detail Notes Category Not [...]
--- OUTSIDE RECORDS SUMMARY | 2025-03-07 13:40 | XMS_ITS | Patient Health Record ---
Author Organization [facility] Address [address] [place] [address] Care Team Providers Care Tableau Analyst Name Role Phone Isidro Mays MD Primary Care Provider Sabra Cabral Unavailable [phone] Allergies Allergen (clinical drug ingredient) Drug/Non Drug [...] Problem Status W/U Status Risk Notes Problem [id number] Hallux valgus (acquired), left foot (M20.12) Active confirmed Problem [id number] Hallux valgus (acquired), right foot (M20.11) Active confirmed Problem [id number] Hammer toe of right foot (M20.41) Active confirmed Problem 156325118 Hammer toe of left foot (M20.42) Active confirmed Problem Type II diabetes mellitus without complication (872452044) Type 2 diabetes mellitus without complication (E11.9) Active confirmed Problem Type I diabetes mellitus without complication (175797131) Type 1 diabetes mellitus without complication (E10.9) Active confirmed Problem Acquired hammer toe of left foot (1194485972072950) Hammertoe of left foot (M20.42) Active confirmed Problem Acquired hammer toe of right foot (3695839879773826) Hammertoe of right foot (M20.41) Active confirmed Vital Signs Blood pressure diastolic 80 mm Hg 12/14/2024 Height 4ft9in in 12/14/2024 Blood pressure systolic 160 mm Hg 12/14/2024 Weight 155 lbs 12/14/2024 BMI 33.54 kg/m2 12/14/2024 Encounters Encounter Location Date Provider Diagnosis [address] [address] 03/20/2024 Sabra Perica Pain in right toe(s) M79.674 ; Tinea unguium B35.1 ; Pain in left toe(s) M79.675 ; Type 2 diabetes mellitus without complication E11.9 ; Hammertoe of right foot M20.41 and Hammertoe of left foot M20.[address] [address] 09/13/2024 Sabra Perica Pain in right toe(s) M79.674 ; Tinea unguium B35.1 ; Pain in left toe(s) M79.675 and Type 2 diabetes mellitus without complication E11.9 [address] [place] [address] 12/14/2024 Sabra Saidainocencio Pain in right toe(s) M79.674 ; Tinea unguium B35.1 ; Pain in left toe(s) M79.675 and Type 2 diabetes mellitus without complication E11.9 [facility] [address] [address] 06/11/2024 Sabra Craft Assessments Encounter Date Diagnosis [...] Name:Sabra Inocencio painter, 03/15/2025 11:00:00 AM, [address] [place], [address], Insurance Providers Payer Name Payer Address Payer Phone Subscriber Number Group Number Insured Name Patient Relationship to Insured Coverage Start Date Coverage End Date Medicare [employer] [address] [place] [phone] [id number] Joanie Pereyra Self - patient is the insured [facility] [address] [place] [address] [id number] Joanie Pereyra Self - patient is the insured Medical (General) History Medical History History ICD Code Arthritis Broken bones CAD (Cholesterol) Diabetic-BORDERLINE Epilepsy High blood pressure Diabetic Surgical History Surgery Date(Month/Year) right hip surgery 2022 left hip surgery 06/13/24
--- OUTSIDE RECORDS SUMMARY | 2025-03-07 13:41 | XMS_ITS ---
Author Organization [facility] Address [address] [place] [address] Care Team Providers Care Social Work Msw Name Role Phone Davon CHRISTIAN, Isidro Primary Care Provider Sabra Cabral Unavailable [phone] Allergies Allergen (clinical drug ingredient) Drug/Non Drug [...] Problem Acquired hammer toe of right foot (2857289168233 105) Hammertoe of right foot (M20.41) Active confirmed Problem Acquired hammer toe of left foot (1526966162223 103) Hammertoe of left foot (M20.42) Active confirmed Vital Signs Height 4ft 9in in 09/13/2024 Weight 156 lbs 09/13/2024 BMI 33.75 kg/m2 09/13/2024 Encounters Encounter Location Date Provider Diagnosis [facility] [address] 09/13/2024 Sabra Craft Pain in right toe(s) [...] Reason: Provider Name:Sabra painter, 03/15/2025 11:00:00 AM, [address] [place] [address], [phone], Procedure Notes * Category Sub-Category Detail Notes [...] as necessary. Patient chooses, no pharmaceutical tx (80541) Progress Notes * Joanie LEWIS KDOB: (69 yo F)Acc No.[id number]:09/13/2024 Progress Note Patient:?Joanie Lewis Provider:?Sabra Craft DPM :1955???Age:69 Y???Sex:Female D ate:09/13/2024 Address:[facility] [place] , [id number] Pcp:Isidro Mays MD Subjective: * Chief Complaints: [...] 7.4 * Examination: ???Ophthalmology Referral: ?DIABETES EYE EXAM?Diabetic Retinopathy Screening:?No ?Findings of Diabetic Eye Exam:?no retinopathy?Nails: ?NAILS [...] as necessary. Patient chooses, no pharmaceutical tx (05761).? * Procedure Codes:?33035 DEBRI DE NAIL, 6 OR MORE, Modifiers: XS * Follow Up:?2 Months * Images: * Sign off status: Completed true * Provider:?Sabra Craft, GEOVANY Date:? Generated for Miladis dempsey/Pascual/eTransmitting on:?03/07/2025 01:41 PM EDT History and Physical Notes * [...]
--- OUTSIDE RECORDS SUMMARY | 2025-03-07 13:41 | XMS_ITS ---
Author Organization [facility] Address [address] [place] [address] Care Team Providers Care Supervisor Special Effects Name Role Phone Davon CHRISTIAN, Isidro Primary Care Provider Sabra Cabral [phone] Allergies Allergen (clinical drug ingredient) Drug/Non Drug [...] Active Encounters Encounter Location Date Provider Diagnosis [facility] [address] [place] [address] 09/11/2024 Sabra Craft Plan Of Treatment Next Appt Details Provider Name:Sabra painter, 03/15/2025 11:00:00 AM, [address] [place], [address], Progress Notes * Joanie LEWIS KDOB: [birth year] (70 yo F)Acc No.[id number]:09/11/2024 Progress Note Patient:?Joanie LEWIS Provider:?Sabra Craft DPM :1955???Age:69 Y???Sex:Female D ate:09/11/2024 Address:[address] [place], [place] [address] [facility] [place] Pcp:Isidro Mays MD Subjective: * Chief Complaints: [...] Craft DPM Date:? Generated for Miladis dempsey/Pascual/Anujitting on:?03/07/2025 01:40 PM EDT History and Physical Notes * HPI (History of Present Illness) Category Sub-Category Detail Notes Category Not es At Risk footcare Pt States Last PCP Visit: Date: 4
== END 2025-03-07 12:35 | disposition home or self-care (01) ==
LOC: HO.HMCH 11:25
PROVIDERS: PCP Internal Medicine
DX: E11.9 Type 2 diabetes mellitus without complications (principal); I10 Essential (primary) hypertension; Z68.32 Body mass index [BMI] 32.0-32.9, adult; E66.9 Obesity, unspecified; E78.5 Hyperlipidemia, unspecified; F32.A Depression, unspecified; N39.3 Stress incontinence (female) (male)

== ENCOUNTER → 2025-03-07 11:25 | Outpatient (BNVA) | payer BC, SELFPAY | PROVIDERS: PCP Internal Medicine | DX: E11.9 Type 2 diabetes mellitus without complications (principal); I10 Essential (primary) hypertension; E78.5 Hyperlipidemia, unspecified; E66.9 Obesity, unspecified; Z68.32 Body mass index [BMI] 32.0-32.9, adult; F32.A Depression, unspecified; N39.3 Stress incontinence (female) (male); Z79.84 Long term (current) use of oral hypoglycemic drugs | CPT/HCPCS: 83036; 96127; 99212 ==

== ENCOUNTER 2025-04-10 11:31 | Outpatient (REF) | payer MEDICARE, BC, SELFPAY ==
--- NOTE | ~2025-04-10 | US_ITS ---
CLINICAL HISTORY: N39.3 - Stress incontinence (female) (male) US Urinary Bladder Comparison: None Findings: The urinary bladder is unremarkable. Prevoid volume: 174 mL. Postvoid volume: 12.5 mL Ureteral jets are not visualized bilaterally. IMPRESSION: Normal urinary bladder. This document has been electronically signed by: Haider Pedro MD on 04/10/2025 13:01:41
--- OUTSIDE RECORDS SUMMARY | 2025-04-10 12:25 | XMS_ITS ---
Author [facility] Address [address] [place] [address] Care Team Providers Care Primer Boxer Name Role Phone Shawanda Shell Primary Care Provider Sabra Lamar Unavailable [phone] Allergies Allergen (clinical drug ingredient) Drug/Non Drug [...] 025 Encounters Encounter Location Date Provider Diagnosis [facility] [place] [address] [place] [address] 12/14/2024 Sabra Craft Pain in right toe(s) [...] Up: 3 Months, Reason: Provider Name:Sabra painter, 06/11/2025 11:15:00 AM, [address] [place] [address], [address], Procedure Notes * Category Sub-Category Detail Notes [...] use of a nail nipper and/or dremel-type jewel grinder, to a more viable healthy nail [...] to maintain effectiveness in symptomatic relief - 39967 Progress Notes * Joanie LEWIS KDOB: [birth year] (69 yo F)Acc No.[id number]:12/14/2024 Progress Note Patient:?Joanie LEWIS Provider:?Sabra Craft DPM :1955???Age:69 Y???Sex:Female D ate:12/14/2024 Address:[address] [place] [address], [facility] Pcp:Isidro Mays MD Subjective: * Chief Complaints: [...] ?Exercise: no. ?Marital status: . ?Occupation: Retired, [employer]. * Medications:?TakingmetFORMIN HCl 500 MG [...] use of a nail nipper and/or dremel-type jewel grinder, to a more viable healthy nail [...] to maintain effectiveness in symptomatic relief - 93448.? * Procedure Codes:?37695 DEBRI DE NAIL, 6 OR MORE, Modifiers: XS * Follow Up:?3 Months * Images: * Sign off status: Completed true * Provider:?Sabra Craft, GEOVANY Date:? Generated for Miladis dempsey/Pascual/eTransmitting on:?04/10/2025 12:25 PM EDT History and Physical Notes * [...]
== END 2025-04-10 11:32 | disposition home or self-care (01) ==
LOC: HO.HMGCX 11:31
DX: N39.3 Stress incontinence (female) (male) (principal)
CPT/HCPCS: 76857

== ENCOUNTER 2025-06-12 09:52 | Outpatient (AMB) | payer BC, SELFPAY ==
--- OUTSIDE RECORDS SUMMARY | 2025-06-11 07:15 | XMS_ITS ---
Author Organization [facility] Address [address] [place] [address] Care Team Providers Care Construction Coordinator Name Role Phone Shawanda Shell Primary Care Provider Sabra Lamar Unavailable [phone] Allergies Allergen (clinical drug ingredient) Drug/Non Drug Allergy documented on EMR Reaction Allergy Type Onset Date Status guaifenesin Mucinex puffy Drug Allergy Activ e REASON FOR VISIT At Risk Footcare, Painful Nail(s) aggrevated by shoes and causing difficulty standing/walking. Medications Medication SIG (Take, Route, Frequency, Duration) Notes Start Date End Date Status Lisinopril 10 MG Oral; Duration: 90 Days Active Atorvastatin Calcium 40 MG Oral; Duration: 90 Days Active Ciclopirox 0.77 % 1 application to affected area Externally Twice a day to effected nails; Duration: 30 days 08/16/2023 Active hydroCHLOROthiazide 25 MG Oral; Duration: 90 Days Active Extra Depth Orthopedic Shoes (1 Pair) with Customized Heat Molded Multidensity Innersoles (3 Pair) as directed Dx: NIDDM/Polyneuropathy (E11.42), Hammertoe Foot Deformity (M20.41,M20.42), Preulcerative Skin Lesion(s) (L85.1 03/15/2025 Active metFORMIN HCl 500 MG 1 tablet with a neema l Orally Once a day; Duration: 30 day(s) Active Social History Tobacco Use: Social History Observation Description Date Details (start date - stop date) Never Smoker NA - NA Tobacco Use/Smoking Question Answer Notes Are you a: nonsmoker Additional Findings: Tobacco Non-User Current no n-smoker Tobacco use other than smoking: Question Answer Notes Are you an other tobacco user? No AUDIT-C (Standard) Question Answer Notes Did you have a drink containing alcohol in the p ast year? No Points 0 Interpretation Negative Problems Problem Type SNOMED Code ICD Code Onset Dates Problem Status W/U Status Risk Notes Problem Acquired hammer toe of right foot (3405975365247 105) Other hammer toe(s) (acquired), right foot (M20.41) Active confirmed Problem Acquired hammer toe of left foot (5031067073652 103) Other hammer toe(s) (acquired), left foot (M20.42) Active confirmed Vital Signs Height 4ft9in in 06/11/2025 Weight 152 lbs 06/11/2025 BMI 32.89 kg/m2 06/11/2025 Blood pressure systolic 142 mm Hg 06/11/20 25 Blood pressure diastolic 80 mm Hg 025 Encounters Encounter Location Date Provider Diagnosis [facility] [place] [address] [place] [address] 06/11/2025 Sabra Craft Tinea unguium B35.1 ; Pain in right toe(s) M79.674 ; Pain in left toe(s) M79.675 and Type 2 diabetes mellitus without complication E11.9 Assessments Encounter Date Diagnosis (ICD Code) Assessment Notes Treatment Notes Treatment Clinical Notes Section Notes 06/11/2025 Tinea unguium (ICD-10 - B35.1) 06/11/2025 Pain in right toe(s) (ICD-10 - M79.674) 06/11/2025 Pain in left toe(s) (ICD-10 - M79.675) 06/11/2025 Type 2 diabetes mellitus without complication (ICD-10 - E11.9) 06/11/2025 Other Plan Of Treatment Next Appt Details Follow Up: 3 Months, Reason: Provider Name:Sabra painter, 09/11/2025 10:00:00 AM, [address] [place] [address], [address], Procedure Notes * Category Sub-Category Detail Notes [...] use of a nail nipper and/or dremel-type notch grinder, to a more viable healthy nail [...] to maintain effectiveness in symptomatic relief - 18046 Progress Notes * Joanie LEWIS KDOB: (70 yo F)Acc No.[id number]:06/11/2025 Progress Note Patient: Milena RAÚLJoanie Provider: Yosef Craft DPM :1955 A ge:70 Y S ex:Female Date:06/11/2025 Address:[address] [place], [place] [address] Pcp:Shawanda Shell Subjective: * Chief Complaints: * A t Risk FootcarePainful Nail(s) aggrevated by shoes and causing difficulty standing/walking. * HPI: A t Risk footcare: Pt States Last PCP Visit: D ate 0 02/12/2025 * ROS: G eneral/Constitutional: Nausea d enies, denies. V omiting d enies, denies.?Hunger Thirst d enies, denies. L oss appetite d enies, denies. C hills d enies, denies. F atigue d enies, denies. F ever d enies, denies. N ight Sweats denies, denies. U nexplained weight loss d enies, denies. U nexplained weight gain?denies, denies. H EENTM: Dentures a dmits, admits. D izziness d enies, denies. G lasses/contacts a dmits, admits. R etinopathy d enies, denies. B lurred/double vision d enies, denies. T MJ d enies, denies. D ischarge/drainage d enies, denies. I mplants d enies, denies. S ore throat d enies, denies. D ental implants?denies, denies. H debi of hearing a dmits, admits. D ifficulty chewing/swallowing/speaking d enies, denies. N ose bleeds d enies, denies. S ore mouth d enies, denies. R espiratory: On Oxygen d enies, denies. P neumonia/pleurisy d enies, denies. B ronchitis d enies, denies. E mphysema d enies, denies. C oughing?denies, denies. C ough blood d enies, denies. S hortness of breath d enies, denies. W heezing d enies, denies. C ardiovascular: Pacemaker d enies, denies. M NITROGLYCERIN NEUTRALIZER d enies, denies.?WPW d enies, denies. C HF d enies, denies. H eart attack d enies, denies.?Septal defect d enies, denies. R apid beat d enies, denies. C hest pain d enies, denies. A trial Fib. d enies, denies. M urmur/Palpitations d enies, denies. G astrointestinal: Hemorrhoids d enies, denies. S tomach/Abdominal pain?denies, denies. D ark blood stool d enies, denies. I rritable bowel d enies, denies. C onstipation d enies, denies. D iarrhea d enies, denies. H ematology: Swelling d enies, denies. C lots d enies, denies.?Varicose Veins d enies, denies. B ruising d enies, denies. B leeding problem?denies, denies. G enitourinary: Blood urine d enies, denies. F requent/Painfu/urination/bladder control d enies, denies. K idney stones d enies, denies. I nfection (UTI)?admits, admits. N ephropathy d enies, denies. s ex trans dis (STD) d enies, denies. P rostate d enies, denies. M usculoskeletal: Hammertoes a dmits, admits. B unions a dmits, admits. B ack Pain d enies, denies. M uscle Cramps/ Resting d enies, denies. M uscle cramps / walking d enies, denies. G eneralized aches and pains d enies, denies. W eakness d enies, denies. I nteg.: Mortensen d enies, denies. S cars a dmits, admits. C orns/calluses d enies, denies. I ngrown nails d enies, denies. P ainful nails d enies, denies. O pen Sores d enies, denies. R ashes d enies, denies. ? N eurologic: Difficulty sleeping d enies, denies. B rain disorder?denies, denies. N umbness d enies, denies. B alance trouble d enies, denies. C onfusion d enies, denies. F ainting/blackouts d enies, denies. T ingling d enies, denies. T remors d enies, denies. * Medical History: * Surgical History: r ight hip surgery 2022left hip surgery 06/13/24 * Hospitalization/Major Diagno stic Procedure: D enies Past Hospitalization * Family History: M other: , diagnosed with Other malignant neoplasm of unspecified site, Unspecified essential hypertension, Unspecified heart disease. F ather: . S pouse: . * Social History: T obacco Use: T obacco Use/Smoking A re you a: n onsmoker A dditional Findings: Tobacco Non-User C urrent non-smoker Tobacco use other than smoking A re you an other tobacco user? N o M iscellaneous: C affeine: no. Children: yes. Exercise: no. Marital status: . Occupation: Retired, [employer]. D rug/Alcohol: A MARE-C (Standard) D id you have a drink containing alcohol in the past year? 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), Hammertoe Foot Deformity (M20.41,M20.42), Preulcerative Skin Lesion(s) (L85.1 Medication List reviewed and reconciled with the patientTaking metFORMIN HCl 500 MG Tablet 1 tablet with a meal Orally Once a day Taking Atorvastatin Calcium 40 MG Tablet Oral Taking Lisinopril 10 MG Tablet Oral Taking hydroCHLOROthiazide 25 MG Tablet Oral Taking Ciclopirox 0.77 % Gel 1 application to affected area Externally Twice a day to effected nails Taking Extra Depth Orthopedic Shoes (1 Pair) with Customized Heat Molded Multidensity Innersoles (3 Pair) as directed Dx: NIDDM/Polyneuropathy (E11.42), Hammertoe Foot Deformity (M20.41,M20.42), Preulcerative Skin Lesion(s) (L85.1 Medication List reviewed and reconciled with the patient * Allergies: M ucinex: fernando[Allergies Verified] Objective: * Vitals: H t: 4ft9in, Wt:152, BMI:32.89, Shoe size: 6-7, BP:142/80mm Hg, BS: not taken, Ht- cm: 144.78 cm, Wt-k.95 kg. * P ast Orders: L ab:HEMOGLOBIN A1C (GLYCOHEMOGLOBIN) (Order Date - 02/12/2025) (Collection Date & Time - 02/12/2025 10:56 AM) Value Reference Range HEMOGLOBIN A1C % (HH) 6.8 * Examination: O phthalmology Referral: DIABETES EYE EXAM P rocedure Performed: Y es D ate of Exam Performed 1 11/14/2023 F indings of Diabetic Eye Exam: n o retinopathy N ails: NAILS are: E longated, overgrown, dystrophic, lytic, greater than 3mm thick, discolored and friable with crumbly malodorous subungual debris, with pain on palpation , TA, T1, T2, T3, T4, T6, T7, T8, T9. D ermatologic: SKIN FINDINGS: S kin exam reveals normal texture, elasticity, and turgor. There are no masses. The interspaces are clear, B/L,. N eurological: SENSORY: N eurological exam reveals intact sensorium, pain sensation normal, vibration sensation intact, pinprick sensation is normal in the lower extremities, 5.07 monofilament test performed at plantar aspects of 5 varied sites per foot shows sensation, normal, B/L, Pt denies, anesthesia, burning, paresthesia, tingling, B/L. O rthopedic: MUSCLE STRENGTH: 5 /5 all groups in a symmetrical fashion, B/L. FOOT MORPHOLOGY: ( -) Charcot collapse/destruction noted at [facility]. DIGITAL DEFORMITIES: D igital contracture, PIPJ, 2-5 B/L, incompl-reducible to push-up test, no over, nor underlapping, t here is e vidence of shoe producing skin irritation. FOOTWEAR EVALUATION: w orn, non-supportive, shoe gear properties exacerbate patient's foot/toe deformity. G eneral Examination: GENERAL APPEARANCE: R eveals a pleasant, alert, well nourished, well-developed, well hydrated individual, who demonstrates proper attention to hygiene/body habitus, and is in no acute distress, Pt serves as own historian for office visit today. ORIENTED: p erson, place, and time. FOOT EXAM: L ower Extremity Neurological Exam performed:?Yes V isual exam of foot performed: Y es D ate 0 06/11/2025 Footwear Evaluation F ootwear Evaluation performed: Y es Assessment: * Assessment: 1. T inea unguium - B35.1 (Primary) 2 . P ain in right toe(s) - M79.674? 3. P ain in left toe(s) - M79.675 4 . T ype 2 diabetes mellitus without complication - E11.9 Plan: * Treatment: * Procedures: D ebride Nail 6-10: Nail debridement D ue to the clinical pathology outlined in the [...] the use of a nail nipper and/or dremel- type notch grinder, to a more viable healthy nail [...] to maintain effectiveness in symptomatic relief - 24773. * Procedure Codes: 1 1721 DEBRIDE NAIL, 6 OR MORE, Modifiers: XS * Preventive Medicine: Screening/Special Tests: F all Risk Screening: N o falls in the past year F ALLS: Screening for Future Fall Risk Have you had any falls with injury in the past year? N o * Follow Up: 3 Months * Images: * Sign off status: Completed true * Provider: Yosef Craft, DPAlannah Date: 06/11/2025 Generated for Miladis dempsey/Pascual/Subha on: 06/12/2025 10:34 AM EDT History and Physical Notes * [...] no masses. The interspaces are clear, B/L, Orthopedic FOOT MORPHOLOGY: (-) Charcot col lapse/destruction noted at [facility] FOOTWEAR EVALUATION: worn, non-supportiv e, shoe gear properties exacerbate patient's foot/toe deformity DIGITAL DEFORMITIES: Digital contracture , PIPJ, 2-5 B/L, incompl-reducible to push-up test, no over, nor underlapping, there is evidence of shoe producing skin irritation MUSCLE STRENGTH: 5/5 all groups in a symmetrical fashion, B/L General Examination GENERAL APPEARANCE: Reveals a pleasant, alert, well nourished, well-developed, well hydrated individual, who demonstrates proper attention to hygiene/body habitus, and is in no acute distress, Pt serves as own historian for office visit today FOOT EXAM: Lower Extremity Neurological Exa m performed:: Yes Visual exam of foot performed:: Yes Date: 06/11/2025 ORIENTED: person, place, and t michael Footwear Evaluation Footwear Evaluation performe d:: Yes Ophthalmology Referral DIABETES EYE EXAM Procedure Perform ed:: Yes Date of Exam Performed: 09/14/2024 Findings of Diabetic Eye Exam:: no retin opathy Nails NAILS are: Elongated, overg rown, dystrophic, lytic, greater than 3mm thick, discolored and friable with crumbly malodorous subungual debris, with pain on palpation , TA, T1, T2, T3, T4, T6, T7, T8, T9
--- NOTE | 2025-06-12 09:57 | MHC.PC.OV ---
Vital Signs 06/12/25 09:58 Height 4 ft 10 in Weight 153 lb 6 oz BMI 32.1 BP 116/64 Blood Pressure Location Lt brachial Position Sitting Pulse 96 Pulse Source Pulse Oximeter Temp 97.5 F Temp Source Temporal Artery Scan Pulse Oximetry (%) 96 Oxygen Delivery Method Room Air Intake Visit Reasons: f/u DM Analytics Leader Required: No Accompanied by: Self / Same As Patient Allergies guaifenesin (From MUCINEX) Allergy (Intermediate, Verified 06/12/25 10:16) SWELLING Medication List - Last Reconciled 06/12/25 by Shawanda Shell PA-C atorvastatin 40 mg PO DAILY hydrochlorothiazide 25 mg PO DAILY lisinopril 10 mg PO DAILY metformin 500 mg PO DAILY Tobacco use date assessed: 06/12/25 Fall risk assessment: No Falls in past year Last assessed Fall Risk: 06/12/25 Dental Screening Dental Screen Date: 06/12/25 Did you have a dental visit in the last 12 months?: No Did you have a dental problem in the last 6 months where you did not have access to dental care?: No Was dental information given to patient?: No HPI f/u DM HPI Details 70-year-old female with past medical history of obesity, hypertension, hyperlipidemia, hearing loss last seen 02/2025 coming in for follow up. Stress urinary incontinence has been ongoing for years, exacerbated by activities such as coughing and laughing, leading to the use of adult pull-ups. The patient reports significant interference with daily activities due to incontinence, requiring frequent changes and cleaning. The patient expressed concerns about the permanence and safety of the sling procedure, seeking reassurance and additional opinions. Diabetes mellitus is controlled with an A1c of 6.9%, with ongoing dietary management advised. PFSH Medical History Shakiness Arthritis, hip Preop exam for internal medicine [place] (hard of hearing) Diabetes HERBERT (stress urinary incontinence, female) Arthritis Depression History of gestational diabetes Osteoarthritis of right hip Obesity Hypertension Surgical History Status post total hip replacement, right History of hip replacement H/O tooth extraction History of removal of cyst Status post surgical removal of nail matrix of toe History of section Family History Father No problems noted. Mother No problems noted. Family/Other Heart failure Diabetes CHF (congestive heart failure) Social History Household Members: Children Household Members Other:: son Housing: House Housing Other:: Lives in trailer with two steps to get up into it Are you a primary pharmacy care coordinator to a significant other at home: No Do you presently have visiting nurse or other home services: No Alcohol intake: current Alcohol intake frequency: holidays/special occasions only Comment: fall risk due to recent hip surgery Patient Tobacco Use Status: Never used Tobacco Tobacco use type: Cigarette e-Cigarette/Vaping Use: Never Used Second Hand Smoke Exposure: No service: No Current occupational status: retired Current occupational exposures/hazards: No Cognitive needs: No Hearing needs: No Vision needs: Yes (glasses) Questionnaire Thrive Questionnaire Date Thrive assessed: 06/12/25 I am a: Patient What is your living situation today?: I have a steady place to live Within the past 12 months, did the food you bought not last and you didn't have the money to get more?: Never true Within the past 12 months, did you worry whether your food would run out before you got money to buy more?: Never true Do you have trouble paying for medicines?: No Do you have trouble getting transportation to medical appointments?: No Do you have trouble paying your heating and electricity bill?: No Do you have trouble taking care of your child, family member or friend?: No Do you have trouble with day-to-day activities such as bathing, preparing meals, shopping, managing finances, etc.?: No Are you currently unemployed and looking for a job?: No Are you interested in more education?: No Please select the resources that you would like help with: None Currently or been in a relationship where the following occur: I choose not to answer THRIVE Score: 0 AUDIT C Alcohol Use Questionnaire (AUDIT-C) 1. How often do you have a drink containing alcohol?: Never Total Score: 0 LEIGHANN-7 AMB Questionnaire LEIGHANN-7 Date LEIGHANN - 7 assessed: 06/12/25 Feeling nervous, anxious, or on edge: 0 = Not at all Not being able to stop or control worryin = Not at all Worrying too much about different things: 0 = Not at all Trouble relaxin = Not at all Being so restless that it is hard to sit still: 0 = Not at all Becoming easily annoyed or irritable: 0 = Not at all Feeling afraid as if something awful might happen: 0 = Not at all Total LEIGHANN-7 score (0-4 normal; 5-9 mild; 10-14 moderate; 15-21 severe): 0 Source: Developed by Drs. Leodan Sawyer, Lashon Elizabeth, Arvind Palacios and colleagues, with an educational alta from Done In :60 Seconds. LEIGHANN-7 Assessment Billing LEIGHANN-7 Assessment Tool: LEIGHANN-7 Assessment 66345 Review of Systems Const Denies body aches, Denies chills, Denies fever(s), Denies headache(s) and Denies poor appetite Eyes Reports no additional complaints ENT Denies dizziness and Denies headache(s) Card Denies chest pain, Denies edema, Denies lightheadedness and Denies dyspnea Resp Denies cough and Denies dyspnea GI Denies nausea and Denies vomiting Reports as per HPI Musc Reports no additional complaints and Denies abnormal gait Skin/Breast Reports system reviewed and no additional complaints, except as documented Neuro Denies abnormal gait, Denies dizziness and Denies headache(s) Psych Reports no additional complaints Physical exam (Primary Care) Vital Signs: Last Vital Signs Temp 97.5 F 06/12/25 09:58 Pulse 96 06/12/25 09:58 BP 116/64 06/12/25 09:58 Pulse Ox 96 06/12/25 09:58 Oxygen Delivery Method Room Air 06/12/25 09:58 BMI result Body Mass Index 32.1 Tobacco/Smoking Status: Tobacco use Status Tobacco use date assessed 06/12/25 06/12/25 09:59 Patient Tobacco Use Status Never used Tobacco 06/12/25 09:59 Tobacco use type Cigarette 06/12/25 09:59 e-Cigarette/Vaping Use Never Used 06/12/25 09:59 Thrive Assessment: Date of Thrive Assessment Date Thrive assessed 06/12/25 06/12/25 09:59 Currently or been in a relationship where the following occur: I choose not to answer Const General: cooperative, healthy appearing, comfortable and no acute distress Orientation/consciousness: patient oriented x3 HENMT Head: Yes normocephalic Ears: hearing grossly normal bilaterally General nose exam: Normal external nose present Eyes General: appearance normal, both eyes and all related structures Conjunctivae: conjunctivae normal Neck Neck: Yes full ROM and Yes no lymphadenopathy Resp Effort & Inspection: normal respiratory effort Auscultation: clear to auscultation bilaterally, no crackles, no rales, no rhonchi and no wheezes Cardio Rate: regular rate Rhythm: regular rhythm Skin General skin exam: no rashes or lesions noted Neuro General: patient oriented x3 Gait exam (Neuro): Normal gait present Extrem General: Yes normal to inspection, Yes full ROM and No edema Psych Affect: normal affect Attitude: cooperative Insight: Good insight present (Psych) Judgement: Good judgement present (Psych) Coding Level of Care Code Est Pt Level 3 (40685) Diagnoses Diabetes mellitus with coincident hypertension E11.9; I10 Hyperlipidemia, unspecified hyperlipidemia type E78.5 Hyperlipidemia type: unspecified Class 1 obesity due to excess calories with serious comorbidity and body mass index (BMI) of 32.0 to 32.9 in adult E66.811; E66.09; Z68.32 Body mass index: BMI 32.0-32.9 Obesity classification: adult class 1 (BMI 30 - 34.9) Obesity type: due to excess calories Serious obesity comorbidity presence: with serious comorbidity Primary hypertension I10 Hypertension type: primary hypertension HERBERT (stress urinary incontinence, female) N39.3 Additional Codes LEIGHANN-7 Assessment Billing - LEIGHANN-7 Assessment Tool: LEIGHANN-7 Assessment 16079 ([id number]) Assessment & Plan Assessment & Plan (1) Diabetes mellitus with coincident hypertension: Code(s): E11.9 - Type 2 diabetes mellitus without complications; I10 - Essential (primary) hypertension Category: Medical Plan: Decrease the amount of carbohydrates such as pasta, bread, rice, and potatoes and limit the amount of sweets. Although fruits are generally healthy they should be eaten in moderation as they are still high in sugar. Hemoglobin A1c goal of less than 7%. A1c in the clinic today 6.9% continue with dietary and lifestyle and on the Metformin. (2) Hyperlipidemia: Code(s): E78.5 - Hyperlipidemia, unspecified Category: Medical Qualifiers: Hyperlipidemia type: unspecified Qualified Code(s): E78.5 - Hyperlipidemia, unspecified Plan: Avoid foods that are high in cholesterol such as red meat, fried foods, eggs and baked goods. Triglyceride goal of less than 150 and LDL goal of less than 100. Continue on atorvastatin. Ordered for updated blood work. (3) Obesity: Code(s): E66.9 - Obesity, unspecified Category: Medical Qualifiers: Body mass index: BMI 32.0-32.9 Obesity classification: adult class 1 (BMI 30 - 34.9) Obesity type: due to excess calories Serious obesity comorbidity presence: with serious comorbidity Qualified Code(s): E66.811 - Obesity, class 1; E66.09 - Other obesity due to excess calories; Z68.32 - Body mass index [BMI] 32.0-32.9, adult Plan: Healthy diet and regular exercise is encouraged. (4) Hypertension: Code(s): I10 - Essential (primary) hypertension Category: Medical Qualifiers: Hypertension type: primary hypertension Qualified Code(s): I10 - Essential (primary) hypertension Plan: Continue on current blood pressure medication. Avoid salt intake and encourage healthy diet and regular exercise. (5) HERBERT (stress urinary incontinence, female): Code(s): N39.3 - Stress incontinence (female) (male) Category: Medical Plan: Seen by urogynecology who recommended MUS for stress incontinence, she will continue to follow up Dr. Lau through [facility]. Plan For stress urinary incontinence and pelvic organ prolapse, the patient is considering surgical intervention with a sling procedure. The risks and benefits of the procedure were discussed, including the permanence and potential complications. The patient is advised to consider pelvic floor physical therapy as an initial step, which can be performed at home or through a local facility, to strengthen pelvic floor muscles and potentially alleviate symptoms. Hypertension management continues with hydrochlorothiazide, and the patient is encouraged to maintain regular monitoring of blood pressure. Diabetes management includes maintaining dietary modifications to keep A1c levels stable, with the current level at 6.9% being satisfactory. This note was constructed using voice recognition software. While every effort has been made to ensure accuracy and seed production field supervisor, still areas may have been included sometimes these areas may affect the content or meeting of the given symptoms. Total time spent caring for the patient today was 20 minutes. This includes time spent before the visit reviewing the chart, time spent during the visit, and time spent after the visit and documentation. Patient was informed and verbally consented to the use of an ambient scribe for clinic note documentation during this visit. Orders: Orders Lipid Panel Today E78.00 - Pure hypercholesterolemia, unspecified TSH reflex Free T4 Today Z13.29 - Encounter for screening for other suspected endocrine disorder Hemoglobin A1c Today E11.65 - Type 2 diabetes mellitus with hyperglycemia, E11.9 - Type 2 diabetes mellitus without complications, I10 - Essential (primary) hypertension Comprehensive Met. Panel Today E11.9 - Type 2 diabetes mellitus without complications, I10 - Essential (primary) hypertension, Z00.00 - Encounter for general adult medical examination without abnormal findings Complete Blood Count Auto Diff Today I10 - Essential (primary) hypertension, Z00.00 - Encounter for general adult medical examination without abnormal findings Free T4 (Free Thyroxine) Today Z13.29 - Encounter for screening for other suspected endocrine disorder Microalbumin, Random (w Creat) Today E11.9 - Type 2 diabetes mellitus without complications Referrals Speech and Hearing Referral H91.93 - Unspecified hearing loss, bilateral Medications: New hydrochlorothiazide 25 mg PO DAILY 90 tabs 0RF atorvastatin 40 mg PO DAILY 90 tabs 1RF Refilled metformin 500 mg PO DAILY 90 tabs 3RF
[2025-06-12 09:58] VITALS: BP 116/64; PULSE 96; TEMP 36.4; O2SAT 96; BMI 32.1
== END 2025-06-12 10:46 | disposition home or self-care (01) ==
LOC: HO.HMCH 09:53
PROVIDERS: PCP Internal Medicine
DX: E11.9 Type 2 diabetes mellitus without complications (principal); I10 Essential (primary) hypertension; E78.5 Hyperlipidemia, unspecified; E66.811 Obesity, class 1; E66.09 Other obesity due to excess calories; Z68.32 Body mass index [BMI] 32.0-32.9, adult; N39.3 Stress incontinence (female) (male)

== ENCOUNTER → 2025-06-12 09:52 | Outpatient (BNVA) | payer BC, SELFPAY | PROVIDERS: PCP Internal Medicine | DX: I10 Essential (primary) hypertension (principal); E78.5 Hyperlipidemia, unspecified; E66.811 Obesity, class 1; E66.09 Other obesity due to excess calories; H91.93 Unspecified hearing loss, bilateral; Z68.32 Body mass index [BMI] 32.0-32.9, adult | CPT/HCPCS: 96127 ==

== ENCOUNTER 2025-06-20 06:24 | Outpatient (REF) | payer MEDICARE, BC, SELFPAY ==
[2025-06-20 06:43] LABS: MANUAL DIFF FLAG NO
[2025-06-20 07:48] LABS: Hematocrit 36.7 % (37.0-47.0); Hemoglobin 12.4 g/dl (12.0-16.0); Imm Gran Abs Auto 0.06 X10*3/uL (0.00-0.03); Imm Gran Pct Auto 1.0 % (0.0-0.4); Lymphocytes Absolute Auto 2.7 X10*3/uL (1.2-4.9); Mean Corpuscular HGB Conc 33.8 g/dl (31.0-35.0); Mean Corpuscular Hemoglobin 30.0 pg (27.0-33.0); Mean Corpuscular Volume 88.9 fL (80.0-98.0); NRBC Abs Auto 0.000 X10*3/uL (0.0-0.012); NRBC Pct Auto 0.0 /100WBC (0.0-0.2); Platelet Count 382 X10*3/uL (160-400); Red Blood Count 4.13 X10*6/uL (4.20-5.50); White Blood Count 6.2 X10*3/uL (4.8-10.8)
[2025-06-20 07:57] LABS: Hemoglobin A1C 179.5135 umol/L; Total Hemoglobin (HGBA1C) 3278.1361 umol/L
[2025-06-20 08:33] LABS: Alanine Aminotransferase 30 U/L (0-31); Albumin Level 4.4 g/dL (3.5-5.0); Alkaline Phosphatase 96 U/L (39-117); Anion Gap 15 (12-20); Aspartate Amino Transferase 30 U/L (5-31); Blood Urea Nitrogen 16 mg/dL (9-16); Calcium 9.6 mg/dL (8.4-10.2); Carbon Dioxide 23 mmol/L (22-29); Chloride 102 mmol/L (96-108); Cholesterol 167 mg/dL (<200); Estimated Glomerular Filt Rate > 60; HDL Cholesterol 53 mg/dL (>40); Potassium 4.0 mmol/L (3.3-5.1); Sodium 136 mmol/L (135-145); Total Protein 7.5 g/dL (6.5-8.0); Triglycerides 118 mg/dL (<150)
[2025-06-20 08:48] LABS: Microalbum/Creatinine Ratio Ur 5.8 ug/mg cr (<30)
[2025-06-20 08:53] LABS: Free T4 (Free Thyroxine) 0.99 ng/dL (0.71-1.85)
== END 2025-06-20 06:25 | disposition home or self-care (01) ==
LOC: HO.LAB 06:24
DX: Z00.00 Encounter for general adult medical examination without abnormal findings (principal); Z13.29 Encounter for screening for other suspected endocrine disorder; I10 Essential (primary) hypertension; E11.65 Type 2 diabetes mellitus with hyperglycemia; E78.00 Pure hypercholesterolemia, unspecified
CPT/HCPCS: 36415; 80053; 80061; 82043; 82570; 83036; 84439; 84443; 85025

== ENCOUNTER 2025-08-06 12:03 | Outpatient (AMB) | payer MEDICARE, BC, SELFPAY ==
--- OUTSIDE RECORDS SUMMARY | 2024-09-11 06:00 | XMS_ITS ---
Author Organization [facility] Address [address] [place] [address] Care Team Providers Care Relocation Commissioner Name Role Phone Shawanda Shell Primary Care Provider UnavailSabra Caldwell Unavailable [phone] Allergies Allergen (clinical drug ingredient) Drug/Non Drug [...] Active Encounters Encounter Location Date Provider Diagnosis [facility] [address] [place] [address] 09/11/2024 Sabra Craft Plan Of Treatment Next Appt Details Provider Name:Sabra painter, 09/11/2025 10:00:00 AM, [address] [place], [address], Progress Notes * Joanie LEWIS KDOB: [birth year] (70 yo F)Acc No.[id number]:09/11/2024 Progress Note Patient: Joanie FREITAS Provider: Yosef Craft DPM :1955 A ge:69 Y S ex:Female Date:09/11/2024 Address:[address] [place] [address] [facility] Pcp:Shawanda Shell Subjective: * Chief Complaints: * [...] Yosef Craft DPM Date: Generated for Miladis dempsey/Pascual/Anujitting on: 0 08/06/2025 02:58 PM EDT History and Physical Notes * HPI (History of Present Illness) Category Sub-Category Detail Notes Category Not es At Risk footcare Pt States Last PCP Visit: Date:
[2025-08-06 12:13] VITALS: BP 116/82; PULSE 97; O2SAT 99; BMI 32.4
--- NOTE | 2025-08-06 12:13 | MHC.OFFWIV ---
Intake Vital Signs 08/06/25 12:13 Height 4 ft 10 in Weight 155 lb BMI 32.4 BP 116/82 Blood Pressure Location Lt brachial Position Sitting Pulse 97 Pulse Source Pulse Oximeter Pulse Oximetry (%) 99 Oxygen Delivery Method Room Air Intake Visit Reasons: EP Difficulty hearing bilat, ear wax? Intake Note: pt presents with abi ear blockage Patient Tobacco Use Status: Never used Tobacco Allergies guaifenesin (From MUCINEX) Allergy (Intermediate, Verified 08/06/25 12:18) SWELLING Do you need a note to return to daycare/school/sports/work: No HPI HPI Comments History of Present Illness Details History - The patient is a 70-year-old female presenting with ear cleaning due to suspected cerumen impaction. - Cerumen impaction: The patient reports needing ear cleaning occasionally, with the last occurrence in October 2024. - Reduced hearing but is getting hearing aids soon Physical Exam General: Cooperative, healthy appearing, comfortable, no acute distress and well developed Orientation: Patient oriented x3 Limitations: No limitations Head: Normal to inspection Ears: External ears normal bilaterally, EAC's with cerumen impaction, post removal, TM's with fluid present, no infection noted Face and sinus: Normal facial exam, sinus problems noted Neck: Normal visual inspection and Yes full ROM Respiratory: Normal respiratory effort and able to speak in complete sentences. Skin: No rashes or lesions noted Neuro: Patient oriented x3 Extremities: normal to inspection Review of Systems - Neurological: Denies dizziness or balance issues, reports occasional headaches All systems reviewed and are unremarkable except as noted in HPI PFSH Medical History Shakiness Arthritis, hip Preop exam for internal medicine [place] (hard of hearing) Diabetes HERBERT (stress urinary incontinence, female) Arthritis Depression History of gestational diabetes Osteoarthritis of right hip Obesity Hypertension Surgical History Status post total hip replacement, right History of hip replacement H/O tooth extraction History of removal of cyst Status post surgical removal of nail matrix of toe History of section Family History Father No problems noted. Mother No problems noted. Family/Other Heart failure Diabetes CHF (congestive heart failure) Social History Household Members: Children Household Members Other:: son Housing: House Housing Other:: Lives in trailer with two steps to get up into it Are you a primary career resource specialist to a significant other at home: No Do you presently have visiting nurse or other home services: No Alcohol intake: current Alcohol intake frequency: holidays/special occasions only Comment: fall risk due to recent hip surgery Patient Tobacco Use Status: Never used Tobacco Tobacco use type: Cigarette e-Cigarette/Vaping Use: Never Used Second Hand Smoke Exposure: No service: No Current occupational status: retired Current occupational exposures/hazards: No Cognitive needs: No Hearing needs: No Vision needs: Yes (glasses) Physical Exam Vital Signs: Last Vital Signs Pulse 97 08/06/25 12:13 BP 116/82 08/06/25 12:13 Pulse Ox 99 08/06/25 12:13 Oxygen Delivery Method Room Air 08/06/25 12:13 BMI result Body Mass Index 32.4 Office Procedures Cerumen Removal From which ear canal was the cerumen removed: bilateral Removal: otoscope w/curette Notes: patient tolerated procedure well, no complications and ear canal clear [id number] Wax Removal by Spoon/Curette Assessment & Plan Assessment & Plan (1) Impacted cerumen of both ears: Code(s): H61.23 - Impacted cerumen, bilateral Plan: Plan - Bilateral Cerumen removal was performed during the visit. - After removal, noted fluid in both ears. No infection. Recommended using Flonase, a steroid nasal spray, once daily for a couple of weeks to alleviate sinus congestion. Patient was informed and verbally consented to the use of an ambient scribe for clinic note documentation during this visit. (2) Acute effusion of both middle ears: Code(s): H65.193 - Other acute nonsuppurative otitis media, bilateral Plan: as above Orders: Orders AMB Cerumen Removal Today H61.23 - Impacted cerumen, bilateral Coding Level of Care Code Est Pt Level 4 (59134) Diagnoses Impacted cerumen of both ears H61.23 Acute effusion of both middle ears H65.193 CPT Codes Office Procedure - CPT: 71602-Lpi Wax Removal by Spoon/Curette ([id number])
--- OUTSIDE RECORDS SUMMARY | 2025-08-06 14:59 | XMS_ITS | Patient Health Record ---
Author Organization [facility] Address [address] [place] [address] Care Team Providers Care Doctor Of Chiropractic Name Role Phone Shawanda Shell Primary Care Provider UnavailSabra Caldwell Unavailable [phone] Allergies Allergen (clinical drug ingredient) Drug/Non Drug Allergy documented on EMR Reaction Allergy Type Onset Date Status guaifenesin Mucinex puffy Drug Allergy Activ e Results Component Value Reference Range Notes HEMOGLOBIN A1C (GLYCOHEMOGLO BIN) Reviewed date:12/14/2024 09:57:07 AM Interpretation: Performing Lab: Notes/Report: HEMOGLOBIN A1C % (HH) 7.4 HEMOGLOBIN A1C (GLYCOHEMOGLO BIN) Reviewed date:03/15/2025 10:57:04 AM Interpretation: Performing Lab: Notes/Report: HEMOGLOBIN A1C % (HH) 6.8 Reason For Referral No Information Medications Medication SIG (Take, Route, Frequency, Duration) Notes Start Date End Date Status metFORMIN HCl 500 MG 1 tablet with a neema l Orally Once a day; Duration: 30 day(s) Active Lisinopril 10 MG Oral; Duration: 90 [...] (M20.41,M20.42), Preulcerative Skin Lesion(s) (L85.1 03/15/2025 Active Immunizations Vaccine Route Administration Date Status Comme nts Influenza Unknown 07/15/2024 Administered Social History Tobacco Use: Social History Observation [...] Problem Acquired hammer toe of right foot ([id number] 9105) Other hammer toe(s) (acquired), right foot (M20.41) Active confirmed Problem Acquired hammer toe of left foot ([id number] 9103) Other hammer toe(s) (acquired), left foot (M20.42) Active confirmed Problem Diabetes mellitus (79351194) Type 2 diabetes mellitus without complication (E11.9) Active confirmed Vital Signs Blood pressure diastolic 80 mm Hg 06/11/2025 Height 4ft9in in 06/11/2025 Blood pressure systolic 142 mm Hg 06/11/2025 Weight 152 lbs 06/11/2025 BMI 32.89 kg/m2 06/11/2025 Encounters Encounter Location Date Provider Diagnosis [address] [address] 09/13/2024 Sabra Perica Pain in right toe(s) M79.674 ; Tinea unguium B35.1 ; Pain in left toe(s) M79.675 and Type 2 diabetes mellitus without complication E11.9 [facility] [address] [place] [address] 12/14/2024 Sabra Perica Pain in right toe(s) M79.674 ; Tinea unguium B35.1 ; Pain in left toe(s) M79.675 and Type 2 diabetes mellitus without complication E11.[address] [address] 03/15/2025 Sabra Craft Tinea unguium B35.1 ; Other hammer toe(s) (acquired), right foot M20.41 ; Pain in right toe(s) M79.674 ; Pain in left toe(s) M79.675 ; Type 2 diabetes mellitus without complication E11.9 and Other hammer toe(s) (acquired), left foot M20.[address] [address] 06/11/2025 Sabra Craft Tinea unguium B35.1 ; Pain in right toe(s) M79.674 ; Pain in left toe(s) M79.675 and Type 2 diabetes mellitus without complication E11.9 Assessments Encounter Date Diagnosis (ICD Code) Assessment Notes Treatment Notes Treatment Clinical Notes Section Notes 09/13/2024 Tinea unguium (ICD-10 - B35.1) 09/13/2024 Pain in right toe(s) (ICD-10 - M79.674) 12/14/2024 Tinea unguium (ICD-10 - B35.1) 12/14/2024 Pain in right toe(s) (ICD-10 - M79.674) 03/15/2025 Other hammer toe(s) (acquired), right foot (ICD-10 - M20.41) Patient Educated with: DIABETIC FOOT CARE INSTRUCTIONS.p df (DIABETIC FOOT CARE INSTRUCTIONS.p df) 03/15/2025 Tinea unguium (ICD-10 - B35.1) 06/11/2025 Tinea unguium (ICD-10 - B35.1) 06/11/2025 Pain in right toe(s) (ICD-10 - M79.674) 06/11/2025 Pain in left toe(s) (ICD-10 - M79.675) 03/15/2025 Pain in right toe(s) (ICD-10 - M79.674) 12/14/2024 Pain in left toe(s) (ICD-10 - M79.675) 09/13/2024 Pain in left toe(s) (ICD-10 - M79.675) 09/13/2024 Type 2 diabetes mellitus without complication (ICD-10 - E11.9) 12/14/2024 Type 2 diabetes mellitus without complication (ICD-10 - E11.9) 03/15/2025 Pain in left toe(s) (ICD-10 - M79.675) 06/11/2025 Type 2 diabetes mellitus without complication (ICD-10 - E11.9) 03/15/2025 Type 2 diabetes mellitus without complication (ICD-10 - E11.9) 03/15/2025 Other hammer toe(s) (acquired), left foot (ICD-10 - M20.42) 06/11/2025 Other Plan Of Treatment Next Appt Details Provider Name:Sabra painter, 09/11/2025 10:00:00 AM, [address] [place], [address], Insurance Providers Payer Name Payer Address Payer Phone Subscriber Number Group Number Insured Name Patient Relationship to Insured Coverage Start Date Coverage End Date [employer] [address] [facility] [place] [address] [id number] Joanie Pereyra Self - patient is the insured [facility] [address] [place] [address] [id number] Joanie Pereyra Self - patient is the insured Medical (General) History Medical History History ICD Code Arthritis Broken bones CAD (Cholesterol) Diabetic-BORDERLINE Epilepsy High blood pressure Diabetic Surgical History Surgery Date(Month/Year) right hip surgery 2022 left hip surgery 06/13/24
== END 2025-08-06 12:39 | disposition home or self-care (01) ==
PROVIDERS: Visit Provider Physician Assistant
DX: H61.23 Impacted cerumen, bilateral (principal); H65.193 Other acute nonsuppurative otitis media, bilateral

== ENCOUNTER → 2025-08-06 12:03 | Outpatient (BNVA) | payer MEDICARE, BC, SELFPAY | PROVIDERS: Visit Provider Physician Assistant | DX: H61.23 Impacted cerumen, bilateral (principal); H65.193 Other acute nonsuppurative otitis media, bilateral | CPT/HCPCS: 69210 ==

== ENCOUNTER 2025-08-19 13:21 | Outpatient (AMB) | payer MEDICARE, BC, SELFPAY ==
--- OUTSIDE RECORDS SUMMARY | 2024-09-11 06:00 | XMS_ITS ---
Author Organization [facility] Address [address] [place] [address] Care Team Providers Care Pipeline Maintenance Supervisor Name Role Phone Shawanda Shell Primary Care Provider UnavailSabra Caldwell Unavailable [phone] Allergies Allergen (clinical drug ingredient) Drug/Non Drug [...] Active Encounters Encounter Location Date Provider Diagnosis [facility] [address] [place] [address] 09/11/2024 Sabra Craft Plan Of Treatment Next Appt Details Provider Name:Sabra painter, 09/11/2025 10:00:00 AM, [address] [place], [address], Progress Notes * Joanie LEWIS KDOB: 6 (70 yo F)Acc No.[id number]:09/11/2024 Progress Note Patient: Joanie FREITAS Provider: Yosef Craft DPM :1955 A ge:69 Y S ex:Female Date:09/11/2024 Address:[address] [place] [address] [facility] Pcp:Shawanda Shell Subjective: * Chief Complaints: * [...] DPM Date: Generated for Miladis dempsey/Pascual/Subha on: 03:45 PM EDT History and Physical Notes * HPI (History of Present Illness) Category Sub-Category Detail Notes Category Not es At Risk footcare Pt States Last PCP Visit: Date:
--- NOTE | 2025-08-19 14:49 | AM.OFFWIN_ITS ---
Intake Vital Signs 08/19/25 14:50 Height 4 ft 10 in Weight 153 lb 8 oz BMI 32.1 BP 118/76 Blood Pressure Location Lt brachial Position Sitting Pulse 83 Pulse Source Pulse Oximeter Temp 98.0 F Temp Source Oral Pulse Oximetry (%) 98 Intake Visit Reasons: ep ears clogged cannot hear Patient Tobacco Use Status: Never used Tobacco Allergies guaifenesin (From MUCINEX) Allergy (Intermediate, Verified 08/19/25 14:54) SWELLING Do you need a note to return to daycare/school/sports/work: No HPI HPI Comments History of Present Illness Details History - The patient is a 70-year-old female pr esenting with worsening hearing loss and ear pain. - Initially seen two weeks ago for fluid in the ears, advised to use an allergy nasal spray. - Condition improved over the weekend bu t worsened, causing difficulty hearing on the left ear. - Reports slight headache and occasional sharp ear pain. - No decongestant was initially prescrib ed, only an tdsl-ljf-yakmrxz nasal spray. - History of one prior ear infection, co ncerned about developing another. - She denies fever, chills, CP, SOB, abd pain, n/v/d, cough or sore throat. - She had her ears cleaned at the day of visit. - She has no discharge or bleeding. Physical Exam General: Cooperative, healthy appearing, comfortable, no acute distress and well developed Head: Normal to inspection Ears: External ears normal bilaterally. No tragus or mastoid tenderness noted. Cerumen noted in the canal. Fluid noted behind the tympanic membrane bilaterally. TM's clear with visible bony landmarks. Face and sinus: Normal facial exam. Fluid noted in the sinuses. Neck: Normal visual inspection. Full ROM. No lymphadenopathy noted. Respiratory: Normal respiratory effort and able to speak in complete sentences. Clear to auscultation bilaterally. No w/r/r noted. Cardiac: RRR, no m/r/g noted. Normal S1 and S2 noted. Skin: No rashes or lesions noted Neuro: Patient oriented x3 Patient was informed and verbally consented to the use of an ambient scribe for clinic note documentation during this visit. [facility] Medical History Shakiness Arthritis, hip Preop exam for internal medicine [place] (hard of hearing) Diabetes HERBERT (stress urinary incontinence, female) Arthritis Depression History of gestational diabetes Osteoarthritis of right hip Obesity Hypertension Surgical History Status post total hip replacement, right History of hip replacement H/O tooth extraction History of removal of cyst Status post surgical removal of nail matrix of toe History of section Family History Father No problems noted. Mother No problems noted. Family/Other Heart failure Diabetes CHF (congestive heart failure) Social History Household Members: Children Household Members Other:: son Housing: House Housing Other:: Lives in trailer with two steps to get up into it Are you a primary care transport nurse to a significant other at home: No Do you presently have visiting nurse or other home services: Yes ([facility]) Alcohol intake: current Alcohol intake frequency: does not drink Comment: fall risk due to recent hip surgery Patient Tobacco Use Status: Never used Tobacco Tobacco use type: Cigarette e-Cigarette/Vaping Use: Never Used Second Hand Smoke Exposure: No service: No Current occupational status: retired Current occupational exposures/hazards: No Cognitive needs: No Hearing needs: No Vision needs: Yes (glasses) Review of Systems Const All systems reviewed & are unremarkable except as noted in HPI and below Physical Exam Vital Signs: Last Vital Signs Temp 98.0 F 08/19/25 14:50 Pulse 83 08/19/25 14:50 BP 118/76 08/19/25 14:50 Pulse Ox 98 08/19/25 14:50 BMI result Body Mass Index 32.1 Assessment & Plan Assessment & Plan (1) Ear pain: Code(s): H92.09 - Otalgia, unspecified ear Qualifiers: Laterality: bilateral Qualified Code(s): H92.03 - Otalgia, bilateral Plan Most likely OE vs OM vs effusion vs ET dysfunction Plan - Start Zyrtec D to manage sinus congestion and reduce ear fluid. - Prescribe antibiotics to prevent infection from persistent fluid. - continue with Flonase - tylenol or motrin as needed - follow up with PCP - May need ENT referral if no better Medications: New amoxicillin-pot clavulanate 875-125 mg 1 tab PO Q12H 14 tabs 0RF cetirizine-pseudoephedrine 5-120 mg ER 1 tab PO BID 14 tabs 0RF 7 days Coding Level of Care Code Est Pt Level 3 (71506) Diagnoses Otalgia of both ears H92.03 Laterality: bilateral
[2025-08-19 14:50] VITALS: BP 118/76; PULSE 83; TEMP 36.7; O2SAT 98; BMI 32.1
--- OUTSIDE RECORDS SUMMARY | 2025-08-19 15:45 | XMS_ITS | Patient Health Record ---
Author Organization [facility] Address [address] [place] [address] Care Team Providers Care Rickshaw Driver Name Role Phone Shawanda Shell Primary Care Provider UnavailSabra Caldwell Unavailable [phone] Allergies Allergen (clinical drug ingredient) Drug/Non Drug [...] Problem Acquired hammer toe of right foot (132529359740 9105) Other hammer toe(s) (acquired), right foot (M20.41) Active confirmed Problem Acquired hammer toe of left foot (564556818169 9103) Other hammer toe(s) (acquired), left foot (M20.42) Active confirmed Problem Diabetes mellitus (53843106) Type 2 diabetes mellitus without complication (E11.9) Active confirmed Vital Signs Blood pressure diastolic 80 mm Hg 06/11/2025 Height 4ft9in in 06/11/2025 Blood pressure systolic 142 mm Hg 06/11/2025 Weight 152 lbs 06/11/2025 BMI 32.89 kg/m2 06/11/2025 Encounters Encounter Location Date Provider Diagnosis [address] [address] 09/13/2024 Sabra Perica Pain in right toe(s) M79.674 ; Tinea unguium B35.1 ; Pain in left toe(s) M79.675 and Type 2 diabetes mellitus without complication E11.9 [facility] [address] [place] [address] 12/14/2024 Sabra Perica Pain in right toe(s) M79.674 ; Tinea unguium B35.1 ; Pain in left toe(s) M79.675 and Type 2 diabetes mellitus without complication E11.[address] [address] 03/15/2025 Sabra Craft Tinea unguium B35.1 ; Other hammer toe(s) (acquired), right foot M20.41 ; Pain in right toe(s) M79.674 ; Pain in left toe(s) M79.675 ; Type 2 diabetes mellitus without complication E11.9 and Other hammer toe(s) (acquired), left foot M20.[address] [address] 06/11/2025 Sabra Craft Tinea unguium B35.1 ; [...] Provider Name:Sabra painter, 09/11/2025 10:00:00 AM, [address] [place], [address], Insurance Providers Payer Name Payer Address Payer Phone Subscriber Number Group Number Insured Name Patient Relationship to Insured Coverage Start Date Coverage End Date Medicare National Govt Sv[employer] [address] [facility] [address] [id number] Joanie Pereyra Self - patient is the insured [facility] [address] [place] [address] [id number] Joanie Pereyra Self - patient is the insured Medical (General) History Medical History History ICD Code Arthritis Broken bones CAD (Cholesterol) Diabetic-BORDERLINE Epilepsy High blood pressure Diabetic Surgical History Surgery Date(Month/Year) right hip surgery 2022 left hip surgery 06/13/24
== END 2025-08-19 15:21 | disposition home or self-care (01) ==
PROVIDERS: Visit Provider Physician Assistant Medical
DX: H92.03 Otalgia, bilateral (principal)

== ENCOUNTER → 2025-08-19 13:21 | Outpatient (BNVA) | payer MEDICARE, BC, SELFPAY | PROVIDERS: Visit Provider Physician Assistant Medical | DX: H92.03 Otalgia, bilateral (principal) | CPT/HCPCS: 99212 ==

== ENCOUNTER 2025-09-09 09:04 | Outpatient (REF) | payer MEDICARE, BC, SELFPAY ==
--- OUTSIDE RECORDS SUMMARY | 2024-06-19 07:30 | XMS_ITS ---
Author Organization [facility] Address [address] [place] [address] Care Team Providers Care Sales Service Technician Name Role Phone Shawanda Shell Primary Care Provider Unavailab Sabra Calvo [phone] Encounters Encounter Location Date Provider Diagnosis [address] [address] 06/19/2024 Sabra Craft Plan Of Treatment Next Appt Details Provider Name:Sabra painter, 09/11/2025 10:00:00 AM, [address] [place], [address], Progress Notes * Joanie LEWIS KDOB: (70 yo F)Acc No.[id number]:06/19/2024 Progress Note Patient: Milena RAÚL Joanie Genao Provider: Yosef Craft DPM :1955 A ge:69 Y S ex:Female Date:06/19/2024 Address:[address] [place] [address] Pcp:Shawanda Shell Subjective: * Chief Complaints: * [...] 06/19/2024 Generated for Miladis dempsey/Pascual/Subha on: 1 09:52 AM EDT
--- OUTSIDE RECORDS SUMMARY | 2024-09-11 06:00 | XMS_ITS ---
Author Organization [facility] Address [address] [place] [address] Care Team Providers Care Property Management Bookkeeper Name Role Phone Shawanda Shell Primary Care Provider UnavailSabra Caldwell Unavailable [phone] Allergies Allergen (clinical drug ingredient) Drug/Non Drug [...] Encounters Encounter Location Date [facility] [address] [place] [address] 09/11/2024 Sabra Craft Plan Of Treatment Next Appt Details Provider Name:Sabra painter, 09/11/2025 10:00:00 AM, [address] [place], [address], Progress Notes * Joanie LEWIS KDOB: [birth year] (70 yo F)Acc No.[id number]:09/11/2024 Progress Note Patient: Joanie FREITAS Provider: Yosef Craft DPM :1955 A ge:69 Y S ex:Female Date:09/11/2024 Address:[address] [place] [address] [facility] Pcp:Shawanda Shell Subjective: * Chief Complaints: * [...] DPM Date: Generated for Miladis dempsey/Pascual/Subha on: 09:52 AM EDT History and Physical Notes * HPI (History of Present Illness) Category Sub-Category Detail Notes Category Not es At Risk footcare Pt States Last PCP Visit: Date:
--- NOTE | ~2025-09-09 | MM_ITS ---
EXAMINATION: MM SCREENING DIGITAL BREAST TOMOSYNTHESIS, BILATERAL CLINICAL INFORMATION: Screening. Asymptomatic. COMPARISON: Mammography: Comparison is made with available priors TECHNIQUE: Digital breast mammography with tomosynthesis is performed in both the craniocaudal and mediolateral oblique views along with computer-aided detection (CAD). FINDINGS: There are scattered areas of fibroglandular density. There are no significant masses, abnormal calcifications, or other abnormalities. MM/MM tomosynthesis screening BI IMPRESSION: No mammographic evidence of malignancy. ASSESSMENT: BI-RADS Category 1: Negative RECOMMENDATION: Routine annual mammography screening. 1 year F/U This examination should not preclude the clinical evaluation of a suspicious palpable abnormality. This patient's information was entered into a reminder system with a target due date for their next mammogram. Electronically signed by: Vani Guardado DO 09/10/2025 02:42 PM EDT
--- OUTSIDE RECORDS SUMMARY | 2025-09-09 09:52 | XMS_ITS | Patient Health Record ---
Author Organization [facility] Address [address] [place] [address] Care Team Providers Care Internet And E Business Project Manager Name Role Phone Shawanda Shell Primary Care Provider UnavailSabra Caldwell Unavailable [phone] Allergies Allergen (clinical drug ingredient) Drug/Non Drug [...] Problem Acquired hammer toe of right foot (842862994778 9105) Other hammer toe(s) (acquired), right foot (M20.41) Active confirmed Problem Acquired hammer toe of left foot (280072220942 9103) Other hammer toe(s) (acquired), left foot (M20.42) Active confirmed Problem Diabetes mellitus (01460216) Type 2 diabetes mellitus without complication (E11.9) Active confirmed Vital Signs Blood pressure diastolic 80 mm Hg 06/11/2025 Height 4ft9in in 06/11/2025 Blood pressure systolic 142 mm Hg 06/11/2025 Weight 152 lbs 06/11/2025 BMI 32.89 kg/m2 06/11/2025 Encounters Encounter Location Date Provider Diagnosis [address] [address] 09/13/2024 Sabra Perica Pain in right toe(s) M79.674 ; Tinea unguium B35.1 ; Pain in left toe(s) M79.675 and Type 2 diabetes mellitus without complication E11.9 [facility] [address] [place] [address] 12/14/2024 Sabra Perica Pain in right toe(s) M79.674 ; Tinea unguium B35.1 ; Pain in left toe(s) M79.675 and Type 2 diabetes mellitus without complication E11.[address] [address] 03/15/2025 Sabra Craft Tinea unguium B35.1 ; Other hammer toe(s) (acquired), right foot M20.41 ; Pain in right toe(s) M79.674 ; Pain in left toe(s) M79.675 ; Type 2 diabetes mellitus without complication E11.9 and Other hammer toe(s) (acquired), left foot M20.[address] [address] 06/11/2025 Sabra Craft Tinea unguium B35.1 ; [...] Provider Name:Sabra painter, 09/11/2025 10:00:00 AM, [address] [place], [address], Insurance Providers Payer Name Payer Address Payer Phone Subscriber Number Group Number Insured Name Patient Relationship to Insured Coverage Start Date Coverage End Date Medicare National Govt Svcs Inc [address] [place] [address] [id number] Joanie Pereyra Self - patient is the insured [facility] [address] [place] [address] [id number] Joanie Pereyra Self - patient is the insured Medical (General) History Medical History History ICD Code Arthritis Broken bones CAD (Cholesterol) Diabetic-BORDERLINE Epilepsy High blood pressure Diabetic Surgical History Surgery Date(Month/Year) right hip surgery 2022 left hip surgery 06/13/24
== END 2025-09-09 09:05 | disposition home or self-care (01) ==
LOC: HO.MAMMO 09:04
DX: Z12.31 Encounter for screening mammogram for malignant neoplasm of breast (principal)
CPT/HCPCS: 77063; 77067

== ENCOUNTER 2025-09-09 10:17 | Outpatient (REF) | payer MEDICARE, BC, SELFPAY ==
--- NOTE | ~2025-09-09 | XR_ITS ---
EXAMINATION: XR PELVIS CLINICAL INFORMATION: M25.559 - Pain in unspecified hip COMPARISON: X-ray 06/13/2024 TECHNIQUE: 2 AP view of the pelvis. FINDINGS: Bilateral total total arthroplasty, with stable position and alignment. No acute fracture or suspicious perihardware lucency. SI joints and symphysis pubis are intact. No suspicious bony lesions. Spondylosis in the visualized lower lumbar spine. No abnormal soft tissue calcification. XR/XR pelvis 1-2V IMPRESSION: Bilateral total hip arthroplasties. No radiographic evidence of hardware complications. Electronically signed by: Srikanth Gandhi MD 09/09/2025 11:11 AM EDT
== END 2025-09-09 10:18 | disposition home or self-care (01) ==
LOC: HO.HOSX 10:17
PROVIDERS: Visit Provider Orthopaedic Surgery
DX: Z96.643 Presence of artificial hip joint, bilateral (principal); M25.561 Pain in right knee; M25.562 Pain in left knee
CPT/HCPCS: 72170; 99212

== ENCOUNTER 2025-09-09 10:39 | Outpatient (AMB) | payer MEDICARE, BC, SELFPAY ==
[2025-09-09 10:49] VITALS: BMI 32.0
--- NOTE | 2025-09-09 10:49 | A.OFFVIS_ITS ---
Vital Signs 09/09/25 10:49 Height 4 ft 10 in Weight 153 lb BMI 32.0 Intake Visit Reasons: OV-LT DAVE w/NE 06/13/24-year follow up Intake Note: Jonaie is a 70 year old female who presents today for a follow up of her Left Hip, about One Year S/P Left DAVE 06/13/24. Patient reports that her hip is doing well. She complains of bilateral knee pain, increases when kneeling. Adamant that she does not want a knee replacement. Allergies guaifenesin (From MUCINEX) Allergy (Intermediate, Verified 08/19/25 14:54) SWELLING HPI HPI OV-LT DAVE w/NE 06/13/24-year follow up: Details: Joanie is a 70 year old female who presents today for a follow up of bilateral hip replacements. She also complains of knee pain. Patient reports that her hips are doing well. She complains of bilateral knee pain, increases when kneeling. She denies injury. This has been going on a for few months and has been getting mildly worse but it is not particularly problematic. She is able to get through daily activities and has minimal discomfort. [facility] Medical History Shakiness Arthritis, hip Preop exam for internal medicine [place] (hard of hearing) Diabetes HERB[place] (stress urinary incontinence, female) Arthritis Depression History of gestational diabetes Osteoarthritis of right hip Obesity Hypertension Surgical History Status post total hip replacement, right History of hip replacement H/O tooth extraction History of removal of cyst Status post surgical removal of nail matrix of toe History of section Family History Father No problems noted. Mother No problems noted. Family/Other Heart failure Diabetes CHF (congestive heart failure) Social History Household Members: Children Household Members Other:: son Housing: House Housing Other:: Lives in trailer with two steps to get up into it Are you a primary inpatient care manager rn to a significant other at home: No Do you presently have visiting nurse or other home services: [facility] Alcohol intake: current Alcohol intake frequency: does not drink Comment: fall risk due to recent hip surgery Patient Tobacco Use Status: Never used Tobacco Tobacco use type: Cigarette e-Cigarette/Vaping Use: Never Used Second Hand Smoke Exposure: No service: No Current occupational status: retired Current occupational exposures/hazards: No Cognitive needs: No Hearing needs: No Vision needs: Yes (glasses) Physical Exam Exam Exam: No acute distress No pain with hip range of motion. No gait antalgia or abnormality. Retropatellar tenderness to palpation bilateral knees with full range of motion Vital Signs: BMI result Body Mass Index 32.0 Results Reviewed Results Reviewed: I personally reviewed relevant radiographs. Bilateral DAVE in expected post operative position with no hardware complications or evidence of loosening Assessment & Plan Assessment & Plan (1) Status post bilateral hip replacements: Code(s): Z96.643 - Presence of artificial hip joint, bilateral Category: Surgical Plan: Joanie is doing very well status post bilateral hip replacements. She has no complaints and no limitations. Continue as tolerated. (2) Bilateral knee pain: Code(s): M25.561 - Pain in right knee; M25.562 - Pain in left knee Category: Medical Plan: Joanie complains of bilateral knee pain with deep squatting. She is pretty adamant that she does not want intervention. She can return to see me for follow up and we can obtain some x-rays but her exam is benign. Orders: Orders XR pelvis 1-2V Today M25.559 - Pain in unspecified hip Coding Level of Care Code Est Pt Level 3 (45987) Diagnoses Status post bilateral hip replacements Z96.643 Bilateral knee pain M25.561; M25.562
== END 2025-09-09 11:08 | disposition home or self-care (01) ==
LOC: HO.HOS 10:40
PROVIDERS: Visit Provider Orthopaedic Surgery
DX: M25.561 Pain in right knee (principal); M25.562 Pain in left knee; Z96.643 Presence of artificial hip joint, bilateral
CPT/HCPCS: 99213

== ENCOUNTER → 2025-09-09 10:41 | Outpatient (BNV) | payer MEDICARE, BC, SELFPAY | PROVIDERS: Visit Provider Radiology Diagnostic Ultrasound | DX: Z12.31 Encounter for screening mammogram for malignant neoplasm of breast (principal) | CPT/HCPCS: 77063; 77067 ==

== ENCOUNTER 2025-09-12 10:50 | Outpatient (AMB) | payer MEDICARE, BC, SELFPAY ==
--- OUTSIDE RECORDS SUMMARY | 2024-06-19 07:30 | XMS_ITS ---
Author Organization [facility] Address [address] [place] [address] Care Team Providers Care Associate Partner Name Role Phone Shawanda Shell Primary Care Provider Unavailab Sabra Calvo [phone] Encounters Encounter Location Date Provider Diagnosis [address] [address] 06/19/2024 Sabra Craft Plan Of Treatment Next Appt Details Provider Name:Sabra painter, 12/11/2025 11:15:00 AM, [address] [place], [address], Progress Notes * Joanie LEWIS KDOB: (70 yo F)Acc No.[id number]:06/19/2024 Progress Note Patient: Milena RAÚL Joanie Genao Provider: Yosef Craft DPM :1955 A ge:69 Y S ex:Female Date:06/19/2024 Address:[address] [place] [address] Pcp:Shawanda Shell Subjective: * Chief Complaints: * [...] 06/19/2024 Generated for Miladis dempsey/Pascual/Subha on: 1 01:31 PM EDT
--- OUTSIDE RECORDS SUMMARY | 2024-09-11 06:00 | XMS_ITS ---
Author Organization [facility] Address [address] [place] [address] Care Team Providers Care Finish Remover Name Role Phone Shawanda Shell Primary Care Provider UnavailSabra Caldwell Unavailable [phone] Allergies Allergen (clinical drug ingredient) Drug/Non Drug [...] Active Encounters Encounter Location Date Provider Diagnosis [facility] [address] [place] [address] 09/11/2024 Sabra Craft Plan Of Treatment Next Appt Details Provider Name:Sabra painter, 12/11/2025 11:15:00 AM, [address] [place], [address], Progress Notes * Joanie LEWIS KDOB: 6 (70 yo F)Acc No.[id number]:09/11/2024 Progress Note Patient: Joanie FREITAS Provider: Yosef Craft DPM :1955 A ge:69 Y S ex:Female Date:09/11/2024 Address:[address] [place] [address] [facility] Pcp:Shawanda Shell Subjective: * Chief Complaints: * [...] DPM Date: Generated for Miladis dempsey/Pascual/Subha on: 01:31 PM EDT History and Physical Notes * HPI (History of Present Illness) Category Sub-Category Detail Notes Category Not es At Risk footcare Pt States Last PCP Visit: Date:
--- OUTSIDE RECORDS SUMMARY | 2025-09-11 06:00 | XMS_ITS ---
Author Organization [facility] Address [address] [place] [address] Care Team Providers Care Ticket Collector Or Usher Name Role Phone Shawanda Shell Primary Care Provider UnavailSabra Caldwell Unavailable [phone] Allergies Allergen (clinical drug ingredient) Drug/Non Drug [...] 40 MG Oral; Duration: 90 Days Active hydroCHLOROthiazide 25 MG Oral; Duration: 90 Days Active Extra Depth Orthopedic Shoes (1 Pair) with Customized Heat Molded Multidensity Innersoles (3 Pair) as directed Dx: NIDDM/Polyneuropathy (E11.42), Hammertoe Foot Deformity (M20.41,M20.42), Preulcerative Skin Lesion(s) (L85.1 03/15/2025 Active Ciclopirox 0.77 % 1 application to affected area Externally Twice a day to effected nails; Duration: 30 days 08/16/2023 Active Lisinopril 10 MG Oral; Duration: 90 Days Active Social History Tobacco Use: Social History Observation Description Date Details (start date - stop date) Never Smoker NA - NA Tobacco use other than smoking: Question Answer Notes Are you an other tobacco user? No Tobacco Control (Standard) Question Answer Notes Tobacco use: Nonsmoker Additional Findings: Tobacco non-user Current no nsmoker AUDIT-C (Standard) Question Answer Notes Did you have a drink containing alcohol in the p ast year? No Points 0 Interpretation Negative Vital Signs Height 4ft9in in 09/11/2025 Weight 152 lbs 09/11/2025 BMI 32.89 kg/m2 09/11/2025 Blood pressure systolic 135 mm Hg 09/11/20 25 Blood pressure diastolic 65 mm Hg 025 Encounters Encounter Location Date Provider Diagnosis [facility] [address] [place] [address] 09/11/2025 Sabra Saidainocencio Tinea unguium B35.1 ; Pain in right toe(s) M79.674 ; Pain in left toe(s) M79.675 and Type 2 diabetes mellitus without complication E11.9 Assessments Encounter Date Diagnosis (ICD Code) Assessment Notes Treatment Notes Treatment Clinical Notes Section Notes 09/11/2025 Tinea unguium (ICD-10 - B35.1) 09/11/2025 Pain in right toe(s) (ICD-10 - M79.674) 09/11/2025 Pain in left toe(s) (ICD-10 - M79.675) 09/11/2025 Type 2 diabetes mellitus without complication (ICD-10 - E11.9) Plan Of Treatment Next Appt Details Follow Up: 3 Months, Reason: Provider Name:Sabraparisa painter, 12/11/2025 11:15:00 AM, [address] [place] [address], [address], Procedure Notes * Category Sub-Category Detail Notes [...] use of a nail nipper and/or dremel-type platen grinder, to a more viable healthy nail [...] to maintain effectiveness in symptomatic relief - 02388 Progress Notes * Joanie LEWIS KDOB: [birth year] (70 yo F)Acc No.[id number]:09/11/2025 Progress Note Patient: Joanie FREITAS Provider: Yosef Craft DPM :1955 A ge:70 Y S ex:Female Date:09/11/2025 Address:[address] [place], [place] [id number] Pcp:Shawanda Shell Subjective: * Chief Complaints: * A t Risk FootcarePainful Nail(s) aggrevated by shoes and causing difficulty standing/walking. * HPI: A t Risk footcare: Pt States Last PCP Visit: D ate 0 07/03/2025 * ROS: G eneral/Constitutional: Nausea d enies, [...] C ardiovascular: Pacemaker d enies, denies. M MASON LINER d enies, denies.?WPW d enies, denies. C [...] Social History: T obacco Use: T obacco use other than smoking A re you an other tobacco user? N o Tobacco Control (Standard) T obacco use: N onsmoker A dditional Findings: Tobacco non-user C urrent nonsmoker D rugs/Alcohol: D rugs H ave you used drugs other than those for medical reasons in the past 12 months? N o M iscellaneous: C affeine: no. Children: yes. Exercise: no. Marital status: . Occupation: Retired, [employer]. D rug/Alcohol: A MARE-C (Standard) [...] ucinex: fernando[Allergies Verified] Objective: * Vitals: H t:4ft9in, Wt:152, BMI:32.89, Shoe size:6-7, BP:135/65mm Hg, BS:not taken, Ht-cm: 144.78 cm, Wt-k.95 kg. * P ast Orders: L ab:HEMOGLOBIN A1C (GLYCOHEMOGLOBIN) (Order Date - 02/12/2025) (Collection Date & Time - 02/12/2025 10:56 AM) Value Reference Range HEMOGLOBIN A1C % (HH) 6.8 * Examination: O phthalmology Referral: DIABETES EYE EXAM P rocedure Performed: Frank Abbott ate of Exam Performed 0 06/17/2025 D iabetic Retinopathy Screening: Y jany R etinal Screening Performed: Frank carmichael F indings of Diabetic Eye Exam: n [...] shoe gear properties exacerbate patient's foot/toe deformity. V ascular: DP PULSES (B): 3 /4, B/L. PT PULSES (B): 3 /4, B/L. CAPILLARY FILL TIME: i mmediate, all digits, B/L. TROPHIC CONDITION-TEXTURE/ELASTICITY/TURGOR/HAIR GROWTH (B):?normal, B/L. TEMPERTURE GRADIENT (C): n ormal, warm to cool, proximal to distal, B/L, B/L. PIGMENTATION: n ormal, B/L. EDEMA (C): a bsent, B/L. Assessment: * Assessment: 1. T inea unguium [...] of a nail nipper and/or dremel- type platen grinder, to a more viable healthy nail [...] to maintain effectiveness in symptomatic relief - 79461. * Procedure Codes: 1 1721 DEBRIDE NAIL, 6 OR MORE * Preventive Medicine: Screening/Special Tests: F all Risk Screening: N o falls in the past year F ALLS: Screening for Future Fall Risk Have you had any falls with injury in the past year? N o * Follow Up: 3 Months * Images: * Sign off status: Completed true * Provider: Yosef Craft DPM Date: Generated [...] MORPHOLOGY: (-) Charcot col lapse/destruction noted at COJ FOOTWEAR EVALUATION: worn, non-supportiv e, shoe gear properties exacerbate patient's foot/toe deformity DIGITAL DEFORMITIES: Digital contracture , PIPJ, 2-5 B/L, incompl-reducible to push-up test, no over, nor underlapping, there is evidence of shoe producing skin irritation MUSCLE STRENGTH: 5/5 all groups in a symmetrical fashion, B/L Ophthalmology Referral DIABETES EYE EXAM Procedure Perform ed:: Yes Date of Exam Performed: 06/17/2025 Diabetic Retinopathy Screening:: Yes Retinal Screening Performed:: Yes Findings of Diabetic Eye Exam:: no retin opathy Vascular DP PULSES (B): 3/4, B/L PT PULSES (B): 3/4, B/L CAPILLARY FILL TIME: immediate, all digi ts, B/L TEMPERTURE GRADIENT (C): normal, warm to cool, proximal to distal, B/L, B/L TROPHIC CONDITION-TEXTURE/ELASTICITY/TURGOR/HAIR GROWTH (B): normal, B/L EDEMA (C): absent, B/L PIGMENTATION: normal, B/L Nails NAILS are: Elongated, overg rown, dystrophic, lytic, greater than 3mm thick, discolored and friable with crumbly malodorous subungual debris, with pain on palpation , TA, T1, T2, T3, T4, T6, T7, T8, T9
[2025-09-12 10:51] VITALS: BP 118/69; PULSE 82; TEMP 36.2; O2SAT 93; BMI 31.7
--- NOTE | 2025-09-12 10:51 | A.OFFPC_ITS ---
Vital Signs 09/12/25 10:51 Height 4 ft 10 in Weight 151 lb 8 oz BMI 31.7 BP 118/69 Blood Pressure Location Lt brachial Position Sitting Pulse 82 Pulse Source Pulse Oximeter Temp 97.1 F Temp Source Temporal Artery Scan Pulse Oximetry (%) 93 Oxygen Delivery Method Room Air Intake Visit Reasons: f/u DM nad HLD Product Management Manager Required: No Accompanied by: Self / Same As Patient Allergies guaifenesin (From MUCINEX) Allergy (Intermediate, Verified 09/12/25 10:58) SWELLING Medication List - Last Reconciled 09/12/25 by Shawanda Shell PA-C amoxicillin-pot clavulanate 875-125 mg 1 tab PO Q12H atorvastatin 40 mg PO DAILY cetirizine-pseudoephedrine 5-120 mg ER 1 tab PO BID 7 days hydrochlorothiazide 25 mg PO DAILY lisinopril 10 mg PO DAILY metformin 500 mg PO DAILY Tobacco use date assessed: 06/12/25 Fall risk assessment: No Falls in past year Last assessed Fall Risk: 09/12/25 Dental Screening Dental Screen Date: 09/12/25 Did you have a dental visit in the last 12 months?: No Did you have a dental problem in the last 6 months where you did not have access to dental care?: No Was dental information given to patient?: No HPI f/u DM nad HLD HPI Details 70-year-old female with past medical his tory of obesity, hypertension, hyperlipidemia and hearing loss last seen coming in for follow up. In review of the notes, patient was seen by Orthopedics 08/2025. She is also seen in the walk-in clinic 08/2025 for otalgia patient was given antibiotics and Flonase and advised to follow up with PCP. Presenting for a follow-up visit to manage her type 2 diabetes and address persistent hearing difficulty. Her ear pain improved after antibiotics but still continues with decreased hearing. She is scheduled for hearing test next month. She has a history of sinus problems but has not seen an ENT specialist recently. For her type 2 diabetes, a recent in-office A1c was 7.0% Her diet is inconsistent; she sometimes skips meals and receives meals from [facility], which she feels are not truly a diabetic diet. She actively tries to avoid sweets and soda, opting for sugar-free or diet alternatives, and drinks flavored water. [facility] Medical History Shakiness Arthritis, hip Preop exam for internal medicine [place] (hard of hearing) Diabetes [place] (stress urinary incontinence, female) Arthritis Depression History of gestational diabetes Osteoarthritis of right hip Obesity Hypertension Surgical History Status post total hip replacement, right History of hip replacement H/O tooth extraction History of removal of cyst Status post surgical removal of nail matrix of toe History of section Family History Father No problems noted. Mother No problems noted. Family/Other Heart failure Diabetes CHF (congestive heart failure) Social History Household Members: Children Household Members Other:: son Housing: House Housing Other:: Lives in [facility] with two steps to get up into it Are you a primary healthcare associate to a significant other at home: No Do you presently have visiting nurse or other [facility]: [facility] Alcohol intake: current Alcohol intake frequency: does not drink Comment: fall risk due to recent hip surgery Patient Tobacco Use Status: Never used Tobacco Tobacco use type: Cigarette e-Cigarette/Vaping Use: Never Used Second Hand Smoke Exposure: No service: No Current occupational status: retired Current occupational exposures/hazards: No Cognitive needs: No Hearing needs: No Vision needs: Yes (glasses) Questionnaire PHQ-9 Over the last 2 weeks, how often have you been bothered by any of the following problems? 1. Little interest or pleasure in doing things: more than half the days 2. Feeling down, depressed, or hopeless: not at all 3. Trouble falling or staying asleep, or sleeping too much: not at all 4. Feeling tired or having little energy: nearly every day 5. Poor appetite or overeating: not at all 6. Feeling bad about yourself - or that you are a failure or have let yourself or your family down: not at all 7. Trouble concentrating on things, such as reading the newspaper or watching television: not at all 8. Moving or speaking so slowly that other people could have noticed. Or the opposite - being so fidgety or restless that you have been moving around a lot more than usual: not at all 9. Thoughts that you would be better off or of hurting yourself in some way: not at all Total score: 5 Depression Screening Interpretation: Positive Depression Screening Follow-up: Existing condition Depression Screening Done: Yes Source: Developed by Drs. Leodan Sawyer, Lashon Elizabeth, Arvind Palacios and colleagues, with an educational alta from [employer]. Thrive Questionnaire Date Thrive assessed: 02/28/25 I am a: Patient What is your living situation today?: I have a steady place to live Within the past 12 months, did the food you bought not last and you didn't have the money to get more?: Never true Within the past 12 months, did you worry whether your food would run out before you got money to buy more?: Never true Do you have trouble paying for medicines?: No Do you have trouble getting transportation to medical appointments?: No Do you have trouble paying your heating and electricity bill?: No Do you have trouble taking care of your child, family member or friend?: No Do you have trouble with day-to-day activities such as bathing, preparing meals, shopping, managing finances, etc.?: No Are you currently unemployed and looking for a job?: No Are you interested in more education?: No Please select the resources that you would like help with: None Currently or been in a relationship where the following occur: I choose not to answer THRIVE Score: 0 AUDIT C Alcohol Use Questionnaire (AUDIT-C) 1. How often do you have a drink containing alcohol?: Never Total Score: 0 LEIGHANN-7 AMB Questionnaire LEIGHANN-7 Date LEIGHANN - 7 assessed: 09/12/25 Feeling nervous, anxious, or on edge: 1 = Several days Not being able to stop or control worryin = Several days Worrying too much about different things: 1 = Several days Trouble relaxin = Not at all Being so restless that it is hard to sit still: 1 = Several days Becoming easily annoyed or irritable: 1 = Several days Feeling afraid as if something awful might happen: 0 = Not at all Total LEIGHANN-7 score (0-4 normal; 5-9 mild; 10-14 moderate; 15-21 severe): 5 Source: Developed by Drs. Leodan Sawyer, Lashon Elizabeth, Arvind Palacios and colleagues, with an educational alta from [employer]. Review of Systems Const Denies body aches, Denies chills, Denies fever(s) and Denies poor appetite Eyes Reports no additional complaints ENT Denies Normal hearing present (decreased hearing ), Denies dizziness and Denies otalgia Card Denies chest pain, Denies edema, Denies lightheadedness and Denies dyspnea Resp Denies cough and Denies dyspnea GI Denies abdominal pain, Denies nausea and Denies vomiting Reports no additional complaints Musc Reports no additional complaints and Denies abnormal gait Skin/Breast Reports system reviewed and no additional complaints, except as documented Neuro Denies Normal hearing present (decreased hearing ), Denies abnormal gait and Denies dizziness Psych Reports no additional complaints Physical exam (Primary Care) Vital Signs: Last Vital Signs Temp 97.1 F 09/12/25 10:51 Pulse 82 09/12/25 10:51 BP 118/69 09/12/25 10:51 Pulse Ox 93 09/12/25 10:51 Oxygen Delivery Method Room Air 09/12/25 10:51 BMI result Body Mass Index 31.7 Tobacco/Smoking Status: Tobacco use Status Tobacco use date assessed 06/12/25 09/12/25 10:54 Patient Tobacco Use Status Never used Tobacco 09/12/25 10:54 Tobacco use type Cigarette 09/12/25 10:54 e-Cigarette/Vaping Use Never Used 09/12/25 10:54 PHQ-9: PHQ-9 Score PHQ-9: Total score 5 09/12/25 11:19 Depression Screening Interpretation: Positive Depression Screening Follow-up: Existing condition Thrive Assessment: Date of Thrive Assessment Date Thrive assessed 02/28/25 09/12/25 10:54 Currently or been in a relationship where the following occur: I choose not to answer Const General: cooperative, healthy appearing, comfortable and no acute distress Orientation/consciousness: patient oriented x3 HENMT Head: Yes normocephalic Ears: hearing grossly normal bilaterally General nose exam: Normal external nose present Eyes General: appearance normal, both eyes and all related structures Conjunctivae: conjunctivae normal Neck Neck: Yes full ROM and Yes no lymphadenopathy Resp Effort & Inspection: normal respiratory effort Auscultation: clear to auscultation bilaterally, no crackles, no rales, no rhonchi and no wheezes Cardio Rate: regular rate Rhythm: regular rhythm Skin General skin exam: no rashes or lesions noted Neuro General: patient oriented x3 Cranial nerves: No Normal hearing present (decreased hearing ) Gait exam (Neuro): Normal gait present Extrem General: Yes normal to inspection, Yes full ROM and No edema Psych Affect: normal affect Attitude: cooperative Insight: Good insight present (Psych) Judgement: Good judgement present (Psych) Office Procedures Flu Questionnaire Does the patient have a severe egg allergy?: No Does the patient have severe life threatening allergies?: No Does the patient have a fever or illness today?: No Has the patient ever had Guillain-Emery Syndrome?: No Has the patient ever had any past reaction to a flu shot?: No Results AMB Hemoglobin A1c AMB Hemoglobin A1c 7.0 % Last Edit by JOSE Petersen on 09/12/25 11:20 Immunizations Fluarix [id number] (PF) 45 mcg (15 mcg x 3)/0.5 mL IM syringe Performing Provider: Shawanda Shell PA-C [facility] Administered by: Sabina Curtis RN on 09/12/25 11:22 Dose Route Admin Location Dispensed Lot Number Expiration Date NDC Orthopedic Physical Therapist 0.5 mL IM Left Deltoid 0.5 mL [id number] 05/13/26 [id number] [employer] VIS Given Date VIS Provided VIS Publication Date 09/12/25 Single Vaccine 24 Eligibility Eligibility Date Funding Source Not [facility] Eligible 09/12/25 Private Results Reviewed Results Reviewed: Laboratory Last Values Hgb A1c (Clinic) 7.0 % (4.0-6.0) H 09/12/25 11:11 Coding Level of Care Code Est Pt Level 3 (10555) Diagnoses Diabetes mellitus with coincident hypertension E11.9; I10 Hyperlipidemia, unspecified hyperlipidemia type E78.5 Hyperlipidemia type: unspecified Class 1 obesity due to excess calories with serious comorbidity and body mass index (BMI) of 32.0 to 32.9 in adult E66.811; E66.09; Z68.32 Body mass index: BMI 32.0-32.9 Obesity classification: adult class 1 (BMI 30 - 34.9) Obesity type: due to excess calories Serious obesity comorbidity presence: with serious comorbidity Primary hypertension I10 Hypertension type: primary hypertension Acute effusion of both middle ears H65.193 Elevated TSH R79.89 Hearing loss associated with syndrome of both ears H91.93 Assessment & Plan Assessment & Plan (1) Diabetes mellitus with coincident hypertension: Code(s): E11.9 - Type 2 diabetes mellitus without complications; I10 - Essential (primary) hypertension Category: Medical Plan: Decrease the amount of carbohydrates such as pasta, bread, rice, and potatoes and limit the amount of sweets. Although fruits are generally healthy they should be eaten in moderation as they are still high in sugar. Hemoglobin A1c goal of less than 7%. A1c in the clinic today 7.0% continue with dietary and lifestyle and on the Metformin. Discussed increasing metformin to twice daily, but the patient has opted to first attempt strict dietary modifications over the next three months, including eating three regular meals a day and avoiding sugary beverages. No medication changes were made at this time. Plan for repeat blood work in 3 months. (2) Hyperlipidemia: Code(s): E78.5 - Hyperlipidemia, unspecified Category: Medical Qualifiers: Hyperlipidemia type: unspecified Qualified Code(s): E78.5 - Hyperlipidemia, unspecified Plan: Avoid foods that are high in cholesterol such as red meat, fried foods, eggs and baked goods. Triglyceride goal of less than 150 and LDL goal of less than 100. Continue on atorvastatin last LDL 91 06/2025. Plan for repeat blood work for next visit. (3) Obesity: Code(s): E66.9 - Obesity, unspecified Category: Medical Qualifiers: Body mass index: BMI 32.0-32.9 Obesity classification: adult class 1 (BMI 30 - 34.9) Obesity type: due to excess calories Serious obesity comorbidity presence: with serious comorbidity Qualified Code(s): E66.811 - Obesity, class 1; E66.09 - Other obesity due to excess calories; Z68.32 - Body mass index [BMI] 32.0-32.9, adult Plan: Healthy diet and regular exercise is encouraged. (4) Hypertension: Code(s): I10 - Essential (primary) hypertension Category: Medical Qualifiers: Hypertension type: primary hypertension Qualified Code(s): I10 - Essential (primary) hypertension Plan: Continue on current blood pressure medication. Avoid salt intake and encourage healthy diet and regular exercise. (5) Acute effusion of both middle ears: Code(s): H65.193 - Other acute nonsuppurative otitis media, bilateral Category: Medical Plan: Resolved at this time. Patient is asymptomatic. (6) Elevated TSH: Code(s): R79.89 - Other specified abnormal findings of blood chemistry Category: Medical Plan: Plan for repeat blood work to monitor TSH level. (7) Hearing loss associated with syndrome of both ears: Code(s): H91.93 - Unspecified hearing loss, bilateral Category: Medical Plan: The patient continues to experience subjective hearing loss despite a recent course of antibiotics for fluid in the ears. Physical examination today revealed no fluid or cerumen in the ear canals. The patient will proceed with a scheduled hearing test at the end of the month for further evaluation. A referral has been placed for an Ear, Nose, and Throat (ENT) consultation. Plan This note was constructed using voice recognition software. While every effort has been made to ensure accuracy and generator operator straight bevel gear, still areas may have been included sometimes these areas may affect the content or meeting of the given symptoms. Total time spent caring for the patient today was 20 minutes. This includes time spent before the visit reviewing the chart, time spent during the visit, and time spent after the visit and documentation. Patient was informed and verbally consented to the use of an ambient scribe for clinic note documentation during this visit. Orders: Orders Influenza [id number] Immunization Today Z23 - Encounter for immunization TSH reflex Free T4 3 Months R79.89 - Other specified abnormal findings of blood chemistry, Z13.29 - Encounter for screening for other suspected endocrine disorder Hemoglobin A1c 3 Months E11.65 - Type 2 diabetes mellitus with hyperglycemia AMB Hemoglobin A1c Today E11.9 - Type 2 diabetes mellitus without complications, I10 - Essential (primary) hypertension Lipid Panel 3 Months E78.00 - Pure hypercholesterolemia, unspecified Comprehensive Met. Panel 3 Months E11.9 - Type 2 diabetes mellitus without complications, I10 - Essential (primary) hypertension Referrals Ear/Nose/Throat Referral H65.193 - Other acute nonsuppurative otitis media, bilateral, H91.93 - Unspecified hearing loss, bilateral Medications: Discontinued amoxicillin-pot clavulanate 875-125 mg Discontinued Reason: Patient no longer taking 1 tab PO Q12H 14 tabs 0RF
--- OUTSIDE RECORDS SUMMARY | 2025-09-12 13:31 | XMS_ITS | Patient Health Record ---
[facility] Address [address] [place] [address] Care Team Providers Care Hall Monitor Name Role Phone Shawanda Shell Primary Care Provider UnavailSabra Caldwell Unavailable [phone] Allergies Allergen (clinical drug ingredient) Drug/Non Drug [...] 25 MG Oral; Duration: 90 Days Active Lisinopril 10 MG Oral; Duration: 90 Days Active Extra Depth Orthopedic Shoes (1 Pair) with Customized Heat Molded Multidensity Innersoles (3 Pair) as directed Dx: NIDDM/Polyneuropathy (E11.42), Hammertoe Foot Deformity (M20.41,M20.42), Preulcerative Skin Lesion(s) (L85.1 03/15/2025 Active Ciclopirox 0.77 % 1 application to affected area Externally Twice a day to effected nails; Duration: 30 days 08/16/2023 Active Immunizations Vaccine Route Administration Date Status Comme nts Influenza Unknown 07/15/2024 Administered Influenza Unknown 08/16/2025 Administered Social History Tobacco Use: Social History [...] Problem Acquired hammer toe of right foot ([id number] 9105) Other hammer toe(s) (acquired), right foot (M20.41) Active confirmed Problem Acquired hammer toe of left foot ([id number] 9103) Other hammer toe(s) (acquired), left foot (M20.42) Active confirmed Problem Diabetes mellitus (82273847) Type 2 diabetes mellitus without complication (E11.9) Active confirmed Vital Signs Blood pressure diastolic 65 mm Hg 09/11/2025 Height 4ft9in in 09/11/2025 Blood pressure systolic 135 mm Hg 09/11/2025 Weight 152 lbs 09/11/2025 BMI 32.89 kg/m2 09/11/2025 Encounters Encounter Location Date Provider Diagnosis [address] [address] 09/13/2024 Sabra Perica Pain in right toe(s) M79.674 ; Tinea unguium B35.1 ; Pain in left toe(s) M79.675 and Type 2 diabetes mellitus without complication E11.[address] [address] 12/14/2024 Sabra Perica Pain in right toe(s) M79.674 ; Tinea unguium B35.1 ; Pain in left toe(s) M79.675 and Type 2 diabetes mellitus without complication E11.[address] [address] 03/15/2025 Sbara Perica Tinea unguium B35.1 ; Other hammer toe(s) (acquired), right foot M20.41 ; Pain in right toe(s) M79.674 ; Pain in left toe(s) M79.675 ; Type 2 diabetes mellitus without complication E11.9 and Other hammer toe(s) (acquired), [facility] [address] 06/11/2025 Sabra Perica Tinea unguium B35.1 ; Pain in right toe(s) M79.674 ; Pain in left toe(s) M79.675 and Type 2 diabetes mellitus without complication E11.[address] [address] 09/11/2025 Sabra Perica Tinea unguium B35.1 ; Pain [...] in right toe(s) (ICD-10 - M79.674) 09/11/2025 Tinea unguium (ICD-10 - B35.1) 09/11/2025 [...] diabetes mellitus without complication (ICD-10 - E11.9) 09/11/2025 Pain in left toe(s) (ICD-10 - M79.675) 09/11/2025 Type 2 diabetes mellitus without complication (ICD-10 - E11.9) 03/15/2025 Type 2 diabetes mellitus without complication (ICD-10 - E11.9) 03/15/2025 Other hammer toe(s) (acquired), left foot (ICD-10 - M20.42) 06/11/2025 Other Plan Of Treatment Next Appt Details Provider Name:Sabra painter, 12/11/2025 11:15:00 AM, [address] [place] [address], [phone], Insurance Providers Payer Name Payer Address Payer Phone Subscriber Number Group Number Insured Name Patient Relationship to Insured Coverage Start Date Coverage End Date Medicare [employer] [address] [place] [address] [id number] Joanie Pereyra Self - patient is the insured [facility] [address] [place] [address] [id number] Joanie Pereyra Self - patient is the insured Medical (General) History Medical History History ICD Code Arthritis Broken bones CAD (Cholesterol) Diabetic-BORDERLINE Epilepsy High blood pressure Diabetic Surgical History Surgery Date(Month/Year) right hip surgery 2022 left hip surgery 06/13/24
== END 2025-09-12 11:38 | disposition home or self-care (01) ==
LOC: HO.HMCH 10:51
PROVIDERS: PCP Internal Medicine
DX: E11.9 Type 2 diabetes mellitus without complications (principal); I10 Essential (primary) hypertension; Z23 Encounter for immunization

== ENCOUNTER → 2025-09-12 10:50 | Outpatient (BNVA) | payer MEDICARE, BC, SELFPAY | PROVIDERS: PCP Internal Medicine | DX: I10 Essential (primary) hypertension (principal); E11.9 Type 2 diabetes mellitus without complications; E78.5 Hyperlipidemia, unspecified; E66.811 Obesity, class 1; Z68.32 Body mass index [BMI] 32.0-32.9, adult; H65.193 Other acute nonsuppurative otitis media, bilateral; H91.93 Unspecified hearing loss, bilateral; Z13.31 Encounter for screening for depression; Z13.39 Encounter for screening examination for other mental health and behavioral disorders; Z23 Encounter for immunization | CPT/HCPCS: 83036; 90471; 90656; 96127; 99212 ==

== ENCOUNTER 2025-10-16 14:57 | Outpatient (AMB) | payer MEDICARE, BC, SELFPAY ==
--- OUTSIDE RECORDS SUMMARY | 2024-06-19 06:30 | XMS_ITS ---
Author Organization [facility] Address [address] [place] [address] Care Team Providers Care Supervisor Cell Operation Name Role Phone Shawanda Shell Primary Care Provider Unavailab Sabra Calvo [phone] Encounters Encounter Location Date Provider Diagnosis [address] [address] 06/19/2024 Sabra Craft Plan Of Treatment Next Appt Details Provider Name:Sabra painter, 12/11/2025 11:15:00 AM, [address] [place], [address], Progress Notes * Joanie LEWIS KDOB: (70 yo F)Acc No.[id number]:06/19/2024 Progress Note Patient: Milena RAÚL Joanie Genao Provider: Yosef Craft DPM :1955 A ge:69 Y S ex:Female Date:06/19/2024 Address:[address] [place] [address] Pcp:Shawanda Shell Subjective: * Chief Complaints: * * Medical History: Objective: * Vitals: Assessment: Plan: * Treatment: * Images: * The named appointment provid er may or may not be the originator of this progress note, and it is not deemed complete until electronically signed by the appointment provider. Sign off status: Pending * Provider: Yosef Craft DPM Date: 0 06/19/2024 Generated for Miladis dempsey/Pascual/Subha on: 1 12/17/2024 05:54 PM EST
--- OUTSIDE RECORDS SUMMARY | 2024-09-11 05:00 | XMS_ITS ---
Author Organization [facility] Address [address] [place] [address] Care Team Providers Care Staff Command And Control Officer Name Role Phone Shawanda Shell Primary Care Provider UnavailSabra Caldwell Unavailable [phone] Allergies Allergen (clinical drug ingredient) Drug/Non Drug [...] Active Encounters Encounter Location Date Provider Diagnosis [facility] [address] [place] [address] 09/11/2024 Sabra Craft Plan Of Treatment Next Appt Details Provider Name:Sabra painter, 12/11/2025 11:15:00 AM, [address] [place], [address], Progress Notes * Joanie LEWIS KDOB: 6 (70 yo F)Acc No.[id number]:09/11/2024 Progress Note Patient: Joanie FREITAS Provider: Yosef Craft DPM :1955 A ge:69 Y S ex:Female Date:09/11/2024 Address:[address] [place] [address] [facility] Pcp:Shawanda Shell Subjective: * Chief Complaints: * * HPI: A t Risk footcare: Pt States Last PCP Visit: D ate 0 02/28/2024 * Medical History: A rthritis, [...] Yosef Craft DPM Date: Generated for Miladis Reyna/Subha on: 12/17/2024 05:54 PM EST History and Physical Notes * HPI (History of Present Illness) Category Sub-Category Detail Notes Category Not es At Risk footcare Pt States Last PCP Visit: Date:
[2025-10-16 14:58] VITALS: BP 128/60; PULSE 101; O2SAT 98; BMI 31.6
--- NOTE | 2025-10-16 14:58 | AM.OFFWIN_ITS ---
Intake Vital Signs 10/16/25 14:58 Height 4 ft 10 in Weight 68.492 kg BMI 31.6 BP 128/60 Blood Pressure Location Lt brachial Position Sitting Pulse 101 H Pulse Source Pulse Oximeter Pulse Oximetry (%) 98 Oxygen Delivery Method Room Air Intake Visit Reasons: EP cannot hear from left ear Intake Note: Patient presents c/o inability to hear in left ear x1-2 weeks. Patient Tobacco Use Status: Never used Tobacco Allergies guaifenesin (From MUCINEX) Allergy (Intermediate, Verified 10/16/25 15:01) SWELLING HPI HPI Comments History of Present Illness Details Patient presents today with decreased hearing. She reports longstanding hearing difficulty and states he ?needs hearing aids? but cannot afford them. She missed a scheduled appointment with [facility] [place]. She is able to hear the phone ring but cannot clearly hear the speaker on the other end. She has a history of ear-wax build-up that has been removed in this clinic previously. She states that during a recent visit, ?there were only flakes? removed, but she feels ?there is fluid? in his ears now contributing to the hearing loss. Denies fevers, chills, headache, dizziness, issues w/ gait Review of Systems: ? Ears: Positive for decreased hearing; patient reports sensation of fluid in ears. Assessment: Decreased hearing on the left, likely sensorineural or conductive hearing loss. No signs of otitis media or externa on exam. Plan: * Follow up with PCP for further evaluation. * Refer to [facility] for formal audiologic assessment. * No evidence of acute infection; no antibiotics indicated. 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 * Consider hearing aid evaluation if recommended by audiology. PFSH Medical History Shakiness Arthritis, hip Preop exam for internal medicine [place] (hard of hearing) Diabetes HERBERT (stress urinary incontinence, female) Arthritis Depression History of gestational diabetes Osteoarthritis of right hip Obesity Hypertension Surgical History Status post total hip replacement, right History of hip replacement H/O tooth extraction History of removal of cyst Status post surgical removal of nail matrix of toe History of section Family History Father No problems noted. Mother No problems noted. Family/Other Heart failure Diabetes CHF (congestive heart failure) Social History Household Members: Children Household Members Other:: son Housing: House Housing Other:: Lives in trailer with two steps to get up into it Are you a primary transitional care liaison to a significant other at home: No Do you presently have visiting nurse or other home services: Yes ([facility]) Alcohol intake: current Alcohol intake frequency: does not drink Comment: fall risk due to recent hip surgery Patient Tobacco Use Status: Never used Tobacco Tobacco use type: Cigarette e-Cigarette/Vaping Use: Never Used Second Hand Smoke Exposure: No service: No Current occupational status: retired Current occupational exposures/hazards: No Cognitive needs: No Hearing needs: No Vision needs: Yes (glasses) Review of Systems Const All systems reviewed & are unremarkable except as noted in HPI and below Physical Exam Exam Exam: Appearance: Alert.? Oriented X3.? No acute distress.? Head: Normocephalic, atraumatic, no step-offs or deformities Eyes: Pupils equal, round and reactive to light.? ENT: Pharynx normal.??External ears normal, TMs normal bilaterally and EAC's normal. No pain with manipulation of external ears bilaterally. No mastoid tenderness. Neck: Normal inspection.? Neck supple.? CVS: No cardiopulmonary distress Respiratory: No respiratory distress. Skin: Skin warm and dry.? Normal skin color.? Normal skin turgor.? Extremities: No lower extremity edema.? No calf ttp. 5/5 strength to bilateral upper and lower extremities Neuro: Oriented X 3.? No motor deficit.? No sensory deficit. CN 2-12 intact Vital Signs: Last Vital Signs Pulse 101 H 10/16/25 14:58 BP 128/60 10/16/25 14:58 Pulse Ox 98 10/16/25 14:58 Oxygen Delivery Method Room Air 10/16/25 14:58 BMI result Body Mass Index 31.6 vss Assessment & Plan Assessment & Plan (1) Hearing loss associated with syndrome of both ears: Code(s): H91.93 - Unspecified hearing loss, bilateral Plan Take your medications as prescribed. If you were prescribed antibiotics today, it is important that you take your medication to their entirety, do not skip any doses, do not finish them early. Follow-up with your primary care provider this week. Return to the emergency department with new or worsening symptoms. In case of emergency call 911 Coding Level of Care Code Est Pt Level 3 (03723) Diagnoses Hearing loss associated with syndrome of both ears H91.93
--- OUTSIDE RECORDS SUMMARY | 2025-10-16 17:55 | XMS_ITS | Patient Health Record ---
[facility] Address [address] [place] [address] Care Team Providers Care Voice Writing Reporter Name Role Phone Shawanda Shell Primary Care Provider UnavailSabra Caldwell Unavailable [phone] Allergies Allergen (clinical drug ingredient) Drug/Non Drug [...] Problem Acquired hammer toe of right foot (387421274238 9105) Other hammer toe(s) (acquired), right foot (M20.41) Active confirmed Problem Acquired hammer toe of left foot ([id number]) Other hammer toe(s) (acquired), left foot (M20.42) Active confirmed Problem Diabetes mellitus (22293959) Type 2 diabetes mellitus without complication (E11.9) Active confirmed Vital Signs Blood pressure diastolic 65 mm Hg 09/11/2025 Height 4ft9in in 09/11/2025 Blood pressure systolic 135 mm Hg 09/11/2025 Weight 152 lbs 09/11/2025 BMI 32.89 kg/m2 09/11/2025 Encounters Encounter Location Date Provider Diagnosis [facility] [address] [address] 12/14/2024 Sabra Perica Pain in right toe(s) M79.674 ; Tinea unguium B35.1 ; Pain in left toe(s) M79.675 and Type 2 diabetes mellitus without complication E11.[address] [facility] [address] 03/15/2025 Sabra Perica Tinea unguium B35.1 ; Other hammer toe(s) (acquired), right foot M20.41 ; Pain in right toe(s) M79.674 ; Pain in left toe(s) M79.675 ; Type 2 diabetes mellitus without complication E11.9 and Other hammer toe(s) (acquired), left foot M20.[address] [facility] [address] 06/11/2025 Sabra Craft Tinea unguium B35.1 ; Pain in right toe(s) M79.674 ; Pain in left toe(s) M79.675 and Type 2 diabetes mellitus without complication E11.[address] [facility] [address] 09/11/2025 Sabra Craft Tinea unguium B35.1 ; Pain in right toe(s) M79.674 ; Pain in left toe(s) M79.675 and Type 2 diabetes mellitus without complication E11.9 Assessments Encounter Date Diagnosis (ICD Code) Assessment Notes Treatment Notes Treatment Clinical Notes Section Notes 12/14/2024 Tinea unguium (ICD-10 - B35.1) 12/14/2024 [...] Details Provider Name:Sabra painter, 12/11/2025 11:15:00 AM, [address] [place] [address], [phone], Insurance Providers Payer Name Payer Address Payer Phone Subscriber Number Group Number Insured Name Patient Relationship to Insured Coverage Start Date Coverage End Date Medicare National [employer]t [employer] [address] [facility] [place] [address] [id number] Joanie Pereyra Self - patient is the insured [facility] [address] [place] [address] [id number] Joanie Pereyra Self - patient is the insured Medical (General) History Medical History History ICD Code Arthritis Broken bones CAD (Cholesterol) Diabetic-BORDERLINE Epilepsy High blood pressure Diabetic Surgical History Surgery Date(Month/Year) right hip surgery 2022 left hip surgery 06/13/24
== END 2025-10-16 15:56 | disposition home or self-care (01) ==
PROVIDERS: PCP Internal Medicine; Visit Provider Physician Assistant
DX: H91.93 Unspecified hearing loss, bilateral (principal)

== ENCOUNTER → 2025-10-16 14:57 | Outpatient (BNVA) | payer MEDICARE, BC, SELFPAY | PROVIDERS: PCP Internal Medicine; Visit Provider Physician Assistant | DX: H91.93 Unspecified hearing loss, bilateral (principal) | CPT/HCPCS: 99212 ==

== ENCOUNTER 2025-10-31 19:10 | Emergency (ER) | payer MEDICARE, BC, SELFPAY ==
--- OUTSIDE RECORDS SUMMARY | 2024-06-19 06:30 | XMS_ITS ---
Author Organization [facility] Address [address] [place] [address] Care Team Providers Care Stamp Mounter Name Role Phone Shawanda Shell Primary Care Provider Unavailab Sabra Calvo [phone] Encounters Encounter Location Date Provider Diagnosis [address] [address] 06/19/2024 Sabra Craft Plan Of Treatment Next Appt Details Provider Name:Sabra painter, 12/11/2025 11:15:00 AM, [address] [place], [address], Progress Notes * Joanie LEWIS KDOB: (70 yo F)Acc No.[id number]:06/19/2024 Progress Note Patient: Milena RAÚL Joanie Genao Provider: Yosef Craft DPM :1955 A ge:69 Y S ex:Female Date:06/19/2024 Address:[address] [place] [address] Pcp:Shawanda Shell Subjective: * Chief Complaints: * [...] 06/19/2024 Generated for Miladis dempsey/Pascual/Subha on: 1 01/01/2025 08:11 PM EST
--- OUTSIDE RECORDS SUMMARY | 2024-09-11 05:00 | XMS_ITS ---
Author Organization [facility] Address [address] [place] [address] Care Team Providers Care Technology Intern Name Role Phone Shawanda Shell Primary Care Provider UnavailSabra Caldwell Unavailable [phone] Allergies Allergen (clinical drug ingredient) Drug/Non Drug Allergy documented on EMR Reaction Allergy Type Onset Date Status guaifenesin Mucinex puffy Drug Allergy Activ e Medications Medication SIG (Take, Route, Frequency, Duration) Notes Start Date End Date Status metFORMIN HCl 500 MG 1 tablet with a neema l Orally Once a day; Duration: 30 day(s) Active Atorvastatin Calcium 40 MG Oral; Duration: 90 Days Active Lisinopril 10 MG Oral; Duration: 90 Days Active hydroCHLOROthiazide 25 MG Oral; Duration: 90 Days Active Ciclopirox 0.77 % 1 application to aff ected area Externally Twice a day to effected nails; Duration: 30 days 08/16/2023 Active Encounters Encounter Location Date Provider Diagnosis [facility] [address] [place] [address] 09/11/2024 Sabra Craft Plan Of Treatment Next Appt Details Provider Name:Sabra painter, 12/11/2025 11:15:00 AM, [address] [place], [address], Progress Notes * Joanie LEWIS KDOB: 6 (70 yo F)Acc No.[id number]:09/11/2024 Progress Note Patient: Joanie FREITAS Provider: Yosef Craft DPM :1955 A ge:69 Y S ex:Female Date:09/11/2024 Address:[address] [place] [address] [facility] Pcp:Shawanda Shell Subjective: * Chief Complaints: * * HPI: A t Risk footcare: Pt States Last PCP Visit: D ate: 0 02/28/2024 * Medical History: A rthritis, Broken bones, CAD (Cholesterol), Diabetic-BORDERLINE, Epilepsy, High blood pressure, Diabetic. * Medications: T aking metFORMIN HCl 500 MG Tablet 1 tablet with a meal Orally Once a day , Taking Atorvastatin Calcium 40 MG Tablet Oral , Taking Lisinopril 10 MG Tablet Oral , Taking hydroCHLOROthiazide 25 MG Tablet Oral , Taking Ciclopirox 0.77 % Gel 1 application to affected area Externally Twice a day to effected nails * Allergies: M ucinex: puffy. Objective: * Vitals: Assessment: Plan: * Treatment: * Images: * The named appointment provid er may or may not be the originator of this progress note, and it is not deemed complete until electronically signed by the appointment provider. Sign off status: Pending * Provider: Yosef Craft DPM Date: Generated for Miladis dempsey/Pascual/Subha on: 01/01/2025 08:12 PM EST History and Physical Notes * HPI (History of Present Illness) Category Sub-Category Detail Notes Category Not es At Risk footcare Pt States Last PCP Visit: Date:: 02/28/20 24
--- NOTE | 2025-10-31 | ECG_ITS ---
Test Reason : DIZZINES Blood Pressure : */* mmHG Vent. Rate : 81 BPM Atrial Rate : 81 BPM P-R Int : 202 ms QRS Dur : 90 ms QT Int : 404 ms P-R-T Axes : 84 -40 58 degrees QTcB Int : 469 ms Normal sinus rhythm Left axis deviation Low voltage QRS Cannot rule out Anterior infarct (cited on or before 27-Jan-2023) Abnormal ECG When compared with ECG of 02-Nov-2023 09:53, Nonspecific T wave abnormality, improved in Lateral leads Referred By: Generic ED Physician Electronically Signed By: García Munguia
--- NOTE | ~2025-10-31 | CT_ITS ---
CLINICAL HISTORY: Dizziness; Vomiting CT head without contrast CT angiography head and neck with contrast. 3D Postprocessing. Comparison: CT/SR - CT HEAD WITHOUT IV CONTRAST - 05/29/24 13:52 EDT Findings: CT head without contrast: No acute intracranial hemorrhage. No acute large territorial ischemia. Mild chronic microvascular ischemic change and parenchymal atrophy. No mass effect, midline shift, or hydrocephalus. Paranasal sinuses are clear. Mastoid air cells are clear. The orbits are within normal limits. No skull fracture. CT angiography head and neck: Aortic arch and cervical great vessels are patent. Intracranial arteries are patent. origin of the left VP CONSTRUCTION. No large vessel occlusion or hemodynamically significant stenosis. No aneurysm, dissection, or occlusion. No abnormal intracranial enhancement. The visualized thyroid gland is unremarkable. Lung apices clear. No acute fracture. Moderate multilevel cervical spondylosis. IMPRESSION: No acute intracranial abnormality. No occlusion or hemodynamically significant stenosis. This document has been electronically signed by: Garry Garcia MD on 10/31/2025 22:30:03
[2025-10-31 19:22] VITALS: BP 174/74; PULSE 98; O2SAT 99; BMI 29.1
--- NOTE | 2025-10-31 19:54 | PC.NURSE ---
unable to obtain IV access, will get ultrasound IV.
[2025-10-31 19:55] LABS: MANUAL DIFF FLAG NO
[2025-10-31 20:00] LABS: Hematocrit 34.2 % (37.0-47.0); Hemoglobin 11.9 g/dl (12.0-16.0); Imm Gran Abs Auto 0.25 X10*3/uL (0.00-0.03); Imm Gran Pct Auto 1.8 % (0.0-0.4); Lymphocytes Absolute Auto 2.6 X10*3/uL (1.2-4.9); Mean Corpuscular HGB Conc 34.8 g/dl (31.0-35.0); Mean Corpuscular Hemoglobin 30.4 pg (27.0-33.0); Mean Corpuscular Volume 87.5 fL (80.0-98.0); NRBC Abs Auto 0.000 X10*3/uL (0.0-0.012); NRBC Pct Auto 0.0 /100WBC (0.0-0.2); Platelet Count 296 X10*3/uL (160-400); Red Blood Count 3.91 X10*6/uL (4.20-5.50); White Blood Count 13.8 X10*3/uL (4.8-10.8)
--- NOTE | 2025-10-31 20:03 | ED_ITS ---
HPI - General Adult General Chief complaint: Nausea/Vomiting/Diarrhea Stated complaint: dizziness, N/V Time Seen by Provider: 10/31/25 20:02 Source: patient and EMS Mode of arrival: EMS Limitations: no limitations History of Present Illness ED Provider: Samuel SHELDON HPI narrative: The patient is a 70-year-old female who was at [facility] this evening when she experienced acute onset of dizziness between approximately 16:30 ? 17:00 while walking back from the [facility] stand after having been seated for a short period of time. She described the dizziness as a spinning sensation and feeling light-headed. Soon after onset of dizziness she developed nausea, attempted to close her eyes and rest. Patient then decided to eat a half of a sandwich, but subsequently vomited in the bathroom sink. She denies associated headache, chest pain, or abdominal pain during the episode, denies associated hematemesis, diarrhea, hematochezia, melena, dysuria, hematuria, or recent sick contacts. Denies any recent falls, head trauma, or anticoagulant use. EMS was activated by bystanders who helped her into the bathroom, and patient was brought to the ED for evaluation. The patient reports the dizziness resolved during transport, EMS reports providing Zofran. The patient currently denies any dizziness or nausea. The patient reports she hydrated well today, drinking 2 0.5 L bottles of water. Patient reports she experienced one similar episode of dizziness with vomiting about one month ago, was not evaluated at that time. Related Data Previous Rx's ?Medication ?Instructions ?Recorded atorvastatin 40 mg tablet 40 mg PO DAILY #90 tabs 05/16 hydrochlorothiazide 25 mg tablet 25 mg PO DAILY #90 ta bs 06/12/25 metformin 500 mg tablet 500 mg PO DAILY #90 tabs cetirizine 5 mg-pseudoephedrine ER 1 tab PO BID 7 days #14 tabs 08/19/25 120 mg tablet,extended release,12hr lisinopril 10 mg tablet 10 mg PO DAILY #90 tabs 08/14 04/07 Allergies Allergy/AdvReac Type Severity Reaction Status Date / Time guaifenesin (From MUCINEX) Allergy Intermediate SWELLING Verified 10/31/25 19:25 Review of Systems 2 Review of Systems: Yes all other systems are reviewed and are negative PMFSH Past Medical History Medical History Shakiness Arthritis, hip Preop exam for internal medicine [place] (hard of hearing) Diabetes HERBERT (stress urinary incontinence, female) Arthritis Depression History of gestational diabetes Osteoarthritis of right hip Obesity Hypertension Surgical History Status post total hip replacement, right History of hip replacement H/O tooth extraction History of removal of cyst Status post surgical removal of nail matrix of toe History of section Family History Family History Father No problems noted. Mother No problems noted. Family/Other Heart failure Diabetes CHF (congestive heart failure) Social History Social History Household Members: Children Household Members Other:: son Housing: House Housing Other:: Lives in trailer with two steps to get up into it Are you a primary childcare aide to a significant other at home: No Do you presently have visiting nurse or other home services: Yes ([facility]) Alcohol intake: current Alcohol intake frequency: does not drink Comment: fall risk due to recent hip surgery Patient Tobacco Use Status: Never used Tobacco Tobacco use type: Cigarette Smoked in Last 30 Days: No e-Cigarette/Vaping Use: Never Used Second Hand Smoke Exposure: No Use of substances other than those prescribed or required for medical reasons: No Advance Directives: No Advance Directives Information Provided: No service: No Current occupational status: retired Current occupational exposures/hazards: No Cognitive needs: No Hearing needs: No Vision needs: Yes (glasses) Physical Exam ED Vital Signs: Vital Signs - 24 hr 10/31/25 20:13 10/31/25 22:03 11/01/25 00:09 Temperature 98.5 F 98.5 F 98.4 F Pulse Rate 84 84 81 Respiratory Rate 15 14 19 Blood Pressure 150/77 H 105/49 L 102/46 L Pulse Oximetry 97 97 96 Oxygen Delivery Method Room Air Room Air Room Air BMI result Body Mass Index 29.1 CONSTITUTIONAL: The patient appears non-toxic, well nourished and in no acute distress. Vital signs as documented. HEAD: Atraumatic, normocephalic. EYES: EOMs intact, pupils equal and appropriately reactive, conjunctiva clear, no exudate. ENT: Nares patent, no discharge. Airway patent, no audible stridor, visible mucosa is pink and moist without noted lesions. NECK: Trachea is midline, no obvious masses or gross abnormalities. CHEST: Symmetric movement, normal appearance. LUNGS: LS present and CTAB, no w/r/r. Non-labored work of breathing. CARDIAC: Regular Rhythm, S1/S2 appreciated, no murmurs, rubs or gallops. ABDOMEN: Abdomen soft and non-tender x4 quadrants, no palpable masses or organomegaly. : Deferred. EXTREMITIES: Normal tone, moves all extremities spontaneously without reported pain. No obvious acute injury or deformity noted. NEURO: Alert and oriented x3, CN II-XII intact. Cerebellar Functioning intact. No obvious sensory or motor deficits. Speech clear and appropriate. PSYCH: normal affect, appropriate eye contact, fluid speech, with appropriate response to questioning. No reported suicidality or homicidality. SKIN: Warm, dry, color appropriate, normal turgor. No rashes noted. NIH Stroke Scale Internal: Initial- Upon Arrival Level of Consciousness: Alert Level of Consciousness Questions: Answers both questions correctly Level of Consciousness Commands: Performs both tasks correctly Best Gaze: Normal Visual: No visual loss Facial Palsy: Normal Motor Arm (Right): No drift Motor Arm (Left): No drift Motor Leg (Right): No drift Motor Leg (Left): No drift Limb Ataxia: Absent Sensory: Normal Best Language: No aphasia Dysarthia: Normal Extinction and Inattention: No abnormality Score: 0 Medications Administered Discontinued Medications Generic Name Dose Route Start Last Admin Trade Name Bardleyq PRN Reason Stop Dose Admin Sodium Chloride 1,000 mls @ 999 mls/hr 10/31/25 20:45 10/31/25 21:01 Ns IV 10/31/25 21:45 999 mls/hr .Q1H1M THADDEUS Administration Iohexol 75 ml 10/31/25 21:44 10/31/25 21:45 Iohexol 350 Mg/Ml 100 Ml Infus..Btl IV 10/31/25 21:45 75 ml ONCE ONE Administration Ondansetron HCl 4 mg 10/31/25 21:12 10/31/25 21:18 Ondansetron Hcl 4 Mg/2 Ml Vial IVPUSH 10/31/25 21:13 4 mg ONCE ONE Administration Procedures EJ/Peripheral Line Arm L: Skin Cleansed in Sterile Fashion: Yes Size (gauge): 20 IV Secured and Dressing Applied: Yes Patient Tolerated Procedure: well and no complications Additional Comments: IV placed using ultrasound guidance by parallel/longitudinal approach. Vein demonstrated complete compression prior to IV placement. Placement confirmed by direct visualization on ultrasound, drawback, and intravascular flash on ultrasound upon flushing. IV secured and RN informed. Medical Decision Making Medical Decision Making [facility] Narrative: 8:19 PM 10/31/2025 (Davian SHELDON): The patient is a 70-year-old female who was at [facility] this evening when she experienced acute onset of dizziness between approximately 16:30 ? 17:00 while walking back from the [facility] stand after having been seated for a short period of time. She described the dizziness as a spinning sensation and feeling light-headed. Soon after onset of dizziness she developed nausea, attempted to close her eyes and rest. Patient then decided to eat a half of a sandwich, but subsequently vomited in the bathroom sink. She denies associated headache, chest pain, or abdominal pain during the episode, denies associated hematemesis, diarrhea, hematochezia, melena, dysuria, hematuria, or recent sick contacts. Denies any recent falls, head trauma, or anticoagulant use. EMS was activated by bystanders who helped her into the bathroom, and patient was brought to the ED for evaluation. The patient reports the dizziness resolved during transport, EMS reports providing Zofran. The patient currently denies any dizziness or nausea. The patient reports she hydrated well today, drinking 2 0.5 L bottles of water. Patient reports she experienced one similar episode of dizziness with vomiting about one month ago, was not evaluated at that time. On exam the patient is well-appearing, no acute distress, no adventitious lung sounds, abdominal tenderness, or focal neurological deficit, NIH stroke scale is 0. The patient's laboratory evaluation shows leukocytosis of 13.8, no significant anemia, chemistry shows mild hyponatremia of 131, no other electrolyte abnormalities, no REA, LFTs are unremarkable. The patient's EKG is nonischemic, viral swabs and troponin are pending. We will await results of troponin, obtain CT head, and CTA head and neck, and add on urinalysis. 10:35 PM 10/31/2025 (Davian SHELDON): The patient's CTA head and neck shows no acute intracranial pathology, no vessel occlusion. The patient's troponin has resulted and is negative. The patient's viral swabs are negative. The patient's urinalysis still pending. 12:36 AM 11/01/2025 (Davian SHELDON): Urinalysis has resulted, no evidence of acute infection. The patient's leukocytosis likely secondary to her vomiting. Given the patient's reassuring workup with unremarkable CTA head and neck, no bacterial or viral infectious pathology identified, and otherwise reassuring workup, patient will be ambulated to ensure no recurrent dizziness, if ambulation trial is successful patient will be discharged home to follow up with PCP. 12:46 AM 11/01/2025 (Davian SHELDON): Patient ambulated to and from the bathroom with a steady gait without recurrent dizziness. Patient will be discharged as outlined above. Admission/Observation Consideration of admission/observation: Escalation of care including admission/observation considered Lab Data MDM Lab Attestation statement: I reviewed the patient's lab results. 10/31/25 19:48 10/31/25 19:48 Labs: Lab Results 10/31/25 11/01/25 Range/Units 19:48 00:23 WBC 13.8 H (4.8-10.8) X10*3/uL RBC 3.91 L (4.20-5.50) X10*6/uL Hgb 11.9 L (12.0-16.0) g/dl Hct 34.2 L (37.0-47.0) % MCV 87.5 (80.0-98.0) fL MCH 30.4 (27.0-33.0) pg MCHC 34.8 (31.0-35.0) g/dl RDW 12.9 (11.0-16.0) % Plt Count 296 (160-400) X10*3/uL MPV 8.3 L (9.4-12.3) fL Immature Gran % (Auto) 1.8 H (0.0-0.4) % Neut % (Auto) 72.2 (45-73) % Lymph % (Auto) 18.5 L (20-40) % [place] % (Auto) 6.4 (2-11) % Eos % (Auto) 0.7 (0-4) % Baso % (Auto) 0.4 (0-2) % Lymph # (Auto) 2.6 (1.2-4.9) X10*3/uL [place] # (Auto) 0.9 (0.1-1.2) X10*3/uL Eos # (Auto) 0.1 (0.0-0.4) X10*3/uL Baso # (Auto) 0.1 (0.0-0.2) X10*3/uL Abs Immat Gran (auto) 0.25 H (0.00-0.03) X10*3/uL Absolute Neuts (auto) 10.0 H (2.0-8.3) x10*3/uL Absolute Nucleated RBC 0.000 (0.0-0.012) X10*3/uL Nucleated RBC % (auto) 0.0 (0.0-0.2) /100WBC Sodium 131 L (135-145) mmol/L Potassium 3.7 (3.3-5.1) mmol/L Chloride 96 (96-108) mmol/L Carbon Dioxide 19 L (22-29) mmol/L Anion Gap 20 (12-20) BUN 21 H (9-16) mg/dL Creatinine 0.97 (0.5-1.4) mg/dL Estim Creat Clear Calc 50.9 Estimated GFR 57 Random Glucose 221 H (60-115) mg/dL Calcium 9.8 (8.4-10.2) mg/dL Total Bilirubin 0.4 (0.0-1.0) mg/dL AST 28 (5-31) U/L ALT 23 (0-31) U/L Alkaline Phosphatase 82 (39-117) U/L Troponin I High Sens < 2.7 (<3.5-17.0) ng/L Total Protein 7.3 (6.5-8.0) g/dL Albumin 4.7 (3.5-5.0) g/dL Urine Color Yellow Urine Appearance Clear Urine pH 6.0 (5.0-9.0) Ur Specific [place] >= 1.030 H (1.005-1.025) Urine Protein Negative (Neg-Trace) mg/dL Urine Glucose (UA) Negative (Negative) mg/dL Urine Ketones Trace (Negative) mg/dL Urine Blood Negative (Negative) Urine Nitrite Negative (Negative) Ur Leukocyte Esterase Negative (Negative) Influenza Type A (PCR) NEGATIVE (Negative) Influenza Type B (PCR) NEGATIVE (Negative) RSV RNA Qual (PCR) NEGATIVE (Negative) SARS-CoV-2 RNA (RT-PCR) NEGATIVE (Negative) Independent Interpretation I performed an independent interpretation of an: EKG (EKG shows sinus rhythm with a rate of 81, with left axis deviation, no evidence of acute ischemia, no ST elevation, no ectopy. QTC 469. Compared to previous on 11/02/2023 there are no significant morphology changes. ) Radiology Impression Discussion of test interpretation with radiology: I have reviewed the radiologist's reading. Radiologist Impression: CT head without contrast CT angiography head and neck with contrast. 3D Postprocessing. Comparison: CT/SR - CT HEAD WITHOUT IV CONTRAST - 05/29/24 13:52 EDT Findings: CT head without contrast: No acute intracranial hemorrhage. No acute large territorial ischemia. Mild chronic microvascular ischemic change and parenchymal atrophy. No mass effect, midline shift, or hydrocephalus. Paranasal sinuses are clear. Mastoid air cells are clear. The orbits are within normal limits. No skull fracture. CT angiography head and neck: Aortic arch and cervical great vessels are patent. Intracranial arteries are patent. 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 No large vessel occlusion or hemodynamically significant stenosis. No aneurysm, dissection, or occlusion. No abnormal intracranial enhancement. The visualized thyroid gland is unremarkable. Lung apices clear. No acute fracture. Moderate multilevel cervical spondylosis. IMPRESSION: No acute intracranial abnormality. No occlusion or hemodynamically significant stenosis. This document has been electronically signed by: Garry Garcia MD on 10/31/2025 22:30:03 External Record Review External record reviewed: Outpatient record and Prior outpatient labs Prescription Management I considered prescription management with: Pain Medication and Antibiotic Discharge Plan Discharge Clinical Impression: Dizziness Patient Disposition: Home, Self-Care Instructions: Lightheadedness (ED), Dizziness (ED) Additional Instructions: Thank you for choosing [facility] Emergency Department for your care today. Thankfully your laboratory evaluation, EKG, CT head, urinalysis, viral swab, vital signs, and exam today are all reassuring. The exact cause of your dizziness symptoms is not entirely clear, however there does not appear to be any cardiac, respiratory, neurologic, infectious, or other dangerous cause for your symptoms. Seeing as your symptoms have improved while in the ED, there is no indication for admission to the hospital or continued ED observation, and it is safe to discharge you home. Please stay well hydrated and get plenty of rest. Please follow up with your primary care physician for re-evaluation, additional management of your symptoms, and continued preventative care. If you do not have a primary care physician, please call the [facility] at [phone] to establish a new primary care physician. While waiting to establish your new primary care physician, you can call our Walk-in Care [facility] at [phone] for non-emergency needs. Please return to the emergency department if you develop a severe or sudden change in your symptoms, a fever over 100.4 that does not improve with Tylenol or Ibuprofen, recurrent vomiting, or any other new or worsening symptoms or concerns. Prescriptions: No Action lisinopril 10 mg tablet 10 mg PO DAILY Qty: 90 3RF hydrochlorothiazide 25 mg tablet 25 mg PO DAILY Qty: 90 0RF atorvastatin 40 mg tablet 40 mg PO DAILY Qty: 90 1RF metformin 500 mg tablet 500 mg PO DAILY Qty: 90 3RF cetirizine-pseudoephedrine 5-120 mg tablet extended release 12 hr 1 tab PO BID 7 Days Qty: 14 0RF Referrals: Shawanda Shell PA-C [Primary Care Provider, Internal Medicine] Clinical Impression: Dizziness Print Language: Lithuanian
--- OUTSIDE RECORDS SUMMARY | 2025-10-31 20:12 | XMS_ITS | Patient Health Record ---
Author Organization [facility] Address [address] [place] [address] Care Team Providers Care Life Agent Name Role Phone Shawanda Shell Primary Care Provider UnavailSabra Caldwell Unavailable [phone] Allergies Allergen (clinical drug ingredient) Drug/Non Drug [...] Problem Acquired hammer toe of right foot (836161653982 9105) Other hammer toe(s) (acquired), right foot (M20.41) Active confirmed Problem Acquired hammer toe of left foot (420313703279 9103) Other hammer toe(s) (acquired), left foot (M20.42) Active confirmed Problem Diabetes mellitus (51707423) Type 2 diabetes mellitus without complication (E11.9) Active confirmed Vital Signs Blood pressure diastolic 65 mm Hg 09/11/2025 Height 4ft9in in 09/11/2025 Blood pressure systolic 135 mm Hg 09/11/2025 Weight 152 lbs 09/11/2025 BMI 32.89 kg/m2 09/11/2025 Encounters Encounter Location Date Provider Diagnosis [facility] [address] [address] 12/14/2024 Sabra Perica Pain in right toe(s) M79.674 ; Tinea unguium B35.1 ; Pain in left toe(s) M79.675 and Type 2 diabetes mellitus without complication E11.[address] [facility] [address] 03/15/2025 Sabra Perica Tinea unguium B35.1 ; Other hammer toe(s) (acquired), right foot M20.41 ; Pain in right toe(s) M79.674 ; Pain in left toe(s) M79.675 ; Type 2 diabetes mellitus without complication E11.9 and Other hammer toe(s) (acquired), left foot M20.[address] [facility] [address] 06/11/2025 Sabra Craft Tinea unguium B35.1 ; Pain in right toe(s) M79.674 ; Pain in left toe(s) M79.675 and Type 2 diabetes mellitus without complication E11.[address] [facility] [address] 09/11/2025 Sabra Craft Tinea unguium B35.1 ; [...] Details Provider Name:Sabra painter, 12/11/2025 11:15:00 AM, [address] [place] [address], [phone], Insurance Providers Payer Name Payer Address Payer Phone Subscriber Number Group Number Insured Name Patient Relationship to Insured Coverage Start Date Coverage End Date [employer] [address] [place] [address] [id number] Joanie Pereyra Self - patient is the insured [facility] [address] [place] [address] [id number] Joanie Pereyra Self - patient is the insured Medical (General) History Medical History History ICD Code Arthritis Broken bones CAD (Cholesterol) Diabetic-BORDERLINE Epilepsy High blood pressure Diabetic Surgical History Surgery Date(Month/Year) right hip surgery 2022 left hip surgery 06/13/24
[2025-10-31 20:13] VITALS: BP 150/77; PULSE 84; RESP 15; TEMP 36.9; O2SAT 97
[2025-10-31 20:18] LABS: Alanine Aminotransferase 23 U/L (0-31); Albumin Level 4.7 g/dL (3.5-5.0); Alkaline Phosphatase 82 U/L (39-117); Anion Gap 20 (12-20); Aspartate Amino Transferase 28 U/L (5-31); Blood Urea Nitrogen 21 mg/dL (9-16); Calcium 9.8 mg/dL (8.4-10.2); Carbon Dioxide 19 mmol/L (22-29); Chloride 96 mmol/L (96-108); Creatinine Clr Calc Pharmacy 50.9; Estimated Glomerular Filt Rate 57; Potassium 3.7 mmol/L (3.3-5.1); Sodium 131 mmol/L (135-145); Total Protein 7.3 g/dL (6.5-8.0)
[2025-10-31 20:34] LABS: Resp Syncy Virus RNA Qual PCR NEGATIVE (Negative); SARS COV2 PCR INHOUSE NEGATIVE (Negative)
[2025-10-31 20:52] LABS: Troponin-I High Sensitivity < 2.7 ng/L (<3.5-17.0)
--- NOTE | 2025-10-31 21:41 | PC.NURSE ---
pt medicated per JAN, taken to CTscan
[2025-10-31] MEDS: iohexoL 350 MG/ML 100 ML INFUS..BTL 75 ML IV (21:45)
[2025-10-31 22:03] VITALS: BP 105/49; PULSE 84; RESP 14; TEMP 36.9; O2SAT 97
--- NOTE | 2025-10-31 23:54 | PC.NURSE ---
pt fluids continue to run per MAR, pt advised to try and keep arm straight, IV pole raised to help fluid flow.
[2025-11-01 00:09] VITALS: BP 102/46; PULSE 81; RESP 19; TEMP 36.9; O2SAT 96
[2025-11-01 00:30] LABS: Appearance Urine Clear; Glucose Urine UA Negative (Negative); PH 6.0 (5.0-9.0); Specific Gravity - Urine >= 1.030 (1.005-1.025)
--- NOTE | 2025-11-01 00:43 | PC.NURSE ---
pt ambulated to bathroom with steady gate. Pt denies dizziness and fatigue.
[2025-11-01 01:15] VITALS: BP 102/46; PULSE 81; RESP 19; TEMP 36.9; O2SAT 96
== END 2025-11-01 01:23 | disposition home or self-care (01) ==
PROVIDERS: Physician Assistant; Emergency Provider Emergency Medicine
DX: R42 Dizziness and giddiness (principal); I10 Essential (primary) hypertension; E11.9 Type 2 diabetes mellitus without complications; E78.5 Hyperlipidemia, unspecified; Z79.02 Long term (current) use of antithrombotics/antiplatelets; Z79.84 Long term (current) use of oral hypoglycemic drugs; Z79.899 Other long term (current) drug therapy; Z03.818 Encounter for observation for suspected exposure to other biological agents ruled out
CPT/HCPCS: 36415; 70496; 70498; 80053; 81003; 84484; 85025; 87637; 93005; 96361; 96374; 99285; J2405; Q9967

== ENCOUNTER → 2025-10-31 19:28 | Outpatient (BNV) | payer MEDICARE, BC, SELFPAY | PROVIDERS: Emergency Provider Emergency Medicine; Visit Provider Internal Medicine Cardiovascular Disease | DX: R94.31 Abnormal electrocardiogram [ECG] [EKG] (principal); R42 Dizziness and giddiness | CPT/HCPCS: 93010 ==

== ENCOUNTER → 2025-10-31 20:16 | Outpatient (BNV) | payer MEDICARE, BC, SELFPAY | PROVIDERS: Emergency Provider Emergency Medicine; Visit Provider Student in an Organized Health Care Education/Training Program | DX: R42 Dizziness and giddiness (principal); R11.10 Vomiting, unspecified | CPT/HCPCS: 70496; 70498 ==